=== PATIENT | female | born 1980 | race Caucasian/White ===

== ENCOUNTER 2022-12-09 13:49 | Outpatient (RCR) | payer BC, SELFPAY | END 2022-12-10 13:30 | disposition home or self-care (01) | LOC: PT 13:49 | PROVIDERS: PCP Family Medicine; Visit Provider Family Medicine | DX: H81.313 Aural vertigo, bilateral (principal) | CPT/HCPCS: 97110; 97161 ==

== ENCOUNTER 2023-09-29 09:34 | Outpatient (OUT) | payer OTHER, SELFPAY ==
--- NOTE | 2023-09-29 | US_ITS ---
[address] [address] Patient Name: SHREYAS DU MRN: [id number] date: 1980 Sex: F Assigned Patient Location: [facility] Current Patient Location: [facility] Accession/Order Number: [id number] Exam Date: 09/29/2023 09:43 Report Date: 09/29/2023 17:11 At the request of: TORIE SELF Procedure: US pelvis transvaginal EXAMINATION: US pelvis transvaginal HISTORY: ADNEXAL FULLNESS COMPARISON: No relevant comparison available. TECHNIQUE: Transabdominal and/or transvaginal sonographic examination was performed as indicated by examination type. FINDINGS: UTERUS: Hysterectomy. RIGHT OVARY: Contains an irregular, heterogeneous, hypoechoic area, 1.6 x 0.8 x 1.4 cm. Duplex Doppler demonstrates normal waveform and flow; resistive index 0.5. Ovary size: 2.6 x 2.1 x 1.9 cm LEFT OVARY: Not seen. No suspicious adnexal findings. CUL-DE-SAC: Unremarkable. No significant free fluid. BLADDER: Unremarkable. OTHER: None. US/US pelvis transvaginal IMPRESSION: 1. Complex cyst/collapsing cyst suspected within right ovary. Consider follow-up ultrasound evaluation 6 weeks to document clearing. 2. No specific findings to account for patient's symptoms. Electronically authenticated by: SHARONDA TONEY Date: 09/29/2023 17:11
== END 2023-09-29 09:35 | disposition home or self-care (01) ==
LOC: NOMS 09:38
PROVIDERS: PCP Family Medicine; Visit Provider Obstetrics & Gynecology
DX: Z12.4 Encounter for screening for malignant neoplasm of cervix (principal); Z90.710 Acquired absence of both cervix and uterus
CPT/HCPCS: 76830; G0145

== ENCOUNTER 2023-09-29 19:40 | Outpatient (REF) | payer OTHER, SELFPAY | END 2023-09-29 19:41 | disposition home or self-care (01) | LOC: LAB 19:40 | PROVIDERS: PCP Family Medicine; Visit Provider Obstetrics & Gynecology | DX: Z12.4 Encounter for screening for malignant neoplasm of cervix (principal) | CPT/HCPCS: G0145 ==

== ENCOUNTER 2024-03-19 14:08 | Outpatient (OUT) | payer OTHER, SELFPAY ==
--- OUTSIDE RECORDS SUMMARY | 2024-03-19 14:27 | XMS_ITS | CCD ---
Author Organization [facility] Care Team Providers Care Triage Register Nurse Name Role Phone Tala Johnson Unavailable Unavaila Dalton Moses Unavailable UnavailMeka Healy Sangita Unavailable Unavailable Dalton Olvera Unavailable UnavailSilas Jack Primary Care Physician [phone] MD Silas Haider Primary Care Provider Torie Walker Attending Provider CLAIR ., DR VOGT Attending Unavailable CLAIR ., DR VOGT Consulting Unavailable CLAIR ., DR VOGT Admitting Unavailable Silas Haider Primary Care Physician MD Silas Haider Primary Care Provider Torie Walker Attending Provider [phone] TORIE WALKER Attending Unavailable TORIE WALKER Attending Unavailable MD Silas Haider Primary Care Provider DO Torie Walker Attending Provider MANDI Sánchez Attending Provider Silas Haider Primary Care Unavailable Torie Walker Admitting Unavailable Torie Walker Attending Unavailable Manisha Sánchez Admitting UnavailManisha Mcbride Attending UnavailSilas Jack Admitting Unavailable Silas Haider Attending Unavailable Silas Haider Attending Unavailable Silas Haider Attending Unavailable Silas Haider Referring Unavailable Silas Haider Admitting Unavailable Silas Haider Attending Unavailable Silas Haider Attending Unavailable Silas Haider Admitting Unavailable Silas Haider Attending Unavailable Silas Haider Attending Unavailable Silas Haider Attending Unavailable Silas Haider Attending Unavailable Silas Haider Attending Unavailable Silas Haider Admitting Unavailable Silas Haider Attending Unavailable Allergies Allergy Classification Reported Allergen(s) Allergy Type Date of Onset Reaction(s) Facility (12 sources) Morphine; Translations: [morphine] Drug Allergy 7 Itching (finding) [facility] (5 sources) aprepitant; Translations: [aprepitant] Drug Allergy 7 Unknown Reaction [facility] (1 source) Morphine Drug Allergy 4 [facility] Repository Medications Current Medications Medication Drug Class(es) Dates Sig (Normalized) Sig (Original) 0.5 ML semaglutide 2 MG/ML Auto-Injector (1 source) Start: 09-09-2021 End: 11-04-2021 Wegovy (1 mg dose) subcutaneous solution 1 mg, SubCutaneous, qWeek, INJECT 1 PEN UNDER THE SKIN EVERY WEEK, X 4 week(s), # 4 EA, Refills(s) 1, Pharmacy: [facility] #[id number], 171, cm, 09/09/21 13:28:00 EDT, Height/Length Dosing, 75.9, kg, 09/09/21 13:28:00 EDT, Weight Dosing Start Date: 09/09/21 Stop Date: 11/04/21 Status: Ordered 0.75 ML semaglutide 3.2 MG/ML Auto-Injector [Wegovy] (2 sources) Start: 03-31-2022 inject 2.4 mg by subcutaneous injection every week Wegovy (2.4 mg dose) subcutaneous solution 2.4 mg, SubCutaneous, qWeek, # 12 EA, Refills(s) 1, Pharmacy: [facility] #[id number], 171, cm, 03/31/22 16:52:00 EST, Height/Length Dosing, 75.7, kg, 03/31/22 16:52:00 EST, Weight Dosing Start Date: 03/31/22 Status: Ordered Start: 12-31-2021 inject 2.4 mg by sub cutaneous injection every week Wegovy (2.4 mg dose) subcutaneous solution 2.4 mg, SubCutaneous, qWeek, # 12 EA, Refills(s) 1, Pharmacy: [facility] #[id number], 171, cm, 12/31/21 16:30:00 EDT, Height/Length Dosing, 76.7, kg, 12/31/21 16:30:00 EDT, Weight Dosing Start Date: 12/31/21 Status: Ordered 12 hr buPROPion hydrochloride 100 mg extended release oral tablet (5 sources) Aminoketone Start: 09-09-2021 take 1 tablet by mouth once daily buPROPion 100 mg ER Tab 100 mg = 1 tab(s), Oral, Daily, Refills(s) 0 Start Date: 09/09/21 Status: Ordered Start: 01-18-2017 End: 12-02-2023 take 1 tablet by mouth once daily Bupropion Hcl (Wellbutrin Sr) 200 mg Tablet Extended Release 12 Hr Discontinued 200 MG PO daily January 18, 2017 12:00am December 02, 2023 2:37pm calcium carbonate 1500 mg / cholecalciferol 800 unt chewable tablet (4 sources) Vitamin D Start: 01-18-2017 Calcium Carbonate-Vitamin D3 (Caltrate 600 + D) 600 mg (1,500 mg)-800 unit Tablet,Chewable Active 1 TAB PO Twice daily January 18, 2017 12:00am clindamycin 300 mg oral capsule (2 sources) Lincosamide Antibacterial Start: 11-15-2023 take 1 capsule by mouth twice daily clindamycin 300 mg oral cap 300 mg = 1 cap(s), Oral, BID, # 20 cap(s), Refills(s) 0, Pharmacy: [facility]/pharmacy #[id number], 171, cm, 11/15/23 11:43:00 EDT, Height/Length Dosing, 77.3, kg, 11/15/23 11:43:00 EDT, Weight Dosing Start Date: 11/15/23 Status: Ordered clonazePAM 0.5 mg oral tablet (14 sources) Benzodiazepine Start: 09-09-2021 take 1 tablet by mouth in the morning, then take 2 tablets by mouth at bedtime ClonazePAM 0.5 mg Tab See Instructions, Take one orally in the am and 2 at bedtime, Refills(s) 0 Start Date: 09/09/21 Status: Ordered Start: 09-09-2021 take 0.05 mg by mout h once daily at bedtime ClonazePAM 0.5 mg Tab 0.05 mg/kg, Oral, Once a day (at bedtime), Refills(s) 0 Start Date: 09/09/21 Status: Ordered Start: 03-28-2018 take 0.5 mg by mouth twice daily Clonazepam (Klonopin) 1 mg Tablet Active 0.5 MG PO Twice daily March 28, 2018 1:00am Start: 01-18-2017 End: 11-08-2018 take 1 tablet by mouth three times daily Clonazepam Discontinued 0.5 - 1 TAB PO Three times daily January 18, 2017 12:00am November 08, 2018 8:08am fluconazole 150 mg oral tablet (1 source) Azole Antifungal Start: 12-02-2023 Fluconazole A ctive 150 MG PO Q3D 2 December 02, 2023 12:00am Take 1, repeat after 72 hours if symptoms continue lamoTRIgine (11 sources) Mood Stabilizer, Anti-epileptic Agent Start: 12-02-2023 Lamotrigine Active MG PO December 02, 2023 12:00am Start: 12-31-2021 take 1 tablet by fran th once daily LaMICtal XR 250 mg oral tablet, extended release 250 mg = 1 tab(s), Oral, Daily, Refills(s) 0 Start Date: 12/31/21 Status: Ordered Start: 06-13-2019 End: 12-02-2023 take 100 mg by mouth once daily Lamotrigine Discontinu ed 100 MG PO Daily June 13, 2019 1:00am December 02, 2023 2:37pm lurasidone hydrochloride 60 mg oral tablet (11 sources) Atypical Antipsychotic Start: 09-09-2021 take 1 tablet by mouth once daily Latuda 60 mg oral tablet 60 mg = 1 tab(s), Oral, Daily, Refills(s) 0 Start Date: 09/09/21 Status: Ordered Start: 01-27-2017 End: 12-02-2023 take 1 tablet by mouth once daily Lurasidone (Latuda) 40 mg Tablet Discontinued 40 MG PO Daily March 28, 2018 1:00am October 03, 2018 8:29am omeprazole 40 mg delayed release oral capsule (2 sources) Proton Pump Inhibitor Start: 03-31-2022 take 1 capsule by mouth once daily omeprazole 40 mg Cap-DR 40 mg = 1 cap(s), Oral, Daily, # 90 cap(s), Refills(s) 1, [id number], cm, 03/31/22 16:52:00 EST, Height/Length Dosing, 75.7, kg, 03/31/22 16:52:00 EST, Weight Dosing Start Date: 03/31/22 Status: Ordered Start: 12-31-2021 [facility] omeprazole 40 mg Cap-DR 40 mg = 1 cap(s), Oral, Daily, # 90 cap(s), Refills(s) 1, Pharmacy: [facility]/pharmacy #[id number], 171, alex, 12/31/21 16:30:00 EDT, Height/Length Dosing, 76.7, kg, 12/31/21 16:30:00 EDT, Weight Dosing Start Date: 12/31/21 Status: Ordered omeprazole 40 mg Cap-DR (1 source) Start: 09-09-2021 End: 12-08-2021 take 1 capsule by mouth once daily omeprazole 40 mg Cap-DR 40 mg = 1 cap(s), Oral, Daily, X 90 day(s), # 90 cap(s), Refills(s) 0, Pharmacy: [facility]/pharmacy #[id number], 171, , 09/09/21 13:28:00 EDT, Height/Length Dosing, 75.9, kg, 09/09/21 13:28:00 EDT, Weight Dosing Start Date: 09/09/21 Stop Date: 12/08/21 Status: Ordered terconazole 4 mg/ml vaginal cream (1 source) Azole Antifungal Start: 12-02-2023 Terconazole A ctive VAGINAL December 02, 2023 12:00am Completed/Discontinued Medications Medication Drug Class(es) Dates Sig (Normalized) Sig (Original) acetaminophen 325 mg / HYDROcodone bitartrate 5 mg oral tablet (8 sources) Opioid Agonist Start: 10-03-2018 End: 11-08-2018 take 1 tablet by mouth every four to six hours Hydrocodone-Acetami nophen ([place]) 5-325 mg tablet Discontinued 1 TAB PO EVERY 4-6 HOURS 40 7 October 03, 2018 November 08, 2018 8:07am Start: 01-18-2017 End: 01-27-2017 take 2 tablets by mouth every four to six hours Hydrocodone-Acetaminophen ([place]) 5-325 mg Tablet Discontinued 2 TAB PO EVERY 4-6 HOURS January 18, 2017 12:00am January 27, 2017 8:37am amLODIPine 10 mg oral tablet (20 sources) Dihydropyridine Calcium Channel Ted Start: 01-18-2017 End: 12-08-2021 take 10 mg by mouth once daily Amlodipine Discontinued 10 MG PO Daily 90 November 08, 2018 11:40am January 03, 2020 3:26pm anastrozole 1 mg oral tablet (16 sources) Aromatase Inhibitor Start: 01-18-2017 End: 12-02-2023 take 1 tablet by mouth once daily Anastrozole (Arimidex) 1 mg Tablet Discontinued 1 MG PO daily June 11, 2019 9:50am December 02, 2023 2:37pm Black Cohosh (4 sources) Start: 01-18-2017 End: 01-27-2017 take 1 tablet by mouth once daily Black Cohosh Discontinued 1 TAB PO Daily January 18, 2017 12:00am January 27, 2017 8:21am busPIRone hydrochloride 30 mg oral tablet (8 sources) Start: 03-28-2018 End: 10-03-2018 take 30 mg by mouth twice daily Buspirone Discontinued 30 MG PO Twice daily March 28, 2018 1:00am October 03, 2018 8:27am Start: 01-18-2017 End: 07-20-2017 take 15 mg by mouth twice daily Buspirone Discontinued 15 MG PO Twice daily January 18, 2017 12:00am July 20, 2017 9:16am cholecalciferol 0.025 mg oral tablet (4 sources) Vitamin D Start: 01-18-2017 End: 07-20-2017 take 2 tablets by mouth once daily Cholecalciferol (Vitamin D3) Discontinued 2 TAB PO Daily January 18, 2017 12:00am July 20, 2017 9:17am cyclobenzaprine hydrochloride 10 mg oral tablet (4 sources) Muscle Relaxant Start: 03-08-2017 End: 03-28-2018 take 10 mg by mouth every eight hours Cyclobenzaprine Discontinued 10 MG PO Q8H March 08, 2017 11:29am March 28, 2018 9:17am docusate sodium 100 mg oral capsule (4 sources) Start: 01-18-2017 End: 03-28-2018 Docusate Sodium (Colace) 100 mg Capsule Discontinued 50 MG PO daily January 18, 2017 12:00am March 28, 2018 9:17am estradiol 0.1 mg/ml vaginal cream (8 sources) Estrogen Start: 01-18-2017 End: 10-03-2018 Estradiol (Estrace) 0.01 % (0.1 mg/gram) Cream Discontinued 1 GM VAGINAL As Directed January 18, 2017 12:00am October 03, 2018 8:28am Start: 01-18-2017 End: 07-20-2017 Estradiol (Vagifem) 10 mcg T ablet Discontinued 10 MCG VAGINAL Twice a Week January 18, 2017 12:00am July 20, 2017 9:18am FLUoxetine 40 mg oral capsule (8 sources) Serotonin Reuptake Inhibitor Start: 03-28-2018 End: 12-02-2023 take 1 capsule by mouth once daily Fluoxetine (Prozac) 40 mg Capsule Discontinued 40 MG PO Daily March 28, 2018 1:00am December 02, 2023 2:37pm Start: 01-18-2017 End: 03-28-2018 take 80 mg by mouth once daily Fluoxetine Discontinued 80 MG PO daily January 18, 2017 12:00am March 28, 2018 9:19am ibuprofen 800 mg oral tablet (4 sources) Nonsteroidal Anti-inflammatory Drug Start: 03-08-2017 End: 12-02-2023 take 800 mg by mouth three times daily Ibuprofen Discontinued 800 MG PO Three times daily March 08, 2017 11:26am December 02, 2023 2:37pm 1.5 ml leuprolide acetate 15 mg/ml prefilled syringe (4 sources) Gonadotropin Releasing Hormone Receptor Agonist Start: 01-18-2017 End: 06-13-2019 Leuprolide (3 Month) (Lupron Depot (3 Month)) 22.5 mg Syringe Kit Discontinued 22.5 MG IM Q6M January 18, 2017 12:00am June 13, 2019 9:19am lisinopril 5 mg oral tablet (8 sources) Angiotensin Converting Enzyme Inhibitor Start: 10-03-2018 End: 11-08-2018 take 5 mg by mouth once daily Lisinopril Discontinued 5 MG PO Daily October 03, 2018 12:00am November 08, 2018 8:08am Start: 01-18-2017 End: 01-27-2017 take 5 mg by mouth once daily Lisinopril Discontinued 5 MG PO daily January 18, 2017 12:00am January 27, 2017 8:20am phentermine hydrochloride 37.5 mg oral capsule (4 sources) Sympathomimetic Amine Anorectic Start: 11-08-2018 End: 06-13-2019 take 37.5 mg by mouth once daily 30 minutes after breakfast Phentermine Discontinued 37.5 MG PO Daily 90 90 November 08, 2018 12:00am June 13, 2019 9:11am must administer 30 minutes before or 1-2 hours after breakfast traZODone hydrochloride 50 mg oral tablet (4 sources) Serotonin Reuptake Inhibitor Start: 01-18-2017 End: 01-27-2017 take 50 mg by mouth at bedtime Trazodone Discontinued 50 MG PO Bedtime January 18, 2017 12:00am January 27, 2017 8:19am Problems Problem Classification Problem Date Documented Date Episodic/Chronic Anxiety disorders (7 sources) Anxiety disorder; Translations: [Anxiety disorder, unspecified] Onset: 09-09-2021 Chronic Cancer of breast (8 sources) Malignant tumor of breast ; Translations: [Malignant neoplasm of unspecified site of right female breast] 03-28-2018 Chronic Conditions associated with dizziness or vertigo (3 sources) Benign paroxysmal positional vertigo 12-08-2022 Episodic Esophageal disorders (7 sources) Gastroesophageal reflux disease without esophagitis; Translations: [Gastro-esophageal reflux disease without esophagitis] Onset: 09-09-2021 Chronic Essential hypertension (11 sources) Essential hypertension; Translations: [Essential (primary) hypertension] Onset: 09-09-2021 Chronic Immunizations and screening for infectious disease (1 source) Encounter for screening for human papillomavirus (HPV); Translations: [ENC SCREENING HUMAN PAPILLOMAVIRUS] Onset: 09-30-2022 Episodic Inflammatory diseases of female pelvic organs (1 source) Acute vaginitis; Translations: [Vaginitis and vulvovaginitis, unspecified] 12-02-2023 Episodic Lymphadenitis (3 sources) Cervical lymphadenopathy 09-20-2023 Episodic Mood disorders (5 sources) Depressive disorder; Translations: [Depression, unspecified] Onset: 09-09-2021 Chronic Neoplasms of unspecified nature or uncertain behavior (4 sources) Neoplasm of uncertain behavior of skin of cheek; Translations: [Neoplasm of uncertain behavior of skin] 03-28-2018 Episodic Other aftercare (3 sources) Drug therapy finding; Translations: [Encounter for therapeutic drug level monitoring] 06-13-2019 Episodic Other aftercare (1 source) Long-term current use of drug therapy; Translations: [Encounter for therapeutic drug level monitoring] 06-13-2019 Episodic Other female genital disorders (1 source) Other specified noninflammatory disorders of vagina; Translations: [Other specified noninflammatory disorders of vagina] Onset: 12-02-2023 Episodic Other liver diseases (4 sources) Lesion of liver; Translations: [Liver disease, unspecified] 06-13-2019 Chronic Other nutritional; endocrine; and metabolic disorders (6 sources) Calorie overload 09-09-2021 Chronic Other nutritional; endocrine; and metabolic disorders (1 source) Excessive eating - polyphagia; Translations: [Polyphagia] Onset: 09-09-2021 Episodic Other nutritional; endocrine; and metabolic disorders (1 source) Overweight in adulthood with body mass index of 25 or more but less than 30; Translations: [Body mass index (BMI) 26.0-26.9, adult] Onset: 12-31-2021 Episodic Other screening for suspected conditions (not mental disorders or infectious disease) (13 sources) Patient encounter status; Translations: [Encounter for screening for osteoporosis] Onset: 09-27-2022 01-05-2020 Episodic Otitis media and related conditions (3 sources) Serous otitis media 09-20-2023 Episodic Residual codes; unclassified (4 sources) History of hysterectomy for benign disease; Translations: [Acquired absence of both cervix and uterus] 01-27-2017 Episodic Screening and history of mental health and substance abuse codes (1 source) H/O: Disorder; Translations: [Personal history of nicotine dependence] Onset: 12-31-2021 Episodic Sprains and strains (4 sources) Strain of neck muscle; Translations: [Strain of muscle, fascia and tendon at neck level, initial encounter] 06-13-2019 Episodic Unclassified (3 sources) Patient encounter status 09-22-2022 Results Test Name Value Interpretation Reference Range Facility Ambulatory Visit Summaryon 1 Ambulatory Visit Summary Ambulatory Visit Summary CELESET DU :1980 Visit Date:03/05/2024 Ambulatory Visit Instructions Your Diagnosis Excessive dietary caloric intake Anxiety and depression Insomnia Osteoarthritis BMI 27.0-27.9,adult Over weight Former smoker Depression, unspecified Your Care Team Attending Physician - Silas Haider MD Primary Care Physician - Silas Haider MD This Is Your Medications List amlodipine (amLODIPine 10 mg Tab) clonazepam (ClonazePAM 0.5 mg Tab) lamotrigine (LaMICtal XR 250 mg oral tablet, extended release) phentermine (Adipex-P 37.5 mg oral capsule) Procedures Performed Hysterectomy (2013), Tubal ligation (2011), Delivery (11/23/2007), Delivery (07/21/1999), Mastectomy of right breast. Discharge Vitals Temperature (Temporal Artery) 36.8 ?C Heart Rate (Peripheral) 104 Respiratory Rate 16 Blood Pressure 122/78 Height 171 cm Height 67 in Weight 79.6 kg Weight 175.12 lb BMI 27.22 What to do next Scheduled Follow-Up Appointments Tuesday 7:00 AM EST With: Silas Haider MD Where: [facility] [place] [id number]- Medications What How Much When Instructions Unchanged amlodipine (amLODIPine 10 mg Tab) See instructions TAKE 1 TABLET BY MOUTH EVERY DAY Unchanged clonazepam (ClonazePAM 0.5 mg Tab) See instructions Take one orally in the am and 2 at bedtime Unchanged lamotrigine (LaMICtal XR 250 mg oral tablet, extended release) See instructions 50mg orally in the am and 250mg at night Unchanged phentermine (Adipex-P 37.5 mg oral capsule) 1 Capsules By Mouth Every day Allergies morphine (Itching) Problems Ongoing - Any problem that you are currently receiving treatment for. Annual physical exam Anxiety and depression BPPV (benign paroxysmal positional vertigo) Excessive dietary caloric intake GERD without esophagitis LAD (lymphadenopathy), cervical Primary hypertension Serous otitis media Sore throat Patient Survey You may receive a survey via text or e-mail asking about your office visit. Please share your experience with us by completing your survey. We appreciate your feedback and thank you for choosing us for your care. Normal [facility] Family Medicine Office/Clini c Noteon 03-05-2024 Family Medicine Office/Clinic Note Family Medicine Office/Clinic Note Chief Complaint The patient reports difficulty with arthritis pain and inadequately managed anxiety and depression. HPI Staff Celeste is a 43 year old female presenting for follow up weight Weight management Sleeping well:Yes, 6-8 hours Chest pain:No Tremors:No Headaches:Yes caffeine related Heart fluttering:No Blurred Vision:No Starting Weight: unsure when started Weight last visit: 186.78 Weight this visit: 175. SAW: 6 questions/concerns: wants to talk about sleep because you mentioned melatonin can cause depression so what can she take Would like to talk about her arthritis that she's never talked to you before and would like pain management needs a referral History of Present Illness The patient is a 43-year-old female presenting with ongoing issues of anxiety, depression, and osteoarthritis pain. The anxiety and depression have been long-standing and are currently managed with two clonazepam at night, which has been helpful but the patient expresses concern about the level of efficacy. The introduction of trazodone as a potential therapy for insomnia was discussed, though the efficacy remains untested as of yet. The patient inquired about the potential interactions of trazodone and clonazepam. The osteoarthritis symptoms appear to have originated from an improperly healed collarbone fracture sustained during adolescence. The patient reports increasing pain in the clavicle area, particularly exacerbating with movement. Pain is severe enough that the patient has resorted to frequent use of ibuprofen without satisfactory relief, thereby raising concerns about current analgesic strategies. An exploratory discussion around pain management, including potential referrals for specialized care and suggestions for glucosamine supplements and omega-3 fatty acids to manage inflammation, was conducted. Review of Systems PHQ Score Initial Depression Screen Score: 0 SCORE - Musculoskeletal: Reports collarbone pain and discomfort with movement. - Neurological: Reports issues with initiating and maintaining sleep. - Psychiatric: Reports symptoms consistent with anxiety and depression. Physical Exam Vitals & Measurements T: 36.8 ?C(Temporal Artery) HR: 104(Peripheral) RR: 16 BP: 122/78 SpO2: 99% HT: 67 in HT: 171 cm WT: 79.6 kg WT: 175.12 lb BMI: 27.22 General: alert, no acute distress ENMT: oral mucosa moist Cardiovascular: Regular rate and rhythm, normal peripheral perfusion Respiratory: Lungs clear to auscultation, respirations non labored Extremities: no deformity, no trauma Neurological: oriented x 4, level of consciousness appropriate for age, CN II-XII intact, motor strength equal & normal bilaterally, speech normal Abdomen: Soft, Non-tender, Non-distended, + Bowel sounds Assessment/Plan 1. Excessive dietary caloric intake (R63.2: Polyphagia) Continue on adipex as before. Tachycardia is felt to be work related rather than meds. Ordered: trazodone, 25 mg = 0.5 tab(s), Oral, Once a day (at bedtime), # 15 tab(s), Refills(s) 0, Pharmacy: [facility], 171, cm, 03/05/24 15:51:00 EDT, Height/Length Dosing, 79.6, kg, 03/05/24 15:51:00 EDT, Weight Dosing [facility] External Ambulatory Referral 2. Anxiety and depression (F41.9: Anxiety disorder, unspecified) The patient's anxiety and depression are currently managed with clonazepam, which she has found beneficial for several years. To address the insomnia associated with this condition, we discussed initiating trazodone, given its dual use as an antidepressant with sedative properties. Trazodone will be started at a low dose for better sleep management, with attention to any interactions with current medications and potential for adverse effects on depressive symptoms. Ordered: trazodone, 25 mg = 0.5 tab(s), Oral, Once a day (at bedtime), # 15 tab(s), Refills(s) 0, Pharmacy: [facility], 171, cm, 03/05/24 15:51:00 EDT, Height/Length Dosing, 79.6, kg, 03/05/24 15:51:00 EDT, Weight Dosing [facility] External Ambulatory Referral 3. Insomnia (G47.00: Insomnia, unspecified) Insomnia has been persistent, with clonazepam partially addressing the symptoms. Trazodone was suggested as an adjunct therapy to improve sleep continuity. The prescribed approach involves monitoring response to trazodone, particularly its efficacy in improving sleep patterns without adversely affecting daytime functionality. Ordered: trazodone, 25 mg = 0.5 tab(s), Oral, Once a day (at bedtime), # 15 tab(s), Refills(s) 0, Pharmacy: [facility], 171, cm, 03/05/24 15:51:00 EDT, Height/Length Dosing, 79.6, kg, 03/05/24 15:51:00 EDT, Weight Dosing [facility] External Ambulatory Referral 4. Osteoarthritis (M19.90: Unspecified osteoarthritis, unspecified site) The patient reports exacerbated osteoarthritis symptoms focused around the clavicle. Present management strategies, including the use of [id number] analgesics, have not (more content not included)... Normal [facility] Comment on above: Result Comment: Elec tronically Signed By: Vitaly SERRANO, Silas Vinson.br\Date and Time Signed: 03/05/24 16:14 EDT Family Medicine Office/Clini c Noteon 02-06-2024 Family Medicine Office/Clinic Note Family Medicine Office/Clinic Note HPI Staff Celeste is a 43 year old female presenting for sick visit Acute: sore throat scratchy and feels swollen when she swallows patient present for sore throat, onest: not sure had been on vacation so maybe last tue or sinus congestion- no swollen nodes- one on right side not huge but when swallows food it scratches red/ white spots- no fever/chills- none body aches- none nausea/ vomiting-none cough- no ear pain no allergies- sneezing only no more than normal medication taken- tried arminda while on vacation History of Present Illness See staff HPI. Review of Systems PHQ Score Initial Depression Screen Score: 0 SCORE Physical Exam Vitals & Measurements T: 36.8 ?C(Oral) HR: 92(Peripheral) RR: 16 BP: 126/80 SpO2: 99% HT: 67 in HT: 171 cm WT: 84.9 kg WT: 186.78 lb BMI: 29.03 General: alert, no acute distress ENMT: oral mucosa moist, very small lymph node on the right cervical chain, slight erythema to the soft palate. Cardiovascular: regular rate and rhythm, normal peripheral perfusion Respiratory: Lungs CTA, respirations non labored Extremities: no deformity, no trauma Neurological: oriented x 4, LOC appropriate for age, CN II-XII intact, motor strength equal & normal bilaterally, speech normal Abdomen: Soft, Nontender, Non-distended, + BS Assessment/Plan 1. Sore throat (J02.9: Acute pharyngitis, unspecified) Most likely postnasal drip. Advised Benadryl at night. If no improvement we will call in antibiotics. 2. Anxiety and depression (F41.9: Anxiety disorder, unspecified) Well-controlled. Will monitor on Adipex. 3. BMI 29.0-29.9,adult (Z68.29: Body mass index [BMI] 29.0-29.9, adult) BMI education added 4. Overweight (E66.3: Overweight) Diet and exercise advised 5. Former smoker (Z87.891: Personal history of nicotine dependence) Please continue not to smoke Ordered: clindamycin, 300 mg = 1 cap(s), Oral, BID, # 20 cap(s), Refills(s) 0, Pharmacy: [id number], 171, cm, 11/15/23 11:43:00 EDT, Height/Length Dosing, 77.3, kg, 11/15/23 11:43:00 EDT, Weight Dosing 6. Excessive dietary caloric intake (R63.2: Polyphagia) Will do Adipex at this time. Will do it at a lower BMI as her anxiety and depression have some concerns and her weight. Orders: phentermine, 37.5 mg = 1 cap(s), Oral, Daily, # 30 cap(s), Refills(s) 0, Pharmacy: [id number], 171, cm, 02/06/24 16:09:00 EDT, Height/Length Dosing, 84.9, kg, 02/06/24 16:09:00 EDT, Weight Dosing Follow-up No qualifying data available Patient Education BMI for Adults Problem List/Past Medical History Ongoing Annual physical exam Anxiety and depression BPPV (benign paroxysmal positional vertigo) Excessive dietary caloric intake GERD without esophagitis LAD (lymphadenopathy), cervical Primary hypertension Serous otitis media Sore throat Historical No qualifying data Procedure/Surgical History Hysterectomy (2013), Tubal ligation (2011), Delivery (11/23/2007), Delivery (07/21/1999), Mastectomy of right breast. Medications Adipex-P 37.5 mg oral capsule, 37.5 mg= 1 cap(s), Oral, Daily amLODIPine 10 mg Tab, See Instructions, 1 refills ClonazePAM 0.5 mg Tab, See Instructions LaMICtal XR 250 mg oral tablet, extended release, 250 mg= 1 tab(s), Oral, Daily Allergies morphine (Itching) Social History Alcohol Current, 1-2 times per month, 12/31/2021 Previous treatment: None., 09/09/2021 Substance Abuse Past, Marijuana, Stopped age 40 Years., 09/09/2021 Tobacco Former smoker, quit more than 30 days ago Tobacco Use:. Never Smokeless Tobacco Use:. Cigarettes, Started age 14.0 Years. Stopped age 30 Years. Household tobacco concerns: Yes., 02/06/2024 Household tobacco concerns: No., 03/31/2022 Family History Acute myocardial infarction: Father. Diabetes mellitus type 2: Father. Hypertension: Mother and Father. Malignant lymphoma: Father. Immunizations Vaccine Date Status Comments influenza virus vaccine, inactivated - Not Given Postpone due to refusal influenza virus vaccine, inactivated 02/2022 Recorded SARS-CoV-2 (COVID-19) mRNA BNT-162b2 vax 09/02/2020 Recorded SARS-CoV-2 (COVID-19) mRNA BNT-162b2 vax 08/12/2020 Recorded influenza virus vaccine, inactivated 04/04/2020 Recorded influenza virus vaccine, inactivated 03/14/2018 Recorded influenza virus vaccine, inactivated 03/13/2017 Recorded influenza virus vaccine, inactivated 03/11/2015 Recorded Normal [facility] Comment on above: Result Comment: Elec tronically Signed By: Vitaly SERRANO, Silas Vinson.br\Date and Time Signed: 02/06/24 18:09 EDT Urine Cultureon 12-02-2023 Bacteria identified Cx Nom (U) <9,000 colonies/ml mixed bacterial skin contaminants 2 Days PERFORMED BY: [place] [address] PATHOLOGIST COATER SLATE YENI BAH M.D. Normal [facility] Comment on above: Performed By: #### C UU #### [place] [address] [place] #### VAGINITIS+ #### [facility] , Vaginitis Plus (VG+)on 12-01 Atopobium Vaginae Moderate - 1 Normal . The [facility] Comment on above: Result Comment: This test was developed and its performance characteristics determined by [facility]. It has not been cleared or approved by the Food and Drug Administration. Performed By: #### C UU #### [place] [address] [place] #### VAGINITIS+ #### [facility] , BVAB2 Low - 0 Normal . [facility] Comment on above: Result Comment: This test was developed and its performance characteristics determined by [facility]. It has not been cleared or approved by the Food and Drug Administration. Performed By: #### C UU #### [place] [address] [place] #### VAGINITIS+ #### [facility] , Dolores Albicans, FAISAL Negative Normal Negative [facility] Comment on above: Result Comment: This test was developed and its performance characteristics determined by [facility]. It has not been cleared or approved by the Food and Drug Administration. Performed By: #### C UU #### [place] [address] [place] #### VAGINITIS+ #### [facility] , Dolores Glabrata, FAISAL Negative Normal Negative [facility] Comment on above: Result Comment: This test was developed and its performance characteristics determined by [facility]. It has not been cleared or approved by the Food and Drug Administration. PERFORMED BY: [place] [address] PATHOLOGIST COATER SLATE YENI BAH M.D. Performed By: #### C UU #### [place] [address] [place] #### VAGINITIS+ #### [facility] , Chlamydia Trachomotis, FAISAL Negative Normal Negative [facility] Comment on above: Performed By: #### C UU #### [place] [address] [place] #### VAGINITIS+ #### [facility] , Megasphaera Low - 0 Normal . [facility] Comment on above: Result Comment: This test was developed and its performance characteristics determined by [facility]. It has not been cleared or approved by the Food and Drug Administration. Calculate total score by adding the 3 individual bacterial vaginosis (BV) marker scores together. Total score is interpreted as follows: Total score 0-1: Indicates the absence of BV. Total score 2: Indeterminate for BV. Additional clinical data should be evaluated to establish a diagnosis. Total score 3-6: Indicates the presence of BV. Performed By: #### C UU #### [address] #### VAGINITIS+ #### [facility] , Neisseria Gonorrhoeae, FAISAL Negative Normal Negative [facility] Comment on above: Result Comment: Perf ormed at: =G - [facility] [address] [id number] [address] Magistrate: Dee Mendez MD, Phone: [phone] Performed By: #### C UU #### [address] #### VAGINITIS+ #### [facility] , Tric Vag FAISAL Negative Normal Negative [facility] Comment on above: Performed By: #### C UU #### [address] #### VAGINITIS+ #### [facility] , US Head/Neck Soft Tissueon 0 11-19-2023 US Head/Neck Soft Tissue Exam Date/Time: 11/18/2023 15:28 EDT Reason for Exam: R59.1;Mass Report IMPRESSION: BILATERAL NORMAL-SIZED LYMPH NODES. CLINICAL HISTORY: Mass, R59.1 bilateral lumps in neck and under jaw. Intermittently palpable since August,. Again antibiotics 4 days ago. History carcinoma the breast. COMPARISON: NONE. FINDINGS: Sonographic interrogation was performed over the region of clinical concern. In the right submandibular area normal-sized lymph nodes are identified measuring up to 2.2 x 0.6 cm. In the left submandibular area normal-sized lymph nodes are visualized measuring up to 1.9 x 0.6 cm. Bilateral color-flow without anomaly. No cystic and no solid masses visualized. Ordering Provider: Silas Haider FINAL REPORT Dictated: 11/19/2023 10:03 am Nikolay Mann MD Signed (Electronic Signature): 11/19/2023 10:03 am Signed by: Nikolay Mann MD Transcribed by: DIANNA Technologist: ISAI Normal [facility] CBC w/ Auto Diffon Basophils (Bld) [#/Vol] 0.0 E9/L Normal 0.0-0.2 [facility] Comment on above: Performed By: #### 2 [id number] #### [facility] [address] [place] [address] Eosinophils (Bld) [#/Vol] 0.5 E9/L Normal 0.0-0.5 [facility] Comment on above: Performed By: #### 2 [id number] #### [facility] [address] [place] [address] Eosinophils/100 WBC (Bld) 5.0 % Normal 0.0-8.0 [facility] Comment on above: Performed By: #### 2 [id number] #### [facility] [address] [place] [address] Erythrocyte distribution width (RBC) [Ratio] 12.6 % Normal 10.9-14.2 [facility] Comment on above: Performed By: #### 2 [id number] #### [facility] [address] [place] [address] Hematocrit (Bld) [Volume fraction] 42.8 % Normal 34.0-46.0 [facility] Comment on above: Performed By: #### 2 [id number] #### [facility] [address] [place] [address] Hemoglobin (Bld) [Mass/Vol] 15.0 g/dL Normal 12.0-16.0 [facility] Comment on above: Performed By: #### 2 [id number] #### [facility] [address] [place] [address] Lymphocytes (Bld) [#/Vol] 2.6 E9/L Normal 1.0-4.0 [facility] Comment on above: Performed By: #### 2 [id number] #### [facility] [address] [place] [address] Lymphocytes/100 WBC (Bld) 27.0 % Normal 14.0-50.0 [facility] Comment on above: Performed By: #### 2 [id number] #### [facility] [address] [place] [address] MCH (RBC) [Entitic mass] 33.5 pg Normal 27.0-34.0 [facility] Comment on above: Performed By: #### 2 [id number] #### [facility] [address] [place] [address] MCHC (RBC) [Mass/Vol] 35.1 g/dL Normal 31.4-36.0 [facility] Comment on above: Performed By: #### 2 [id number] #### [facility] [address] [place] [address] MCV (RBC) [Entitic vol] 95.4 fL Normal 80.0-100.0 [facility] Comment on above: Performed By: #### 2 [id number] #### [facility] [address] [place] [address] Metamyelocytes/Leukocy kandace Manual cnt (Bld) [Pure # fraction] 1 % High 0-0 [facility] Comment on above: Performed By: #### 2 [id number] #### [facility] [address] [place] [address] Monocytes (Bld) [#/Vol] 0.6 E9/L Normal 0.2-1.0 [facility] Comment on above: Performed By: #### 2 [id number] #### [facility] [address] [place] [address] Neutrophils (Bld) [#/Vol] 5.8 E9/L Invalid Interpretation Code [facility] Comment on above: Performed By: #### 2 [id number] #### [facility] [address] [place] [address] Platelet 333.0 E9/L Normal 150.0-500.0 [facility] Comment on above: Performed By: #### 2 [id number] #### [facility] [address] [place] [address] Platelet mean volume (Bld) [Entitic vol] 8.0 fL Normal 6.4-10.8 [facility] Comment on above: Performed By: #### 2 [id number] #### [facility] [address] [place] [address] RBC (Bld) [#/Vol] 4.5 E12/L Normal 4.3-5.9 [facility] Comment on above: Performed By: #### 2 [id number] #### [facility] [address] [place] [address] RBC size Nom (Bld) NORMAL Invalid Interpretation Code [facility] Comment on above: Performed By: #### 2 [id number] #### [facility] [address] [place] [address] Segmented neutrophils/100 WBC (Bld) 61.0 % Normal 36.0-75.0 [facility] Comment on above: Performed By: #### 2 [id number] #### [facility] [address] [place] [address] WBC corrected for nucl RBC Auto (Bld) [#/Vol] 9.6 E9/L Normal 4.0-11.0 [facility] Comment on above: Performed By: #### 2 [id number] #### [facility] [address] [place] [address] Family Medicine Office/Clini c Noteon 11-15-2023 Family Medicine Office/Clinic Note HPI Staff Celeste is a 43 year old female presenting for acute visit Acute swollen lymph nodes Intermittent left and right side. Today the right side is swelled and would like to discuss having and ultra sound History of Present Illness - Please see staff HPI. Review of Systems PHQ Score Initial Depression Screen Score: 0 SCORE Physical Exam Vitals & Measurements HR: 88(Peripheral) RR: 18 BP: 134/88 HT: 67 in HT: 171.0 cm WT: 77.3 kg WT: 170.06 lb BMI: 26.44 Large mobile lymph node noted under the Jaw on the R Assessment/Plan 1. Lymphadenopathy (R59.1: Generalized enlarged lymph nodes) - Will do Clinda again - With this constant reoccurrence, Dental work up, and family hx of lymphoma, U/S has been ordered - Asking to do both side - Follow up when studies are done Ordered: clindamycin, 300 mg = 1 cap(s), Oral, BID, # 20 cap(s), Refills(s) 0, Pharmacy: [id number], 171, cm, 11/15/23 11:43:00 EDT, Height/Length Dosing, 77.3, kg, 11/15/23 11:43:00 EDT, Weight Dosing CBC w/ Auto Diff Lab Specimen Collect 20046 US Extremity Non-Vascular Limited Right 2. BMI 26.0-26.9,adult (Z68.26: Body mass index [BMI] 26.0-26.9, adult) - BMI education added Ordered: clindamycin, 300 mg = 1 cap(s), Oral, BID, # 20 cap(s), Refills(s) 0, Pharmacy: [id number], 171, cm, 11/15/23 11:43:00 EDT, Height/Length Dosing, 77.3, kg, 11/15/23 11:43:00 EDT, Weight Dosing CBC w/ Auto Diff Lab Specimen Collect 23811 US Extremity Non-Vascular Limited Right 3. Former smoker (Z87.891: Personal history of nicotine dependence) - Please continue to not smoke Ordered: clindamycin, 300 mg = 1 cap(s), Oral, BID, # 20 cap(s), Refills(s) 0, Pharmacy: [id number], 171, cm, 11/15/23 11:43:00 EDT, Height/Length Dosing, 77.3, kg, 11/15/23 11:43:00 EDT, Weight Dosing CBC w/ Auto Diff Lab Specimen Collect 39373 US Extremity Non-Vascular Limited Right Total time spent preparing for the encounter, evaluating and assessing the patient, documenting the visit, and ordering appropriate follow-up work was 30 minutes. Follow-up No qualifying data available Problem List/Past Medical History Ongoing Annual physical exam Anxiety and depression BPPV (benign paroxysmal positional vertigo) Excessive dietary caloric intake GERD without esophagitis LAD (lymphadenopathy), cervical Primary hypertension Serous otitis media Historical No qualifying data Procedure/Surgical History Hysterectomy (2013), Tubal ligation (2011), Delivery (11/23/2007), Delivery (07/21/1999), Mastectomy of right breast. Medications amLODIPine 10 mg Tab, See Instructions, 1 refills clindamycin 300 mg oral cap, 300 mg= 1 cap(s), Oral, BID ClonazePAM 0.5 mg Tab, See Instructions LaMICtal XR 250 mg oral tablet, extended release, 250 mg= 1 tab(s), Oral, Daily Allergies morphine (Itching) Social History Alcohol Current, 1-2 times per month, 12/31/2021 Previous treatment: None., 09/09/2021 Substance Abuse Past, Marijuana, Stopped age 40 Years., 09/09/2021 Tobacco Former smoker, quit more than 30 days ago Tobacco Use:. Never Smokeless Tobacco Use:. Cigarettes, Started age 12.0 Years. Stopped age 30 Years. Household tobacco concerns: Yes., 11/15/2023 Household tobacco concerns: No., 03/31/2022 Family History Acute myocardial infarction: Father. Diabetes mellitus type 2: Father. Hypertension: Mother and Father. Malignant lymphoma: Father. Immunizations Vaccine Date Status Comments influenza virus vaccine, inactivated - Not Given Postpone due to refusal influenza virus vaccine, inactivated 02/2022 Recorded SARS-CoV-2 (COVID-19) mRNA BNT-162b2 vax 09/02/2020 Recorded SARS-CoV-2 (COVID-19) mRNA BNT-162b2 vax 08/12/2020 Recorded influenza virus vaccine, inactivated 04/04/2020 Recorded influenza virus vaccine, inactivated 03/14/2018 Recorded influenza virus vaccine, inactivated 03/13/2017 Recorded influenza virus vaccine, inactivated 03/11/2015 Recorded Normal [facility] Comment on above: Result Comment: Elec tronically Signed By: Vitaly SERRANO, Silas Vinson.br\Date and Time Signed: 11/15/23 12:16 EDT HEMATOLOGYOrdered By: SYSTEM SYSTEM on 11-15-2023 Basophils (Bld) [#/Vol] 0.0 E9/L Normal 0.0 - 0.2 E9/L [facility] Basophils/100 WBC (Bld) 0.0 % Normal 0.0 - 2.0 % [facility] Eosinophils (Bld) [#/Vol] 0.5 E9/L Normal 0.0 - 0.5 E9/L [facility] Eosinophils/100 WBC (Bld) 5.0 % Normal 0.0 - 8.0 [facility] Erythrocyte distribution width (RBC) [Ratio] 12.6 % Normal 10.9 - 14.2 % [facility] Hematocrit (Bld) [Volume fraction] 42.8 % Normal 34.0 - 46.0 % [facility] Hemoglobin (Bld) [Mass/Vol] 15.0 g/dL Normal 12.0 - 16.0 gm/dL [facility] Lymphocytes (Bld) [#/Vol] 2.6 E9/L Normal 1.0 - 4.0 E9/L [facility] Lymphocytes/100 WBC (Bld) 27.0 % Normal 14.0 - 50.0 % [facility] MCH (RBC) [Entitic mass] 33.5 pg Normal 27.0 - 34.0 pg [facility] MCHC (RBC) [Mass/Vol] 35.1 g/dL Normal 31.4 - 36.0 gm/dL [facility] MCV (RBC) [Entitic vol] 95.4 fL Normal 80.0 - 100.0 fL [facility] Metamyelocytes/Leukocy kandace Manual cnt (Bld) [Pure # fraction] 1 % High 0 - 0 % [facility] Monocytes (Bld) [#/Vol] 0.6 E9/L Normal 0.2 - 1.0 E9/L [facility] Monocytes/100 WBC (Bld) 6.0 % Normal 4.0 - 14.0 % [facility] Neutrophils (Bld) [#/Vol] 5.8 E9/L Invalid Interpretation Code [facility] Platelet 333.0 E9/L Normal 150.0 - 500.0 E9/L [facility] Platelet mean volume (Bld) [Entitic vol] 8.0 fL Normal 6.4 - 10.8 fL [facility] RBC (Bld) [#/Vol] 4.5 E12/L Normal 4.3 - 5.9 E12/L [facility] RBC size Nom (Bld) NORMAL *NA* (11/15/23 12:14 PM) Invalid Interpretation Code [facility] Segmented neutrophils/100 WBC (Bld) 61.0 % Normal 36.0 - 75.0 % [facility] WBC corrected for nucl RBC Auto (Bld) [#/Vol] 9.6 E9/L Normal 4.0 - 11.0 E9/L [facility] RAD - Ultrasound Reporton RAD - Ultrasound Report [id number] Normal [facility] C Urineon 09-28-2023 Bacteria identified Cx Nom (U) Microbiology PROCEDURE: Urine Culture [R1] SOURCE: U CleanCatch BODY SITE: COLLECTED DATE/TIME: 09/20/2023 13:11 EDT RECEIVED DATE/TIME: 09/20/2023 18:31 EDT START DATE/TIME: 09/20/2023 18:31 EDT FREE TEXT SOURCE: Vitaly SERRANO, Silas Haider MD, Silas Lockwood AMENDED REPORTS Amended Report [] Verified Date/Time: 09/28/2023 12:52 EDT Wrong patient per [facility] 09/28/2023 12:51 CSS Patient credited. CSS Performing Locations R1: This test was performed at: [facility], [address] [place] [address], [id number]- , , Normal [facility] Comment on above: Performed By: #### 2 [id number] #### [facility] [address] [place] [address] Provider Letteron 09-26-2023 Provider Letter September 26, 2023 [place] [address] : 1980 Dear Celeste, We have been trying to reach you with no success. It is important that you return our call regarding your medication upon receiving this letter. Also, at the time of your call, please provide us with your current information. Thank you for your prompt attention to this matter. Sincerely, Family Medicine [place] [id number] [facility] MM screening mammo LT w/CADo n 09-22-2023 MM screening mammo LT w/CAD [facility] [place] [address] [place], [place] [id number] Mammography Report Signed with Addenda Patient: Celeste Du MR#: [id number] 17 : 1980 Acct:[id number] Age/Sex: 42 / F ADM Date: 09/22/23 Loc: [facility] Room: Type: [facility] Attending Dr: Torie Walker Copies to: Torie Haider MD Ordering Provider: Torie Walker Date of Service: 09/22/23 MM/MM screening mammo LT w/CAD: Z12.31 ADDENDUM 1 Addendum for billing purposes: Tomosynthesis craniocaudal and mediolateral oblique views of the left breast were obtained using low-dose digital technique. This examination was reviewed with the aid of CAD. Impression dictated by: Ant Rousseau Jr., D.O.09/22/2023 9:15 AM Dictation Location: [facility] Addendum Dictated By: Ant Rousseau Jr DO Addendum Signed By: 09/22/23914 Addendum Cosigned By: DD/ /16/913 TD/TT: 09/22/2307/16/914 CLINICAL DATA: Screening for malignancy. History of right-sided breast cancer status post mastectomy in 2015. SCREENING MAMMOGRAM - FULL FIELD DIGITAL WITH TOMOSYNTHESIS AND CAD COMPARISON:Mammogra ms dating back to 2020 Tomosynthesis craniocaudal and mediolateral oblique views of both breasts were obtained using low- dose digital technique. This examination was reviewed with the aid of CAD. FINDINGS: The breast tissue is composed of scattered fibroglandular densities. There are no dominant masses, typically malignant calcifications or architectural distortion. There has been no significant interval change. MM/MM screening mammo LT w/CAD IMPRESSION: NO MAMMOGRAPHIC EVIDENCE OF MALIGNANCY. ROUTINE FOLLOW-UP IS RECOMMENDED IN ONE YEAR. RESULT CODE: 1 Negative DENSITY CODE: 2 (approximately 25-50% glandular) FOLLOW UP: 1YR The false-negative rate of mammography is approximately 10-percent. Management of a palpable abnormality must be based on clinical grounds. Patient was entered into a reminder system with a target due date for the next mammogram. Impression dictated by: Ant Rousseau Jr., D.O.09/22/2023 9:09 AM Dictation Location: [facility] Transcribed By: LAKSHMI 09/22/23908 Dictated By: nAt Rousseau Jr, DO 09/22/23907 Signed By: 09/22/23908 Normal [facility] Ambulatory Visit Summaryon 0 09-20-2023 Ambulatory Visit Summary CELESTE DU :1980 Visit Date:09/20/2023 Ambulatory Visit Instructions Your Diagnosis BMI 25.0-25.9,adult Over weight Former smoker Your Care Team Attending Physician - Silas Haider MD Primary Care Physician - Silas Haider MD This Is Your Medications List amlodipine (amLODIPine 10 mg Tab) clonazepam (ClonazePAM 0.5 mg Tab) lamotrigine (LaMICtal XR 250 mg oral tablet, extended release) omeprazole (omeprazole 40 mg Cap-DR) semaglutide (Wegovy (2.4 mg dose) subcutaneous solution) Procedures Performed Hysterectomy (2013), Tubal ligation (2011), Delivery (11/23/2007), Delivery (07/21/1999), Mastectomy of right breast. Discharge Vitals Temperature (Oral) 36.8 ?C Heart Rate (Peripheral) 84 Respiratory Rate 16 Blood Pressure 122/80 Height 171 cm Height 67 in Weight 74.4 kg Weight 163.68 lb BMI 25.44 What to do next Scheduled Follow-Up Appointments Tuesday 7:15 AM EDT With: Silas Haider MD Where: [facility] [place] Normal [facility] Family Medicine Office/Clini c Noteon 09-20-2023 Family Medicine Office/Clinic Note HPI Staff Celeste is a 42 year old female presenting for follow up mood and htn Acute: tiny lump in jaw, left side, has a little bit of pain up in her ear and eye, she ? ear infection. Found the lump tuesday Patient is here for follow up on hypertension. How often are you checking your blood pressure? Doesnt check BP at home What are your average readings? N/A, Not checking at home Yearly BMP: 10/13/23 Follow up for Mental Status: Medication adherence- Yes, takes medication as prescribed Medication refill needed: _ Suicidal thoughts-Not at this time Most recent SAW: 10 Most recent PHQ9: 3 History of Present Illness - Please see staff HPI Physical Exam Vitals & Measurements T: 36.8 ?C(Oral) HR: 84(Peripheral) RR: 16 BP: 122/80 SpO2: 99% HT: 67 in HT: 171 cm WT: 74.4 kg WT: 163.68 lb BMI: 25.44 General: alert, no acute distress ENMT: oral mucosa moist, Very small LAD noted on the L cervical chain area. TTP Cardiovascular: regular rate and rhythm, normal peripheral perfusion Respiratory: Lungs CTA, respirations non labored Extremities: no deformity, no trauma Neurological: oriented x 4, LOC appropriate for age, CN II-XII intact, motor strength equal & normal bilaterally, speech normal Abdomen: Soft, Nontender, Non-distended, + BS Assessment/Plan 1. LAD (lymphadenopathy), cervical (R59.0: Localized enlarged lymph nodes) - Most likely 2/2 URI - Will monitor off ABX for two weeks - If still present, we will add ABX - If no improvement, U/S then surgery consult 2. Serous otitis media (H65.90: Unspecified nonsuppurative otitis media, unspecified ear) - Nasal saline, Flonase - Most likely Viral 3. Anxiety and depression (F41.9: Anxiety disorder, unspecified) - Stable and doing well. - NO issues with meds - Seeing Psych 4. Excessive dietary caloric intake (R63.2: Polyphagia) - Doing well off meds. - Continues to work on diet and exercise 5. GERD without esophagitis (K21.9: Gastro-esophageal reflux disease without esophagitis) - PPI stopped as GERD has resolved 6. BMI 25.0-25.9,adult (Z68.25: Body mass index [BMI] 25.0-25.9, adult) - BMI education uploaded Ordered: Urine Culture 7. Over weight (E66.3: Overweight) - Diet and exercise advised Ordered: Urine Culture 8. Former smoker (Z87.891: Personal history of nicotine dependence) - Please continue to not smoke Ordered: Urine Culture Depression, unspecified (F32.A: Depression, unspecified) Orders: amlodipine, See Instructions, TAKE 1 TABLET BY MOUTH EVERY DAY, # 90 tab(s), Refills(s) 1, Pharmacy: [facility], 171, cm, 09/20/23 10:53:00 EDT, Height/Length Dosing, 74.4, kg, 09/20/23 10:53:00 EDT, Weight Dosing Follow-up No qualifying data available Patient Education BMI for Adults Problem List/Past Medical History Ongoing Annual physical exam Anxiety and depression BPPV (benign paroxysmal positional vertigo) Excessive dietary caloric intake GERD without esophagitis LAD (lymphadenopathy), cervical Primary hypertension Serous otitis media Historical No qualifying data Procedure/Surgical History Hysterectomy (2013), Tubal ligation (2011), Delivery (11/23/2007), Delivery (07/21/1999), Mastectomy of right breast. Medications amLODIPine 10 mg Tab, See Instructions, 1 refills ClonazePAM 0.5 mg Tab, See Instructions LaMICtal XR 250 mg oral tablet, extended release, 250 mg= 1 tab(s), Oral, Daily Allergies morphine (Itching) Social History Alcohol Current, 1-2 times per month, 12/31/2021 Previous treatment: None., 09/09/2021 Substance Abuse Past, Marijuana, Stopped age 40 Years., 09/09/2021 Tobacco Former smoker, quit more than 30 days ago Tobacco Use:. Never Smokeless Tobacco Use:. Cigarettes, Started age 14.0 Years. Stopped age 30 Years. Household tobacco concerns: Yes., 09/20/2023 Household tobacco concerns: No., 03/31/2022 Family History Acute myocardial infarction: Father. Diabetes mellitus type 2: Father. Hypertension: Mother and Father. Malignant lymphoma: Father. Immunizations Vaccine Date Status Comments influenza virus vaccine, inactivated - Not Given Postpone due to refusal influenza virus vaccine, inactivated 02/2022 Recorded SARS-CoV-2 (COVID-19) mRNA BNT-162b2 vax 09/02/2020 Recorded SARS-CoV-2 (COVID-19) mRNA BNT-162b2 vax 08/12/2020 Recorded influenza virus vaccine, inactivated 04/04/2020 Recorded influenza virus vaccine, inactivated 03/14/2018 Recorded influenza virus vaccine, inactivated 03/13/2017 Recorded influenza virus vaccine, inactivated 03/11/2015 Recorded Normal [facility] Comment on above: Result Comment: Elec tronically Signed By: Vitaly SERRANO, Silas Vinson.br\Date and Time Signed: 09/20/23 14:05 EDT Patient Educationon 09-20-19 24 Patient Education Nutrition BMI for Adults What is BMI? Body mass index (BMI) is a number that is calculated from a person's weight and height. BMI can help estimate how much of a person's weight is composed of fat. BMI does not measure body fat directly. Rather, it is an alternative to procedures that directly measure body fat, which can be difficult and expensive. BMI can help identify people who may be at higher risk for certain medical problems. What are BMI measurements used for? BMI is used as a screening tool to identify possible weight problems. It helps determine whether a person is obese, overweight, a healthy weight, or underweight. BMI is useful for: ? Identifying a weight problem that may be related to a medical condition or may increase the risk for medical problems. ? Promoting changes, such as changes in diet and exercise, to help reach a healthy weight. BMI screening can be repeated to see if these changes are working. How is BMI calculated? BMI involves measuring your weight in relation to your height. Both height and weight are measured, and the BMI is calculated from those numbers. This can be done either in [place] ([place] or metric measurements. Note that charts and online BMI calculators are available to help you find your BMI quickly and easily without having to do these calculations yourself. To calculate your BMI in [place] measurements: 1. Measure your weight in pounds (lb). 2. Multiply the number of pounds by 703. ? For example, for a person who weighs 180 lb, multiply that number by 703, which equals 126,540. 3. Measure your height in inches. Then multiply that number by itself to get a measurement called inches squared. ? For example, for a person who is 70 inches tall, the inches squared measurement is 70 inches x 70 inches, which equals 4,900 inches squared. 4. Divide the total from step 2 (number of lb x 703) by the total from step 3 (inches squared): 126,540 ? 4,900 = 25.8. This is your BMI. To calculate your BMI in metric measurements: 1. Measure your weight in kilograms (kg). 2. Measure your height in meters (m). Then multiply that number by itself to get a measurement called meters squared. ? For example, for a person who is 1.75 m tall, the meters squared measurement is 1.75 m x 1.75 m, which is equal to 3.1 meters squared. 3. Divide the number of kilograms (your weight) by the meters squared number. In this example: 70 ? 3.1 = 22.6. This is your BMI. What do the results mean? BMI charts are used to identify whether you are underweight, normal weight, overweight, or obese. The following guidelines will be used: ? Underweight: BMI less than 18.5. ? Normal weight: BMI between 18.5 and 24.9. ? Overweight: BMI between 25 and 29.9. ? Obese: BMI of 30 or above. Keep these notes in mind: ? Weight includes both fat and muscle, so someone with a muscular build, such as an athlete, may have a BMI that is higher than 24.9. In cases like these, BMI is not an accurate measure of body fat. ? To determine if excess body fat is the cause of a BMI of 25 or higher, further assessments may need to be done by a health care provider. ? BMI is usually interpreted in the same way for men and women. Where to find more information For more information about BMI, including tools to quickly calculate your BMI, go to these websites: ? Centers for Disease Control and Prevention: www.cdc.gov ? [place] Heart Association: www.heart.org ? National Heart, Lung, and Blood [place]: www.nhlbi.nih.gov Summary ? Body mass index (BMI) is a number that is calculated from a person's weight and height. ? BMI may help estimate how much of a person's weight is composed of fat. BMI can help identify those who may be at higher risk for certain medical problems. ? BMI can be measured using [place] measurements or metric measurements. ? BMI charts are used to identify whether you are underweight, normal weight, overweight, or obese. This information is not intended to replace advice given to you by your health care provider. Make sure you discuss any questions you have with your health care provider. Document Revised: 01/30/2020 Document Reviewed: 12/07/2019 Elsevier Patient Education ? 2022 [employer]. [facility] Retail - Clinical Noteon Retail - Clinical Note [id number] [facility] Ambulatory Visit Summaryon 1 05-24-2022 Ambulatory Visit Summary CELESTE DU :1980 Visit Date:03/24/2023 Ambulatory Visit Instructions Your Diagnosis Anxiety and depression Primary hypertension BMI 25.0-25.9,adult Overweight child Excessive dietary caloric intake Depression, unspecified Your Care Team Attending Physician - Silas Haider MD Primary Care Physician - Silas Haider MD. This Is Your Medications List amlodipine (amLODIPine 10 mg Tab) clonazepam (ClonazePAM 0.5 mg Tab) lamotrigine (LaMICtal XR 250 mg oral tablet, extended release) omeprazole (omeprazole 40 mg Cap-DR) semaglutide (Wegovy (2.4 mg dose) subcutaneous solution) Procedures Performed Hysterectomy (2013), Tubal ligation (2011), Delivery (11/23/2007), Delivery (07/21/1999), Mastectomy of right breast. Discharge Vitals Temperature (Oral) 36.7 ?C Heart Rate (Peripheral) 80 Respiratory Rate 14 Blood Pressure 120/78 Height 171 cm Height 67 in Weight 73.2 kg Weight 161.04 lb BMI 25.03 Medications What How Much When Instructions Unchanged amlodipine (amLODIPine 10 mg Tab) See instructions TAKE 1 TABLET BY MOUTH EVERY DAY Unchanged clonazepam (ClonazePAM 0.5 mg Tab) 0.05 Milligram/Kilogram By Mouth Once a day (at bedtime) Unchanged lamotrigine (LaMICtal XR 250 mg oral tablet, extended release) 1 Tablets By Mouth Every day Unchanged omeprazole (omeprazole 40 mg Cap-DR) See instructions TAKE 1 CAPSULE BY MOUTH EVERY DAY Unchanged semaglutide (Wegovy (2.4 mg dose) subcutaneous solution) 2.4 Milligram Subcutaneous Every week Medications and Immunizations Administered Not Given influenza virus vaccine, inactivated, Postpone due to refusal Allergies morphine (Itching) Problems Ongoing - Any problem that you are currently receiving treatment for. Annual physical exam Anxiety and depression BPPV (benign paroxysmal positional vertigo) Excessive dietary caloric intake GERD without esophagitis Primary hypertension Patient Survey You may receive a survey via text or e-mail asking about your office visit. Please share your experience with us by completing your survey. We appreciate your feedback and thank you for choosing us for your care. Normal Vasquez [facility] Family Medicine Office/Clini c Noteon 03-24-2023 Family Medicine Office/Clinic Note HPI Staff Celeste is a 42 year old female presenting for 6 month follow up HTN and mood Patient is here for follow up on hypertension. How often are you checking your blood pressure? Doesnt check BP at home What are your average readings? N/A, Not checking at home Yearly BMP: 10/12/22 Follow up for Mental Status: Medication adherence- Yes, takes medication as prescribed Medication refill needed: no Suicidal thoughts-Not at this time Most recent SAW: 6 Most recent PHQ: 2 flu: will get at work History of Present Illness The patient presents for evaluation of multiple medical concerns. She denies any dizziness. Her anxiety is okay right now, but it depends on when he finds a job. She is on medication for her anxiety. She is on Prilosec. She is on blood pressure medication. Review of Systems PHQ Score Initial Depression Screen Score: 2 Physical Exam Vitals & Measurements T: 36.7 ?C(Oral) HR: 80(Peripheral) RR: 14 BP: 120/78 SpO2: 98% HT: 67 in HT: 171 cm WT: 73.2 kg WT: 161.04 lb BMI: 25.03 General: alert, no acute distress ENMT: oral mucosa moist, Cardiovascular: normal peripheral perfusion Respiratory: respirations non labored Extremities: no deformity, no trauma Neurological: oriented x 4, LOC appropriate for age, CN II-XII intact, motor strength equal & normal bilaterally, speech normal Abdomen: Soft, Nontender, Non-distended, + BS Assessment/Plan 1. Anxiety and depression (F41.9: Anxiety disorder, unspecified) - Well controlled. - Sees Psych - Concerned about when her will get insurance 2. Primary hypertension (I10: Essential (primary) hypertension) - Controlled. - Will refill meds. 3. BMI 25.0-25.9,adult (Z68.25: Body mass index [BMI] 25.0-25.9, adult) - BMI education given Ordered: meclizine, 25 mg = 1 tab(s), Oral, TID, PRN for dizziness, # 30 tab(s), Refills(s) 0, Pharmacy: [facility]/pharmacy #[id number], 171, cm, 12/08/22 13:48:00 EDT, Height/Length Dosing, 75.7, kg, 12/08/22 13:48:00 EDT, Weight Dosing 4. Overweight child (E66.3: Overweight) - Diet and exercise advised Ordered: meclizine, 25 mg = 1 tab(s), Oral, TID, PRN for dizziness, # 30 tab(s), Refills(s) 0, Pharmacy: [facility]/pharmacy #[id number], 171, cm, 12/08/22 13:48:00 EDT, Height/Length Dosing, 75.7, kg, 12/08/22 13:48:00 EDT, Weight Dosing 5. Excessive dietary caloric intake (R63.2: Polyphagia) - Continue using wegovy to help control cravings. - Diet and exercise advised. 6. GERD without esophagitis (K21.9: Gastro-esophageal reflux disease without esophagitis) - Well controlled with PPI. Orders: amlodipine, See Instructions, TAKE 1 TABLET BY MOUTH EVERY DAY, # 90 tab(s), Refills(s) 1, Pharmacy: [facility], 171, cm, 03/24/23 8:31:00 EDT, Height/Length Dosing, 73.2, kg, 03/24/23 8:31:00 EDT, Weight Dosing omeprazole, See Instructions, TAKE 1 CAPSULE BY MOUTH EVERY DAY, # 90 cap(s), Refills(s) 1, Pharmacy: [facility], 171, cm, 03/24/23 8:31:00 EDT, Height/Length Dosing, 73.2, kg, 03/24/23 8:31:00 EDT, Weight Dosing semaglutide, 2.4 mg, SubCutaneous, qWeek, # 12 EA, Refills(s) 1, Pharmacy: [facility], 171, cm, 03/24/23 8:31:00 EDT, Height/Length Dosing, 73.2, kg, 03/24/23 8:31:00 EDT, Weight Dosing Follow-up No qualifying data available Problem List/Past Medical History Ongoing Annual physical exam Anxiety and depression BPPV (benign paroxysmal positional vertigo) Excessive dietary caloric intake GERD without esophagitis Primary hypertension Historical No qualifying data Procedure/Surgical History Hysterectomy (2013), Tubal ligation (2011), Delivery (11/23/2007), Delivery (07/21/1999), Mastectomy of right breast. Medications amLODIPine 10 mg Tab, See Instructions, 1 refills ClonazePAM 0.5 mg Tab, 0.05 mg/kg, Oral, Once a day (at bedtime) LaMICtal XR 250 mg oral tablet, extended release, 250 mg= 1 tab(s), Oral, Daily omeprazole 40 mg Cap-DR, See Instructions, 1 refills Wegovy (2.4 mg dose) subcutaneous solution, 2.4 mg, SubCutaneous, qWeek, 1 refills Allergies morphine (Itching) Social History Alcohol Current, 1-2 times per month, 12/31/2021 Previous treatment: None., 09/09/2021 Substance Abuse Past, Marijuana, Stopped age 40 Years., 09/09/2021 Tobacco Former smoker, quit more than 30 days ago Tobacco Use:. Never Smokeless Tobacco Use:. Cigarettes, Started age 14.0 Years. Stopped age 30 Years. Household tobacco concerns: Yes., 03/24/2023 Household tobacco concerns: No., 03/31/2022 Family History Acute myocardial infarction: Father. Diabetes mellitus type 2: Father. Hypertension: Mother and Father. Malignant lymphoma: Father. Immunizations Vaccine Date Status Comments influenza virus vaccine, inactivated - Not Given Postpone due to refusal influenza virus vaccine, inactivated 02/2022 Recorded SARS-CoV-2 (COVID-19) mRNA BNT-162b2 vax 09/02/2020 Recorded SARS-CoV-2 (COVID-19) mRNA BNT-162b2 vax 08/12/2020 R (more content not included)... Normal [facility] Comment on above: Result Comment: Elec tronically Signed By: Vitaly SERRANO, Silas Lockwood\.br\Date and Time Signed: 03/24/23 08:54 EDT Provider Letteron 03-24-2023 Provider Letter March 24, 2023 [place] [address] : 1980 To Whom It May Concern, Please excuse above patient from work. Date of Illness: From: 03.24.2023 To: 03.24.2023 May Return to Work On: 03.24.2023 Sincerely, Silas Haider MD Family Medicine [address] [address] Normal [facility] PAP ACOG PANEL 2: 30 to 65on 10-05-2022 Age Gdln ACOG Testing 30-65 Normal [facility] Comment on above: Performed By: #### [id number] #### [facility] [id number] Vicky Cordoba Vital Signs Date Time Vital Sign Value Performing Clinician Faci lity 12-02-2023 14:37-0400 Body height 165.1 cm MD Silas Haider Work Phone: [facility] 12-02-2023 14:37-0400 Body mass index (BMI) [Ratio] 28.3 kg/m2 MD Silas Haider Work Phone: [facility] 12-02-2023 14:37-0400 Body temperature 98.4 [degF] MD Silas Haider Work Phone: [facility] 12-02-2023 14:37-0400 Body weight 77.11 kg MD Silas Haider Work Phone: [facility] 12-02-2023 14:37-0400 Diastolic blood pressure 88 mm[Hg] MD Silas Haider Work Phone: [facility] 12-02-2023 14:37-0400 Heart rate 96 /min MD Silas Haider Work Phone: [facility] 12-02-2023 14:37-0400 SaO2% (BldA) [Mass fraction] 96 % MD Silas Haider Work Phone: [facility] 12-02-2023 14:37-0400 Systolic blood pressure 130 mm[Hg] MD Silas Haider Work Phone: [facility] 03-31-2022 16:50-0500 Blood Pressure Location Silas Haider [facility] 03-31-2022 16:50-0500 Diastolic blood pressure 74 mm[Hg] Silas Haider [facility] 03-31-2022 16:50-0500 Heart rate 99 /min Silas Haider [facility] 03-31-2022 16:50-0500 SaO2% (BldA) [Mass fraction] 97 % Silas Haider [facility] 03-31-2022 16:50-0500 Systolic blood pressure 122 mm[Hg] Silas Haider [facility] 12-31-2021 16:27-0400 Blood Pressure Location Silas Haider [facility] 12-31-2021 16:27-0400 Diastolic blood pressure 82 mm[Hg] Silas Haider [facility] 12-31-2021 16:27-0400 Heart rate 87 /min Silas Haider [facility] 12-31-2021 16:27-0400 SaO2% (BldA) [Mass fraction] 98 % Silas Haider [facility] 12-31-2021 16:27-0400 Systolic blood pressure 120 mm[Hg] Silas Haider [facility] 09-09-2021 14:09-0400 Diastolic blood pressure 104 mm[Hg] Silas Haider [facility] 09-09-2021 14:09-0400 Mean blood pressure 113 mm[Hg] Silas Haider [facility] 09-09-2021 14:09-0400 Systolic blood pressure 132 mm[Hg] Silas Haider [facility] 09-09-2021 13:20-0400 Blood Pressure Location Silas Haider [facility] 09-09-2021 13:20-0400 Diastolic blood pressure 104 mm[Hg] Silas Haider [facility] 09-09-2021 13:20-0400 Heart rate 89 /min Silas Haider [facility] 09-09-2021 13:20-0400 SaO2% (BldA) [Mass fraction] 97 % Silas Haider [facility] 09-09-2021 13:20-0400 Systolic blood pressure 138 mm[Hg] Silas Haider [facility] Encounters Encounter Date Encounter Type Care Provider Facility Start: 05-07-2024 ambulatory Silas Haider Facility :[facility] Start: 03-05-2024 End: 03-05-2024 ambulatory Silas Haider Facility:[facility] Start: 02-06-2024 End: 02-06-2024 ambulatory Silas Haider Facility:[facility] Start: 12-02-2023 End: 12-02-2023 ambulatory MD Silas Haider Work Phone: [facility] Work Phone: Start: 12-02-2023 End: 12-02-2023 Departed Referred MD Silas Haider Work Phone: [facility] Start: 12-02-2023 End: 12-02-2023 Patient encounter procedure MD Silas Haider Work Phone: [facility] [place] Work Phone: Start: 11-18-2023 End: 11-18-2023 ambulatory Silas Haider Facility:[facility] Start: 11-18-2023 End: 11-18-2023 Patient encounter procedure Silas Haider [facility] Start: 11-15-2023 End: 11-15-2023 Lab Drop off Silas Haider [facility] Start: 11-15-2023 End: 11-15-2023 ambulatory Silas Haider Facility:[facility] Start: 09-29-2023 End: 09-29-2023 ambulatory TORIE WALKER Not Available Start: 09-22-2023 End: 09-22-2023 Patient encounter procedure MD Silas Haider Work Phone: [facility] Work Phone: Start: 09-22-2023 End: 09-22-2023 ambulatory MD Silas Haider Work Phone: [facility] Work Phone: Start: 09-20-2023 End: 09-20-2023 ambulatory Silas Haider Facility:[facility] Start: 09-20-2023 End: 09-20-2023 Lab Drop off Silas Haider [facility] Start: 09-20-2023 End: 09-20-2023 ambulatory Silas Haider Facility:[facility] Start: 08-03-2023 End: 08-03-2023 ambulatory Silas Haider Facility: [facility] Start: 06-14-2023 End: 06-14-2023 ambulatory TORIE WALKER Not Available Start: 03-24-2023 End: 03-24-2023 ambulatory Silas Haider Facility: [facility] Start: 09-27-2022 End: 09-27-[address] TORIE WALKER . Facility: Start: 08-31-2022 End: 08-31-2022 ambulatory MD Silas Haider Work Phone: [facility] Work Phone: Start: 08-31-2022 End: 08-31-2022 Patient encounter procedure MD Silas Haider Work Phone: [facility] Work Phone: Start: 03-31-2022 End: 03-31-2022 Patient encounter procedure Silas Haider [facility] Start: 12-31-2021 End: 12-31-2021 Patient encounter procedure Silas Haider [facility] Start: 09-09-2021 End: 09-09-2021 Patient encounter procedure Silas Haider [facility] Start: 03-06-2018 Patient encounter procedure Meka Crystal Facility:[id number] Start: 11-03-2017 Patient encounter procedure Tala Johnson Facility:[id number] Procedures Date Procedure Procedure Detail Performing Clinician Start: 09-22-2023 Screening mammograph y of left breast MD Silas Haider Work Phone: Start: 08-31-2022 Screening mammograph y of left breast MD Silas Haider Work Phone: Start: 05-23-2013 Hysterectomy Silas maldonado Start: 05-23-2011 Ligation of fallopian tube Silas Haider Start: 11-23-2007 Human , function (observable entity) Silas Haider Comment on above: Vaginal Start: 07-21-1999 Human , function (observable entity) Silas Haider Comment on above: Vaginal Mastectomy of right breast Ashley Haider Comment on above: with Rt node dissect ion and 3-4 cosmetic surgeries after Plan of Treatment Date Care Activity Detail Author Start: 12-02-2023 [facility] Start: 12-02-2023 Bacteria identified in Urine by Culture [facility] Atopobium vaginae DN A [Presence] in Vaginal fluid by FAISAL with probe detection [facility] Bacterial vaginosis associated bacterium 2 DNA [Presence] in Vaginal fluid by FAISAL with probe detection [facility] Megasphaera sp type 1 DNA [Presence] in Vaginal fluid by FAISAL with probe detection [facility] Immunizations Immunization Date Immunization Notes Care Provider Fa cility 02-20-2022 influenza virus vaccine, unspecified formulation Silas Haider [facility] 09-02-2020 SARS-CoV-2 (COVID-19 ) mRNA BNT-162b2 vax Silas Haider [facility] 08-12-2020 SARS-CoV-2 (COVID-19 ) mRNA BNT-162b2 vax Silas Haider [facility] 04-04-2020 influenza virus vaccine, unspecified formulation Silas Haider [facility] 03-14-2018 influenza virus vaccine, unspecified formulation Silas Haider [facility] 03-13-2017 influenza virus vaccine, unspecified formulation Silas Haider [facility] 03-11-2015 influenza virus vaccine, unspecified formulation Silas Haider [facility] NEGATED: Highlighted row has not occurred!03-24-2023 influenza virus vaccine, unspecified formulation Silas Haider [facility] Payers Date Payer Category Payer Self-pay [id number] 2023 Unknown [id number] 2022 Unknown [id number] 1980 Unknown [id number] 2.16. [id number] 1980 Unknown [id number] 2.. [id number] 1980 Unknown [id number] 2.16.84 0.1.465612.3.579.2.593 1980 Unknown [id number] 2.16.84 0.1.722936.3.579.2.1259 1980 Unknown [id number] 2.16.84 0.1.517609.3.579.2.1259 1980 Unknown [id number] 2.16.8 40.1.534334.3.579.2.727 1980 Unknown [id number] 2.16.8 40.1.787480.3.579.2.727 1980 Unknown [id number] 2.16.8 40.1.781619.3.579.2.7 1980 Unknown [id number] 2.16.8 40.1.129879.3.579.2.727 1980 Unknown [id number] 2.16.8 40.1.696590.3.579.2.7 1980 Unknown [id number] 2.16.8 40.1.495168.3.579.2.727 1980 Unknown [id number] 2.16.8 40.1.085829.3.579.2.7 1980 Unknown [id number] 2.16.8 40.1.979561.3.579.2.727 1980 Unknown [id number] 2.16.8 40.1.979445.3.579.2.7 1980 Unknown [id number] 2.16.8 40.1.747597.3.579.2.727 1959 Unknown [id number] Unknown [id number] Unknown [id number] 2.16.8 40.1.172766.3.579.2.531 Unknown [id number] 2.16.8 [id number] Social History Date Type Detail Facility Start: 01-03-2020 End: 09-09-2021 Tobacco smoking status Ex-smoker (finding) [facility] Comment on above: smokes outsi de Tobacco smoking status Never Juan [facility] Comment on above: smokes outsi de Start: 01-28-1992 End: 08-21-2013 Sex Assigned At Female [facility] Tobacco Household tobacc o concerns: No. [facility] Tobacco smoking status No Smokin g Status Entered [facility] Start: 1980 Sex Assigned At Female F [facility] Functional Status Date Assessment Result Facility 03-31-2022 Functional Status N/A [facility] 12-31-2021 Functional Status N/A [facility] Clinical Notes 09-09-2021 to 03-05-2024 Radiology Note Date & Type Note Facility 03-05-2024 Note Patient Education Nutrition BMI for Adults Body mass index (BMI) is a number found using a person's weight and height. BMI can help tell how much of a person's weight is made up of fat. BMI does not measure body fat directly. It is used instead of tests that directly measure body fat, which can be difficult and expensive. What are BMI measurements used for? BMI is useful to: ? Find out if your weight puts you at higher risk for medical problems. ? Help recommend changes, such as in diet and exercise. This can help you reach a healthy weight. BMI screening can be done again to see if these changes are working. How is BMI calculated? Your height and weight are measured. The BMI is found from those numbers. This can be done with [place] or metric measurements. Note that charts and online BMI calculators are available to help you find your BMI quickly and easily without doing these calculations. To calculate your BMI in [place] measurements: 1. Measure your weight in pounds (lb). 2. Multiply the number of pounds by 703. ? So, for an adult who weighs 150 lb, multiply that number by 703: 150 x 703, which equals 105,450. 3. Measure your height in inches. Then multiply that number by itself to get a measurement called inches squared. ? So, for an adult who is 70 inches tall, the inches squared measurement is 70 inches x 70 inches, which equals 4,900 inches squared. 4. Divide the total from step 2 (number of lb x 703) by the total from step 3 (inches squared): 105,450 ? 4,900 = 21.5. This is your BMI. To calculate your BMI in metric measurements: 1. Measure your weight in kilograms (kg). ? For this example, the weight is 70 kg. 2. Measure your height in meters (m). Then multiply that number by itself to get a measurement called meters squared. ? So, for an adult who is 1.75 m tall, the meters squared measurement is 1.75 m x 1.75 m, which equals 3.1 meters squared. 3. Divide the number of kilograms (your weight) by the meters squared number. In this example: 70 ? 3.1 = 22.6. This is your BMI. What do the results mean? BMI charts are used to see if you are underweight, normal weight, overweight, or obese. The following guidelines will be used: ? Underweight: BMI less than 18.5. ? Normal weight: BMI between 18.5 and 24.9. ? Overweight: BMI between 25 and 29.9. ? Obese: BMI of 30 or above. BMI is a tool and cannot diagnose a condition. Talk with your health care provider about what your BMI means for you. Keep these notes in mind: ? Weight includes fat and muscle. Someone with a muscular build, such as an athlete, may have a BMI that is higher than 24.9. In cases like these, BMI is not a correct measure of body fat. ? If you have a BMI of 25 or higher, your provider may need to do more testing to find out if excess body fat is the cause. ? BMI is measured the same way for males and females. Females usually have more body fat than males of the same height and weight. Where to find more information For more information about BMI, including tools to quickly find your BMI, go to: ? Centers for Disease Control and Prevention: cdc.gov ? [place] [employer]: heart.org ? National Heart, Lung, and Blood [place]: nhlbi.nih.gov This information is not intended to replace advice given to you by your health care provider. Make sure you discuss any questions you have with your health care provider. Document Revised: 01/27/2023 Document Reviewed: 01/20/2023 [employer] Patient Education ? 2023 [employer] [facility] 02-06-2024 Note Patient Education Nutrition BMI for Adults Body mass index (BMI) is a number found using a person's weight and height. BMI can help tell how much of a person's weight is made up of fat. BMI does not measure body fat directly. It is used instead of tests that directly measure body fat, which can be difficult and expensive. What are BMI measurements used for? BMI is useful to: ? Find out if your weight puts you at higher risk for medical problems. ? Help recommend changes, such as in diet and exercise. This can help you reach a healthy weight. BMI screening can be done again to see if these changes are working. How is BMI calculated? Your height and weight are measured. The BMI is found from those numbers. This can be done with U.S. or metric measurements. Note that charts and online BMI calculators are available to help you find your BMI quickly and easily without doing these calculations. To calculate your BMI in U.[place]. measurements: 1. Measure your weight in pounds (lb). 2. Multiply the number of pounds by 703. ? So, for an adult who weighs 150 lb, multiply that number by 703: 150 x 703, which equals 105,450. 3. Measure your height in inches. Then multiply that number by itself to get a measurement called inches squared. ? So, for an adult who is 70 inches tall, the inches squared measurement is 70 inches x 70 inches, which equals 4,900 inches squared. 4. Divide the total from step 2 (number of lb x 703) by the total from step 3 (inches squared): 105,450 ? 4,900 = 21.5. This is your BMI. To calculate your BMI in metric measurements: 1. Measure your weight in kilograms (kg). ? For this example, the weight is 70 kg. 2. Measure your height in meters (m). Then multiply that number by itself to get a measurement called meters squared. ? So, for an adult who is 1.75 m tall, the meters squared measurement is 1.75 m x 1.75 m, which equals 3.1 meters squared. 3. Divide the number of kilograms (your weight) by the meters squared number. In this example: 70 ? 3.1 = 22.6. This is your BMI. What do the results mean? BMI charts are used to see if you are underweight, normal weight, overweight, or obese. The following guidelines will be used: ? Underweight: BMI less than 18.5. ? Normal weight: BMI between 18.5 and 24.9. ? Overweight: BMI between 25 and 29.9. ? Obese: BMI of 30 or above. BMI is a tool and cannot diagnose a condition. Talk with your health care provider about what your BMI means for you. Keep these notes in mind: ? Weight includes fat and muscle. Someone with a muscular build, such as an athlete, may have a BMI that is higher than 24.9. In cases like these, BMI is not a correct measure of body fat. ? If you have a BMI of 25 or higher, your provider may need to do more testing to find out if excess body fat is the cause. ? BMI is measured the same way for males and females. Females usually have more body fat than males of the same height and weight. Where to find more information For more information about BMI, including tools to quickly find your BMI, go to: ? Centers for Disease Control and Prevention: cdc.gov ? [place] [employer]: heart.org ? National Heart, Lung, and Blood [place]: nhlbi.nih.gov This information is not intended to replace advice given to you by your health care provider. Make sure you discuss any questions you have with your health care provider. Document Revised: 01/27/2023 Document Reviewed: 01/20/2023 [employer] Patient Education ? 2023 [employer] [facility] 03-31-2022 Hospital Discharg e instructions Patient Education 03/31/2022 17:16:43 Hypertension, Adult Hypertension, Adult High blood pressure (hypertension) is when the force of blood pumping through the arteries is too strong. The arteries are the blood vessels that carry blood from the heart throughout the body. Hypertension forces the heart to work harder to pump blood and may cause arteries to become narrow or stiff. Untreated or uncontrolled hypertension can cause a heart attack, heart failure, a stroke, kidney disease, and other problems. A blood pressure reading consists of a higher number over a lower number. Ideally, your blood pressure should be below 120/80. The first ( top ) number is called the systolic pressure. It is a measure of the pressure in your arteries as your heart beats. The second ( bottom ) number is called the diastolic pressure. It is a measure of the pressure in your arteries as the heart relaxes. What are the causes? The exact cause of this condition is not known. There are some conditions that result in or are related to high blood pressure. What increases the risk? Some risk factors for high blood pressure are under your control. The following factors may make you more likely to develop this condition: Smoking. Having type 2 diabetes mellitus, high cholesterol, or both. Not getting enough exercise or physical activity. Being overweight. Having too much fat, sugar, calories, or salt (sodium) in your diet. Drinking too much alcohol. Some risk factors for high blood pressure may be difficult or impossible to change. Some of these factors include: Having chronic kidney disease. Having a family history of high blood pressure. Age. Risk increases with age. Race. You may be at higher risk if you are . Gender. Men are at higher risk than women before age 45. After age 65, women are at higher risk than men. Having obstructive sleep apnea. Stress. What are the signs or symptoms? High blood pressure may not cause symptoms. Very high blood pressure (hypertensive crisis) may cause: Headache. Anxiety. Shortness of breath. Nosebleed. Nausea and vomiting. Vision changes. Severe chest pain. Seizures. How is this diagnosed? This condition is diagnosed by measuring your blood pressure while you are seated, with your arm resting on a flat surface, your legs uncrossed, and your feet flat on the floor. The cuff of the blood pressure monitor will be placed directly against the skin of your upper arm at the level of your heart. It should be measured at least twice using the same arm. Certain conditions can cause a difference in blood pressure between your right and left arms. Certain factors can cause blood pressure readings to be lower or higher than normal for a short period of time: When your blood pressure is higher when you are in a health care provider's office than when you are at home, this is called white coat hypertension. Most people with this condition do not need medicines. When your blood pressure is higher at home than when you are in a health care provider's office, this is called masked hypertension. Most people with this condition may need medicines to control blood pressure. If you have a high blood pressure reading during one visit or you have normal blood pressure with other risk factors, you may be asked to: Return on a different day to have your blood pressure checked again. Monitor your blood pressure at home for 1 week or longer. If you are diagnosed with hypertension, you may have other blood or imaging tests to help your health care provider understand your overall risk for other conditions. How is this treated? This condition is treated by making healthy lifestyle changes, such as eating healthy foods, exercising more, and reducing your alcohol intake. Your health care provider may prescribe medicine if lifestyle changes are not enough to get your blood pressure under control, and if: Your systolic blood pressure is above 130. Your diastolic blood pressure is above 80. Your personal target blood pressure may vary depending on your medical conditions, your age, and other factors. Follow these instructions at home: Eating and drinking Eat a diet that is high in fiber and potassium, and low in sodium, added sugar, and fat. An example eating plan is called the DASH (Dietary Approaches to Stop Hypertension) diet. To eat this way: ?Eat plenty of fresh fruits and vegetables. Try to fill one half of your plate at each meal with fruits and vegetables. ?Eat whole grains, such as whole-wheat pasta, brown rice, or whole-grain bread. Fill about one fourth of your plate with whole grains. ?Eat or drink low-fat dairy products, such as skim milk or low-fat yogurt. ?Avoid fatty cuts of meat, processed or cured meats, and poultry with skin. Fill about one fourth of your plate with lean proteins, such as fish, chicken without skin, beans, eggs, or tofu. ?Avoid pre-made and processed foods. These tend to be higher in sodium, added sugar, and fat. Reduce your daily sodium intake. Most people with hypertension should eat less than 1,500 mg of sodium a day. Do not drink alcohol if: ?Your health care provider tells you not to drink. ?You are , may be , or are planning to become . If you drink alcohol: ?Limit how much you use to: ?0 1 drink a day for women. ?0 2 drinks a day for men. ?Be aware of how much alcohol is in your drink. In the [place] one drink equals one 12 oz bottle of beer (355 mL), one 5 oz glass of wine (148 mL), or one 1 oz glass of hard liquor (44 mL). Lifestyle Work with your health care provider to maintain a healthy body weight or to lose weight. Ask what an ideal weight is for you. Get at least 30 minutes of exercise most days of the week. Activities may include walking, swimming, or biking. Include exercise to strengthen your muscles (resistance exercise), such as Pilates or lifting weights, as part of your weekly exercise routine. Try to do these types of exercises for 30 minutes at least 3 days a week. Do not use any products that contain nicotine or tobacco, such as cigarettes, e-cigarettes, and chewing tobacco. If you need help quitting, ask your health care provider. Monitor your blood pressure at home as told by your health care provider. Keep all follow-up visits as told by your health care provider. This is important. Medicines Take oszd-qwn-[id number] and prescription medicines only as told by your health care provider. Follow directions carefully. Blood pressure medicines must be taken as prescribed. Do not skip doses of blood pressure medicine. Doing this puts you at risk for problems and can make the medicine less effective. Ask your health care provider about side effects or reactions to medicines that you should watch for. Contact a health care provider if you: Think you are having a reaction to a medicine you are taking. Have headaches that keep coming back (recurring). Feel dizzy. Have swelling in your ankles. Have trouble with your vision. Get help right away if you: Develop a severe headache or confusion. Have unusual weakness or numbness. Feel faint. Have severe pain in your chest or abdomen. Vomit repeatedly. Have trouble breathing. Summary Hypertension is when the force of blood pumping through your arteries is too strong. If this condition is not controlled, it may put you at risk for serious complications. Your personal target blood pressure may vary depending on your medical conditions, your age, and other factors. For most people, a normal blood pressure is less than 120/80. Hypertension is treated with lifestyle changes, medicines, or a combination of both. Lifestyle changes include losing weight, eating a healthy, low-sodium diet, exercising more, and limiting alcohol. This information is not intended to replace advice given to you by your health care provider. Make sure you discuss any questions you have with your health care provider. Document Released: 05/09/2006 Document Revised: 01/17/2019 Document Reviewed: 01/17/2019 [employer] Patient Education 2019 [employer] [facility] 12-31-2021 Hospital Discharg e instructions Patient Education 12/31/2021 16:54:05 Eating Disorders Eating Disorders Eating disorders are medical and psychological problems. They often have biological, psychological, and social causes. Depression, obsession with food, and a distorted body image are common in people who have eating disorders. Over time, eating disorders will damage the body and are likely to have a major impact on mood and mental health. The most common eating disorders are: Bulimia nervosa. This is when you eat large amounts of food in a short period of time. This is often followed by getting rid of the calories that were eaten (purging) by vomiting, exercising excessively, or taking laxatives. Bulimia may start as a way to control weight. Later, it may be triggered by stress or an emotional crisis. Anorexia nervosa. This is when you have an extremely low body weight from severe dieting or compulsive exercising or both. Losing weight or preventing weight gain becomes an obsession. Anorexia is often used as a way to cope with emotional problems. Binge eating disorder (BED). This is when you eat an excessive amount of food in a short period of time of two hours or less, and you feel that you have lost control over your eating. This kind of experience is called a binge. People who have BED eat too quickly, feel uncomfortably full, eat when they are not hungry, and usually eat alone. Typically, a binge happens three or more times a week. Other specified feeding or eating disorder. You may be diagnosed with this if you have some symptoms of BED, bulimia nervosa, or anorexia nervosa, but not enough symptoms to diagnose a specific disorder. Eating disorders can lead to serious medical problems. These may include: Extreme malnutrition. Hormone imbalance. Vitamin and mineral deficiencies. Organ damage. Obesity and related medical conditions. Damage to the teeth, jaw, and esophagus. What are the causes? Eating disorders are often associated with emotional or psychological issues, including: Depression. Anxiety. Low self-esteem. Loneliness. Shame. Extreme self-judgment. What increases the risk? Eating disorders are more likely to develop in: Women. People under the age of 30. People who have been teased about their weight. In addition, people who participate in endurance sports or sports where physical appearance is emphasized may be at greater risk of developing an eating disorder. What are the signs or symptoms? Symptoms of an eating disorder include: An obsession with food and eating. An obsession with body weight and appearance. Not eating or barely eating. This can lead to vitamin and mineral deficiencies. Binge eating. Vomiting after eating. Taking laxatives after eating. Exercising too often. Distorted body image. Absence or loss of menstrual flow (amenorrhea), if this applies. Self-esteem that is dependent on body image or weight. How is this diagnosed? This condition is diagnosed with a physical exam and a psychological evaluation. You may have blood tests, urine tests, or eating questionnaires. How is this treated? Treatment for an eating disorder may include: Psychotherapy. This may also be called talk therapy or counseling. Seeing a interactive media specialist (dietitian). Getting appropriate exercise. Medicines to help relieve anxiety or depression. Hospitalization or referral to an eating disorders program. Follow these instructions at home: Lifestyle Educate yourself and others about your eating disorder. Identify situations that trigger your symptoms. Develop a plan to help you cope with these situations. Resist weighing yourself or checking yourself in the mirror often. Seek out programs or resources that address eating disorders. Talk with an heating fixture tender, therapist, or counselor about your eating behavior. Activity Follow instructions from your health care provider about eating and exercising. Return to your normal activities as told by your health care provider. Ask your health care provider what activities are safe for you. General instructions Get regular dental care every six months. Keep all follow-up visits as told by your health care provider. This is important. Take xdas-qlj-dwjgifd and prescription medicines only as told by your health care provider. Contact a health care provider if: You have sudden weight loss or gain related to your eating. Your symptoms return. You abuse stimulants or diet aids. You have an irregular heartbeat. You have a constant fear of gaining weight. You take laxatives after you eat. You have eating, dieting, or exercising habits that you cannot control. You have irregular menstrual periods or you stop having menstrual periods, if this applies. Get help right away if: You have blood or brown flecks (like coffee grounds) in your vomit. You have bright red or black stools. You have chest pain or pressure. You have difficulty breathing. You do not urinate every eight hours. You have serious thoughts about hurting yourself or have plans to do that. This information is not intended to replace advice given to you by your health care provider. Make sure you discuss any questions you have with your health care provider. Document Released: 05/09/2006 Document Revised: 09/17/2016 Document Reviewed: 03/12/2016 [employer] Patient Education 2020 [employer]. 12/31/2021 16:54:02 Hypertension, Adult Hypertension, Adult High blood pressure (hypertension) is when the force of blood pumping through the arteries is too strong. The arteries are the blood vessels that carry blood from the heart throughout the body. Hypertension forces the heart to work harder to pump blood and may cause arteries to become narrow or stiff. Untreated or uncontrolled hypertension can cause a heart attack, heart failure, a stroke, kidney disease, and other problems. A blood pressure reading consists of a higher number over a lower number. Ideally, your blood pressure should be below 120/80. The first ( top ) number is called the systolic pressure. It is a measure of the pressure in your arteries as your heart beats. The second ( bottom ) number is called the diastolic pressure. It is a measure of the pressure in your arteries as the heart relaxes. What are the causes? The exact cause of this condition is not known. There are some conditions that result in or are related to high blood pressure. What increases the risk? Some risk factors for high blood pressure are under your control. The following factors may make you more likely to develop this condition: Smoking. Having type 2 diabetes mellitus, high cholesterol, or both. Not getting enough exercise or physical activity. Being overweight. Having too much fat, sugar, calories, or salt (sodium) in your diet. Drinking too much alcohol. Some risk factors for high blood pressure may be difficult or impossible to change. Some of these factors include: Having chronic kidney disease. Having a family history of high blood pressure. Age. Risk increases with age. Race. You may be at higher risk if you are . Gender. Men are at higher risk than women before age 45. After age 65, women are at higher risk than men. Having obstructive sleep apnea. Stress. What are the signs or symptoms? High blood pressure may not cause symptoms. Very high blood pressure (hypertensive crisis) may cause: Headache. Anxiety. Shortness of breath. Nosebleed. Nausea and vomiting. Vision changes. Severe chest pain. Seizures. How is this diagnosed? This condition is diagnosed by measuring your blood pressure while you are seated, with your arm resting on a flat surface, your legs uncrossed, and your feet flat on the floor. The cuff of the blood pressure monitor will be placed directly against the skin of your upper arm at the level of your heart. It should be measured at least twice using the same arm. Certain conditions can cause a difference in blood pressure between your right and left arms. Certain factors can cause blood pressure readings to be lower or higher than normal for a short period of time: When your blood pressure is higher when you are in a health care provider's office than when you are at home, this is called white coat hypertension. Most people with this condition do not need medicines. When your blood pressure is higher at home than when you are in a health care provider's office, this is called masked hypertension. Most people with this condition may need medicines to control blood pressure. If you have a high blood pressure reading during one visit or you have normal blood pressure with other risk factors, you may be asked to: Return on a different day to have your blood pressure checked again. Monitor your blood pressure at home for 1 week or longer. If you are diagnosed with hypertension, you may have other blood or imaging tests to help your health care provider understand your overall risk for other conditions. How is this treated? This condition is treated by making healthy lifestyle changes, such as eating healthy foods, exercising more, and reducing your alcohol intake. Your health care provider may prescribe medicine if lifestyle changes are not enough to get your blood pressure under control, and if: Your systolic blood pressure is above 130. Your diastolic blood pressure is above 80. Your personal target blood pressure may vary depending on your medical conditions, your age, and other factors. Follow these instructions at home: Eating and drinking Eat a diet that is high in fiber and potassium, and low in sodium, added sugar, and fat. An example eating plan is called the DASH (Dietary Approaches to Stop Hypertension) diet. To eat this way: ?Eat plenty of fresh fruits and vegetables. Try to fill one half of your plate at each meal with fruits and vegetables. ?Eat whole grains, such as whole-wheat pasta, brown rice, or whole-grain bread. Fill about one fourth of your plate with whole grains. ?Eat or drink low-fat dairy products, such as skim milk or low-fat yogurt. ?Avoid fatty cuts of meat, processed or cured meats, and poultry with skin. Fill about one fourth of your plate with lean proteins, such as fish, chicken without skin, beans, eggs, or tofu. ?Avoid pre-made and processed foods. These tend to be higher in sodium, added sugar, and fat. Reduce your daily sodium intake. Most people with hypertension should eat less than 1,500 mg of sodium a day. Do not drink alcohol if: ?Your health care provider tells you not to drink. ?You are , may be , or are planning to become . If you drink alcohol: ?Limit how much you use to: ?0 1 drink a day for women. ?0 2 drinks a day for men. ?Be aware of how much alcohol is in your drink. In the [place] one drink equals one 12 oz bottle of beer (355 mL), one 5 oz glass of wine (148 mL), or one 1 oz glass of hard liquor (44 mL). Lifestyle Work with your health care provider to maintain a healthy body weight or to lose weight. Ask what an ideal weight is for you. Get at least 30 minutes of exercise most days of the week. Activities may include walking, swimming, or biking. Include exercise to strengthen your muscles (resistance exercise), such as Pilates or lifting weights, as part of your weekly exercise routine. Try to do these types of exercises for 30 minutes at least 3 days a week. Do not use any products that contain nicotine or tobacco, such as cigarettes, e-cigarettes, and chewing tobacco. If you need help quitting, ask your health care provider. Monitor your blood pressure at home as told by your health care provider. Keep all follow-up visits as told by your health care provider. This is important. Medicines Take lcqk-lqe-qdtrrkp and prescription medicines only as told by your health care provider. Follow directions carefully. Blood pressure medicines must be taken as prescribed. Do not skip doses of blood pressure medicine. Doing this puts you at risk for problems and can make the medicine less effective. Ask your health care provider about side effects or reactions to medicines that you should watch for. Contact a health care provider if you: Think you are having a reaction to a medicine you are taking. Have headaches that keep coming back (recurring). Feel dizzy. Have swelling in your ankles. Have trouble with your vision. Get help right away if you: Develop a severe headache or confusion. Have unusual weakness or numbness. Feel faint. Have severe pain in your chest or abdomen. Vomit repeatedly. Have trouble breathing. Summary Hypertension is when the force of blood pumping through your arteries is too strong. If this condition is not controlled, it may put you at risk for serious complications. Your personal target blood pressure may vary depending on your medical conditions, your age, and other factors. For most people, a normal blood pressure is less than 120/80. Hypertension is treated with lifestyle changes, medicines, or a combination of both. Lifestyle changes include losing weight, eating a healthy, low-sodium diet, exercising more, and limiting alcohol. This information is not intended to replace advice given to you by your health care provider. Make sure you discuss any questions you have with your health care provider. Document Released: 05/09/2006 Document Revised: 01/17/2019 Document Reviewed: 01/17/2019 [employer] Patient Education 2019 [employer]. [facility] [place] 09-09-2021 Hospital Discharg e instructions Patient Education 09/09/2021 15:07:04 Managing Anxiety, Adult Managing Anxiety, Adult After being diagnosed with an anxiety disorder, you may be relieved to know why you have felt or behaved a certain way. You may also feel overwhelmed about the treatment ahead and what it will mean for your life. With care and support, you can manage this condition and recover from it. How to manage lifestyle changes Managing stress and anxiety Stress is your body's reaction to life changes and events, both good and bad. Most stress will last just a few hours, but stress can be ongoing and can lead to more than just stress. Although stress can play a major role in anxiety, it is not the same as anxiety. Stress is usually caused by something external, such as a deadline, test, or competition. Stress normally passes after the triggering event has ended. Anxiety is caused by something internal, such as imagining a terrible outcome or worrying that something will go wrong that will devastate you. Anxiety often does not go away even after the triggering event is over, and it can become long-term (chronic) worry. It is important to understand the differences between stress and anxiety and to manage your stress effectively so that it does not lead to an anxious response. Talk with your health care provider or a counselor to learn more about reducing anxiety and stress. He or she may suggest tension reduction techniques, such as: Music therapy. This can include creating or listening to music that you enjoy and that inspires you. Mindfulness-based meditation. This involves being aware of your normal breaths while not trying to control your breathing. It can be done while sitting or walking. Centering prayer. This involves focusing on a word, phrase, or sacred image that means something to you and brings you peace. Deep breathing. To do this, expand your stomach and inhale slowly through your nose. Hold your breath for 3 5 seconds. Then exhale slowly, letting your stomach muscles relax. Self-talk. This involves identifying thought patterns that lead to anxiety reactions and changing those patterns. Muscle relaxation. This involves tensing muscles and then relaxing them. Choose a tension reduction technique that suits your lifestyle and personality. These techniques take time and practice. Set aside 5 15 minutes a day to do them. Therapists can offer counseling and training in these techniques. The training to help with anxiety may be covered by some insurance plans. Other things you can do to manage stress and anxiety include: Keeping a stress/anxiety diary. This can help you learn what triggers your reaction and then learn ways to manage your response. Thinking about how you react to certain situations. You may not be able to control everything, but you can control your response. Making time for activities that help you relax and not feeling guilty about spending your time in this way. Visual imagery and yoga can help you stay calm and relax. Medicines Medicines can help ease symptoms. Medicines for anxiety include: Anti-anxiety drugs. Antidepressants. Medicines are often used as a primary treatment for anxiety disorder. Medicines will be prescribed by a health care provider. When used together, medicines, psychotherapy, and tension reduction techniques may be the most effective treatment. Relationships Relationships can play a big part in helping you recover. Try to spend more time connecting with trusted friends and family members. Consider going to couples counseling, taking family education classes, or going to family therapy. Therapy can help you and others better understand your condition. How to recognize changes in your anxiety Everyone responds differently to treatment for anxiety. Recovery from anxiety happens when symptoms decrease and stop interfering with your daily activities at home or work. This may mean that you will start to: Have better concentration and focus. Worry will interfere less in your daily thinking. Sleep better. Be less irritable. Have more energy. Have improved memory. It is important to recognize when your condition is getting worse. Contact your health care provider if your symptoms interfere with home or work and you feel like your condition is not improving. Follow these instructions at home: Activity Exercise. Most adults should do the following: ?Exercise for at least 150 minutes each week. The exercise should increase your heart rate and make you sweat (moderate-intensity exercise). ?Strengthening exercises at least twice a week. Get the right amount and quality of sleep. Most adults need 7 9 hours of sleep each night. Lifestyle Eat a healthy diet that includes plenty of vegetables, fruits, whole grains, low-fat dairy products, and lean protein. Do not eat a lot of foods that are high in solid fats, added sugars, or salt. Make choices that simplify your life. Do not use any products that contain nicotine or tobacco, such as cigarettes, e-cigarettes, and chewing tobacco. If you need help quitting, ask your health care provider. Avoid caffeine, alcohol, and certain fhhf-jha-tzwstbf cold medicines. These may make you feel worse. Ask your pharmacist which medicines to avoid. General instructions Take rzcl-vkf-zvusvue and prescription medicines only as told by your health care provider. Keep all follow-up visits as told by your health care provider. This is important. Where to find support You can get help and support from these sources: Self-help groups. Online and community organizations. A trusted spiritual leader. Couples counseling. Family education classes. Family therapy. Where to find more information You may find that joining a support group helps you deal with your anxiety. The following sources can help you locate counselors or support groups near you: Mental Health [place]: www.mentalhealth[place].net Anxiety and Depression Association of [place] (ADAA): www.adaa.org [employer] [place] on Mental Illness (BRENDA): www.brenda.org Contact a health care provider if you: Have a hard time staying focused or finishing daily tasks. Spend many hours a day feeling worried about everyday life. Become exhausted by worry. Start to have headaches, feel tense, or have nausea. Urinate more than normal. Have diarrhea. Get help right away if you have: A racing heart and shortness of breath. Thoughts of hurting yourself or others. If you ever feel like you may hurt yourself or others, or have thoughts about taking your own life, get help right away. You can go to your nearest emergency department or call: Your local emergency services (911 in the [place] A suicide crisis helpline, such as the National Suicide Prevention Lifeline at . This is open 24 hours a day. Summary Taking steps to learn and use tension reduction techniques can help calm you and help prevent triggering an anxiety reaction. When used together, medicines, psychotherapy, and tension reduction techniques may be the most effective treatment. Family, friends, and partners can play a big part in helping you recover from an anxiety disorder. This information is not intended to replace advice given to you by your health care provider. Make sure you discuss any questions you have with your health care provider. Document Released: 05/03/2017 Document Revised: 10/09/2019 Document Reviewed: 10/09/2019 [employer] Patient Education 2020 [employer]. [facility] Evaluation + Plan note Future Appointments Appointment Date:12/09/2021 07:40:00 AM Scheduled Provider:Silas Haider MD Location:[facility] Appointment Type:[facility] Evaluation + Plan note Future Appointments Appointment Date:03/31/2022 04:40:00 PM Scheduled Provider:Silas Haider MD Location:[facility] Appointment Type:[facility] Evaluation + Plan note Future Appointments Appointment Date:09/22/2022 04:40:00 PM Scheduled Provider:Silas Haider MD Location:[facility] Appointment Type:[facility] Evaluation + Plan note Future Appointments Appointment Date:03/20/2024 07:15:00 AM Scheduled Provider:Silas Haider MD Location:[facility] Appointment Type: Open Diagnostic Tests PendingUrine Culture 09/20/23 [facility] Evaluation + Plan note Future Appointments Appointment Date:03/20/2024 07:15:00 AM Scheduled Provider:Silas Haider MD Location:[facility] Appointment Type: Open Future Scheduled TestsUS Extremity Non-Vascular Limited Right 11/15/23 [facility] Evaluation + Plan note Future Appointments Appointment Date:03/20/2024 07:15:00 AM Scheduled Provider:Silas Haider MD Location:[facility] Appointment Type: Open [facility] Evaluation note No assessment inform ation available [facility] Work Phone: Evaluation note Diagnosis Onset Date Vaginitis noneactive [facility] Work Phone: Hospital course Narrative No data available for this section [facility] [place] [facility] Discharge instructions No data available for this section [facility] No data available for this section [facility] Summary Purpose Family History No Family History Records Found Relationship Condition Age at Onset Recorded Date/T benita father Diabetes mellitus Unknown Advance Directives No Advanced Directives Records Found Advance Directive Response Recorded Date/ Time Advance Directives No January 15, 2017 11:31am Chief Complaint and Reason for Visit Chief Complaint Screening Chief Complaint z12.31 Chief Complaint z12.31 possible yeast infection Vaginal irritation Reason for Visit Vaginitis Additional Source Comments INFORMATION SOURCE (unrecogn ized section and content) DATE CREATED AUTHOR 04/30/2018 [facility] DATE CREATED AUTHOR AUTHOR'S ORGANIZ ATION 10/06/2022 [facility] DATE CREATED AUTHOR AUTHOR'S ORGANIZ ATION 10/01/2023 [facility] EPIC DATE CREATED AUTHOR AUTHOR'S ORGANIZ ATION 11/17/2023 [facility] DATE CREATED AUTHOR AUTHOR'S ORGANIZ ATION 12/08/[address] [facility] DATE CREATED AUTHOR AUTHOR'S ORGANIZ ATION 03/07/2024 Pedro Bullock [facility] Care Team (unrecognized sect ion and content) Team Status: Active Member Role Status Virginia Haider MD Primary Care Provider Active Team Status: Inactive Member Role Status Virginia Haider MD Primary Care Provider Active Torie Walker Attending Provider Active Team Status: Inactive Member Role Status Virginia Haider MD Primary Care Provider Active Start: September 22, 2023 End: September 22, 2023 Torie Walker Attending Provider Active Start: Rigo leung 2023 End: September 22, 2023 Team Status: Inactive Member Role Status Virginia Haider MD Primary Care Provider Active Start: September 22, 2023 End: September 22, 2023 Torie Walkre DO Attending Provider Active Start : September 22, 2023 End: September 22, 2023 Team Status: Inactive Member Role Status Virginia Haider MD Primary Care Provider Active Start: December 02, 2023 End: December 02, 2023 Manisha Sánchez APRN Attending Provider Active Start: December 02, 2023 End: December 02, 2023 Team Status: Inactive Member Role Status Virginia Sánchez APRN Attending Provider Active Start: December 02, 2023 End: December 02, 2023 Goals (unrecognized section and content) Goals may be documented in a n alternate section FOR RECORDS PERTAINING TO PATIENTS WHO ARE OR HAVE BEEN ENROLLED IN A CHEMICAL DEPENDENCY/SUBSTANCEABUSE PROGRAM, SOME INFORMATION MAY BE OMITTED. This clinical summary was aggregated from multiple sources. Caution should be exercised in using it in the provision of clinical care. This summary normalizes information from multiple sources, and as a consequence, information in this document may materially change the coding, format and clinical context of patient data. In addition, data may be omitted in some cases. CLINICAL DECISIONS SHOULD BE BASED ON THE PRIMARY CLINICAL RECORDS. [employer] provides no warranty or guarantee of the accuracy or completeness of information in this document.
--- NOTE | 2024-03-19 15:52 | P.CN_ITS ---
Consult Note: HPI Data of Consult Patient: new to practice Consult date: 03/19/24 Requesting Physician: Carlin Collier MD Primary Care Provider: GARRISON ARZATE Consult Narrative Reason for consult: right neck, arm pain Narrative: 43yof who presents for evaluation. longstanding neck, right shoulder, right arm pain. had mastectomy in 2015, pain began around a similar time. previous cervical mri from 2015 showed multilevel degenerative changes. has continued in a series of provider directed home exercises >6 weeks, without lasting benefit. uses otc meds and topicals, as needed. denies adverse med side effects. cc:: CC: Carlin Collier MD Review of Systems ROS Status of ROS 10 or more systems reviewed and unremark able except as noted in history and below Meds Home Medications and Allergies Allergies Allergy/AdvReac Type Severity Reaction Status Date / Time morphine Allergy Intermediate Hives Verified 03/19/24 15:52 Exam Narrative Exam Narrative: Psych-alert and oriented x 3.? Attentive and appropriate, constitutionally normal, displays normal mood and affect per situation.? There are no obvious deficits in memory, reasoning, or intellect.? Skin-no obvious rashes, bruising, or erythema noted to the patient's area of pain.? Extremities-upper extremities are warm with minimal edema and palpable pulses. Cervical- tenderness to palpation noted in the cervical spine and paraspinal musculature.? Pain is elicited with flexion, extension, and lateral rotation of the cervical spine.? Range of motion is diminished due to pain. Facet loading maneuvers are positive. Strength-unremarkable and within normal limits with the exception to the right biceps. Sensory-no notable sensory deficits in the bilateral upper extremities to touch or pinprick with the exception to decreased sensation to the right C4, 5, 6 dermatomal distribution.? Coordination remains intact.? Gait remains non-antalgic. Assessment and Plan Assessment and Plan (1) Cervical stenosis of spinal canal: (2) Cervical radiculopathy: Plan 43yof who presents for evaluation. failed conservative measures, as needed. imaging reviewed, as needed. given symptoms and imaging, would like to update with cervical mri without contrast. she is in agreement. meds reviewed, no changes. follow up after mri.
== END 2024-03-19 14:09 | disposition home or self-care (01) ==
LOC: PM 14:09
PROVIDERS: PCP Family Medicine; Visit Provider Anesthesiology
DX: M48.02 Spinal stenosis, cervical region (principal); M54.12 Radiculopathy, cervical region
CPT/HCPCS: G0463

== ENCOUNTER 2024-04-02 15:35 | Outpatient (OUT) | payer OTHER, SELFPAY ==
--- NOTE | 2024-04-02 15:38 | MR_ITS ---
The [address] [address] Patient Name: SHREYAS DU MRN: [facility]:[id number] date: 1980 Sex: F Assigned Patient Location: MRI Current Patient Location: MRI Accession/Order Number: [id number] Exam Date: 04/02/2024 15:45 Report Date: 04/03/2024 15:40 At the request of: ROSARIO GALICIA Procedure: MR cervical spine wo con EXAM: MR cervical spine wo con HISTORY: Cervical Stenosis, Cervical Radiculopathy. Cervical spine pain radiating into the right shoulder and right arm. Symptoms worsening over the last 2 years. COMPARISON: None. TECHNIQUE: Multiplanar and multisequence imaging of the cervical spine was performed without contrast. FINDINGS: There is straightening of the cervical lordosis. No acute fracture or spondylolisthesis is evident. The cervical vertebral body heights are maintained. There is disc desiccation throughout the cervical spine with mild to moderate disc height loss in the mid to lower cervical spine. No acute abnormality is identified in the posterior fossa or at the craniocervical junction. No convincing cord signal abnormality is evident in the cervical cord. Motion artifact mildly degrades evaluation. There is no focal abnormality involving the thyroid gland. C2-C3: There is no focal disc herniation. The thecal sac measures 10 mm in AP dimension. There is no foraminal stenosis. C3-C4: There is a diffuse disc bulge with bilateral uncovertebral/foraminal disc-osteophyte complexes measuring 3 mm in AP dimension. There is mild central narrowing with the thecal sac measuring 9 mm in AP dimension. There is moderate to severe right and mild to moderate left foraminal narrowing. C4-C5: A broad-based disc-osteophyte complex extends to the foraminal region bilaterally. There is effacement of the thecal sac and mild to moderate central narrowing with the thecal sac measuring 8 mm in AP dimension. There is severe right and moderate to severe left foraminal narrowing. C5-C6: A broad-based disc-osteophyte complex results in mild to moderate central narrowing with the thecal sac measuring 8 mm in AP dimension. There is moderate to severe bilateral foraminal narrowing. C6-C7: A broad-based disc-osteophyte complex effaces the thecal sac and results in mild to moderate central narrowing with the thecal sac measuring 8 mm in AP dimension. There is moderate to severe left and mild right foraminal narrowing. MR/MR cervical spine wo con IMPRESSION: 1. Broad-based disc-osteophyte complexes at C4-C5, C5-C6 and C6-C7 result in mild to moderate central narrowing at these levels. There is also mild central narrowing at C3-C4. 2. Extensive moderate to severe multilevel foraminal narrowing in the cervical spine as described above by level. 3. No acute fracture. Please see above for a detailed description. Electronically authenticated by: ED LEWIS Date: 04/03/2024 15:40
--- OUTSIDE RECORDS SUMMARY | 2024-04-02 15:54 | XMS_ITS | CCD ---
Author Organization [facility] Care Team Providers [facility] Psychiatrist Name Role Phone Tala Johnson Unavailable Unavaila Dalton Moses Unavailable UnavailMeka Healy Sangita Unavailable Unavailable Dalton Olvera Unavailable UnavailSilas Jack Primary Care Physician MD Silas Haider Primary Care Provider Torie Walker Attending Provider CLAIR ., DR VOGT Attending Unavailable CLAIR ., DR VOGT Consulting Unavailable CLAIR ., DR VOGT Admitting Unavailable Silas Haider Primary Care Physician MD Silas Haider Primary Care Provider Torie Walker Attending Provider TORIE WALKER Attending Unavailable TORIE WALKER Attending Unavailable MD Silas Haider Primary Care Provider DO Torie Walker Attending Provider [phone] MANDI Sánchez Attending Provider Silas Haider Primary [...] Haider Admitting Unavailable Silas Haider Attending Unavailable Nando SERRANO, Carlin Rodrigues Attending Unavailable Allergies Allergy Classification Reported Allergen(s) Allergy Type Date of Onset Reaction(s) Facility (12 sources) Morphine; Translations: [morphine] Drug Allergy 7 Itching (finding) [facility] [place] (5 sources) aprepitant; Translations: [aprepitant] Drug Allergy 7 Unknown Reaction [facility] (1 source) Morphine Drug Allergy 4 [facility] Repository Medications Current Medications Medication Drug Class(es) Dates Sig (Normalized) Sig (Original) 0.5 ML semaglutide 2 MG/ML Auto-Injector (1 source) Start: 09-09-2021 End: 11-04-2021 Wegovy (1 mg dose) subcutaneous solution 1 mg, SubCutaneous, qWeek, INJECT 1 PEN UNDER THE SKIN EVERY WEEK, X 4 week(s), # 4 EA, Refills(s) 1, Pharmacy: [facility] #[id number], 171, cm, 09/09/21 13:28:00 EDT, Height/Length Dosing, 75.9, kg, 09/09/21 13:28:00 EDT, Weight Dosing Start Date: 09/09/21 Stop Date: 11/04/21 Status: Ordered 0.75 ML semaglutide 3.2 MG/ML Auto-Injector [Wegovy] (2 sources) Start: 03-31-2022 inject 2.4 mg by subcutaneous injection every week Wegovy (2.4 mg dose) subcutaneous solution 2.4 mg, SubCutaneous, qWeek, # 12 EA, Refills(s) 1, Pharmacy: [facility] #[id number], 171, cm, 03/31/22 16:52:00 EST, Height/Length Dosing, 75.7, kg, 03/31/22 16:52:00 EST, Weight Dosing Start Date: 03/31/22 Status: Ordered Start: 12-31-2021 inject 2.4 mg by sub cutaneous injection every week Wegovy (2.4 mg dose) subcutaneous solution 2.4 mg, SubCutaneous, qWeek, # 12 EA, Refills(s) 1, Pharmacy: [facility] #[id number], 171, cm, 12/31/21 16:30:00 EDT, Height/Length Dosing, [...] BID, # 20 cap(s), Refills(s) 0, Pharmacy: [facility] #[id number], 171, cm, 11/15/23 11:43:00 EDT, Height/Length [...] Daily, # 90 cap(s), Refills(s) 1, Pharmacy: [facility]/pharmacy #[id number], 171, cm, 03/31/22 16:52:00 EST, Height/Length Dosing, 75.7, kg, 03/31/22 16:52:00 EST, Weight Dosing Start Date: 03/31/22 Status: Ordered Start: 12-31-2021 take 1 capsule by [facility] once daily omeprazole 40 mg Cap-DR 40 mg = 1 cap(s), Oral, Daily, # 90 cap(s), Refills(s) 1, Pharmacy: [facility]/pharmacy #[id number], 171, cm, 12/31/21 16:30:00 EDT, Height/Length Dosing, 76.7, kg, 12/31/21 16:30:00 EDT, Weight Dosing Start Date: 12/31/21 Status: Ordered omeprazole 40 mg Cap-DR (1 source) Start: 09-09-2021 End: 12-08-2021 take 1 capsule by mouth once daily omeprazole 40 mg Cap-DR 40 mg = 1 cap(s), Oral, Daily, X 90 day(s), # 90 cap(s), Refills(s) 0, Pharmacy: [facility]/pharm[facility] #[id number], 171, cm, 09/09/21 13:28:00 EDT, Height/Length [...] every four to six hours Hydrocodone-Acetami nophen ([place]) 5-325 mg tablet Discontinued 1 TAB PO EVERY 4-6 HOURS 40 7 October 03, 2018 November 08, 2018 8:07am Start: 01-18-2017 End: 01-27-2017 take 2 tablets by mouth every four to six hours Hydrocodone-Acetaminophen ([place]) 5-325 mg Tablet Discontinued 2 TAB PO [...] 1 Ambulatory Visit Summary Ambulatory Visit Summary CELESTE DU :1980 Visit Date:03/05/2024 Ambulatory Visit Instructions [...] AM EST With: Silas Haider MD Where: [address] Medications What How Much When Instructions Unchanged [...] choosing us for your care. Normal Vasquez [facility] Family Medicine Office/Clini c Noteon 03-05-2024 Family [...] bedtime), # 15 tab(s), Refills(s) 0, Pharmacy: [facility], 171, cm, 03/05/24 15:51:00 EDT, Height/Length Dosing, 79.6, kg, 03/05/24 15:51:00 EDT, Weight Dosing [facility] External Ambulatory Referral 2. Anxiety and depression [...] bedtime), # 15 tab(s), Refills(s) 0, Pharmacy: [facility], 171, cm, 03/05/24 15:51:00 EDT, Height/Length Dosing, 79.6, kg, 03/05/24 15:51:00 EDT, Weight Dosing [facility] External Ambulatory Referral 3. Insomnia (G47.00: Insomnia, [...] bedtime), # 15 tab(s), Refills(s) 0, Pharmacy: [facility], 171, cm, 03/05/24 15:51:00 EDT, Height/Length Dosing, 79.6, kg, 03/05/24 15:51:00 EDT, Weight Dosing [facility] External Ambulatory Referral 4. Osteoarthritis (M19.90: Unspecified osteoarthritis, unspecified site) The patient reports exacerbated osteoarthritis symptoms focused around the clavicle. Present management strategies, including the use of fjfs-bre-ghhprqg analgesics, have not (more content not included)... Normal [facility] Comment on above: Result Comment: Elec [...] BID, # 20 cap(s), Refills(s) 0, Pharmacy: [facility] #[id number], 171, cm, 11/15/23 11:43:00 EDT, Height/Length Dosing, 77.3, kg, 11/15/23 11:43:00 EDT, Weight Dosing 6. Excessive dietary caloric intake (R63.2: Polyphagia) Will do Adipex at this time. Will do it at a lower BMI as her anxiety and depression have some concerns and her weight. Orders: phentermine, 37.5 mg = 1 cap(s), Oral, Daily, # 30 cap(s), Refills(s) 0, Pharmacy: [facility] #[id number], 171, cm, 02/06/24 16:09:00 EDT, Height/Length [...] influenza virus vaccine, inactivated 03/11/2015 Recorded Normal [facility] Comment on above: Result Comment: Elec tronically Signed By: Vitaly SERRANO, Silas Vinson.br\Date and Time Signed: 02/06/24 18:09 EDT Urine Cultureon 12-02-2023 Bacteria identified Cx Nom (U) <9,000 colonies/ml mixed bacterial skin contaminants 2 Days PERFORMED BY: [place] [address] PATHOLOGIST QLIKVIEW DEVELOPER YENI BAH M.D. Normal [facility] Comment on above: Performed By: #### C UU #### [place] [address] [place] #### VAGINITIS+ #### [facility] , Vaginitis Plus (VG+)on 12-01 Atopobium Vaginae Moderate - 1 Normal . [facility] Comment on above: Result Comment: This test was developed and its performance characteristics determined by [facility]. It has not been cleared or approved by the Food and Drug Administration. Performed By: #### C UU #### [address] #### VAGINITIS+ #### [facility] , BVAB2 Low - 0 Normal . [facility] Comment on above: Result Comment: This test was developed and its performance characteristics determined by [facility]. It has not been cleared or approved by the Food and Drug Administration. Performed By: #### C UU #### [address] #### VAGINITIS+ #### [facility] , Dolores Albicans, FAISAL Negative Normal Negative [facility] Comment on above: Result Comment: This test was developed and its performance characteristics determined by [facility]. It has not been cleared or approved by the Food and Drug Administration. Performed By: #### C UU #### [address] #### VAGINITIS+ #### [facility] , Dolores Glabrata, FAISAL Negative Normal Negative [facility] Comment on above: Result Comment: This test was developed and its performance characteristics determined by [facility]. It has not been cleared or approved by the Food and Drug Administration. PERFORMED BY: [place] [address] PATHOLOGIST [employer]LIKVIEW DEVELOPER YENI BAH M.D. Performed By: #### C UU #### [place] [address] [place] #### VAGINITIS+ #### [facility] , Chlamydia Trachomotis, FAISAL Negative Normal Negative [facility] Comment on above: Performed By: #### C UU #### [place] [address] [place] #### VAGINITIS+ #### [facility] , Megasphaera Low - 0 Normal . [facility] Comment on above: Result Comment: [...] BV. Performed By: #### C UU #### [address] #### VAGINITIS+ #### [facility] , Neisseria Gonorrhoeae, FAISAL Negative Normal Negative [facility] Comment on above: Result Comment: Perf ormed at: =G - [facility] [address] [id number] Tire Fixer: Dee Mendez MD, Phone: [phone] Performed By: #### C UU #### [place] [id number] [facility] #### VAGINITIS+ #### [facility] , Tric Vag FAISAL Negative Normal Negative [facility] Comment on above: Performed By: #### C UU #### [address] #### VAGINITIS+ #### [facility] , [place] [...] no solid masses visualized. Ordering Provider: Silas aHider FINAL REPORT Dictated: 11/19/2023 10:03 am Nikolay Mann MD Signed (Electronic Signature): 11/19/2023 10:03 am Signed by: Nikolay Mann MD Transcribed by: DIANNA Technologist: ISAI Normal [facility] CBC w/ Auto Diffon 4 Basophils (Bld) [#/Vol] 0.0 E9/L Normal 0.0-0.2 [facility] Comment on above: Performed By: #### 2 [id number] #### [facility] [address] [place] [address] Eosinophils (Bld) [#/Vol] 0.5 E9/L Normal 0.0-0.5 [facility] Comment on above: Performed By: #### 2 [id number] #### [facility] [address] [place] [address] Eosinophils/100 WBC (Bld) 5.0 % Normal 0.0-8.0 [facility] Comment on above: Performed By: #### 2 [id number] #### [facility] [address] [place] [address] Erythrocyte distribution width (RBC) [Ratio] 12.6 % Normal 10.9-14.2 [facility] Comment on above: Performed By: #### 2 [id number] #### [facility] [address] [place] [address] Hematocrit (Bld) [Volume fraction] 42.8 % Normal 34.0-46.0 [facility] Comment on above: Performed By: #### 2 [id number] #### [facility] [address] [place] [address] Hemoglobin (Bld) [Mass/Vol] 15.0 g/dL Normal 12.0-16.0 [facility] Comment on above: Performed By: #### 2 879476 #### [facility] [address] [place] [address] Lymphocytes (Bld) [#/Vol] 2.6 E9/L Normal 1.0-4.0 [facility] Comment on above: Performed By: #### 2 [id number] #### [facility] [address] [place] [address] Lymphocytes/100 WBC (Bld) 27.0 % Normal 14.0-50.0 [facility] Comment on above: Performed By: #### 2 694605 #### [facility] [address] [place] [address] MCH (RBC) [Entitic mass] 33.5 pg Normal 27.0-34.0 [facility] Comment on above: Performed By: #### 2 633551 #### [facility] [address] [place] [address] MCHC (RBC) [Mass/Vol] 35.1 g/dL Normal 31.4-36.0 [facility] Comment on above: Performed By: #### 2 441639 #### [facility] [address] [place] [address] MCV (RBC) [Entitic vol] 95.4 fL Normal 80.0-100.0 [facility] Comment on above: Performed By: #### 2 546602 #### [facility] [address] [place] [address] Metamyelocytes/Leukocy kandace Manual cnt (Bld) [Pure # fraction] 1 % High 0-0 [facility] Comment on above: Performed By: #### 2 [id number] #### [facility] [address] [place] [address] Monocytes (Bld) [#/Vol] 0.6 E9/L Normal 0.2-1.0 [facility] Comment on above: Performed By: #### 2 [id number] #### [facility] [address] [place] [address] Neutrophils (Bld) [#/Vol] 5.8 E9/L Invalid Interpretation Code [facility] Comment on above: Performed By: #### 2 [id number] #### [facility] [address] [place] [address] Platelet 333.0 E9/L Normal 150.0-500.0 [facility] Comment on above: Performed By: #### 2 [id number] #### [facility] [address] [place] [address] Platelet mean volume (Bld) [Entitic vol] 8.0 fL Normal 6.4-10.8 [facility] Comment on above: Performed By: #### 2 738247 #### [facility] [address] [place] [address] RBC (Bld) [#/Vol] 4.5 E12/L Normal 4.3-5.9 [facility] Comment on above: Performed By: #### 2 [id number] #### [facility] [address] [place] [address] RBC size Nom (Bld) NORMAL Invalid Interpretation Code [facility] Comment on above: Performed By: #### 2 [id number] #### [facility] [address] [place] [address] Segmented neutrophils/100 WBC (Bld) 61.0 % Normal 36.0-75.0 [facility] Comment on above: Performed By: #### 2 [id number] #### [facility] [address] [place] [address] WBC corrected for nucl RBC Auto (Bld) [#/Vol] 9.6 E9/L Normal 4.0-11.0 [facility] Comment on above: Performed By: #### 2 823304 #### [facility] [address] [place] [address] Family Medicine Office/Clini c Noteon 11-15-2023 Family [...] BID, # 20 cap(s), Refills(s) 0, Pharmacy: [facility] #[id number], 171, cm, 11/15/23 11:43:00 EDT, Height/Length Dosing, 77.3, kg, 11/15/23 11:43:00 EDT, Weight Dosing CBC w/ Auto Diff Lab Specimen Collect 14907 US Extremity Non-Vascular Limited Right 2. BMI 26.0-26.9,adult (Z68.26: Body mass index [BMI] 26.0-26.9, adult) - BMI education added Ordered: clindamycin, 300 mg = 1 cap(s), Oral, BID, # 20 cap(s), Refills(s) 0, Pharmacy: [facility] #[id number], 171, cm, 11/15/23 11:43:00 EDT, Height/Length Dosing, 77.3, kg, 11/15/23 11:43:00 EDT, Weight Dosing CBC w/ Auto Diff Lab Specimen Collect 13327 US Extremity Non-Vascular Limited Right 3. Former smoker (Z87.891: Personal history of nicotine dependence) - Please continue to not smoke Ordered: clindamycin, 300 mg = 1 cap(s), Oral, BID, # 20 cap(s), Refills(s) 0, Pharmacy: [facility] #[id number], 171, cm, 11/15/23 11:43:00 EDT, Height/Length Dosing, 77.3, kg, 11/15/23 11:43:00 EDT, Weight Dosing CBC w/ Auto Diff Lab Specimen Collect 73968 US Extremity Non-Vascular Limited Right Total time [...] virus vaccine, inactivated 03/11/2015 Recorded Normal [facility] Comment on above: Result Comment: [...] Ultrasound Reporton RAD - Ultrasound Report [id number] Normal [facility] C Urineon 09-28-2023 Bacteria identified Cx Nom (U) Microbiology PROCEDURE: Urine Culture [R1] SOURCE: U CleanCatch BODY SITE: COLLECTED DATE/TIME: 09/20/2023 13:11 EDT RECEIVED DATE/TIME: 09/20/2023 18:31 EDT START DATE/TIME: 09/20/2023 18:31 EDT FREE TEXT SOURCE: Vitaly SERRANO, Silas Haider MD, Silas Lockwood AMENDED REPORTS Amended Report [] Verified Date/Time: 09/28/2023 12:52 EDT Wrong patient per [facility] 09/28/2023 12:51 CSS Patient credited. CSS Performing Locations R1: This test was performed at: [facility], [address] [place] [address], [address] , , Normal [facility] Comment on above: Performed By: #### 2 [id number] #### [facility] [address] [place] [address] Provider Letteron 09-26-2023 Provider Letter September 26, 2023 [place] [address] : 1980 Dear Celeste, We have been trying to reach you with no success. It is important that you return our call regarding your medication upon receiving this letter. Also, at the time of your call, please provide us with your current information. Thank you for your prompt attention to this matter. Sincerely, [facility] [place] [address] [place] [address] [facility] MM screening mammo LT w/CADo n 09-22-2023 MM screening mammo LT w/CAD [facility] [place] [address] [place] [address] Mammography Report Signed with Addenda Patient: Celeste Du MR#: [id number] 17 : 1980 Acct:[id number] Age/Sex: 42 / F ADM Date: 09/22/23 Loc: [place] Room: Type: [facility] Attending Dr: Torie Walker Copies to: Torie [...] Rousseau Jr., D.O.09/22/2023 9:15 AM Dictation Location: [facility] Addendum Dictated By: Ant Rousseau Jr DO Addendum Signed By: 09/22/23914 Addendum Cosigned By: DD/ /16/913 TD/TT: 09/22/2307/16/914 CLINICAL DATA: Screening for malignancy. History of right-sided breast cancer status post mastectomy in 2014. SCREENING MAMMOGRAM - FULL FIELD DIGITAL WITH [...] mammogram. Impression dictated by: Ant Rousseau Jr., Taylor09/22/2023 9:09 AM Dictation Location: [facility] Transcribed By: PWS 09/22/23908 Dictated By: Ant Rousseau Jr, DO 09/22/23907 Signed By: 09/22/23908 Normal [facility] Ambulatory Visit Summaryon 0 09-20-2023 [...] AM EDT With: Silas Haider MD Where: [facility] [place] Normal [facility] Family Medicine Office/Clini c Noteon 09-20-2023 [...] DAY, # 90 tab(s), Refills(s) 1, Pharmacy: [facility], 171, cm, 09/20/23 10:53:00 EDT, [...] virus vaccine, inactivated 03/11/2015 Recorded Normal [facility] Comment on above: Result Comment: [...] numbers. This can be done either in [place] or metric measurements. Note that charts and online BMI calculators are available to help you find your BMI quickly and easily without having to do these calculations yourself. To calculate your BMI in [place] measurements: 1. Measure your weight in [...] for Disease Control and Prevention: www.cdc.gov ? [place] Heart Association: www.heart.org ? National Heart, Lung, and Blood [place]: www.nhlbi.nih.gov Summary ? Body mass index (BMI) is a number that is calculated from a person's weight and height. ? BMI may help estimate how much of a person's weight is composed of fat. BMI can help identify those who may be at higher risk for certain medical problems. ? BMI can be measured using Welsh measurements or metric measurements. ? BMI charts are used to identify whether you are underweight, normal weight, overweight, or obese. This information is not intended to replace advice given to you by your health care provider. Make sure you discuss any questions you have with your health care provider. Document Revised: 01/30/2020 Document Reviewed: 12/07/2019 [employer] Patient Education ? 2022 [employer]. [facility] Retail - Clinical Noteon Retail - Clinical Note [id number] [facility] Ambulatory Visit Summaryon 1 05-24-2022 Ambulatory Visit [...] choosing us for your care. Normal [facility] Family Medicine Office/Clini c Noteon [...] dizziness, # 30 tab(s), Refills(s) 0, Pharmacy: [facility] #[id number], 171, cm, 12/08/22 13:48:00 EDT, Height/Length Dosing, 75.7, kg, 12/08/22 13:48:00 EDT, Weight Dosing 4. Overweight child (E66.3: Overweight) - Diet and exercise advised Ordered: meclizine, 25 mg = 1 tab(s), Oral, TID, PRN for dizziness, # 30 tab(s), Refills(s) 0, Pharmacy: [facility] #[id number], 171, cm, 12/08/22 13:48:00 EDT, Height/Length [...] DAY, # 90 tab(s), Refills(s) 1, Pharmacy: [facility], 171, cm, 03/24/23 8:31:00 EDT, Height/Length Dosing, 73.2, kg, 03/24/23 8:31:00 EDT, Weight Dosing omeprazole, See Instructions, TAKE 1 CAPSULE BY MOUTH EVERY DAY, # 90 cap(s), Refills(s) 1, Pharmacy: [facility], 171, cm, 03/24/23 8:31:00 EDT, [...] vax 08/12/2020 R (more content not included)... [facility] Comment on above: Result Comment: Elec tronically Signed By: Vitaly SERRANO, Silas Lockwood\.br\Date and Time Signed: 03/24/23 08:54 EDT Provider Letteron 03-24-2023 Provider Letter March 24, 2023 [place] [address] : 1980 To Whom It May Concern, Please excuse above patient from work. Date of Illness: From: 03.24.2023 To: 03.24.2023 May Return to Work On: 03.24.2023 Sincerely, Silas Haider MD [address] [address] Normal [facility] PAP ACOG PANEL 2: 30 to 65on 10-05-2022 Age Gdln ACOG Testing 30-65 Normal [facility] Comment on above: Performed By: #### 4 [id number] #### [facility] [address] [address] [address] Vicky Cordoba Vital Signs Date Time Vital Sign Value Performing Clinician Faci lity 12-02-2023 14:37-0400 Body height 165.1 cm MD Silas Haider Work Phone: [facility] 12-02-2023 14:37-0400 Body mass index (BMI) [Ratio] 28.3 kg/m2 MD Silas Haider Work Phone: [facility] 12-02-2023 14:37-0400 Body temperature 98.4 [degF] MD Silas Haider Work Phone: [facility] 12-02-2023 14:37-0400 Body weight 77.11 kg MD Silas Haider Work Phone: [facility] 12-02-2023 14:37-0400 Diastolic blood pressure 88 mm[Hg] MD Silas Haider Work Phone: [facility] 12-02-2023 14:37-0400 Heart rate 96 /min MD Silas Haider Work Phone: [facility] 12-02-2023 14:37-0400 SaO2% (BldA) [Mass fraction] 96 % MD Silas Haider Work Phone: [facility] 12-02-2023 14:37-0400 Systolic blood pressure 130 mm[Hg] MD Silas Haider Work Phone: [facility] 03-31-2022 16:50-0500 Blood Pressure Location Silas Haider [facility] 03-31-2022 16:50-0500 Diastolic blood pressure 74 mm[Hg] Silas Haider [facility] 03-31-2022 16:50-0500 Heart rate 99 /min Silas Haider [facility] 03-31-2022 16:50-0500 SaO2% (BldA) [Mass fraction] 97 % Silas Haider [facility] 03-31-2022 16:50-0500 Systolic blood pressure 122 mm[Hg] Silas Haider [facility] 12-31-2021 16:27-0400 Blood Pressure Location Silas Haider [facility] 12-31-2021 16:27-0400 Diastolic blood pressure 82 mm[Hg] Silas Haider [facility] 12-31-2021 16:27-0400 Heart rate 87 /min Silas Haider [facility] 12-31-2021 16:27-0400 SaO2% (BldA) [Mass fraction] 98 % Silas Haider [facility] 12-31-2021 16:27-0400 Systolic blood pressure 120 mm[Hg] Silas Haider [facility] 09-09-2021 14:09-0400 Diastolic blood pressure 104 mm[Hg] Silas Haider [facility] 09-09-2021 14:09-0400 Mean blood pressure 113 mm[Hg] Silas Haider [facility] 09-09-2021 14:09-0400 Systolic blood pressure 132 mm[Hg] Silas Haider [facility] 09-09-2021 13:20-0400 Blood Pressure Location Silas Haider [facility] 09-09-2021 13:20-0400 Diastolic blood pressure 104 mm[Hg] Silas Haider [facility] 09-09-2021 13:20-0400 Heart rate 89 /min Silas Haider [facility] 09-09-2021 13:20-0400 SaO2% (BldA) [Mass fraction] 97 % Silas Haider [facility] 09-09-2021 13:20-0400 Systolic blood pressure 138 mm[Hg] Silas Haider [facility] Encounters Encounter Date Encounter Type Care Provider Facility Start: 05-07-2024 ambulatory Silas Haider Facility :[facility] Start: 03-19-2024 End: 03-19-2024 ambulatory Carlin Collier MD Facility:[facility] Start: 03-05-2024 End: 03-05-2024 ambulatory Silas [facility] Start: 02-06-2024 End: 02-06-2024 ambulatory Silas Haider Facility:[facility] Start: 12-02-2023 End: 12-02-2023 ambulatory MD Silas Haider Work Phone: [facility] Work Phone: Start: 12-02-2023 End: 12-02-2023 Departed Referred MD Silas Haider Work Phone: [facility] Start: 12-02-2023 End: 12-02-2023 Patient encounter procedure MD Silas Haider Work Phone: [facility] [place] Work Phone: Start: 11-18-2023 End: 11-18-2023 ambulatory Silas Haider Facility:[facility] Start: 11-18-2023 End: 11-18-2023 Patient encounter procedure Silas Haider [facility] Start: 11-15-2023 End: 11-15-2023 Lab Drop off Silas Haider [facility] Start: 11-15-2023 End: 11-15-2023 ambulatory Silas Haider Facility:[facility] Start: 09-29-2023 End: 09-29-2023 ambulatory TORIE WALKER Not Available Start: 09-22-2023 End: 09-22-2023 Patient encounter procedure MD Silas Haider Work Phone: [facility] Work Phone: Start: 09-22-2023 End: 09-22-2023 ambulatory MD Silas Haider Work Phone: [facility] Work Phone: Start: 09-20-2023 End: 09-20-2023 ambulatory Silas Haider Facility:[facility] Start: 09-20-2023 End: 09-20-2023 Lab Drop off Silas Haider [facility] Start: 09-20-2023 End: 09-20-2023 ambulatory Silas Haider Facility:[facility] Start: 08-03-2023 End: 08-03-2023 ambulatory Silas Haider Facility: [facility] Start: 06-14-2023 End: 06-14-2023 ambulatory TORIE WALKER Not Available Start: 03-24-2023 End: 03-24-2023 ambulatory Silas Haider Facility:[facility] Start: 09-27-2022 End: 09-27-[address] TORIE WALKER . Facility: Start: 08-31-2022 End: 08-31-2022 ambulatory MD Silas Haider Work Phone: [facility] Work Phone: Start: 08-31-2022 End: 08-31-2022 Patient encounter procedure MD Silas Haider Work Phone: [facility] Work Phone: Start: 03-31-2022 End: 03-31-2022 Patient encounter procedure Silas Haider [facility] Start: 12-31-2021 End: 12-31-2021 Patient encounter procedure Silas Haider [facility] Start: 09-09-2021 End: 09-09-2021 Patient encounter procedure Silas Haider [facility] Start: 03-06-2018 Patient encounter procedure Meka [...] on above: Vaginal Mastectomy of right breast S ana Haider Comment on above: with Rt node dissect ion and 3-4 cosmetic surgeries after Plan of Treatment Date Care Activity Detail Author Start: 12-02-2023 [facility] Start: 12-02-2023 Bacteria identified in Urine by Culture [facility] Atopobium vaginae DN A [Presence] in Vaginal fluid by FAISAL with probe detection [facility] Bacterial vaginosis associated bacterium 2 DNA [Presence] in Vaginal fluid by FAISAL with probe detection [facility] Megasphaera sp type 1 DNA [Presence] in Vaginal fluid by FAISAL with probe detection [facility] Immunizations Immunization Date Immunization Notes Care Provider Fa rigo 02-20-2022 influenza virus vaccine, unspecified formulation Silas Haider [facility] 09-02-2020 SARS-CoV-2 (COVID-19 ) mRNA BNT-162b2 vax Silas Haider [facility] 08-12-2020 SARS-CoV-2 (COVID-19 ) mRNA BNT-162b2 vax Silas Haider [facility] 04-04-2020 influenza virus vaccine, unspecified formulation Silas Haider [facility] 03-14-2018 influenza virus vaccine, unspecified formulation Silas Haider [facility] 03-13-2017 influenza virus vaccine, unspecified formulation Silas Haider [facility] 03-11-2015 influenza virus vaccine, unspecified formulation Silas Haider [facility] NEGATED: Highlighted row has not occurred!03-24-2023 influenza virus vaccine, unspecified formulation Silas Haider [facility] Payers Date Payer Category Payer Self-pay [id number] 2023 Unknown [id number] 2023 Unknown 2022 Unknown [id number] 1978 Unknown [id number] 2.16. [id number] 1978 Unknown [id number] 2.16. 840.1.885687.3.579.2.356 1978 Unknown [id number] 2.16.84 0.1.752425.3.579.2.593 1978 Unknown [id number] 2.16.84 0.1.284136.3.579.2.1259 1978 Unknown [id number] 2.16.84 0.1.440595.3.579.2.1259 1978 Unknown [id number] 2.16.8 40.1.722858.3.579.2.727 1978 Unknown [id number] 2.16.8 40.1.202260.3.579.2.727 1978 Unknown [id number] 2.16.8 40.1.078491.3.579.2.727 1978 Unknown [id number] 2.16.8 40.1.506574.3.579.2.727 1978 Unknown [id number] 2.16.8 40.1.971250.3.579.2.7 1978 Unknown [id number] 2.16.8 40.1.823584.3.579.2.727 1978 Unknown [id number] 2.16.8 40.1.878478.3.579.2.727 1978 Unknown [id number] 2.16.8 40.1.284914.3.579.2.727 1978 Unknown [id number] 2.16.8 40.1.576430.3.579.2.727 1978 Unknown [id number] 2.16.8 40.1.989463.3.579.2.727 1978 Unknown [id number] 2.16. 840.1.269072.3.579.2.196 1959 Unknown [id number] Unknown [id number] Unknown [id number] 2.16.8 40.1.967799.3.579.2.531 Unknown [id number] 2.16.8 40.1.254843.3.579.2.531 Social History Date Type Detail Facility Start: 01-03-2020 End: 09-09-2021 Tobacco smoking status Ex-smoker (finding) [facility] Comment on above: smokes outsi de Tobacco smoking status Never Juan [facility] [place][note 2] Comment on above: smokes outsi de Start: 01-28-1992 End: 08-21-2013 Sex Assigned At Female [facility] Tobacco Household tobacc o concerns: No. [facility] Tobacco smoking status No Smokin g Status Entered [facility] Start: 1980 Sex Assigned At Female [facility] Functional Status Date Assessment Result Facility 03-31-2022 Functional Status N/A [facility] 12-31-2021 Functional Status N/A [facility] Clinical Notes 09-09-2021 to 03-05-2024 Radiology Note [...] for Disease Control and Prevention: cdc.gov ? [place] Heart Association: heart.org ? National Heart, Lung, and Blood [place]: nhlbi.nih.gov This information is not intended to replace advice given to you by your health care provider. Make sure you discuss any questions you have with your health care provider. Document Revised: 01/27/2023 Document Reviewed: 01/20/2023 [employer] Patient Education ? 2023 [employer]. [facility] 02-06-2024 Note Patient Education Nutrition BMI [...] for Disease Control and Prevention: cdc.gov ? [place] Heart Association: heart.org ? National Heart, Lung, and Blood [place]: nhlbi.nih.gov This information is not intended to replace advice given to you by your health care provider. Make sure you discuss any questions you have with your health care provider. Document Revised: 01/27/2023 Document Reviewed: 01/20/2023 Elsevier Patient Education ? 2023 [employer]. [facility] 03-31-2022 Hospital Discharg e instructions Patient [...] care provider. This is important. Medicines Take pfcf-uji-esywdcu and prescription medicines only as told by [...] 05/09/2006 Document Revised: 01/17/2019 Document Reviewed: 01/17/2019 [employer] Patient Education 2019 [employer]. [facility] 12-31-2021 Hospital Discharg e instructions Patient Education [...] called talk therapy or counseling. Seeing a nutrition worker (dietitian). Getting appropriate exercise. Medicines to help [...] that address eating disorders. Talk with an computer training specialist, therapist, or counselor about your eating behavior. [...] health care provider. This is important. Take kqbm-ahw-wvvrfpp and prescription medicines only as told by [...] 05/09/2006 Document Revised: 09/17/2016 Document Reviewed: 03/12/2016 [employer] Patient Education 2020 [employer]. 12/31/2021 16:54:02 Hypertension, Adult Hypertension, Adult High [...] care provider. This is important. Medicines Take wzeh-znn-inzesqo and prescription medicines only as told by [...] 05/09/2006 Document Revised: 01/17/2019 Document Reviewed: 01/17/2019 [employer] Patient Education 2019 [employer]. [facility] [place] 09-09-2021 Hospital Discharg e instructions Patient Education [...] care provider. Avoid caffeine, alcohol, and certain xblx-sbq-jfglocl cold medicines. These may make you feel worse. Ask your pharmacist which medicines to avoid. General instructions Take eckc-yze-gbsogus and prescription medicines only as told by [...] Depression Association of [place] (ADAA): www.adaa.org National [place] on Mental Illness (BRENDA): www.brenda.org Contact a [...] 05/03/2017 Document Revised: 10/09/2019 Document Reviewed: 10/09/2019 [employer] Patient Education 2020 [employer]. [facility] Evaluation + Plan note Future Appointments Appointment Date:12/09/2021 07:40:00 AM Scheduled Provider:Silas Haider MD Location:[facility] Appointment Type:[facility] Evaluation + Plan note Future Appointments Appointment Date:03/31/2022 04:40:00 PM Scheduled Provider:Silas Haider MD Location:[facility] Appointment Type:[facility] Evaluation + Plan note Future Appointments Appointment Date:09/22/2022 04:40:00 PM Scheduled Provider:Silas Haider MD Location:[facility] Appointment Type: Open [facility] Evaluation + Plan note Future Appointments Appointment Date:03/20/2024 07:15:00 AM Scheduled Provider:Silas Haider MD Location:[facility] Appointment Type: Open Diagnostic Tests PendingUrine Culture 09/20/23 [facility] Evaluation + Plan note Future Appointments Appointment Date:03/20/2024 07:15:00 AM Scheduled Provider:Silas Haider MD Location:[facility]3] Appointment Type: Open Future Scheduled TestsUS Extremity Non-Vascular Limited Right 11/15/23 [facility] Evaluation + Plan note Future Appointments Appointment Date:03/20/2024 07:15:00 AM Scheduled Provider:Silas Haider MD Location:[facility]3] Appointment Type:[facility] Evaluation note No assessment inform ation available [facility] Work Phone: Evaluation note Diagnosis Onset Date Vaginitis noneactive [facility] Work Phone: Hospital course Narrative No data available for this section [facility] Hospital Discharge instructions No data available for this section [facility] No data available for this section [facility] Summary Purpose Family History No Family [...] section and content) DATE CREATED AUTHOR 04/30/2018 [facility] DATE CREATED AUTHOR AUTHOR'S ORGANIZ ATION 10/06/2022 [facility] DATE CREATED AUTHOR AUTHOR'S ORGANIZ ATION 10/01/2023 [facility] EPIC DATE CREATED AUTHOR AUTHOR'S ORGANIZ ATION 11/17/2023 [facility] DATE CREATED AUTHOR AUTHOR'S ORGANIZ ATION 12/08/2023 [facility] DATE CREATED AUTHOR AUTHOR'S ORGANIZ ATION 03/07/2024 [facility] DATE CREATED AUTHOR AUTHOR'S ORGANIZ ATION 03/24/2024 [facility] Care Team (unrecognized sect ion and content) Team Status: Active Member Role Status Dates Silas Haider MD Primary Care Provider Active Team Status: Inactive Member Role Status Dates Silas Haider MD Primary Care Provider Active Torie Walker Attending Provider Active Team Status: Inactive Member Role Status Dates Silas Haider MD Primary Care Provider Active Start: September 22, 2023 End: September 22, 2023 Torie Walker Attending Provider Active Start: Rigo leung 2023 End: September 22, 2023 Team Status: Inactive Member Role Status Dates Silas Haider MD Primary Care Provider Active Start: September 22, 2023 End: September 22, 2023 Torie Walker DO Attending Provider Active Start : September 22, 2023 End: September 22, 2023 Team Status: Inactive Member Role Status Dates Silas Haider MD Primary Care Provider Active Start: December 02, 2023 End: December 02, 2023 Manisha Sánchez APRN Attending Provider Active Start: December 02, 2023 End: December 02, 2023 Team Status: Inactive Member Role Status Dates Manisha Sánchez APRN Attending Provider Active Start: [...] BE BASED ON THE PRIMARY CLINICAL RECORDS. [facility]. provides no warranty or guarantee of the accuracy or completeness of information in this document.
== END 2024-04-02 15:36 | disposition home or self-care (01) ==
LOC: MRI 15:35
PROVIDERS: PCP Family Medicine; Visit Provider Anesthesiology
DX: M48.02 Spinal stenosis, cervical region (principal); M54.12 Radiculopathy, cervical region; M25.78 Osteophyte, vertebrae
CPT/HCPCS: 72141

== ENCOUNTER 2024-04-04 14:53 | Outpatient (OUT) | payer OTHER, SELFPAY ==
--- NOTE | 2024-04-04 15:30 | P.CN_ITS ---
Consult Note: HPI Data of Consult Patient: new to practice Consult date: 03/19/24 Requesting Physician: Anabel Allen NP Primary Care Provider: GARRISON ARZATE Consult Narrative Reason for consult: right neck, arm pain Narrative: 43yof who presents for evaluation. longstanding neck, right shoulder, right arm pain. had mastectomy in 2015, pain began around a similar time. previous cervical mri from 2015 showed multilevel degenerative changes. has continued in a series of provider directed home exercises >6 weeks, without lasting benefit. uses otc meds and topicals, as needed. denies adverse med side effects. recently completed a cervical MRI with results below. Pain today 3/10 in neck radiating into collar bone and RUE with numbness and tingling. Pain increased with twisting, standing, walking, looking up and down. Pain improved with sleep, stretching, heat, lying flat. cc:: CC: Anabel Allen NP Review of Systems ROS Status of ROS 10 or more systems reviewed and unremark able except as noted in history and below Musculoskeletal Reports: neck pain and extremity pain Meds Home Medications and Allergies Home Medications ?Medication ?Instructions ?Recorded ?Confirmed ?Type amlodipine 10 mg tablet (Norvasc) 10 mg PO DAILY 03/19/24 03/19/24 History clonazepam 0.5 mg tablet 0.5 mg PO Q8H 03/19/24 03/19/24 History lamotrigine 200 mg tablet 200 mg PO DAILY 03/19/24 03/19/24 History lamotrigine 25 mg tablet 50 mg PO QAM 03/19/24 03/19/24 History phentermine 37.5 mg tablet 37.5 mg PO DAILY 03/19/24 03/19/24 History (Adipex-P) Allergies Allergy/AdvReac Type Severity Reaction Status Date / Time morphine Allergy Intermediate Hives Verified 03/19/24 15:52 Exam Narrative Exam Narrative: Psych-alert and oriented x 3.? Attentive and appropriate, constitutionally normal, displays normal mood and affect per situation.? There are no obvious deficits in memory, reasoning, or intellect.? Skin-no obvious rashes, bruising, or erythema noted to the patient's area of pain.? Extremities-upper extremities are warm with minimal edema and palpable pulses. Cervical- tenderness to palpation noted in the cervical spine and paraspinal musculature.? Pain is elicited with flexion, extension, and lateral rotation of the cervical spine.? Range of motion is diminished due to pain. Facet loading maneuvers are positive. Strength-unremarkable and within normal limits with the exception to the right biceps. Sensory-no notable sensory deficits in the bilateral upper extremities to touch or pinprick with the exception to decreased sensation to the right C4, 5, 6 dermatomal distribution.? Coordination remains intact.? Gait remains non-antalgic. Results Imaging Cervical MRI: Attestation: I have reviewed the pertinent imaging results. Radiologist's impression: There is straightening of the cervical lordosis. No acute fracture or spondylolisthesis is evident. The cervical vertebral body heights are maintained. There is disc desiccation throughout the cervical spine with mild to moderate disc height loss in the mid to lower cervical spine. No acute abnormality is identified in the posterior fossa or at the craniocervical junction. No convincing cord signal abnormality is evident in the cervical cord. Motion artifact mildly degrades evaluation. There is no focal abnormality involving the thyroid gland. C2-C3: There is no focal disc herniation. The thecal sac measures 10 mm in AP dimension. There is no foraminal stenosis. C3-C4: There is a diffuse disc bulge with bilateral uncovertebral/foraminal disc-osteophyte complexes measuring 3 mm in AP dimension. There is mild central narrowing with the thecal sac measuring 9 mm in AP dimension. There is moderate to severe right and mild to moderate left foraminal narrowing. C4-C5: A broad-based disc-osteophyte complex extends to the foraminal region bilaterally. There is effacement of the thecal sac and mild to moderate central narrowing with the thecal sac measuring 8 mm in AP dimension. There is severe right and moderate to severe left foraminal narrowing. C5-C6: A broad-based disc-osteophyte complex results in mild to moderate central narrowing with the thecal sac measuring 8 mm in AP dimension. There is moderate to severe bilateral foraminal narrowing. C6-C7: A broad-based disc-osteophyte complex effaces the thecal sac and results in mild to moderate central narrowing with the thecal sac measuring 8 mm in AP dimension. There is moderate to severe left and mild right foraminal narrowing. Assessment and Plan Assessment and Plan (1) Cervical stenosis of spinal canal: (2) Cervical radiculopathy: (3) Cervical spondylosis: (4) Myalgia: Plan MRI reviewed with pt proceed with right C4-5 C5-6 TFESI under fluoroscopy start tizanidine 2-8mg TID PRN Pain/spasms, risks vs benefits reviewed f/u 2 weeks after MAKENNA
== END 2024-04-04 14:54 | disposition home or self-care (01) ==
PROVIDERS: PCP Family Medicine; Visit Provider Nurse Practitioner
DX: M48.02 Spinal stenosis, cervical region (principal); M54.12 Radiculopathy, cervical region; M47.812 Spondylosis without myelopathy or radiculopathy, cervical region; M79.18 Myalgia, other site
CPT/HCPCS: G0463

== ENCOUNTER 2024-04-16 06:45 | Day surgery (SDC) | payer OTHER, SELFPAY ==
--- OUTSIDE RECORDS SUMMARY | 2024-04-16 06:48 | XMS_ITS | CCD ---
Author Organization [facility] Care Team Providers Care Film Editor Name Role Phone Tala Johnson Unavailable Unavaila Dalton Moses Unavailable UnavailMeka Healy Sangita Unavailable Unavailable Dalton Olvera Unavailable UnavailSilas Jack Primary Care Physician MD Silas Haider Primary Care Provider Torie Walker Attending Provider CLAIR ., DR VOGT Attending Unavailable CLAIR ., DR VOGT Consulting Unavailable CLAIR ., DR VOGT Admitting Unavailable Silas Haider Primary Care Physician [phone] MD Silas Haider Primary Care Provider [phone] Torie Walker Attending Provider TORIE WALKER Attending Unavailable TORIE WALKER Attending Unavailable MD Silas Haider Primary Care Provider DO Torie Walker Attending Provider [phone] MANDI Sánchez Attending Provider Silas Haider [...] Translations: [morphine] Drug Allergy 7 Itching (finding) [facility] [place] (5 sources) aprepitant; Translations: [aprepitant] Drug Allergy 7 Unknown Reaction [facility] (1 source) Morphine Drug Allergy 4 [facility] Repository Medications Current Medications Medication Drug Class(es) Dates Sig (Normalized) Sig (Original) 0.5 ML semaglutide 2 MG/ML Auto-Injector (1 source) Start: 09-09-2021 End: 11-04-2021 Wegovy (1 mg dose) subcutaneous solution 1 mg, SubCutaneous, qWeek, INJECT 1 PEN UNDER THE SKIN EVERY WEEK, X 4 week(s), # 4 EA, Refills(s) 1, Pharmacy: [facility] #[id number], 171, cm, 09/09/21 13:28:00 EDT, Height/Length Dosing, 75.9, kg, 09/09/21 13:28:00 EDT, Weight Dosing Start Date: 09/09/21 Stop Date: 11/04/21 Status: Ordered 0.75 ML semaglutide 3.2 MG/ML Auto-Injector [Wegovy] (2 sources) Start: 03-31-2022 inject 2.4 mg by subcutaneous injection every week Wegovy (2.4 mg dose) subcutaneous solution 2.4 mg, SubCutaneous, qWeek, # 12 EA, Refills(s) 1, Pharmacy: [facility] #[id number], 171, cm, 03/31/22 16:52:00 EST, Height/Length Dosing, 75.7, kg, 03/31/22 16:52:00 EST, Weight Dosing Start Date: 03/31/22 Status: Ordered Start: 12-31-2021 inject 2.4 mg by sub cutaneous injection every week Wegovy (2.4 mg dose) subcutaneous solution 2.4 mg, SubCutaneous, qWeek, # 12 EA, Refills(s) 1, Pharmacy: [facility] #[id number], 171, cm, 12/31/21 16:30:00 EDT, Height/Length Dosing, [...] BID, # 20 cap(s), Refills(s) 0, Pharmacy: [facility]/pharmacy #[id number], 171, cm, 11/15/23 11:43:00 EDT, Height/Length [...] Daily, # 90 cap(s), Refills(s) 1, Pharmacy: [facility]/pharmacy #[id number], 171, cm, 03/31/22 16:52:00 EST, Height/Length Dosing, 75.7, kg, 03/31/22 16:52:00 EST, Weight Dosing Start Date: 03/31/22 Status: Ordered Start: 12-31-2021 [facility] omeprazole 40 mg Cap-DR 40 mg = 1 cap(s), Oral, Daily, # 90 cap(s), Refills(s) 1, Pharmacy: [facility]/pharmacy #[id number], 171, cm, 12/31/21 16:30:00 EDT, Height/Length Dosing, 76.7, kg, 12/31/21 16:30:00 EDT, Weight Dosing Start Date: 12/31/21 Status: Ordered omeprazole 40 mg Cap-DR (1 source) Start: 09-09-2021 End: 12-08-2021 take 1 capsule by mouth once daily omeprazole 40 mg Cap-DR 40 mg = 1 cap(s), Oral, Daily, X 90 day(s), # 90 cap(s), Refills(s) 0, Pharmacy: [facility]/pharmacy #[id number], 171, cm, 09/09/21 13:28:00 EDT, Height/Length [...] every four to six hours Hydrocodone-Acetami nophen ([place]) 5-325 mg tablet Discontinued 1 TAB PO EVERY 4-6 HOURS 40 7 October 03, 2018 November 08, 2018 8:07am Start: 01-18-2017 End: 01-27-2017 take 2 tablets by mouth every four to six hours Hydrocodone-Acetaminophen ([place]) 5-325 mg Tablet Discontinued 2 TAB PO [...] AM EST With: Silas Haider MD Where: [address] Medications What How Much When Instructions [...] choosing us for your care. Normal Vasquez [facility] Family Medicine Office/Clini c Noteon 03-05-2024 [...] bedtime), # 15 tab(s), Refills(s) 0, Pharmacy: [facility], 171, cm, 03/05/24 15:51:00 EDT, Height/Length Dosing, 79.6, kg, 03/05/24 15:51:00 EDT, Weight Dosing [facility] [place] 2. Anxiety and depression [...] bedtime), # 15 tab(s), Refills(s) 0, Pharmacy: [facility], 171, cm, 03/05/24 15:51:00 EDT, Height/Length Dosing, 79.6, kg, 03/05/24 15:51:00 EDT, Weight Dosing [facility] [place] 3. Insomnia (G47.00: Insomnia, [...] 79.6, kg, 03/05/24 15:51:00 EDT, Weight Dosing [facility] [place] 4. Osteoarthritis (M19.90: Unspecified osteoarthritis, unspecified site) The patient reports exacerbated osteoarthritis symptoms focused around the clavicle. Present management strategies, including the use of dowe-xfr-demwywr analgesics, have not (more content not included)... Normal [facility] Comment on above: Result Comment: Elec tronically Signed By: Vitaly SERRANO, Silas Vinson.br\Date and Time Signed: 03/05/24 16:14 EDT Family Medicine Office/Clini c Noteon 02-06-2024 Family Medicine Office/Clinic Note Family Medicine Office/Clinic Note HPI Staff Celeset is a 43 year old female presenting [...] BID, # 20 cap(s), Refills(s) 0, Pharmacy: [facility]/pharmacy #[id number], 171, cm, 11/15/23 11:43:00 EDT, Height/Length Dosing, 77.3, kg, 11/15/23 11:43:00 EDT, Weight Dosing 6. Excessive dietary caloric intake (R63.2: Polyphagia) Will do Adipex at this time. Will do it at a lower BMI as her anxiety and depression have some concerns and her weight. Orders: phentermine, 37.5 mg = 1 cap(s), Oral, Daily, # 30 cap(s), Refills(s) 0, Pharmacy: [facility]/pharmacy #[id number], 171, cm, 02/06/24 16:09:00 EDT, Height/Length [...] influenza virus vaccine, inactivated 03/11/2015 Recorded Normal [facility] Comment on above: Result Comment: Elec tronically Signed By: Vitaly SERRANO, Silas Vinson.br\Date and Time Signed: 02/06/24 18:09 EDT Urine Cultureon 12-02-2023 Bacteria identified Cx Nom (U) <9,000 colonies/ml mixed bacterial skin contaminants 2 Days PERFORMED BY: [place] [address] PATHOLOGIST DEBURRING AND TOOLING MACHINE OPERATOR YENI BAH M.D. Normal [facility] Comment on above: Performed By: #### C UU #### [place] [address] [place] #### VAGINITIS+ #### [facility] , Vaginitis Plus (VG+)on 12-01 Atopobium Vaginae Moderate - 1 Normal . [facility] Comment on above: Result Comment: This test was developed and its performance characteristics determined by [facility]. It has not been cleared or approved by the Food and Drug Administration. Performed By: #### C UU #### [address] #### VAGINITIS+ #### [facility] , BVAB2 Low - 0 Normal . [facility] Comment on above: Result Comment: This test was developed and its performance characteristics determined by [facility]. It has not been cleared or approved by the Food and Drug Administration. Performed By: #### C UU #### [address] #### VAGINITIS+ #### [facility] , Dolores Albicans, FAISAL Negative Normal Negative [facility] Comment on above: Result Comment: This test was developed and its performance characteristics determined by [facility]. It has not been cleared or approved by the Food and Drug Administration. Performed By: #### C UU #### [address] #### VAGINITIS+ #### [facility] , Dolores Glabrata, FAISAL Negative Normal Negative [facility] Comment on above: Result Comment: This test was developed and its performance characteristics determined by [facility]. It has not been cleared or approved by the Food and Drug Administration. PERFORMED BY: [place] [address] PATHOLOGIST DEBURRING AND TOOLING MACHINE OPERATOR YENI BAH M.D. Performed By: #### C UU #### [place] [address] [place] #### VAGINITIS+ #### [facility] , Chlamydia Trachomotis, FAISAL Negative Normal Negative [facility] Comment on above: Performed By: #### C UU #### [place] [address] [place] #### VAGINITIS+ #### [facility] , Megasphaera Low - 0 Normal . [facility] Comment on above: Result Comment: [...] BV. Performed By: #### C UU #### [address] #### VAGINITIS+ #### [facility] , Neisseria Gonorrhoeae, FAIASL Negative Normal Negative [facility] Comment on above: Result Comment: Perf ormed at: =G - [facility] [address] [id number] Customer Service Manager: Dee Mendez MD, Phone: [phone] Performed By: #### C UU #### [place] [id number] [facility] #### VAGINITIS+ #### [facility] , Tric Vag FAISAL Negative Normal Negative [facility] Comment on above: Performed By: #### C UU #### [address] #### VAGINITIS+ #### [facility] , [place] [...] MD Transcribed by: DIANNA Technologist: ISAI Normal [facility] CBC w/ Auto Diffon 4 Basophils (Bld) [#/Vol] 0.0 E9/L Normal 0.0-0.2 [facility] Comment on above: Performed By: #### 2 [id number] #### [facility] [address] [place] [address] Eosinophils (Bld) [#/Vol] 0.5 E9/L Normal 0.0-0.5 [facility] Comment on above: Performed By: #### 2 [id number] #### [facility] [address] [place] [address] Eosinophils/100 WBC (Bld) 5.0 % Normal 0.0-8.0 [facility] Comment on above: Performed By: #### 2 [id number] #### [facility] [address] [place] [address] Erythrocyte distribution width (RBC) [Ratio] 12.6 % Normal 10.9-14.2 [facility] Comment on above: Performed By: #### 2 [id number] #### [facility] [address] [place] [address] Hematocrit (Bld) [Volume fraction] 42.8 % Normal 34.0-46.0 [facility] Comment on above: Performed By: #### 2 [id number] #### [facility] [address] [place] [address] Hemoglobin (Bld) [Mass/Vol] 15.0 g/dL Normal 12.0-16.0 [facility] Comment on above: Performed By: #### 2 [id number] #### [facility] [address] [place] [address] Lymphocytes (Bld) [#/Vol] 2.6 E9/L Normal 1.0-4.0 [facility] Comment on above: Performed By: #### 2 [id number] #### [facility] [address] [place] [address] Lymphocytes/100 WBC (Bld) 27.0 % Normal 14.0-50.0 [facility] Comment on above: Performed By: #### 2 [id number] #### [facility] [address] [place] [address] MCH (RBC) [Entitic mass] 33.5 pg Normal 27.0-34.0 [facility] Comment on above: Performed By: #### 2 [id number] #### [facility] [address] [place] [address] MCHC (RBC) [Mass/Vol] 35.1 g/dL Normal 31.4-36.0 [facility] Comment on above: Performed By: #### 2 707231 #### [facility] [address] [place] [address] MCV (RBC) [Entitic vol] 95.4 fL Normal 80.0-100.0 [facility] Comment on above: Performed By: #### 2 332255 #### [facility] [address] [place] [address] Metamyelocytes/Leukocy kandace Manual cnt (Bld) [Pure # fraction] 1 % High 0-0 [facility] Comment on above: Performed By: #### 2 [id number] #### [facility] [address] [place] [address] Monocytes (Bld) [#/Vol] 0.6 E9/L Normal 0.2-1.0 [facility] Comment on above: Performed By: #### 2 [id number] #### [facility] [address] [place] [address] Neutrophils (Bld) [#/Vol] 5.8 E9/L Invalid Interpretation Code [facility] Comment on above: Performed By: #### 2 [id number] #### [facility] [address] [place] [address] Platelet 333.0 E9/L Normal 150.0-500.0 [facility] Comment on above: Performed By: #### 2 [id number] #### [facility] [address] [place] [address] Platelet mean volume (Bld) [Entitic vol] 8.0 fL Normal 6.4-10.8 [facility] Comment on above: Performed By: #### 2 476253 #### [facility] [address] [place] [address] RBC (Bld) [#/Vol] 4.5 E12/L Normal 4.3-5.9 [facility] Comment on above: Performed By: #### 2 608298 #### [facility] [address] [place] [address] RBC size Nom (Bld) NORMAL Invalid Interpretation Code [facility] Comment on above: Performed By: #### 2 [id number] #### [facility] [address] [place] [address] Segmented neutrophils/100 WBC (Bld) 61.0 % Normal 36.0-75.0 [facility] Comment on above: Performed By: #### 2 [id number] #### [facility] [address] [place] [address] WBC corrected for nucl RBC Auto (Bld) [#/Vol] 9.6 E9/L Normal 4.0-11.0 [facility] Comment on above: Performed By: #### 2 099591 #### [facility] [address] [place] [address] Family Medicine Office/Clini c Noteon 11-15-2023 Family [...] BID, # 20 cap(s), Refills(s) 0, Pharmacy: [facility]/pharmacy #[id number], 171, cm, 11/15/23 11:43:00 EDT, Height/Length Dosing, 77.3, kg, 11/15/23 11:43:00 EDT, Weight Dosing CBC w/ Auto Diff Lab Specimen Collect 73451 US Extremity Non-Vascular Limited Right 2. BMI 26.0-26.9,adult (Z68.26: Body mass index [BMI] 26.0-26.9, adult) - BMI education added Ordered: clindamycin, 300 mg = 1 cap(s), Oral, BID, # 20 cap(s), Refills(s) 0, Pharmacy: [facility]/pharmacy #[id number], 171, cm, 11/15/23 11:43:00 EDT, Height/Length Dosing, 77.3, kg, 11/15/23 11:43:00 EDT, Weight Dosing CBC w/ Auto Diff Lab Specimen Collect 92882 US Extremity Non-Vascular Limited Right 3. Former smoker (Z87.891: Personal history of nicotine dependence) - Please continue to not smoke Ordered: clindamycin, 300 mg = 1 cap(s), Oral, BID, # 20 cap(s), Refills(s) 0, Pharmacy: [facility]/pharmacy #[id number], 171, cm, 11/15/23 11:43:00 EDT, Height/Length Dosing, 77.3, kg, 11/15/23 11:43:00 EDT, Weight Dosing CBC w/ Auto Diff Lab Specimen Collect 30882 US Extremity Non-Vascular Limited Right Total time [...] virus vaccine, inactivated 03/11/2015 Recorded Normal Vasquez [facility] Comment on above: Result Comment: Elec [...] Ultrasound Reporton RAD - Ultrasound Report [id number] Normal [facility] C Urineon 09-28-2023 Bacteria identified Cx Nom (U) Microbiology PROCEDURE: Urine Culture [R1] SOURCE: U CleanCatch BODY SITE: COLLECTED DATE/TIME: 09/20/2023 13:11 EDT RECEIVED DATE/TIME: 09/20/2023 18:31 EDT START DATE/TIME: 09/20/2023 18:31 EDT FREE TEXT SOURCE: Vitaly SERRANO, Silas Haider MD, Silas Lockwood AMENDED REPORTS Amended Report [] Verified Date/Time: 09/28/2023 12:52 EDT Wrong patient per [facility] 09/28/2023 12:51 CSS Patient credited. CSS Performing Locations R1: This test was performed at: [facility], [address] [place] [address], [address]- , , Normal [facility] Comment on above: Performed By: #### 2 [id number] #### [facility] [address] [place] [address] Provider Letteron 09-26-2023 Provider Letter September 26, 2023 [place] [address] : 1980 Dear Celeste, We have been trying to reach you with no success. It is important that you return our call regarding your medication upon receiving this letter. Also, at the time of your call, please provide us with your current information. Thank you for your prompt attention to this matter. Sincerely, [facility] [id number] [place] [address] [facility] MM screening mammo LT w/CADo n 09-22-2023 MM screening mammo LT w/CAD [facility] Main [place] [address] [place] [address] Mammography Report Signed with Addenda Patient: Celeste Du MR#: [id number] 17 : 1980 Acct:[id number] Age/Sex: 42 / F ADM Date: 09/22/23 Loc: [place] Room: Type: [facility] Attending Dr: Torie Walker Copies to: Torie [...] Rousseau Jr., D.O.09/22/2023 9:15 AM Dictation Location: [facility] Addendum Dictated By: Ant Rousseau Jr DO [...] Rousseau Jr., Taylor09/22/2023 9:09 AM Dictation Location: [facility] Transcribed By: PWS 09/22/23908 Dictated By: Ant Rousseau Jr, DO 09/22/23907 Signed By: 09/22/23908 Normal [facility] Ambulatory Visit Summaryon 0 09-20-2023 [...] MD Where: [facility] [place] Normal [facility] Family Medicine Office/Clini c Noteon 09-20-2023 [...] DAY, # 90 tab(s), Refills(s) 1, Pharmacy: [facility], 171, cm, 09/20/23 10:53:00 EDT, [...] virus vaccine, inactivated 03/11/2015 Recorded Normal Vasquez [facility] Comment on above: Result Comment: Elec [...] numbers. This can be done either in [place] or metric measurements. Note that charts and online BMI calculators are available to help you find your BMI quickly and easily without having to do these calculations yourself. To calculate your BMI in [place] ([place] measurements: 1. Measure your weight in [...] for Disease Control and Prevention: www.cdc.gov ? Canadian Heart Association: www.heart.org ? National Heart, Lung, and Blood [place]: www.nhlbi.nih.gov Summary ? Body mass index (BMI) is a number that is calculated from a person's weight and height. ? BMI may help estimate how much of a person's weight is composed of fat. BMI can help identify those who may be at higher risk for certain medical problems. ? BMI can be measured using [place]z measurements or metric measurements. ? BMI charts are used to identify whether you are underweight, normal weight, overweight, or obese. This information is not intended to replace advice given to you by your health care provider. Make sure you discuss any questions you have with your health care provider. Document Revised: 01/30/2020 Document Reviewed: 12/07/2019 [employer] Patient Education ? 2022 [employer] [facility] Retail - Clinical Noteon Retail - Clinical Note [id number] [facility] Ambulatory Visit Summaryon 1 05-24-2022 Ambulatory [...] choosing us for your care. Normal Vasquez [facility] Family Medicine Office/Clini c Noteon 03-24-2023 Family [...] dizziness, # 30 tab(s), Refills(s) 0, Pharmacy: [facility]/pharmacy #[id number], 171, cm, 12/08/22 13:48:00 EDT, Height/Length Dosing, 75.7, kg, 12/08/22 13:48:00 EDT, Weight Dosing 4. Overweight child (E66.3: Overweight) - Diet and exercise advised Ordered: meclizine, 25 mg = 1 tab(s), Oral, TID, PRN for dizziness, # 30 tab(s), Refills(s) 0, Pharmacy: [facility]/pharmacy #[id number], 171, cm, 12/08/22 13:48:00 EDT, Height/Length [...] DAY, # 90 tab(s), Refills(s) 1, Pharmacy: [facility], 171, cm, 03/24/23 8:31:00 EDT, Height/Length Dosing, 73.2, kg, 03/24/23 8:31:00 EDT, Weight Dosing omeprazole, See Instructions, TAKE 1 CAPSULE BY MOUTH EVERY DAY, # 90 cap(s), Refills(s) 1, Pharmacy: [facility], 171, cm, 03/24/23 8:31:00 EDT, [...] vax 08/12/2020 R (more content not included)... [facility] Comment on above: Result Comment: Elec tronically Signed By: Vitaly SERRANO, Silas Lockwood\.br\Date and Time Signed: 03/24/23 08:54 EDT Provider Letteron 03-24-2023 Provider Letter March 24, 2023 [place] [address] : 1980 To Whom It May Concern, Please excuse above patient from work. Date of Illness: From: 03.24.2023 To: 03.24.2023 May Return to Work On: 03.24.2023 Sincerely, Silas Haider MD [address] [address] Normal [facility] PAP ACOG PANEL 2: 30 to 65on 10-05-2022 Age Gdln ACOG Testing 30-65 Normal [facility] Comment on above: Performed By: #### 4 [id number] #### [facility] [address] [address] [address] Vicky Cordoba Vital Signs Date Time Vital Sign Value Performing Clinician Faci lity 12-02-2023 14:37-0400 Body height 165.1 cm MD Silas Haider Work Phone: [facility] 12-02-2023 14:37-0400 Body mass index (BMI) [Ratio] 28.3 kg/m2 MD Silas Haider Work Phone: [facility] 12-02-2023 14:37-0400 Body temperature 98.4 [degF] MD Silas Haider Work Phone: [facility] 12-02-2023 14:37-0400 Body weight 77.11 kg MD Silas Haider Work Phone: [facility] 12-02-2023 14:37-0400 Diastolic blood pressure 88 mm[Hg] MD Silas Haider Work Phone: [facility] 12-02-2023 14:37-0400 Heart rate 96 /min MD Silas Haider Work Phone: [facility] 12-02-2023 14:37-0400 SaO2% (BldA) [Mass fraction] 96 % MD Silas Haider Work Phone: [facility] 12-02-2023 14:37-0400 Systolic blood pressure 130 mm[Hg] MD Silas Haider Work Phone: [facility] 03-31-2022 16:50-0500 Blood Pressure Location Silas Haider [facility] 03-31-2022 16:50-0500 Diastolic blood pressure 74 mm[Hg] Silas Haider [facility] 03-31-2022 16:50-0500 Heart rate 99 /min Silas Haider [facility] 03-31-2022 16:50-0500 SaO2% (BldA) [Mass fraction] 97 % Silas Haider [facility] 03-31-2022 16:50-0500 Systolic blood pressure 122 mm[Hg] Silas Haider [facility] 12-31-2021 16:27-0400 Blood Pressure Location Silas Haider [facility] 12-31-2021 16:27-0400 Diastolic blood pressure 82 mm[Hg] Silas Haider [facility] 12-31-2021 16:27-0400 Heart rate 87 /min Silas Haider [facility] 12-31-2021 16:27-0400 SaO2% (BldA) [Mass fraction] 98 % Silas Haider [facility] 12-31-2021 16:27-0400 Systolic blood pressure 120 mm[Hg] Silas Haider [facility] 09-09-2021 14:09-0400 Diastolic blood pressure 104 mm[Hg] Silas Haider [facility] 09-09-2021 14:09-0400 Mean blood pressure 113 mm[Hg] Silas Haider [facility] 09-09-2021 14:09-0400 Systolic blood pressure 132 mm[Hg] Silas Haider [facility] 09-09-2021 13:20-0400 Blood Pressure Location Silas Haider [facility] 09-09-2021 13:20-0400 Diastolic blood pressure 104 mm[Hg] Silas Haider [facility] 09-09-2021 13:20-0400 Heart rate 89 /min Silas Haider [facility] 09-09-2021 13:20-0400 SaO2% (BldA) [Mass fraction] 97 % Silas Haider [facility] 09-09-2021 13:20-0400 Systolic blood pressure 138 mm[Hg] Silas Haider [facility] Encounters Encounter Date Encounter Type Care Provider Facility Start: 05-07-2024 ambulatory Silas Haider Facility :[facility] Start: 03-19-2024 End: 03-19-2024 ambulatory Carlin Collier MD Facility:[facility] Start: 03-05-2024 End: 03-05-2024 ambulatory Sil[facility] Haider [facility] Start: 02-06-2024 End: 02-06-2024 ambulatory Silas Haider Facility:[facility] Start: 12-02-2023 End: 12-02-2023 ambulatory MD Silas Haider Work Phone: [facility] Work Phone: Start: 12-02-2023 End: 12-02-2023 Departed Referred MD Silas Haider Work Phone: [facility] Start: 12-02-2023 End: 12-02-2023 Patient encounter procedure MD Silas Haider Work Phone: [facility] Work Phone: Start: 11-18-2023 End: 11-18-2023 ambulatory Silas Haider [place] [place]: 11-18-2023 End: 11-18-2023 Patient encounter procedure Silas Haider [facility] Start: 11-15-2023 End: 11-15-2023 Lab Drop off Silas Haider [facility] Start: 11-15-2023 End: 11-15-2023 ambulatory Silas Haider [place] [place]: 09-29-2023 End: 09-29-2023 ambulatory TORIE WALKER Not Available Start: 09-22-2023 End: 09-22-2023 Patient encounter procedure MD Silas Haider Work Phone: [facility] Work Phone: Start: 09-22-2023 End: 09-22-2023 ambulatory MD Silas Haider Work Phone: [facility] Work Phone: Start: 09-20-2023 End: 09-20-2023 ambulatory Silas Haider [place] [place]: 09-20-2023 End: 09-20-2023 Lab Drop off Silas Haider [facility] Start: 09-20-2023 End: 09-20-2023 ambulatory Silas Haider Facility:[facility] Start: 08-03-2023 End: 08-03-2023 ambulatory Silas Haider Facility: [facility] Start: 06-14-2023 End: 06-14-2023 ambulatory TORIE WALKER Not Available Start: 03-24-2023 End: 03-24-2023 ambulatory Silas Haider Facility:[facility] Start: 09-27-2022 End: 09-27-[address] TORIE WALKER . Facility: Start: 08-31-2022 End: 08-31-2022 ambulatory MD Silas Haider Work Phone: [facility] Work Phone: Start: 08-31-2022 End: 08-31-2022 Patient encounter procedure MD Silas Haider Work Phone: [facility] Work Phone: Start: 03-31-2022 End: 03-31-2022 Patient encounter procedure Silas Haider [facility] Start: 12-31-2021 End: 12-31-2021 Patient encounter procedure Silas Haider [facility] Start: 09-09-2021 End: 09-09-2021 Patient encounter procedure Silas Haider [facility] Start: 03-06-2018 Patient encounter procedure Meka Crystal [...] Date Care Activity Detail Author Start: 12-02-2023 [facility] Start: 12-02-2023 Bacteria identified in Urine by Culture [facility] Atopobium vaginae DN A [Presence] in Vaginal fluid by FAISAL with probe detection [facility] Bacterial vaginosis associated bacterium 2 DNA [Presence] in Vaginal fluid by FAISAL with probe detection [facility] Megasphaera sp type 1 DNA [Presence] in Vaginal fluid by FAISAL with probe detection [facility] Immunizations Immunization Date Immunization Notes Care Provider Fa riog 02-20-2022 influenza virus vaccine, unspecified formulation Silas Haider [facility] 09-02-2020 SARS-CoV-2 (COVID-19 ) mRNA BNT-162b2 vax Silas Haider [facility] 08-12-2020 SARS-CoV-2 (COVID-19 ) mRNA BNT-162b2 vax Silas Haider [facility] 04-04-2020 influenza virus vaccine, unspecified formulation Silas Haider [facility] 03-14-2018 influenza virus vaccine, unspecified formulation Silas Haider [facility] 03-13-2017 influenza virus vaccine, unspecified formulation Silas Haider [facility] 03-11-2015 influenza virus vaccine, unspecified formulation Silas Haider [facility] NEGATED: Highlighted row has not occurred!03-24-2023 influenza virus vaccine, unspecified formulation Silas Haider [facility] Payers Date Payer Category Payer Self-pay [id number] 2023 Unknown [id number] 2023 Unknown 2022 Unknown [id number] 1978 Unknown [id number] 2.16. [id number] 1978 Unknown [id number] 2.16. 840.1.288458.3.579.2.356 1978 Unknown [id number] 2.16.84 0.1.461734.3.579.2.593 1978 Unknown [id number] 2.16.84 0.1.925741.3.579.2.1259 1978 Unknown [id number] 2.16.84 0.1.628679.3.579.2.1259 1978 Unknown [id number] 2.16.8 40.1.769059.3.579.2.727 1978 Unknown [id number] 2.16.8 40.1.540029.3.579.2.727 1978 Unknown [id number] 2.16.8 40.1.706230.3.579.2.727 1978 Unknown [id number] 2.16.8 40.1.700767.3.579.2.727 1978 Unknown [id number] 2.16.8 40.1.336656.3.579.2.7 1978 Unknown [id number] 2.16.8 40.1.077698.3.579.2.727 1978 Unknown [id number] 2.16.8 40.1.469276.3.579.2.727 1978 Unknown [id number] 2.16.8 40.1.892797.3.579.2.727 1978 Unknown [id number] 2.16.8 40.1.782388.3.579.2.727 1978 Unknown [id number] 2.16.8 40.1.090733.3.579.2.727 1978 Unknown [id number] 2.16. 840.1.128674.3.579.2.196 1959 Unknown [id number] Unknown [id number] Unknown [id number] 2.16.8 40.1.708972.3.579.2.531 Unknown [id number] 2.16.8 40.1.990116.3.579.2.531 Social History Date Type Detail Facility Start: 01-03-2020 End: 09-09-2021 Tobacco smoking status Ex-smoker (finding) [facility] Comment on above: smokes outsi de Tobacco smoking status Never [facility] Comment on above: smokes outsi de Start: 01-28-1992 End: 08-21-2013 Sex Assigned At Female [facility] Tobacco Household tobacc o concerns: No. [facility] Tobacco smoking status No Smokin g Status Entered [facility] Start: 1980 Sex Assigned At Female F [facility] Functional Status Date Assessment Result Facility 03-31-2022 Functional Status N/A [facility] 12-31-2021 Functional Status N/A [facility] Clinical Notes 09-09-2021 to 03-05-2024 Radiology Note [...] for Disease Control and Prevention: cdc.gov ? Canadian Heart Association: heart.org ? National Heart, Lung, and Blood [place]: nhlbi.nih.gov This information is not intended to replace advice given to you by your health care provider. Make sure you discuss any questions you have with your health care provider. Document Revised: 01/27/2023 Document Reviewed: 01/20/2023 [employer] Patient Education ? 2023 [employer] [facility] 02-06-2024 Note Patient Education Nutrition BMI [...] for Disease Control and Prevention: cdc.gov ? Canadian Heart Association: heart.org ? National Heart, Lung, and Blood [place]: nhlbi.nih.gov This information is not intended to replace advice given to you by your health care provider. Make sure you discuss any questions you have with your health care provider. Document Revised: 01/27/2023 Document Reviewed: 01/20/2023 Elsevier Patient Education ? 2023 [employer] [facility] 03-31-2022 Hospital Discharg e instructions Patient [...] care provider. This is important. Medicines Take imyo-wcu-nmbssqo and prescription medicines only as told by [...] 05/09/2006 Document Revised: 01/17/2019 Document Reviewed: 01/17/2019 [employer] Patient Education 2019 [employer] [facility] 12-31-2021 Hospital Discharg e instructions Patient Education [...] called talk therapy or counseling. Seeing a energy management specialist (dietitian). Getting appropriate exercise. Medicines to [...] that address eating disorders. Talk with an inside sales specialist, therapist, or counselor about your eating [...] health care provider. This is important. Take bkfz-rmz-qyisfqj and prescription medicines only as told by [...] 05/09/2006 Document Revised: 09/17/2016 Document Reviewed: 03/12/2016 [employer] Patient Education 2020 [employer] 12/31/2021 16:54:02 Hypertension, Adult Hypertension, Adult High [...] care provider. This is important. Medicines Take llpa-lpb-sfgccdj and prescription medicines only as told by [...] 05/09/2006 Document Revised: 01/17/2019 Document Reviewed: 01/17/2019 [employer] Patient Education 2019 [employer] [facility] [place] 09-09-2021 Hospital Discharg e instructions Patient Education [...] care provider. Avoid caffeine, alcohol, and certain vqgq-mml-vkggptx cold medicines. These may make you feel worse. Ask your pharmacist which medicines to avoid. General instructions Take okur-qlx-umikgai and prescription medicines only as told by [...] Depression Association of [place] (ADAA): www.adaa.org National [place] on Mental Illness (BRENDA): www.brenda.org Contact a [...] 05/03/2017 Document Revised: 10/09/2019 Document Reviewed: 10/09/2019 [employer] Patient Education 2020 [employer] [facility] Evaluation + Plan note Future Appointments Appointment Date:12/09/2021 07:40:00 AM Scheduled Provider:Silas Haider MD Location:[facility] Appointment Type:[facility] Evaluation + Plan note Future Appointments Appointment Date:03/31/2022 04:40:00 PM Scheduled Provider:Silas Haider MD Location:[facility] Appointment Type:[facility] Evaluation + Plan note Future Appointments Appointment Date:09/22/2022 04:40:00 PM Scheduled Provider:Silas Haider MD Location:[facility] Appointment Type: Open [facility] Evaluation + Plan note Future Appointments Appointment Date:03/20/2024 07:15:00 AM Scheduled Provider:Silas Haider MD Location:[facility] Appointment Type: Open Diagnostic Tests PendingUrine Culture 09/20/23 [facility] Evaluation + Plan note Future Appointments Appointment Date:03/20/2024 07:15:00 AM Scheduled Provider:Silas Haider MD Location:[facility] Appointment Type: Open Future Scheduled TestsUS Extremity Non-Vascular Limited Right 11/15/23 [facility] Evaluation + Plan note Future Appointments Appointment Date:03/20/2024 07:15:00 AM Scheduled Provider:Silas Haider MD Location:[facility] Appointment Type[facility] Evaluation note No assessment inform ation available [facility] Work Phone: Evaluation note Diagnosis Onset Date Vaginitis noneactive [facility] Work Phone: Hospital course Narrative No data available for this section [facility] Hospital Discharge instructions No data available for this section [facility] data available for this section [facility] Summary Purpose Family History No Family History [...] section and content) DATE CREATED AUTHOR 04/30/2018 [facility] DATE CREATED AUTHOR AUTHOR'S ORGANIZ ATION 10/06/2022 [facility] DATE CREATED AUTHOR AUTHOR'S ORGANIZ ATION 10/01/2023 [facility] DATE CREATED AUTHOR AUTHOR'S ORGANIZ ATION 11/17/2023 [place] [facility] DATE CREATED AUTHOR AUTHOR'S ORGANIZ ATION 12/08/2023 [facility] DATE CREATED AUTHOR AUTHOR'S ORGANIZ ATION 03/07/[address] Vasquez K[address] [facility] DATE CREATED AUTHOR AUTHOR'S ORGANIZ ATION 03/24/2024 [facility] Care Team (unrecognized sect ion and content) [...] BE BASED ON THE PRIMARY CLINICAL RECORDS. [facility]. provides no warranty or guarantee of the accuracy or completeness of information in this document.
[2024-04-16 07:04] VITALS: BP 142/97; PULSE 112; TEMP 36.4; O2SAT 96
[2024-04-16 07:45] VITALS: BP 142/89; PULSE 104; O2SAT 98
[2024-04-16 07:46] VITALS: BP 135/88; PULSE 103; O2SAT 96
--- NOTE | 2024-04-16 07:48 | P.ON_ITS ---
Date of procedure: 04/16/24 Pre-op diagnosis: M54.12 Post-op diagnosis: same as pre-op Procedure: Procedure: Right C4-5, C5-6 transforaminal epidural steroid injection Medications: Bupivacaine 0.25% 1cc, lidocaine 2% 1cc, dexamethasone 10mg The patient was seen and examined in the preoperative holding area.? Informed consent was obtained and placed on the chart.? Patient was brought to the medical procedure unit and placed in the prone position where a timeout was completed verifying the correct patient, procedure site, position, and planned special equipment using sterile aseptic technique.? Under direct fluoroscopic visualization a 25-gauge Quincke tipped spinal needle was advanced to the designated neural foramen where contrast dye was injected to show adequate spread.? The needle was inserted at level right C4-5. There was no evidence of vascular or adverse uptake.? Epidural spread was appreciated.? The above- mentioned injectate was then placed in a 1.5 mL aliquot preceded by negative aspiration.? The needle was removed. The needle was inserted and the procedure repeated at level right C5-6.? The surgery site was covered.? Patient was taken to the postprocedural recovery area and monitored for an appropriate length of time before found suitable for discharge in the accompaniment of a responsible adult. Anesthesia: Local Surgeon: Carlin Collier Pathology: none sent Condition: stable Disposition: no change
[2024-04-16] MEDS: IOHEXOL 240 MG/ML - 10 ML VIAL 12 MG INJ (07:50)
[2024-04-16] MEDS: BUPIVACAINE HCL 0.25% PF 25 MG/10 ML VIAL INJ (07:50)
[2024-04-16] MEDS: DEXAMETHASONE SOD PHOS 10 MG/ML VIAL INJ (07:50)
[2024-04-16] MEDS: LIDOCAINE HCL 2% 400 MG/20 ML MDV 3 ML INJ (07:51)
== END 2024-04-16 07:55 | disposition home or self-care (01) ==
LOC: SURGOUT 06:45
PROVIDERS: PCP Family Medicine; Visit Provider Anesthesiology
DX: M54.12 Radiculopathy, cervical region (principal)
CPT/HCPCS: 64479; 64480; J0665; J1100; Q9966

== ENCOUNTER 2024-04-25 15:11 | Outpatient (OUT) | payer OTHER, SELFPAY ==
--- NOTE | 2024-04-25 15:50 | P.CN_ITS ---
Consult Note: HPI Data of Consult Patient: known to practice within the last 3 years Requesting Physician: Anabel Allen NP Primary Care Provider: GARRISON ARZATE Consult Narrative Reason for consult: right neck, arm pain Narrative: 43yof who presents for evaluation. longstanding neck, right shoulder, right arm pain. had mastectomy in 2015, pain began around a similar time. previous cervical mri from 2015 showed multilevel degenerative changes. has continued in a series of provider directed home exercises >6 weeks, without lasting benefit. uses otc meds and topicals, as needed. denies adverse med side effects. recently completed a cervical MRI with results below. Pain increased with twisting, standing, walking, looking up and down. Pain improved with sleep, stretching, heat, lying flat. Recent right C4/5 C5/6 TFESI providing moderate relief in radicular symptoms, continues to have moderate to severe axial neck pain. cc:: CC: Anabel Allen NP Review of Systems ROS Status of ROS 10 or more systems reviewed and unremark able except as noted in history and below Musculoskeletal Reports: neck pain PFSH PFS Medical History (Updated 04/12/24 @ 14:36 by Constanza Varela RN) Anxiety ?F41.9 - Anxiety disorder, unspecified (ICD-10) HTN (hypertension) ?I10 - Essential (primary) hypertension (ICD-10) Surgical History History of hysterectomy ?Z90.710 - Acquired absence of both cervix and uterus (ICD-10) History of mastectomy ?Z90.10 - Acquired absence of unspecified breast and nipple (ICD-10) Meds Home Medications and Allergies Home Medications ?Medication ?Instructions ?Recorded ?Confirmed ?Type amlodipine 10 mg tablet (Norvasc) 10 mg PO DAILY 03/19/24 04/16/24 History clonazepam 0.5 mg tablet 0.5 mg PO Q8H 03/19/24 04/16/24 History lamotrigine 200 mg tablet 200 mg PO DAILY 03/19/24 04/16/24 History lamotrigine 25 mg tablet 50 mg PO QAM 03/19/24 04/16/24 History phentermine 37.5 mg tablet 37.5 mg PO DAILY 03/19/24 04/16/24 History (Adipex-P) tizanidine 4 mg tablet See Rx Instructions .Route 04/04/24 04/16/24 Rx .COMPLEX PRN muscle spasticity #180 tabs Allergies Allergy/AdvReac Type Severity Reaction Status Date / Time morphine Allergy Intermediate Hives Verified 04/16/24 07:07 Exam Narrative Exam Narrative: Psych-alert and oriented x 3.? Attentive and appropriate, constitutionally normal, displays normal mood and affect per situation.? There are no obvious deficits in memory, reasoning, or intellect.? Skin-no obvious rashes, bruising, or erythema noted to the patient's area of pain.? Extremities-upper extremities are warm with minimal edema and palpable pulses. Cervical- tenderness to palpation noted in the cervical spine and paraspinal musculature.? Pain is elicited with flexion, extension, and lateral rotation of the cervical spine.? Range of motion is diminished due to pain. Facet loading maneuvers are positive. Strength-unremarkable and within normal limits with the exception to the right biceps. Sensory-no notable sensory deficits in the bilateral upper extremities to touch or pinprick Coordination remains intact.? Gait remains non-antalgic. Results Additional Findings Additional findings: If on a controlled substance or opioids, I have checked an [place]AR[place] report on this patient and there are no aberrancies noted in the prescribing history.??If on a controlled substance or opioid a drug screen was completed and reviewed within the last year, and if there has not been a drug screen completed we ordered one today to monitor higher risk, state monitored pain medication use. As part of providing excellent, safe, comprehensive care, the following was completed at our patient's visit: 1. A medication reconciliation and review to ensure accurate knowledge of current/active medications, including asking our patients to inform us about any gimi-vgm-eogpave medications or herbal remedies/nutritional supplements/alternative remedies. 2. A review to specifically ensure our patients have had annual screening for screening for depression, screening for tobacco use, and screening for unhealthy alcohol use. For concerning screenings had a discussion with the patient, provided patient education, and recommended follow-up with primary care provider when appropriate. If patient noted with a risk of falling, they received education on strength, gait, and balance training to prevent future risk of falling. Assessment and Plan Assessment and Plan (1) Cervical spondylosis: (2) Cervical radiculopathy: (3) Cervical stenosis of spinal canal: Plan bilateral C4-5 c5-6 facet medial branch block x2 working towards RFA continue current medications continue HEP as tolerated f/u after each injection
== END 2024-04-25 15:12 | disposition home or self-care (01) ==
LOC: PM 15:12
PROVIDERS: PCP Family Medicine; Visit Provider Nurse Practitioner
DX: M47.812 Spondylosis without myelopathy or radiculopathy, cervical region (principal); M54.12 Radiculopathy, cervical region; M48.062 Spinal stenosis, lumbar region with neurogenic claudication
CPT/HCPCS: G0463

== ENCOUNTER 2024-05-07 06:56 | Day surgery (SDC) | payer OTHER, SELFPAY ==
--- OUTSIDE RECORDS SUMMARY | 2024-05-07 07:03 | XMS_ITS | CCD ---
Author Organization [facility] Care Team Providers Care Tin Cutter Name Role Phone Tala Johnson Unavailable Unavaila [...] Primary Care Provider Torie Walker Attending Provider [phone] TORIE WALKER Attending Unavailable TORIE WALKER Attending Unavailable MD Silas Haider Primary Care Provider [phone] Torie Walker Attending Provider [phone] MANDI Sánchez Attending Provider Silas Haider Primary Care Unavailable Torie Walker Admitting Unavailable Torie Walker Attending Unavailable Manisha Sánchez Admitting UnavailManisha Mcbride Attending UnavailSilas Jack Admitting Unavailable Silas Haider Attending Unavailable Silas Haider Attending Unavailable Silas Haider Attending Unavailable Silas Haider Referring Unavailable Silas Haider Admitting Unavailable Silas Haider Attending Unavailable Nando SERRANO, Carlin Rodrigues Attending Unavailable Nando SERRANO, Carlin Rodrigues Attending Unavailable Silas Haider Attending Unavailable Silas Haider Attending Unavailable Silas Haider Admitting Unavailable Silas Haider Admitting Unavailable Silas Haider Attending Unavailable Silas Haider Attending Unavailable Silas Haider Attending Unavailable Silas Haider Attending Unavailable Allergies Allergy Classification Reported Allergen(s) Allergy Type Date of Onset Reaction(s) Facility (12 sources) Morphine; Translations: [morphine] Drug Allergy 7 Itching (finding) [facility] (5 sources) aprepitant; Translations: [aprepitant] Drug Allergy 7 Unknown Reaction [facility] (1 source) Morphine Drug Allergy 4 [facility] Repository Medications Current Medications Medication Drug Class(es) Dates Sig (Normalized) Sig (Original) 0.5 ML semaglutide 2 MG/ML Auto-Injector (1 source) Start: 09-09-2021 End: 11-04-2021 Wegovy (1 mg dose) subcutaneous solution 1 mg, SubCutaneous, qWeek, INJECT 1 PEN UNDER THE SKIN EVERY WEEK, X 4 week(s), # 4 EA, Refills(s) 1, Pharmacy: [facility] #[id number], 171, cm, 09/09/21 13:28:00 EDT, Height/Length Dosing, 75.9, kg, 09/09/21 13:28:00 EDT, Weight Dosing Start Date: 09/09/21 Stop Date: 11/04/21 Status: Ordered 0.75 ML semaglutide 3.2 MG/ML Auto-Injector [Wegovy] (2 sources) Start: 03-31-2022 inject 2.4 mg by subcutaneous injection every week Wegovy (2.4 mg dose) subcutaneous solution 2.4 mg, SubCutaneous, qWeek, # 12 EA, Refills(s) 1, Pharmacy: [facility] #[id number], 171, cm, 03/31/22 16:52:00 EST, Height/Length Dosing, 75.7, kg, 03/31/22 16:52:00 EST, Weight Dosing Start Date: 03/31/22 Status: Ordered Start: 12-31-2021 inject 2.4 mg by sub cutaneous injection every week Wegovy (2.4 mg dose) subcutaneous solution 2.4 mg, SubCutaneous, qWeek, # 12 EA, Refills(s) 1, [id number], 171, cm, 12/31/21 16:30:00 EDT, Height/Length Dosing, [...] BID, # 20 cap(s), Refills(s) 0, Pharmacy: [facility]/pharmacy #[id number], 171, cm, 11/15/23 11:43:00 EDT, [...] Daily, # 90 cap(s), Refills(s) 1, Pharmacy: [facility]/pharmacy #[id number], 171, cm, 03/31/22 16:52:00 EST, Height/Length Dosing, 75.7, kg, 03/31/22 16:52:00 EST, Weight Dosing Start Date: 03/31/22 Status: Ordered Start: 12-31-2021 take 1 capsule by [facility] once daily omeprazole 40 mg Cap-DR 40 mg = 1 cap(s), Oral, Daily, # 90 cap(s), Refills(s) 1, Pharmacy: [facility]/pharmacy #[id number], 171, cm, 12/31/21 16:30:00 EDT, Height/Length Dosing, 76.7, kg, 12/31/21 16:30:00 EDT, Weight Dosing Start Date: 12/31/21 Status: Ordered omeprazole 40 mg Cap-DR (1 source) Start: 09-09-2021 End: 12-08-2021 take 1 capsule by mouth once daily omeprazole 40 mg Cap-DR 40 mg = 1 cap(s), Oral, Daily, X 90 day(s), # 90 cap(s), Refills(s) 0, Pharmacy: [facility]/pharmacy #[id number], 171, cm, 09/09/21 13:28:00 EDT, [...] every four to six hours Hydrocodone-Acetami nophen ([place]) 5-325 mg tablet Discontinued 1 TAB PO EVERY 4-6 HOURS 40 7 October 03, 2018 November 08, 2018 8:07am Start: 01-18-2017 End: 01-27-2017 take 2 tablets by mouth every four to six hours Hydrocodone-Acetaminophen ([place]) 5-325 mg Tablet Discontinued 2 TAB PO EVERY 4-6 HOURS January 18, 2017 12:00am January 27, 2017 8:37am amLODIPine 10 mg oral tablet (20 sources) Dihydropyridine [employer] Ted Start: 01-18-2017 End: 12-08-2021 take 10 mg by mouth once daily Amlodipine Discontinued 10 MG PO Daily November 08, 2018 11:40am January 03, 2020 [...] AM EST With: Silas Haider MD Where: [place] [address]- Medications What How Much When Instructions Unchanged [...] you for choosing us for your care. Patric Vasquez [facility] Family Medicine Office/Clini c Noteon 03-05-2024 [...] bedtime), # 15 tab(s), Refills(s) 0, Pharmacy: [facility], 171, cm, 03/05/24 15:51:00 EDT, Height/Length Dosing, 79.6, kg, 03/05/24 15:51:00 EDT, Weight Dosing [facility] External Ambulatory Referral 2. Anxiety and depression [...] bedtime), # 15 tab(s), Refills(s) 0, Pharmacy: [facility], 171, cm, 03/05/24 15:51:00 EDT, Height/Length Dosing, 79.6, kg, 03/05/24 15:51:00 EDT, Weight Dosing [facility] External Ambulatory Referral 3. Insomnia (G47.00: Insomnia, [...] 79.6, kg, 03/05/24 15:51:00 EDT, Weight Dosing [facility] External Ambulatory Referral 4. Osteoarthritis (M19.90: Unspecified osteoarthritis, unspecified site) The patient reports exacerbated osteoarthritis symptoms focused around the clavicle. Present management strategies, including the use of mndn-uvb-veziorb analgesics, have not (more content not included)... Normal [facility] Comment on above: Result Comment: Elec tronically [...] BID, # 20 cap(s), Refills(s) 0, Pharmacy: [facility] #[id number], 171, cm, 11/15/23 11:43:00 EDT, Height/Length Dosing, 77.3, kg, 11/15/23 11:43:00 EDT, Weight Dosing 6. Excessive dietary caloric intake (R63.2: Polyphagia) Will do Adipex at this time. Will do it at a lower BMI as her anxiety and depression have some concerns and her weight. Orders: phentermine, 37.5 mg = 1 cap(s), Oral, Daily, # 30 cap(s), Refills(s) 0, Pharmacy: [facility]/pharmacy #[id number], 171, cm, 02/06/24 16:09:00 EDT, Height/Length [...] influenza virus vaccine, inactivated 03/11/2015 Recorded Normal [facility] Comment on above: Result Comment: Elec tronically Signed By: Vitaly SERRANO, Silas Vinson.br\Date and Time Signed: 02/06/24 18:09 EDT Urine Cultureon 12-02-2023 Bacteria identified Cx Nom (U) <9,000 colonies/ml mixed bacterial skin contaminants 2 Days PERFORMED BY: [place] [address] PATHOLOGIST HOEING ROW BOSS YENI BAH M.D. Normal [facility] Comment on above: Performed By: #### C UU #### [place] [address] [place] #### VAGINITIS+ #### [facility] , Vaginitis Plus (VG+)on 12-01 Atopobium Vaginae Moderate - 1 Normal . [facility] Comment on above: Result Comment: This test was developed and its performance characteristics determined by [facility]. It has not been cleared or approved by the Food and Drug Administration. Performed By: #### C UU #### [place] [address] [place] #### VAGINITIS+ #### [facility] , BVAB2 Low - 0 Normal . [facility] Comment on above: Result Comment: This test was developed and its performance characteristics determined by [facility]. It has not been cleared or approved by the Food and Drug Administration. Performed By: #### C UU #### [place] [address] [place] #### VAGINITIS+ #### [facility] , Dolores Albicans, FAISAL Negative Normal Negative [facility] Comment on above: Result Comment: This test was developed and its performance characteristics determined by [facility]. It has not been cleared or approved by the Food and Drug Administration. Performed By: #### C UU #### [place] [address] [place] #### VAGINITIS+ #### [facility] , Dolores Glabrata, FAISAL Negative Normal Negative [facility] Comment on above: Result Comment: This test was developed and its performance characteristics determined by [facility]. It has not been cleared or approved by the Food and Drug Administration. PERFORMED BY: [place] [address] PATHOLOGIST HOEING ROW BOSS YENI BAH M.D. Performed By: #### C UU #### [place] [address] [place] #### VAGINITIS+ #### [facility] , Chlamydia Trachomotis, FAISAL Negative Normal Negative [facility] Comment on above: Performed By: #### C UU #### [place] [address] [place] #### VAGINITIS+ #### [facility] , Megasphaera Low - 0 Normal . [facility] Comment on above: Result Comment: [...] BV. Performed By: #### C UU #### [address] #### VAGINITIS+ #### [facility] , Neisseria Gonorrhoeae, FAISAL Negative Normal Negative [facility] Comment on above: Result Comment: Perf ormed at: =G - [facility] [address] [id number] Commercial Fisher: Dee Mendez MD, Phone: [phone] Performed By: #### C UU #### [address] #### VAGINITIS+ #### [facility] , Tric Vag FAISAL Negative Normal Negative [facility] Comment on above: Performed By: #### C UU #### [address] #### VAGINITIS+ #### [facility] , [place] [...] Mann MD Transcribed by: DIANNA Technologist: ISAI Spivey [facility] CBC w/ Auto Diffon 4 Basophils (Bld) [#/Vol] 0.0 E9/L Normal 0.0-0.2 [facility] Comment on above: Performed By: #### 2 [id number] #### [facility] [address] [place] [address] Eosinophils (Bld) [#/Vol] 0.5 E9/L Normal 0.0-0.5 [facility] Comment on above: Performed By: #### 2 [id number] #### [facility] [address] [place] [address] Eosinophils/100 WBC (Bld) 5.0 % Normal 0.0-8.0 [facility] Comment on above: Performed By: #### 2 [id number] #### [facility] [address] [place] [address] Erythrocyte distribution width (RBC) [Ratio] 12.6 % Normal 10.9-14.2 [facility] Comment on above: Performed By: #### 2 [id number] #### [facility] [address] [place] [address] Hematocrit (Bld) [Volume fraction] 42.8 % Normal 34.0-46.0 [facility] Comment on above: Performed By: #### 2 226781 #### [facility] [address] [place] [address] Hemoglobin (Bld) [Mass/Vol] 15.0 g/dL Normal 12.0-16.0 [facility] Comment on above: Performed By: #### 2 [id number] #### [facility] [address] [place] [address] Lymphocytes (Bld) [#/Vol] 2.6 E9/L Normal 1.0-4.0 [facility] Comment on above: Performed By: #### 2 314155 #### [facility] [address] [place] [address] Lymphocytes/100 WBC (Bld) 27.0 % Normal 14.0-50.0 [facility] Comment on above: Performed By: #### 2 944145 #### [facility] [address] [place] [address] MCH (RBC) [Entitic mass] 33.5 pg Normal 27.0-34.0 [facility] Comment on above: Performed By: #### 2 327215 #### [facility] [address] [place] [address] MCHC (RBC) [Mass/Vol] 35.1 g/dL Normal 31.4-36.0 [facility] Comment on above: Performed By: #### 2 [id number] #### [facility] [address] [place] [address] MCV (RBC) [Entitic vol] 95.4 fL Normal 80.0-100.0 [facility] Comment on above: Performed By: #### 2 [id number] #### [facility] [address] [place] [address] Metamyelocytes/Leukocy kandace Manual cnt (Bld) [Pure # fraction] 1 % High 0-0 [facility] Comment on above: Performed By: #### 2 [id number] #### [facility] [address] [place] [address] Monocytes (Bld) [#/Vol] 0.6 E9/L Normal 0.2-1.0 [facility] Comment on above: Performed By: #### 2 685113 #### [facility] [address] [place] [address] Neutrophils (Bld) [#/Vol] 5.8 E9/L Invalid Interpretation Code [facility] Comment on above: Performed By: #### 2 [id number] #### [facility] [address] [place] [address] Platelet 333.0 E9/L Normal 150.0-500.0 [facility] Comment on above: Performed By: #### 2 197701 #### [facility] [address] [place] [address] Platelet mean volume (Bld) [Entitic vol] 8.0 fL Normal 6.4-10.8 [facility] Comment on above: Performed By: #### 2 933008 #### [facility] [address] [place] [address] RBC (Bld) [#/Vol] 4.5 E12/L Normal 4.3-5.9 [facility] Comment on above: Performed By: #### 2 287630 #### [facility] [address] [place] [address] RBC size Nom (Bld) NORMAL Invalid Interpretation Code [facility] Comment on above: Performed By: #### 2 [id number] #### [facility] [address] [place] [address] Segmented neutrophils/100 WBC (Bld) 61.0 % Normal 36.0-75.0 [facility] Comment on above: Performed By: #### 2 374271 #### [facility] [address] [place] [address] WBC corrected for nucl RBC Auto (Bld) [#/Vol] 9.6 E9/L Normal 4.0-11.0 [facility] Comment on above: Performed By: #### 2 780990 #### [facility] [address] [place] [address] Family Medicine Office/Clini c Noteon 11-15-2023 Family [...] BID, # 20 cap(s), Refills(s) 0, Pharmacy: [facility] #[id number], 171, cm, 11/15/23 11:43:00 EDT, Height/Length Dosing, 77.3, kg, 11/15/23 11:43:00 EDT, Weight Dosing CBC w/ Auto Diff Lab Specimen Collect 30[address] US Extremity Non-Vascular Limited Right 2. BMI 26.0-26.9,adult (Z68.26: Body mass index [BMI] 26.0-26.9, adult) - BMI education added Ordered: clindamycin, 300 mg = 1 cap(s), Oral, BID, # 20 cap(s), Refills(s) 0, Pharmacy: [facility] #[id number], 171, cm, 11/15/23 11:43:00 EDT, Height/Length Dosing, 77.3, kg, 11/15/23 11:43:00 EDT, Weight Dosing CBC w/ Auto Diff Lab Specimen Collect 11428 US Extremity Non-Vascular Limited Right 3. Former smoker (Z87.891: Personal history of nicotine dependence) - Please continue to not smoke Ordered: clindamycin, 300 mg = 1 cap(s), Oral, BID, # 20 cap(s), Refills(s) 0, Pharmacy: [facility]/pharm[facility] #[id number], 171, cm, 11/15/23 11:43:00 EDT, Height/Length Dosing, 77.3, kg, 11/15/23 11:43:00 EDT, Weight Dosing CBC w/ Auto Diff Lab Specimen Collect [address]14 US Extremity Non-Vascular Limited Right Total time [...] vaccine, inactivated 03/11/2015 Recorded Normal Vasquez [facility] Comment on above: Result Comment: Elec tronically Signed By: Vitaly SERRANO, Silas Rosabr\Date and Time Signed: 11/15/23 12:16 EDT HEMATOLOGYOrdered [...] Ultrasound Reporton RAD - Ultrasound Report [id number] Normal [facility] C Urineon 09-28-2023 Bacteria identified Cx Nom (U) Microbiology PROCEDURE: Urine Culture [R1] SOURCE: U CleanCatch BODY SITE: COLLECTED DATE/TIME: 09/20/2023 13:11 EDT RECEIVED DATE/TIME: 09/20/2023 18:31 EDT START DATE/TIME: 09/20/2023 18:31 EDT FREE TEXT SOURCE: Vitaly SERRANO, Silas Haider MD, Silas Lockwood AMENDED REPORTS Amended Report [] Verified Date/Time: 09/28/2023 12:52 EDT Wrong patient per [facility] 09/28/2023 12:51 CSS Patient credited. CSS Performing Locations R1: This test was performed at: [facility], [address] [place] [address], [address] , , Normal [facility] Comment on above: Performed By: #### 2 [id number] #### [facility] [address] [place] [address] Provider Letteron 09-26-2023 Provider Letter September 26, 2023 [place] [address] : 1980 Dear Celeste, We have been trying to reach you with no success. It is important that you return our call regarding your medication upon receiving this letter. Also, at the time of your call, please provide us with your current information. Thank you for your prompt attention to this matter. Sincerely, Family Medicine [address] [address] [facility] MM screening mammo LT w/CADo n 09-22-2023 MM screening mammo LT w/CAD [facility] Main [place] [address] [place] [address] Mammography Report Signed with Addenda Patient: Celeste Du MR#: [id number] 17 : 1980 Acct:[id number] Age/Sex: 42 / F ADM Date: 09/22/23 Loc: [place] Room: Type: [facility] Attending Dr: Torie Walker Copies to: Torie Haider MD Ordering Provider: Torie Walker Date of Service: 09/22/23 MM/MM screening mammo LT w/CAD: Z12.31 ADDENDUM 1 Addendum for billing purposes: Tomosynthesis craniocaudal and mediolateral oblique views of the left breast were obtained using low-dose digital technique. This examination was reviewed with the aid of CAD. Impression dictated by: Ant Rousseau Jr., Brett.OKyle09/22/2023 9:15 AM Dictation Location: [facility] Addendum Dictated By: Ant Rousseau [...] Rousseau Jr., D.O.09/22/2023 9:09 AM Dictation Location: [facility] Transcribed By: LAKSHMI 09/22/23908 Dictated By: Ant Rousseau Jr, DO 09/22/23907 Signed By: 09/22/23908 Normal [facility] Ambulatory Visit Summaryon 0 09-20-2023 [...] AM EDT With: Silas Haider MD Where: [facility] [place] Normal [facility] Family Medicine Office/Clini c Noteon 09-20-2023 Family [...] DAY, # 90 tab(s), Refills(s) 1, Pharmacy: [facility], 171, cm, 09/20/23 10:53:00 EDT, [...] vaccine, inactivated 03/11/2015 Recorded Normal Vasquez [facility] Comment on above: Result Comment: Elec [...] numbers. This can be done either in [place] ([place] or metric measurements. Note that charts and online BMI calculators are available to help you find your BMI quickly and easily without having to do these calculations yourself. To calculate your BMI in [place] ([place] measurements: 1. Measure your weight in [...] for Disease Control and Prevention: www.cdc.gov ? [place] [employer]: www.heart.org ? National Heart, Lung, and Blood [place]: www.nhlbi.nih.gov Summary ? Body mass index (BMI) is a number that is calculated from a person's weight and height. ? BMI may help estimate how much of a person's weight is composed of fat. BMI can help identify those who may be at higher risk for certain medical problems. ? BMI can be measured using [place] measurements or metric measurements. ? BMI charts are used to identify whether you are underweight, normal weight, overweight, or obese. This information is not intended to replace advice given to you by your health care provider. Make sure you discuss any questions you have with your health care provider. Document Revised: 01/30/2020 Document Reviewed: 12/07/2019 [employer] Patient Education ? 2022 [employer] Normal [facility] PAP ACOG PANEL 2: 30 to 65on 10-05-2022 Age Gdln ACOG Testing 30-65 Normal [facility] Comment on above: Performed By: #### 4 [id number] #### [facility] [address] [place] [address] Dr. Vicky Cordoba Vital Signs Date Time Vital Sign Value Performing Clinician Marta mark 12-02-2023 14:37-0400 Body height 165.1 cm MD Silas Haider Work Phone: [facility] 12-02-2023 14:37-0400 Body mass index (BMI) [Ratio] 28.3 kg/m2 MD Silas Haider Work Phone: [facility] 12-02-2023 14:37-0400 Body temperature 98.4 [degF] MD Silas Haider Work Phone: [facility] 12-02-2023 14:37-0400 Body weight 77.11 kg MD Silas Haider Work Phone: [facility] 12-02-2023 14:37-0400 Diastolic blood pressure 88 mm[Hg] MD Silas Haider Work Phone: [facility] 12-02-2023 14:37-0400 Heart rate 96 /min MD Silas Haider Work Phone: [facility] 12-02-2023 14:37-0400 SaO2% (BldA) [Mass fraction] 96 % MD Silas Haider Work Phone: [facility] 12-02-2023 14:37-0400 Systolic blood pressure 130 mm[Hg] MD Silas Haider Work Phone: [facility] 03-31-2022 16:50-0500 Blood Pressure Location Silasperi Haider [facility] 03-31-2022 16:50-0500 Diastolic blood pressure 74 mm[Hg] Silas Vitaly [facility] 03-31-2022 16:50-0500 Heart rate 99 /min Silas Haider [facility] 03-31-2022 16:50-0500 SaO2% (BldA) [Mass fraction] 97 % Silas Haider [facility] 03-31-2022 16:50-0500 Systolic blood pressure 122 mm[Hg] Silas Haider [facility] 12-31-2021 16:27-0400 Blood Pressure Location Silas Haider [facility] 12-31-2021 16:27-0400 Diastolic blood pressure 82 mm[Hg] Silas Vitaly [facility] 12-31-2021 16:27-0400 Heart rate 87 /min Silas Haider [facility] 12-31-2021 16:27-0400 SaO2% (BldA) [Mass fraction] 98 % Silas Haider [facility] 12-31-2021 16:27-0400 Systolic blood pressure 120 mm[Hg] Silas Haider [facility] 09-09-2021 14:09-0400 Diastolic blood pressure 104 mm[Hg] Silas Haider [facility] 09-09-2021 14:09-0400 Mean blood pressure 113 mm[Hg] Silas Haider [facility] 09-09-2021 14:09-0400 Systolic blood pressure 132 mm[Hg] Silas Haider [facility] 09-09-2021 13:20-0400 Blood Pressure Location Silas Haider [facility] 09-09-2021 13:20-0400 Diastolic blood pressure 104 mm[Hg] Silas Haider [facility] 09-09-2021 13:20-0400 Heart rate 89 /min Silas Haider [facility] 09-09-2021 13:20-0400 SaO2% (BldA) [Mass fraction] 97 % Silas Haider [facility] 09-09-2021 13:20-0400 Systolic blood pressure 138 mm[Hg] Silas Haider [facility] Encounters Encounter Date Encounter Type Care Provider Facility Start: 05-09-2024 ambulatory Silas Haider Facility :[facility] [place] Start: 04-16-2024 End: 04-16-2024 ambulatory Carlin Collier MD Facility:[facility] Start: 03-19-2024 End: 03-19-2024 ambulatory Carlin Collier MD Facility:[facility] Start: 03-05-2024 End: 03-05-2024 ambulatory Silas Haider Facility:[facility] Start: 02-06-2024 End: 02-06-2024 ambulatory Silas Haider Facility:[facility] Start: 12-02-2023 End: 12-02-2023 ambulatory MD Silas Haider Work Phone: [facility] Work Phone: Start: 12-02-2023 End: 12-02-2023 Departed Referred MD Silas Haider Work Phone: [facility] Start: 12-02-2023 End: 12-02-2023 Patient encounter procedure MD Silas Haider Work Phone: [facility] [place] Work Phone: Start: 11-18-2023 End: 11-18-2023 ambulatory Silas Haider Facility:[facility] Start: 11-18-2023 End: 11-18-2023 Patient encounter procedure Silas Haider [facility] Start: 11-15-2023 End: 11-15-2023 Lab Drop off Silas Haider [facility] Start: 11-15-2023 End: 11-15-2023 ambulatory Silas Haider Facility:[facility] Start: 09-29-2023 End: 09-29-2023 ambulatory TORIE MARTINEZZIO Not Available Start: 09-22-2023 End: 09-22-2023 Patient encounter procedure MD Silas Haider Work Phone: [facility] Work Phone: Start: 09-22-2023 End: 09-22-2023 ambulatory MD Silas Haider Work Phone: [facility] Work Phone: Start: 09-20-2023 End: 09-20-2023 ambulatory Silas Haider Facility:[facility] Start: 09-20-2023 End: 09-20-2023 Lab Drop off Silas Haider [facility] Start: 09-20-2023 End: 09-20-2023 ambulatory Silas Haider Facility:[facility] [place] Start: 08-03-2023 End: 08-03-2023 ambulatory Silas Haider Facility:[facility] [place] Start: 06-14-2023 End: 06-14-2023 ambulatory TORIE WALKER Not Available Start: 09-27-2022 End: 09-27-[address] TORIE WALKER . Facility: Start: 08-31-2022 End: 08-31-2022 ambulatory MD Silas Haider Work Phone: [facility] Work Phone: Start: 08-31-2022 End: 08-31-2022 Patient encounter procedure MD Silas Haider Work Phone: [facility] Work Phone: Start: 03-31-2022 End: 03-31-2022 Patient encounter procedure Silas Haider [facility] Start: 12-31-2021 End: 12-31-2021 Patient encounter procedure Silas Haider [facility] Start: 09-09-2021 End: 09-09-2021 Patient encounter procedure Silas Haider [facility] Start: 03-06-2018 Patient encounter procedure Meka Sangita Bonilla Facility:[id number] Start: 11-03-2017 Patient encounter procedure Tala [...] Date Care Activity Detail Author Start: 12-02-2023 [facility] Start: 12-02-2023 Bacteria identified in Urine by Culture [facility] Atopobium vaginae DN A [Presence] in Vaginal fluid by FAISAL with probe detection [facility] Bacterial vaginosis associated bacterium 2 DNA [Presence] in Vaginal fluid by FAISAL with probe detection [facility] Megasphaera sp type 1 DNA [Presence] in Vaginal fluid by FAISAL with probe detection [facility] Immunizations Immunization Date Immunization Notes Care Provider Fa cili 02-20-2022 influenza virus vaccine, unspecified formulation Silas Haider [facility] 09-02-2020 SARS-CoV-2 (COVID-19 ) mRNA BNT-162b2 wes Haider [facility] 08-12-2020 SARS-CoV-2 (COVID-19 ) mRNA BNT-162b2 vax Silas Haider [facility] 04-04-2020 influenza virus vaccine, unspecified formulation Silas Haider [facility] 03-14-2018 influenza virus vaccine, unspecified formulation Silas Haider [facility] 03-13-2017 influenza virus vaccine, unspecified formulation Silas Haider [facility] 03-11-2015 influenza virus vaccine, unspecified formulation Silas Haider [facility] NEGATED: Highlighted row has not occurred!03-24-2023 influenza virus vaccine, unspecified formulation Silas Haider [facility] Payers Date Payer Category Payer Self-pay [id number] 2023 Unknown [id number] 2023 Unknown 2022 Unknown [id number] 1978 Unknown [id number] .. [id number] 1978 Unknown [id number] .. [id number] 1978 Unknown [id number] 2.16.84 0.1.479645.3.579.2.593 1978 Unknown [id number] 2.16.84 0.1.855975.3.579.2.1259 1978 Unknown [id number] 2.16.84 0.1.504743.3.579.2.1259 1978 Unknown [id number] 2.16.8 40.1.823932.3.579.2.727 1978 Unknown [id number] 2.16.8 40.1.675347.3.579.2.727 1978 Unknown [id number] 2.16.8 40.1.117533.3.579.2.727 1978 Unknown [id number] 2.16. 840.1.673270.3.579.2.196 1978 Unknown [id number] 2.16. 840.1.359445.3.579.2.196 1978 Unknown [id number] 2.16.8 40.1.094230.3.579.2.7 1978 Unknown [id number] 2.16.8 40.1.389308.3.579.2.7 1978 Unknown [id number] 2.16.8 40.1.698556.3.579.2.7 1978 Unknown [id number] 2.16.8 40.1.684203.3.579.2.727 1978 Unknown [id number] 2.16.8 40.1.788125.3.579.2.7 1978 Unknown [id number] 2.16.8 40.1.636518.3.579.2.727 1959 Unknown [id number] Unknown [id number] Unknown [id number] 2.16.8 40.1.616972.3.579.2.531 Unknown [id number] 2.16.8 40.1.755394.3.579.2.531 Social History Date Type Detail Facility Start: 01-03-2020 End: 09-09-2021 Tobacco smoking status Ex-smoker (finding) [facility] Comment on above: smokes outsi de Tobacco [facility] Start: 01-28-1992 End: 08-21-2013 Sex Assigned At Female [facility] Tobacco Household tobacc o concerns: No. [facility] Tobacco smoking status No Smokin g Status Entered [facility] Start: 1980 Sex Assigned At Female F [facility] Functional Status Date Assessment Result Facility 03-31-2022 Functional Status N/A [facility] 12-31-2021 Functional Status N/A [facility] Clinical Notes 09-09-2021 to 03-05-2024 Radiology [...] for Disease Control and Prevention: cdc.gov ? [place] [employer]: heart.org ? National Heart, Lung, and Blood [place]: nhlbi.nih.gov This information is not intended to replace advice given to you by your health care provider. Make sure you discuss any questions you have with your health care provider. Document Revised: 01/27/2023 Document Reviewed: 01/20/2023 Elsevier Patient Education ? 2023 [facility] 02-06-2024 Note Patient Education Nutrition BMI for [...] for Disease Control and Prevention: cdc.gov ? [place] [employer]: heart.org ? National Heart, Lung, and Blood [place]: nhlbi.nih.gov This information is not intended to replace advice given to you by your health care provider. Make sure you discuss any questions you have with your health care provider. Document Revised: 01/27/2023 Document Reviewed: 01/20/2023 [employer] Patient Education ? 2023 [employer]. [facility] 03-31-2022 Hospital Discharg e instructions Patient Education [...] care provider. This is important. Medicines Take ltbn-ywx-tbosbel and prescription medicines only as told by [...] 05/09/2006 Document Revised: 01/17/2019 Document Reviewed: 01/17/2019 Elsevier Patient Education 2019 [employer]. [facility] [place] 12-31-2021 Hospital Discharg e instructions Patient Education [...] called talk therapy or counseling. Seeing a dairy nutrition consultant (dietitian). Getting appropriate exercise. Medicines to help [...] that address eating disorders. Talk with an court specialist, therapist, or counselor about your eating [...] health care provider. This is important. Take hctg-bky-yxvawwo and prescription medicines only as told by [...] 05/09/2006 Document Revised: 09/17/2016 Document Reviewed: 03/12/2016 [employer] Patient Education 2020 [employer] 12/31/2021 16:54:02 Hypertension, Adult Hypertension, Adult High [...] care provider. This is important. Medicines Take kroi-kfa-lnchwht and prescription medicines only as told by [...] 05/09/2006 Document Revised: 01/17/2019 Document Reviewed: 01/17/2019 [employer] Patient Education 2019 [employer]. [facility] [place] 09-09-2021 Hospital Discharg e instructions Patient Education [...] care provider. Avoid caffeine, alcohol, and certain qvvk-cad-tmmzjyj cold medicines. These may make you feel worse. Ask your pharmacist which medicines to avoid. General instructions Take faqn-dby-udiknen and prescription medicines only as told by [...] Depression Association of [place] (ADAA): www.adaa.org National [place] on Mental Illness (BRENDA): www.brenda.org Contact a [...] 05/03/2017 Document Revised: 10/09/2019 Document Reviewed: 10/09/2019 [employer] Patient Education [address] [facility] Evaluation + Plan note Future Appointments Appointment Date:12/09/2021 07:40:00 AM Scheduled Provider:Silas Haider MD Location:[facility] Appointment Type:[facility] Evaluation + Plan note Future Appointments Appointment Date:03/31/2022 04:40:00 PM Scheduled Provider:Silas Haider MD Location:[facility] Appointment Type:[facility] Evaluation + Plan note Future Appointments Appointment Date:09/22/2022 04:40:00 PM Scheduled Provider:Silas Haider MD Location:[facility] Appointment Type:[facility] Evaluation + Plan note Future Appointments Appointment Date:03/20/2024 07:15:00 AM Scheduled Provider:Silas Haider MD Location:[facility] Appointment Type: Open Diagnostic Tests PendingUrine Culture 09/20/23 [facility] Evaluation + Plan note Future Appointments Appointment Date:03/20/2024 07:15:00 AM Scheduled Provider:Silas Haider MD Location:[facility] Appointment Type: Open Future Scheduled TestsUS Extremity Non-Vascular Limited Right 11/15/23 [facility] Evaluation + Plan note Future Appointments Appointment Date:03/20/2024 07:15:00 AM Scheduled Provider:Silas Haider MD Location:[facility] Appointment Type: Open [facility] Evaluation note No assessment inform ation available [facility] Work Phone: Evaluation note Diagnosis Onset Date Vaginitis noneactive [facility] Work Phone: Hospital course Narrative No data available for this section [facility] [place] [facility] Discharge instructions No data available for this section [facility] data available for this section [facility] Summary Purpose Family History No Family [...] section and content) DATE CREATED AUTHOR 04/30/2018 [facility] DATE CREATED AUTHOR AUTHOR'S ORGANIZ ATION 10/06/2022 [facility] DATE CREATED AUTHOR AUTHOR'S ORGANIZ ATION 10/01/2023 [facility] EPIC DATE CREATED AUTHOR AUTHOR'S ORGANIZ ATION 11/17/2023 [facility] DATE CREATED AUTHOR AUTHOR'S ORGANIZ ATION 12/08/2023 [facility] DATE CREATED AUTHOR AUTHOR'S ORGANIZ ATION 03/07/2024 [facility] DATE CREATED AUTHOR AUTHOR'S ORGANIZ ATION 04/22/2024 [facility] DATE CREATED AUTHOR AUTHOR'S ORGANIZ ATION 05/04/2024 [facility] Care Team (unrecognized sect ion [...] BE BASED ON THE PRIMARY CLINICAL RECORDS. [facility] [employer] [facility]. provides no warranty or guarantee of the accuracy or completeness of information in this document.
[2024-05-07 07:04] VITALS: BP 137/102; PULSE 106; TEMP 36.9; O2SAT 9
[2024-05-07 07:47] VITALS: BP 152/96; PULSE 99; O2SAT 98
[2024-05-07 07:50] VITALS: BP 143/95; PULSE 98; O2SAT 98
[2024-05-07] MEDS: BUPIVACAINE HCL 0.25% PF 25 MG/10 ML VIAL 2 ML INJ (07:53)
[2024-05-07] MEDS: LIDOCAINE HCL 2% 400 MG/20 ML MDV 6 ML INJ (07:53)
--- NOTE | 2024-05-07 07:54 | W.PM.PROCNOT ---
Date of procedure: 05/07/24 Pre-op diagnosis: Pain due to cervical spondylosis without myelopathy Post-op diagnosis: same as pre-op Procedure: Procedure: Bilateral C4-5, 5-6 medial branch block Medications: Bupivacaine 0.25% 6cc The patient was seen and examined in the preoperative holding area.? The informed consent was obtained and placed on the chart.? The patient was brought to the medical procedure unit and placed in the prone position.? A timeout was completed verifying correct patient, procedure site, positioning, plan, and special equipment.? Using aseptic technique, the needle was placed at left C4.? Under direct fluoroscopic visualization, a Quincke tip needle was advanced to the midpoint of the waist of the articular pillar at the respective medial branch segment. The above-mentioned injectate was placed in a 1 mL aliquot proceeded by negative aspiration.? The needle was removed.? The procedure was completed at all left C5, 6. The same procedure, at the same levels, was then completed on the right side. Insertion site was covered.? Patient was taken to the postprocedural recovery area and monitored for an appropriate length of time before found suitable for discharge in the accompaniment of a responsible adult. Anesthesia: Local Surgeon: Carlin Collier Pathology: none sent Condition: stable Disposition: no change
== END 2024-05-07 07:59 | disposition home or self-care (01) ==
PROVIDERS: PCP Family Medicine; Visit Provider Anesthesiology
DX: M47.812 Spondylosis without myelopathy or radiculopathy, cervical region (principal)
CPT/HCPCS: 64490; 64491; J0665

== ENCOUNTER 2024-05-09 15:23 | Outpatient (OUT) | payer OTHER, SELFPAY ==
--- NOTE | 2024-05-09 15:20 | P.CN_ITS ---
Consult Note: HPI Data of Consult Patient: known to practice within the last 3 years Requesting Physician: Anabel Allen NP Primary Care Provider: GARRISON ARZATE Consult Narrative Reason for consult: right neck, arm pain Narrative: 43yof who presents for evaluation. longstanding neck, right shoulder, right arm pain. had mastectomy in 2015, pain began around a similar time. previous cervical mri from 2015 showed multilevel degenerative changes. has continued in a series of provider directed home exercises >6 weeks, without lasting benefit. uses otc meds and topicals, as needed. denies adverse med side effects. recently completed a cervical MRI with results below. Pain increased with twisting, standing, walking, looking up and down. Pain improved with sleep, stretching, heat, lying flat. Recent right C4/5 C5/6 TFESI providing moderate relief in radicular symptoms, continues to have moderate to severe axial neck pain. recently underwent bilateral C4-5 C5-6 MBB #1 with significant pain relief and functional ability immediately following and hours after, >80% combined pain relief. cc:: CC: Anabel Allen NP Review of Systems ROS Status of ROS 10 or more systems reviewed and unremark able except as noted in history and below Musculoskeletal Reports: neck pain PFSH PFSH Medical History (Updated 04/12/24 @ 14:36 by Constanza Varela RN) Anxiety ?F41.9 - Anxiety disorder, unspecified (ICD-10) HTN (hypertension) ?I10 - Essential (primary) hypertension (ICD-10) Surgical History History of hysterectomy ?Z90.710 - Acquired absence of both cervix and uterus (ICD-10) History of mastectomy ?Z90.10 - Acquired absence of unspecified breast and nipple (ICD-10) Meds Home Medications and Allergies Home Medications ?Medication ?Instructions ?Recorded ?Confirmed ?Type amlodipine 10 mg tablet (Norvasc) 10 mg PO DAILY 03/19/24 05/07/24 History clonazepam 0.5 mg tablet 0.5 mg PO Q8H 03/19/24 05/07/24 History lamotrigine 200 mg tablet 200 mg PO DAILY 03/19/24 05/07/24 History lamotrigine 25 mg tablet 50 mg PO QAM 03/19/24 05/07/24 History phentermine 37.5 mg tablet 37.5 mg PO DAILY 03/19/24 05/07/24 History (Adipex-P) tizanidine 4 mg tablet See Rx Instructions .Route 04/04/24 05/07/24 Rx .COMPLEX PRN muscle spasticity #180 tabs Allergies Allergy/AdvReac Type Severity Reaction Status Date / Time morphine Allergy Intermediate Hives Verified 05/07/24 07:11 Exam Narrative Exam Narrative: Psych-alert and oriented x 3.? Attentive and appropriate, constitutionally normal, displays normal mood and affect per situation.? There are no obvious deficits in memory, reasoning, or intellect.? Skin-no obvious rashes, bruising, or erythema noted to the patient's area of pain.? Extremities-upper extremities are warm with minimal edema and palpable pulses. Cervical- tenderness to palpation noted in the cervical spine and paraspinal musculature.? Pain is elicited with flexion, extension, and lateral rotation of the cervical spine.? Range of motion is diminished due to pain. Facet loading maneuvers are positive. Strength-unremarkable and within normal limits with the exception to the right biceps. Sensory-no notable sensory deficits in the bilateral upper extremities to touch or pinprick Coordination remains intact.? Gait remains non-antalgic. Results Additional Findings Additional findings: If on a controlled substance or opioids, I have checked an OARRS report on this patient and there are no aberrancies noted in the prescribing history.??If on a controlled substance or opioid a drug screen was completed and reviewed within the last year, and if there has not been a drug screen completed we ordered one today to monitor higher risk, state monitored pain medication use. As part of providing excellent, safe, comprehensive care, the following was completed at our patient's visit: 1. A medication reconciliation and review to ensure accurate knowledge of current/active medications, including asking our patients to inform us about any fzie-unl-moyfkfh medications or herbal remedies/nutritional supplements/alter reno-sparks remedies. 2. A review to specifically ensure our patients have had annual screening for screening for depression, screening for tobacco use, and screening for unhealthy alcohol use. For concerning screenings had a discussion with the patient, provided patient education, and recommended follow-up with primary care provider when appropriate. If patient noted with a risk of falling, they received education on strength, gait, and balance training to prevent future risk of falling. Assessment and Plan Assessment and Plan (1) Cervical spondylosis: (2) Cervical radiculopathy: (3) Cervical stenosis of spinal canal: Plan bilateral C4-5 c5-6 facet medial branch block x2 working towards RFA continue current medications continue HEP as tolerated f/u after each injection
== END 2024-05-09 15:24 | disposition home or self-care (01) ==
LOC: PM 15:24
PROVIDERS: PCP Family Medicine; Visit Provider Nurse Practitioner
DX: M47.812 Spondylosis without myelopathy or radiculopathy, cervical region (principal); M54.12 Radiculopathy, cervical region; M48.02 Spinal stenosis, cervical region
CPT/HCPCS: G0463

== ENCOUNTER 2024-05-28 06:52 | Day surgery (SDC) | payer OTHER, SELFPAY ==
[2024-05-28 07:01] VITALS: BP 143/97; PULSE 117; TEMP 36.8; O2SAT 98
[2024-05-28 08:31] VITALS: BP 130/71; PULSE 106; O2SAT 99
[2024-05-28 08:32] VITALS: BP 118/77; PULSE 106; O2SAT 99
[2024-05-28] MEDS: LIDOCAINE HCL 2% 400 MG/20 ML MDV INJ (08:35)
[2024-05-28] MEDS: BUPIVACAINE HCL 0.25% PF 25 MG/10 ML VIAL 8 ML INJ (08:35)
--- NOTE | 2024-05-28 08:35 | W.PM.PROCNOT ---
Date of procedure: 05/28/24 Pre-op diagnosis: Pain due to cervical spondylosis without myelopathy Post-op diagnosis: same as pre-op Procedure: Procedure: Bilateral C4-5, 5-6 medial branch block Medications: Bupivacaine 0.25% 6cc The patient was seen and examined in the preoperative holding area.? The informed consent was obtained and placed on the chart.? The patient was brought to the medical procedure unit and placed in the prone position.? A timeout was completed verifying correct patient, procedure site, positioning, plan, and special equipment.? Using aseptic technique, the needle was placed at left C4.? Under direct fluoroscopic visualization, a Quincke tip needle was advanced to the midpoint of the waist of the articular pillar at the respective medial branch segment. The above-mentioned injectate was placed in a 1 mL aliquot proceeded by negative aspiration.? The needle was removed.? The procedure was completed at all left C5, 6. The same procedure, at the same levels, was then completed on the right side. Insertion site was covered.? Patient was taken to the postprocedural recovery area and monitored for an appropriate length of time before found suitable for discharge in the accompaniment of a responsible adult. Anesthesia: Local Surgeon: Carlin Collier Pathology: none sent Condition: stable Disposition: no change
== END 2024-05-28 08:41 | disposition home or self-care (01) ==
LOC: SURGOUT 06:52
PROVIDERS: PCP Family Medicine; Visit Provider Anesthesiology
DX: M47.812 Spondylosis without myelopathy or radiculopathy, cervical region (principal)
CPT/HCPCS: 64490; 64491; J0665

== ENCOUNTER 2024-05-31 14:53 | Outpatient (OUT) | payer OTHER, SELFPAY ==
--- NOTE | 2024-05-31 15:19 | P.CN_ITS ---
Consult Note: HPI Data of Consult Patient: known to practice within the last 3 years Requesting Physician: Anabel Allen NP Primary Care Provider: GARRISON ARZATE Consult Narrative Reason for consult: neck pain Narrative: 43yof who presents for evaluation. longstanding neck, right shoulder, right arm pain. had mastectomy in 2014, pain began around a similar time. previous cervical mri from 2015 showed multilevel degenerative changes. has continued in a series of provider directed home exercises >6 weeks, without lasting benefit. uses otc meds and topicals, as needed. denies adverse med side effects. recently completed a cervical MRI with results below. Pain increased with twisting, standing, walking, looking up and down. Pain improved with sleep, stretching, heat, lying flat. Recent right C4/5 C5/6 TFESI providing moderate relief in radicular symptoms, continues to have moderate to severe axial neck pain. recently underwent bilateral C4-5 C5-6 MBB #1 and #2 with significant pain relief and functional ability immediately following and hours after, >80% combined pain relief. pain today 5-10/30 ioncreasing to 03/01. currently util izing tizanidine 8mg HS PRN, ibuprofen 800mg PRN, unfortunately cannot tolerate daytime tizanidine due to drowsiness. cc:: CC: Anabel Allen NP Review of Systems ROS Status of ROS 10 or more systems reviewed and unremark able except as noted in history and below Musculoskeletal Reports: [facility] Medical History (Updated 04/12/24 @ 14:36 by Constanza Varela RN) Anxiety ?F41.9 - Anxiety disorder, unspecified (ICD-10) HTN (hypertension) ?I10 - Essential (primary) hypertension (ICD-10) Surgical History History of hysterectomy ?Z90.710 - Acquired absence of both cervix and uterus (ICD-10) History of mastectomy ?Z90.10 - Acquired absence of unspecified breast and nipple (ICD-10) Meds Home Medications and Allergies Home Medications ?Medication ?Instructions ?Recorded ?Confirmed ?Type amlodipine 10 mg tablet (Norvasc) 10 mg PO DAILY 03/19/24 05/28/24 History clonazepam 0.5 mg tablet 0.5 mg PO Q8H 03/19/24 05/28/24 History lamotrigine 200 mg tablet 200 mg PO DAILY 03/19/24 05/28/24 History lamotrigine 25 mg tablet 50 mg PO QAM 03/19/24 05/28/24 History phentermine 37.5 mg tablet 37.5 mg PO DAILY 03/19/24 05/28/24 History (Adipex-P) tizanidine 4 mg tablet See Rx Instructions .Route 04/04/24 05/28/24 Rx .COMPLEX PRN muscle spasticity #180 tabs Allergies Allergy/AdvReac Type Severity Reaction Status Date / Time morphine Allergy Intermediate Hives Verified 05/07/24 07:11 Exam Narrative Exam Narrative: Psych-alert and oriented x 3.? Attentive and appropriate, constitutionally normal, displays normal mood and affect per situation.? There are no obvious deficits in memory, reasoning, or intellect.? Skin-no obvious rashes, bruising, or erythema noted to the patient's area of pain.? Extremities-upper extremities are warm with minimal edema and palpable pulses. Cervical- tenderness to palpation noted in the cervical spine and paraspinal musculature.? Pain is elicited with flexion, extension, and lateral rotation of the cervical spine.? Range of motion is diminished due to pain. Facet loading maneuvers are positive. Strength-unremarkable and within normal limits with the exception to the right biceps. Sensory-no notable sensory deficits in the bilateral upper extremities to touch or pinprick Coordination remains intact.? Gait remains non-antalgic. Results Additional Findings Additional findings: If on a controlled substance or opioids, I have checked an OARRS report on this patient and there are no aberrancies noted in the prescribing history.??If on a controlled substance or opioid a drug screen was completed and reviewed within the last year, and if there has not been a drug screen completed we ordered one today to monitor higher risk, state monitored pain medication use. As part of providing excellent, safe, comprehensive care, the following was completed at our patient's visit: 1. A medication reconciliation and review to ensure accurate knowledge of current/active medications, including asking our patients to inform us about any pmoy-oge-cfhxjlx medications or herbal remedies/nutritional supplements/alternative remedies. 2. A review to specifically ensure our patients have had annual screening for screening for depression, screening for tobacco use, and screening for unhealthy alcohol use. For concerning screenings had a discussion with the patient, provided patient education, and recommended follow-up with primary care provider when appropriate. If patient noted with a risk of falling, they received education on strength, gait, and balance training to prevent future risk of falling. Assessment and Plan Assessment and Plan (1) Cervical spondylosis: (2) Cervical radiculopathy: (3) Cervical stenosis of spinal canal: Plan right then left C4-5 C5-6 RFA under fluoroscopy, risks vs benefits reviewed start baclofen 5-10mg once daily as needed pain/spasms, not to be utilized with tizanidine as discussed continue tizanidine 8mg HS PRN pain/spasms continue HEP as tolerated f/u 1 month after RFA
== END 2024-05-31 14:54 | disposition home or self-care (01) ==
PROVIDERS: PCP Family Medicine; Visit Provider Nurse Practitioner
DX: M47.812 Spondylosis without myelopathy or radiculopathy, cervical region (principal); M54.12 Radiculopathy, cervical region; M48.02 Spinal stenosis, cervical region
CPT/HCPCS: G0463

== ENCOUNTER 2024-06-11 07:03 | Day surgery (SDC) | payer OTHER, SELFPAY ==
--- OUTSIDE RECORDS SUMMARY | 2024-06-11 07:05 | XMS_ITS | CCD ---
Author Organization [facility] Care Team Providers Care Field Assessor Name Role Phone Tala Johnson Unavailable Unavaila Dalton Moses Unavailable UnavailMeka Healy Unavailable Unavailable Dalton Olvera Unavailable UnavailSilas Jack Primary Care Physician MD Silas Haider Primary Care Provider Torie Walker Attending Provider [phone] CLAIR ., DR VOGT Attending Unavailable CLAIR ., DR VOGT Consulting Unavailable CLAIR ., DR VOGT Admitting Unavailable Silas Haider Primary Care Physician MD Silas Haider Primary Care Provider [phone] Torie Walker Attending Provider [phone] TORIE WALKER Attending Unavailable TORIE WALKER Attending Unavailable MD Silas Haider Primary Care Provider DO Torie Walker Attending Provider MANDI Sánchez Attending Provider [phone] Silas Haider Primary Care Unavailable Torie Walker Admitting Unavailable Torie Walker Attending Unavailable Manisha Sánchez Admitting UnavailManisha Mcbride Attending UnavailSilas Jack Attending Unavailable Silas Haider Attending Unavailable Silas Haider Admitting Unavailable Silas Haider Admitting Unavailable Silas Haider Attending Unavailable Silas Haider Attending Unavailable Silas Haider Attending Unavailable Silas Haider Attending Unavailable Silas Haider Admitting Unavailable Silas Haider Attending Unavailable Silas Haider Attending Unavailable Silas Haider Attending Unavailable Silas Haider Attending Unavailable Silas Haider Attending Unavailable Silas Haider Referring Unavailable Silas Haider Admitting Unavailable Nando SERRANO, Carlin Rodrigues Attending Unavailable Giwalter SERRANO, Carlin Rodrigues Attending Unavailable Gipardeepitis , Carlin Rodrigues Attending Unavailable Gieditis , Carlin Rodrigues Attending Unavailable Allergies Allergy Classification Reported Allergen(s) Allergy Type Date of Onset Reaction(s) Facility (12 sources) Morphine; Translations: [morphine] Drug Allergy 7 Itching (finding) [facility] [place] (5 sources) aprepitant; Translations: [aprepitant] Drug Allergy 7 Unknown Reaction [facility] (1 source) Morphine Drug Allergy 4 [facility] Repository Medications Current Medications Medication Drug Class(es) Dates Sig (Normalized) Sig (Original) 0.5 ML semaglutide 2 MG/ML Auto-Injector (1 source) Start: 09-09-2021 End: 11-04-2021 Wegovy (1 mg dose) subcutaneous solution 1 mg, SubCutaneous, qWeek, INJECT 1 PEN UNDER THE SKIN EVERY WEEK, X 4 week(s), # 4 EA, Refills(s) 1, Pharmacy: [facility] #[id number], 171, cm, 09/09/21 13:28:00 EDT, Height/Length Dosing, 75.9, kg, 09/09/21 13:28:00 EDT, Weight Dosing Start Date: 09/09/21 Stop Date: 11/04/21 Status: Ordered 0.75 ML semaglutide 3.2 MG/ML Auto-Injector [Wegovy] (2 sources) Start: 03-31-2022 inject 2.4 mg by subcutaneous injection every week Wegovy (2.4 mg dose) subcutaneous solution 2.4 mg, SubCutaneous, qWeek, # 12 EA, Refills(s) 1, Pharmacy: [facility] #[id number], 171, cm, 03/31/22 16:52:00 EST, Height/Length Dosing, 75.7, kg, 03/31/22 16:52:00 EST, Weight Dosing Start Date: 03/31/22 Status: Ordered Start: 12-31-2021 inject 2.4 mg by sub cutaneous injection every week Teegovy (2.4 mg dose) subcutaneous solution 2.4 mg, SubCutaneous, qWeek, # 12 EA, Refills(s) 1, Pharmacy: [facility] #[id number], 171, cm, 12/31/21 16:30:00 EDT, Height/Length Dosing, [...] BID, # 20 cap(s), Refills(s) 0, Pharmacy: [facility]/pharmacy #[id number], 171, cm, 11/15/23 11:43:00 EDT, [...] Daily, # 90 cap(s), Refills(s) 1, Pharmacy: [facility]/pharmacy #[id number], 171, cm, 03/31/22 16:52:00 EST, Height/Length Dosing, 75.7, kg, 03/31/22 16:52:00 EST, Weight Dosing Start Date: 03/31/22 Status: Ordered Start: 12-31-2021 take 1 capsule by [facility] once daily omeprazole 40 mg Cap-DR 40 mg = 1 cap(s), Oral, Daily, # 90 cap(s), Refills(s) 1, Pharmacy: [facility]/pharmacy #[id number], 171, cm, 12/31/21 16:30:00 EDT, Height/Length Dosing, 76.7, kg, 12/31/21 16:30:00 EDT, Weight Dosing Start Date: 12/31/21 Status: Ordered omeprazole 40 mg Cap-DR (1 source) Start: 09-09-2021 End: 12-08-2021 take 1 capsule by mouth once daily omeprazole 40 mg Cap-DR 40 mg = 1 cap(s), Oral, Daily, X 90 day(s), # 90 cap(s), Refills(s) 0, Pharmacy: [facility]/pharmacy #[id number], 171, cm, 09/09/21 13:28:00 EDT, [...] every four to six hours Hydrocodone-Acetami nophen ([facility]) 5-325 mg tablet Discontinued 1 TAB PO EVERY 4-6 HOURS 40 7 October 03, 2018 November 08, 2018 8:07am Start: 01-18-2017 End: 01-27-2017 take 2 tablets by mouth every four to six hours Hydrocodone-Acetaminophen ([facility]) 5-325 mg Tablet Discontinued 2 TAB PO [...] Reference Range Facility Ambulatory Visit Summaryon 1 07-10-2023 Ambulatory Visit Summary Ambulatory Visit Summary CELESTE DU :1980 Visit Date:05/09/2024 Ambulatory Visit Instructions Your Diagnosis Anxiety and depression Excessive dietary caloric intake Primary hypertension GERD without esophagitis BMI 26.0-26.9,adult Over weight Former smoker Your Care Team Attending Physician - Silas Haider MD Primary Care Physician - Silas Haider MD This Is Your Medications List amlodipine (amLODIPine 10 mg Tab) clonazepam (ClonazePAM 0.5 mg Tab) lamotrigine (LaMICtal XR 250 mg oral tablet, extended release) phentermine (Adipex-P 37.5 mg oral capsule) trazodone (traZODONE 50 mg Tab) Procedures Performed Hysterectomy (2013), Tubal ligation (2011), Delivery (11/23/2007), Delivery (07/21/1999), Mastectomy of right breast. Discharge Vitals Temperature (Temporal Artery) 37.2 ???C Heart Rate (Peripheral) 68 Respiratory Rate 16 Blood Pressure 128/80 Height 171 cm Height 67 in Weight 76.3 kg Weight 168.213 lb BMI 26.09 What to do next Scheduled Follow-Up Appointments Tuesday 7:00 AM EDT With: Silas Haider MD Where: [address] Medications What How Much When Instructions Unchanged amlodipine (amLODIPine 10 mg Tab) See instructions TAKE 1 TABLET BY MOUTH EVERY DAY Unchanged clonazepam (ClonazePAM 0.5 mg Tab) See instructions Take one orally in the am and 2 at bedtime Unchanged lamotrigine (LaMICtal XR 250 mg oral tablet, extended release) See instructions 50mg orally in the am and 200mg at night Unchanged phentermine (Adipex-P 37.5 mg oral capsule) 1 Capsules By Mouth Every day Unchanged trazodone (traZODONE 50 mg Tab) See instructions TAKE ONE-HALF (1/ 2) TABLET DAILY AT BEDTIME Allergies morphine (Itching) Problems Ongoing - Any [...] you for choosing us for your care. Education Materials Hypertension, Adult High blood pressure (hypertension) is when the force of blood pumping through the arteries is too strong. The arteries are the blood vessels that carry blood from the heart throughout the body. Hypertension forces the heart to work harder to pump blood and may cause arteries to become narrow or stiff. Untreated or uncontrolled hypertension can lead to a heart attack, heart failure, a stroke, [...] There are some conditions that result in high blood pressure. What increases the risk? Certain factors may make you more likely to develop high blood pressure. Some of these risk factors are under your control, including: ??? Smoking. ??? Not getting enough exercise or physical activity. ??? Being overweight. ??? Having too much fat, sugar, calories, or salt (sodium) in your diet. ??? Drinking too much alcohol. Other risk factors include: ??? Having a personal history of heart disease, diabetes, high cholesterol, or kidney disease. ??? Stress. ??? Having a family history of high blood pressure and high cholesterol. ??? Having obstructive sleep apnea. ??? Age. The risk increases with age. What are the signs or symptoms? High blood pressure may not cause symptoms. Very high blood pressure (hypertensive crisis) may cause: ??? Headache. ??? Fast or irregular heartbeats (palpitations). ??? Shortness of breath. ??? Nosebleed. ??? Nausea and vomiting. ??? Vision changes. ??? Severe chest pain, dizziness, and seizures. How is this diagnosed? This condition is diagnosed by measuring your blood pressure while you are seated, with your arm resting on a flat surface, your legs uncrossed, and your feet flat on the floor. The cuff of the blood pressure monitor will be placed directly against the skin of your upper arm at the level of your heart. Blood pressure should be measured at least twice using the same arm. Certain conditions can cause a difference in blood pressure between your right and (more content not included)... Normal [facility] Family Medicine Office/Clini c Noteon 05-09-2024 Family Medicine Office/Clinic Note Family Medicine Office/Clinic Note HPI Staff Celeste is a 43 year old female presenting for 6 month follow up mood and weight Follow up for Mental Status: Medication adherence- Yes, takes medication as prescribed Medication refill needed: no Suicidal thoughts-Not at this time Most recent SAW: 4 Most recent PHQ: 0 Last weight: 175 Todays weight: 168 questions/concerns: needs [facility] and will discuss adipex History of Present Illness Patient presents for follow-up. No concerns today. Patient wants me to check her lymphadenopathy. Patient is doing well with weight loss. Review of Systems PHQ Score Initial Depression Screen Score: 0 SCORE Physical Exam Vitals & Measurements T: 37.2 ???C(Temporal Artery) HR: 68(Peripheral) RR: 16 BP: 128/80 SpO2: 97% HT: 67 in HT: 171 cm WT: 76.3 kg WT: 168.213 lb BMI: 26.09 General: alert, no acute distress ENMT: oral mucosa moist, Cardiovascular: regular rate and rhythm, normal peripheral perfusion Respiratory: Lungs CTA, respirations non labored Extremities: no deformity, no trauma Neurological: oriented x 4, LOC appropriate for age, CN II-XII intact, motor strength equal & normal bilaterally, speech normal Abdomen: Soft, Nontender, Non-distended, + BS Assessment/Plan 1. Anxiety and depression (F41.9: Anxiety disorder, unspecified) Well-controlled at this time. Patient does see psychiatry. No concerns. 2. Excessive dietary caloric intake (R63.2: Polyphagia) Adipex is really doing well for the patient. At this time we will do 1 more month to carry through [place] and then we will do every other day to titrate the patient off. 3. Primary hypertension (I10: Essential (primary) hypertension) At goal today 4. GERD without esophagitis (K21.9: Gastro-esophageal reflux disease without esophagitis) Well-controlled with PPI 5. BMI 26.0-26.9,adult (Z68.26: Body mass index [BMI] 26.0-26.9, adult) BMI education added 6. Over weight (E66.3: Overweight) Diet and exercise advised 7. Former smoker (Z87.891: Personal history of nicotine dependence) Please continue not to smoke Orders: amlodipine, See Instructions, TAKE 1 TABLET BY MOUTH EVERY DAY, # 90 tab(s), Refills(s) 1, Pharmacy: [facility], 171, cm, 05/09/24 8:25:00 EST, Height/Length Dosing, 76.3, kg, 05/09/24 8:25:00 EST, Weight Dosing phentermine, 37.5 mg = 1 cap(s), Oral, Daily, # 30 cap(s), Refills(s) 1, Pharmacy: [facility]/pharmacy #[id number], 171, cm, 05/09/24 8:25:00 EST, Height/Length Dosing, 76.3, kg, 05/09/24 8:25:00 EST, Weight Dosing Follow-up No qualifying data available Patient Education BMI for Adults Hypertension, Adult Problem List/Past Medical History Ongoing Annual physical exam Anxiety and depression BPPV (benign paroxysmal positional vertigo) Excessive dietary caloric intake GERD without esophagitis LAD (lymphadenopathy), cervical Primary hypertension Serous otitis media Sore throat Historical No qualifying data Procedure/Surgical History Hysterectomy (2013), Tubal ligation (2011), Delivery (11/23/2007), Delivery (07/21/1999), Mastectomy of right breast. Medications Adipex-P 37.5 mg oral capsule, 37.5 mg= 1 cap(s), Oral, Daily, 1 refills amLODIPine 10 mg Tab, See Instructions, 1 refills ClonazePAM 0.5 mg Tab, See Instructions LaMICtal XR 250 mg oral tablet, extended release, See Instructions traZODONE 50 mg Tab, See Instructions Allergies morphine (Itching) Social History Alcohol Current. Wine. 1-2 times per month., 05/06/2024 Previous treatment: None., 09/09/2021 Substance Abuse Past. Marijuana. 1-2 times per month. Previous treatment: None., 05/06/2024 Tobacco Former smoker, quit more than 30 days ago Tobacco Use:., 05/09/2024 Household tobacco concerns: No., 03/31/2022 Family History [...] influenza virus vaccine, inactivated 03/11/2015 Recorded Normal [facility] Comment on above: Result Comment: Elec tronically Signed By: Silas Haider MD\.br\Date and Time Signed: 05/09/24 08:59 EST Ambulatory Visit Summaryon 1 Ambulatory Visit Summary [...] Follow-Up Appointments Tuesday 7:00 AM EST With: Vitaly SERRANO, Silas Lockwood Where: [facility] [address] [address]- Medications What How Much When Instructions Unchanged [...] for choosing us for your care. Normal [facility] Family Medicine Office/Clini c Noteon 03-05-2024 Family [...] 79.6, kg, 03/05/24 15:51:00 EDT, Weight Dosing [facility] [place] [place] External Ambulatory Referral 2. Anxiety and depression [...] # 15 tab(s), Refills(s) 0, [facility], 171, cm, 03/05/24 15:51:00 EDT, Height/Length Dosing, 79.6, kg, 03/05/24 15:51:00 EDT, Weight Dosing [facility] [place] [place] External Ambulatory Referral 3. Insomnia (G47.00: Insomnia, [...] # 15 tab(s), Refills(s) 0, [facility], 171, cm, 03/05/24 15:51:00 EDT, Height/Length Dosing, 79.6, kg, 03/05/24 15:51:00 EDT, Weight Dosing [facility] [place] [place] External Ambulatory Referral 4. Osteoarthritis (M19.90: Unspecified osteoarthritis, unspecified site) The patient reports exacerbated osteoarthritis symptoms focused around the clavicle. Present management strategies, including the use of [id number]-[id number] analgesics, have not (more content not included)... Normal [facility] Comment on above: Result Comment: Elec tronically Signed By: Vitaly SERRANO, Silas Lockwood\.br\Date and Time Signed: 03/05/24 16:14 EDT Family [...] BID, # 20 cap(s), Refills(s) 0, Pharmacy: [facility]/pharmacy #[id number], 171, cm, 11/15/23 11:43:00 EDT, Height/Length Dosing, 77.3, kg, 11/15/23 11:43:00 EDT, Weight Dosing 6. Excessive dietary caloric intake (R63.2: Polyphagia) Will do Adipex at this time. Will do it at a lower BMI as her anxiety and depression have some concerns and her weight. Orders: phentermine, 37.5 mg = 1 cap(s), Oral, Daily, # 30 cap(s), Refills(s) 0, Pharmacy: [facility]/pharmacy #[id number], 171, cm, 02/06/24 16:09:00 EDT, Height/Length [...] virus vaccine, inactivated 03/11/2015 Recorded Normal [facility] Comment on above: Result Comment: Elec tronically Signed By: Vitaly SERRANO, Silas Rosabr\Date and Time Signed: 02/06/24 18:09 EDT Urine Cultureon 12-02-2023 Bacteria identified Cx Nom (U) <9,000 colonies/ml mixed bacterial skin contaminants 2 Days PERFORMED BY: [place] [address] PATHOLOGIST HAIR BLENDER YENI BAH M.D. Normal [facility] Comment on above: Performed By: #### C UU #### [address] #### VAGINITIS+ #### [facility] , Vaginitis Plus (VG+)on 12-01 Atopobium Vaginae Moderate - 1 Normal . [facility] Comment on above: Result Comment: This test was developed and its performance characteristics determined by [facility]. It has not been cleared or approved by the Food and Drug Administration. Performed By: #### C UU #### [place] [address] [place] #### VAGINITIS+ #### [facility] , BVAB2 Low - 0 Normal . [facility] Comment on above: Result Comment: This test was developed and its performance characteristics determined by [facility]. It has not been cleared or approved by the Food and Drug Administration. Performed By: #### C UU #### [place] [address] [place] #### VAGINITIS+ #### [facility] , Dolores Albicans, FAISAL Negative Normal Negative [facility] Comment on above: Result Comment: This test was developed and its performance characteristics determined by [facility]. It has not been cleared or approved by the Food and Drug Administration. Performed By: #### C UU #### [place] [address] [place] #### VAGINITIS+ #### [facility] , Dolores Glabrata, FAISAL Negative Normal Negative [facility] Comment on above: Result Comment: This test was developed and its performance characteristics determined by [facility]. It has not been cleared or approved by the Food and Drug Administration. PERFORMED BY: [place] [address] PATHOLOGIST HAIR BLENDER YENI BAH M.D. Performed By: #### C UU #### [address] #### VAGINITIS+ #### [facility] , Chlamydia Trachomotis, FAISAL Negative Normal Negative [facility] Comment on above: Performed By: #### C UU #### [address] #### VAGINITIS+ #### [facility] , Megasphaera Low - 0 Normal . [facility] Comment on above: Result [...] BV. Performed By: #### C UU #### [place] [address] [place] #### VAGINITIS+ #### [facility] , Neisseria Gonorrhoeae, FAISAL Negative Normal Negative [facility] Comment on above: Result Comment: Perf ormed at: =G - [facility] [address], [place] [id number] [employer] Sheriff[employer] Office: Dee Mendez MD, Phone: [phone] Performed By: #### C UU #### [facility] [address] [id number] [place] #### VAGINITIS+ #### [facility] , Tric Vag FAISAL Negative Normal Negative [facility] Comment on above: Performed By: #### C UU #### [facility] [address] [id number] [place] #### VAGINITIS+ #### [facility] , US Head/Neck [...] Signed by: Nikolay Mann MD Transcribed by: DP Technologist: ISAI Normal [facility] CBC w/ Auto Diffon 4 Basophils (Bld) [#/Vol] 0.0 E9/L Normal 0.0-0.2 [facility] Comment on above: Performed By: #### 2 [id number] #### [facility] [address] [place] [address] Eosinophils (Bld) [#/Vol] 0.5 E9/L Normal 0.0-0.5 [facility] Comment on above: Performed By: #### 2 [id number] #### [facility] [address] [place] [address] Eosinophils/100 WBC (Bld) 5.0 % Normal 0.0-8.0 [facility] Comment on above: Performed By: #### 2 [id number] #### [facility] [address] [place] [address] Erythrocyte distribution width (RBC) [Ratio] 12.6 % Normal 10.9-14.2 [facility] Comment on above: Performed By: #### 2 [id number] #### [facility] [address] [place] [address] Hematocrit (Bld) [Volume fraction] 42.8 % Normal 34.0-46.0 [facility] Comment on above: Performed By: #### 2 [id number] #### [facility] [address] [place] [address] Hemoglobin (Bld) [Mass/Vol] 15.0 g/dL Normal 12.0-16.0 [facility] Comment on above: Performed By: #### 2 [id number] #### [facility] [address] [place] [address] Lymphocytes (Bld) [#/Vol] 2.6 E9/L Normal 1.0-4.0 [facility] Comment on above: Performed By: #### 2 [id number] #### [facility] [address] [place] [address] Lymphocytes/100 WBC (Bld) 27.0 % Normal 14.0-50.0 [facility] Comment on above: Performed By: #### 2 [id number] #### [facility] [address] [place] [address] MCH (RBC) [Entitic mass] 33.5 pg Normal 27.0-34.0 [facility] Comment on above: Performed By: #### 2 [id number] #### [facility] [address] [place] [address] MCHC (RBC) [Mass/Vol] 35.1 g/dL Normal 31.4-36.0 [facility] Comment on above: Performed By: #### 2 [id number] #### [facility] [address] [place] [address] MCV (RBC) [Entitic vol] 95.4 fL Normal 80.0-100.0 [facility] Comment on above: Performed By: #### 2 [id number] #### [facility] [address] [place] [address] Metamyelocytes/Leukocy kandace Manual cnt (Bld) [Pure # fraction] 1 % High 0-0 [facility] Comment on above: Performed By: #### 2 [id number] #### [facility] [address] [place] [address] Monocytes (Bld) [#/Vol] 0.6 E9/L Normal 0.2-1.0 [facility] Comment on above: Performed By: #### 2 [id number] #### [facility] [address] [place] [address] Neutrophils (Bld) [#/Vol] 5.8 E9/L Invalid Interpretation Code [facility] Comment on above: Performed By: #### 2 [id number] #### [facility] [address] [place] [address] Platelet 333.0 E9/L Normal 150.0-500.0 [facility] Comment on above: Performed By: #### 2 [id number] #### [facility] [address] [place] [address] Platelet mean volume (Bld) [Entitic vol] 8.0 fL Normal 6.4-10.8 [facility] Comment on above: Performed By: #### 2 [id number] #### [facility] [address] [place] [address] RBC (Bld) [#/Vol] 4.5 E12/L Normal 4.3-5.9 [facility] Comment on above: Performed By: #### 2 [id number] #### [facility] [address] [place] [address] RBC size Nom (Bld) NORMAL Invalid Interpretation Code [facility] Comment on above: Performed By: #### 2 [id number] #### [facility] [address] [place] [address] Segmented neutrophils/100 WBC (Bld) 61.0 % Normal 36.0-75.0 [facility] Comment on above: Performed By: #### 2 [id number] #### [facility] [address] [place] [address] WBC corrected for nucl RBC Auto (Bld) [#/Vol] 9.6 E9/L Normal 4.0-11.0 [facility] Comment on above: Performed By: #### 2 [id number] #### [facility] [address] [place] [address] Family Medicine Office/Clini c Noteon 11-15-2023 Family [...] BID, # 20 cap(s), Refills(s) 0, Pharmacy: [id number], 171, cm, 11/15/23 11:43:00 EDT, Height/Length Dosing, 77.3, kg, 11/15/23 11:43:00 EDT, Weight Dosing CBC w/ Auto Diff Lab Specimen Collect [id number] US Extremity Non-Vascular Limited Right 2. BMI 26.0-26.9,adult (Z68.26: Body mass index [BMI] 26.0-26.9, adult) - BMI education added Ordered: clindamycin, 300 mg = 1 cap(s), Oral, BID, # 20 cap(s), Refills(s) 0, Pharmacy: [facility]/pharmacy #[id number], 171, cm, 11/15/23 11:43:00 EDT, Height/Length Dosing, 77.3, kg, 11/15/23 11:43:00 EDT, Weight Dosing CBC w/ Auto Diff Lab Specimen Collect [id number] US Extremity Non-Vascular Limited Right 3. Former smoker (Z87.891: Personal history of nicotine dependence) - Please continue to not smoke Ordered: clindamycin, 300 mg = 1 cap(s), Oral, BID, # 20 cap(s), Refills(s) 0, Pharmacy: [facility]/pharmacy #[id number], 171, cm, 11/15/23 11:43:00 EDT, Height/Length Dosing, 77.3, kg, 11/15/23 11:43:00 EDT, Weight Dosing CBC w/ Auto Diff Lab Specimen Collect [id number] US Extremity Non-Vascular Limited Right Total time [...] influenza virus vaccine, inactivated 03/11/2015 Recorded Normal [facility] Comment on above: Result Comment: Elec tronically [...] Ultrasound Reporton RAD - Ultrasound Report [id number] Normal [facility] C Urineon 09-28-2023 Bacteria identified Cx Nom (U) Microbiology PROCEDURE: Urine Culture [R1] SOURCE: U CleanCatch BODY SITE: COLLECTED DATE/TIME: 09/20/2023 13:11 EDT RECEIVED DATE/TIME: 09/20/2023 18:31 EDT START DATE/TIME: 09/20/2023 18:31 EDT FREE TEXT SOURCE: Vitaly SERRNAO, Silas Haider MD, Silas Lockwood AMENDED REPORTS Amended Report [] Verified Date/Time: 09/28/2023 12:52 EDT Wrong patient per [facility] 09/28/2023 12:51 CSS Patient credited. CSS Performing Locations R1: This test was performed at: [facility], [address] [place] [address], [id number] , [place], [facility] Comment on above: Performed By: #### [id number] #### [facility] [address] [place] [id number] Provider Letteron 09-26-2023 Provider Letter September 26, 2023 [place] [address] : 1980 Dear Celeste, We have been trying to reach you with no success. It is important that you return our call regarding your medication upon receiving this letter. Also, at the time of your call, please provide us with your current information. Thank you for your prompt attention to this matter. Sincerely, [address] [address] [facility] MM screening mammo LT w/CADo n 09-22-2023 MM screening mammo LT w/CAD [facility] [address] [place] [address] Mammography Report Signed with Addenda Patient: Celeste Du MR#: [id number] 17 : 1980 Acct:[id number] Age/Sex: 42 / F ADM Date: 09/22/23 Loc: [place] Room: Type: [facility] Attending Dr: Torie Walker Copies to: Torie Haider MD Ordering Provider: Torie Walker Date of Service: 09/22/23 MM/MM screening mammo LT w/CAD: Z12.31 ADDENDUM 1 Addendum for billing purposes: Tomosynthesis craniocaudal and mediolateral oblique views of the left breast were obtained using low-dose digital technique. This examination was reviewed with the aid of CAD. Impression dictated by: Chica Valero Jr..OKyle09/22/2023 9:15 AM Dictation Location: S01 Addendum Dictated By: Ant Rousseau Jr DO [...] for the next mammogram. Impression dictated by: Eliezer Valero Jr.OKyle09/22/2023 9:09 AM Dictation Location: [facility] Transcribed By: LAKSHMI 09/22/23908 Dictated By: Ant Rousseau Jr, DO 09/22/23907 Signed By: 09/22/23908 Normal [facility] Ambulatory Visit Summaryon 0 [...] Appointments Tuesday 7:15 AM EDT With: Silas Haiedr MD Where: [facility] [place] Normal [facility] Office/Clini c Noteon 09-20-2023 Family [...] DAY, # 90 tab(s), Refills(s) 1, Pharmacy: [facility], 171, cm, 09/20/23 10:53:00 EDT, [...] virus vaccine, inactivated 03/11/2015 Recorded Normal [facility] Comment on above: Result Comment: Elec tronically Signed By: Vitaly SERRANO, Silas Vinson.br\Date and Time Signed: 09/20/23 14:05 EDT Patient Educationon 09-20-19 Patient Education Nutrition BMI for Adults What [...] numbers. This can be done either in [place] ([place] or metric measurements. Note that charts and online BMI calculators are available to help you find your BMI quickly and easily without having to do these calculations yourself. To calculate your BMI in Korean (U.S.) measurements: 1. Measure your weight in [...] for Disease Control and Prevention: www.cdc.gov ? [place] Heart Association: www.heart.org ? National Heart, Lung, and Blood Gower: www.nhlbi.nih.gov Summary ? Body mass index (BMI) is a number that is calculated from a person's weight and height. ? BMI may help estimate how much of a person's weight is composed of fat. BMI can help identify those who may be at higher risk for certain medical problems. ? BMI can be measured using Korean measurements or metric measurements. ? BMI charts are used to identify whether you are underweight, normal weight, overweight, or obese. This information is not intended to replace advice given to you by your health care provider. Make sure you discuss any questions you have with your health care provider. Document Revised: 01/30/2020 Document Reviewed: 12/07/2019 [employer] Patient Education ? 2022 [employer]. Normal [facility] PAP ACOG PANEL 2: 30 to 65on 10-05-2022 Age Gdln ACOG Testing 30-65 Normal [facility] Comment on above: Performed By: #### [id number] #### [facility] [address] [place] [address] Dr. Vicky Cordoba Vital Signs Date Time Vital Sign Value Performing Clinician Marta mark 12-02-2023 14:37-0400 Body height 165.1 cm MD Silas Haider Work Phone: [facility] 12-02-2023 14:37-0400 Body mass index (BMI) [Ratio] 28.3 kg/m2 MD Silas Haider Work Phone: [facility] 12-02-2023 14:37-0400 Body temperature 98.4 [degF] MD Silas Haider Work Phone: [facility] 12-02-2023 14:37-0400 Body weight 77.11 kg MD Silas Haider Work Phone: [facility] 12-02-2023 14:37-0400 Diastolic blood pressure 88 mm[Hg] MD Silas Haider Work Phone: [facility] 12-02-2023 14:37-0400 Heart rate 96 /min MD Silas Haider Work Phone: [facility] 12-02-2023 14:37-0400 SaO2% (BldA) [Mass fraction] 96 % MD Silas Haider Work Phone: [facility] 12-02-2023 14:37-0400 Systolic blood pressure 130 mm[Hg] MD Silas Haider Work Phone: [facility] 03-31-2022 16:50-0500 Blood Pressure Location Silas Haidre [facility] 03-31-2022 16:50-0500 Diastolic blood pressure 74 mm[Hg] Silas Haider [facility] 03-31-2022 16:50-0500 Heart rate 99 /min Silas Haider [facility] 03-31-2022 16:50-0500 SaO2% (BldA) [Mass fraction] 97 % Silas Haider [facility] 03-31-2022 16:50-0500 Systolic blood pressure 122 mm[Hg] Silas Haider [facility] 12-31-2021 16:27-0400 Blood Pressure Location Silas Haider [facility] 12-31-2021 16:27-0400 Diastolic blood pressure 82 mm[Hg] Silas Haider [facility] 12-31-2021 16:27-0400 Heart rate 87 /min Silas Haider [facility] 12-31-2021 16:27-0400 SaO2% (BldA) [Mass fraction] 98 % Silas Haider [facility] 12-31-2021 16:27-0400 Systolic blood pressure 120 mm[Hg] Silas Haider [facility] 09-09-2021 14:09-0400 Diastolic blood pressure 104 mm[Hg] Silas Haider [facility] 09-09-2021 14:09-0400 Mean blood pressure 113 mm[Hg] Silas Haider [facility] 09-09-2021 14:09-0400 Systolic blood pressure 132 mm[Hg] Silas Haider [facility] 09-09-2021 13:20-0400 Blood Pressure Location Silas Haider [facility] 09-09-2021 13:20-0400 Diastolic blood pressure 104 mm[Hg] Silas Vitaly [facility] 09-09-2021 13:20-0400 Heart rate 89 /min Silas Haider [facility] 09-09-2021 13:20-0400 SaO2% (BldA) [Mass fraction] 97 % Silas Haider [facility] 09-09-2021 13:20-0400 Systolic blood pressure 138 mm[Hg] Silas Vitaly [facility] Encounters Encounter Date Encounter Type Care Provider Facility Start: 08-07-2024 ambulatory Silas Haider Facility :[facility] [place] Start: 05-28-2024 End: 05-28-2024 ambulatory Carlin Collier MD Facility: [place] Start: 05-09-2024 End: 05-09-2024 ambulatory Silas Haider Facility:[facility] [place] Start: 05-07-2024 End: 05-07-2024 ambulatory Carlin Collier MD Facility: [place] Start: 04-16-2024 End: 04-16-2024 ambulatory Carlin Collier MD Facility: [place] Start: 03-19-2024 End: 03-19-2024 ambulatory Carlin Collier MD Facility: [place] Start: 03-05-2024 End: 03-05-2024 ambulatory Silas Haider Facility:[facility] [place] Start: 02-06-2024 End: 02-06-2024 ambulatory Silas Haider Facility:[facility] [place] Start: 12-02-2023 End: 12-02-2023 ambulatory MD Silas Haider Work Phone: [facility] Work Phone: Start: 12-02-2023 End: 12-02-2023 Departed Referred MD Silas Haider Work Phone: [facility] Start: 12-02-2023 End: 12-02-2023 Patient encounter procedure MD Silas Haider Work Phone: [facility] [place] Work Phone: Start: 11-18-2023 End: 11-18-2023 ambulatory Silas Haider Facility:[facility] [place] [place] Start: 11-18-2023 End: 11-18-2023 Patient encounter procedure Silas Haider [facility] Start: 11-15-2023 End: 11-15-2023 Lab Drop off Silas Haider [facility] Start: 11-15-2023 End: 11-15-2023 ambulatory Silas Haider Facility:[facility] [place] Start: 09-29-2023 End: 09-29-2023 ambulatory TORIE WALKER Not Available Start: 09-22-2023 End: 09-22-2023 Patient encounter procedure MD Silas Haider Work Phone: [facility] Work Phone: Start: 09-22-2023 End: 09-22-2023 ambulatory MD Silas Haider Work Phone: [facility] Work Phone: Start: 09-20-2023 End: 09-20-2023 ambulatory Silas Haider Facility:[facility] [place] [place] Start: 09-20-2023 End: 09-20-2023 Lab Drop off Silas Haider [facility] Start: 09-20-2023 End: 09-20-2023 ambulatory Silas Haider Facility:[facility] [place] Start: 08-03-2023 End: 08-03-2023 ambulatory Silas Haider Facility:[facility] [place] Start: 06-14-2023 End: 06-14-2023 ambulatory TORIE WALKER Not Available Start: 09-27-2022 End: 09-27-[address] TORIE WALKER . Facility: Start: 08-31-2022 End: 08-31-2022 ambulatory MD Silas Haider Work Phone: [facility] Work Phone: Start: 08-31-2022 End: 08-31-2022 Patient encounter procedure MD Silas Haider Work Phone: [facility] Work Phone: Start: 03-31-2022 End: 03-31-2022 Patient encounter procedure Silas Haider [facility] Start: 12-31-2021 End: 12-31-2021 Patient encounter procedure Silas Haider [facility] Start: 09-09-2021 End: 09-09-2021 Patient encounter procedure Silas Haider [facility] Start: 03-06-2018 Patient encounter procedure Meka Crystal Facility:[id number] Start: 11-03-2017 Patient encounter procedure Bernardonewtonchica Johnson Facility:[id number] Procedures Date Procedure Procedure Detail [...] Date Care Activity Detail Author Start: 12-02-2023 [facility] Start: 12-02-2023 Bacteria identified in Urine by Culture [facility] Atopobium vaginae DN A [Presence] in Vaginal fluid by FAISAL with probe detection [facility] Bacterial vaginosis associated bacterium 2 DNA [Presence] in Vaginal fluid by FAISAL with probe detection [facility] Megasphaera sp type 1 DNA [Presence] in Vaginal fluid by FAISAL with probe detection [facility] Immunizations Immunization Date Immunization Notes Care Provider Fa cili 02-20-2022 influenza virus vaccine, unspecified formulation Silas Haider [facility] 09-02-2020 SARS-CoV-2 (COVID-19 ) mRNA BNT-162b2 vax Silas Haider [facility] 08-12-2020 SARS-CoV-2 (COVID-19 ) mRNA BNT-162b2 vax Silas Haider [facility] 04-04-2020 influenza virus vaccine, unspecified formulation Silas Haider [facility] 03-14-2018 influenza virus vaccine, unspecified formulation Silas Haider [facility] 03-13-2017 influenza virus vaccine, unspecified formulation Silas Haider [facility] 03-11-2015 influenza virus vaccine, unspecified formulation Silas Haider [facility] NEGATED: Highlighted row has not occurred!03-24-2023 influenza virus vaccine, unspecified formulation Silas Haider [facility] Payers Date Payer Category Payer Self-pay [id number] 2023 Unknown [id number] 2023 Unknown 2022 Unknown [id number] 1980 Unknown [id number] 2.16. 840.1.363458.3.579.2.356 1980 Unknown [id number] 2.16. 840.1.678421.3.579.2.356 1980 Unknown [id number] 2.16.84 0.1.734727.3.579.2.593 1980 Unknown [id number] 2.16.84 0.1.835378.3.579.2.1259 1980 Unknown [id number] 2.16.84 0.1.443897.3.579.2.1259 1980 Unknown [id number] 2.16.8 40.1.834252.3.579.2.727 1980 Unknown [id number] 2.16.8 40.1.574358.3.579.2.727 1978 Unknown [id number] 2.16.8 40.1.422467.3.579.2.727 1978 Unknown [id number] 2.16.8 40.1.572919.3.579.2.727 1978 Unknown [id number] 2.16.8 40.1.015926.3.579.2.727 1978 Unknown [id number] 2.16.8 40.1.980944.3.579.2.727 1978 Unknown [id number] 2.16.8 40.1.308996.3.579.2.727 1978 Unknown [id number] 2.16.8 40.1.363098.3.579.2.727 1978 Unknown [id number] 2.16.8 40.1.838680.3.579.2.727 1978 Unknown [id number] 2.16.8 40.1.492254.3.579.2.727 1978 Unknown [id number] 2.16. 840.1.712919.3.579.2.196 1980 Unknown [id number] 2.16. 840.1.485573.3.579.2.196 1980 Unknown [id number] 2.16. 840.1.519772.3.579.2.196 1980 Unknown [id number] 2.16. 840.1.099613.3.579.2.196 1959 Unknown [id number] Unknown [id number] Unknown [id number] 2.16.8 40.1.902752.3.579.2.531 Unknown [id number] 2.16.8 40.1.604278.3.579.2.531 Social History Date Type Detail Facility Start: 01-03-2020 End: 09-09-2021 Tobacco smoking status Ex-smoker (finding) [facility] Comment on above: smokes outsi de Tobacco smoking status Never [facility] Comment on above: smokes outsi de Start: 01-28-1992 End: 08-21-2013 Sex Assigned At Female [facility] Tobacco Household tobacc o concerns: No. [facility] Tobacco smoking status No Smokin g Status Entered [facility] Start: 1980 Sex Assigned At Female F [facility] Functional Status Date Assessment Result Facility 03-31-2022 Functional Status N/A [facility] 12-31-2021 Functional Status N/A [facility] Clinical Notes 09-09-2021 to 05-09-2024 Radiology Note Date & Type Note Facility 05-09-2024 Note Patient Education Cardiovascular Hypertension, Adult High blood pressure (hypertension) is when the force of blood pumping through the arteries is too strong. The arteries are the blood vessels that carry blood from the heart throughout the body. Hypertension forces the heart to work harder to pump blood and may cause arteries to become narrow or stiff. Untreated or uncontrolled hypertension can lead to a heart attack, heart failure, a stroke, [...] There are some conditions that result in high blood pressure. What increases the risk? Certain factors may make you more likely to develop high blood pressure. Some of these risk factors are under your control, including: ??? Smoking. ??? Not getting enough exercise or physical activity. ??? Being overweight. ??? Having too much fat, sugar, calories, or salt (sodium) in your diet. ??? Drinking too much alcohol. Other risk factors include: ??? Having a personal history of heart disease, diabetes, high cholesterol, or kidney disease. ??? Stress. ??? Having a family history of high blood pressure and high cholesterol. ??? Having obstructive sleep apnea. ??? Age. The risk increases with age. What are the signs or symptoms? High blood pressure may not cause symptoms. Very high blood pressure (hypertensive crisis) may cause: ??? Headache. ??? Fast or irregular heartbeats (palpitations). ??? Shortness of breath. ??? Nosebleed. ??? Nausea and vomiting. ??? Vision changes. ??? Severe chest pain, dizziness, and seizures. How is this diagnosed? This condition is diagnosed by measuring your blood pressure while you are seated, with your arm resting on a flat surface, your legs uncrossed, and your feet flat on the floor. The cuff of the blood pressure monitor will be placed directly against the skin of your upper arm at the level of your heart. Blood pressure should be measured at least twice using the same arm. Certain conditions can cause a difference in blood pressure between your right and left arms. If you have a high blood pressure reading during one visit or you have normal blood pressure with other risk factors, you may be asked to: ??? Return on a different day to have your blood pressure checked again. ??? Monitor your blood pressure at home for 1 week or longer. If you are diagnosed with hypertension, you may have other blood or imaging tests to help your health care provider understand your overall risk for other conditions. How is this treated? This condition is treated by making healthy lifestyle changes, such as eating healthy foods, exercising more, and reducing your alcohol intake. You may be referred for counseling on a healthy diet and physical activity. Your health care provider may prescribe medicine if lifestyle changes are not enough to get your blood pressure under control and if: ??? Your systolic blood pressure is above 130. ??? Your diastolic blood pressure is above 80. Your personal target blood pressure may vary depending on your medical conditions, your age, and other factors. Follow these instructions at home: Eating and drinking ??? Eat a diet that is high in fiber and potassium, and low in sodium, added sugar, and fat. An example of this eating plan is called the DASH diet. DASH stands for Dietary Approaches to Stop Hypertension. To eat this way: ? Eat plenty of fresh fruits and vegetables. Try to fill one half of your plate at each meal with fruits and vegetables. ? Eat whole grains, such as whole-wheat pasta, brown rice, or whole-grain bread. Fill about one fourth of your plate with whole grains. ? Eat or drink low-fat dairy products, such as skim milk or low-fat yogurt. ? Avoid fatty cuts of meat, processed or cured meats, and poultry with skin. Fill about one fourth of your plate with lean proteins, such as fish, chicken without skin, beans, eggs, or tofu. ? Avoid pre-made and processed foods. These tend to be higher in sodium, added sugar, and fat. ??? Reduce your daily sodium intake. Many people with hypertension should eat less than 1,500 mg of sodium a day. ??? Do not drink alcohol if: ? Your health care provider tells you not to drink. ? You are , may be , or are planning to become . ??? If you drink alcohol: ? Limit how much you have to: ? 0?1 drink a day for women. ? 0?2 drinks a day for men. ? Know how much alcohol is in your drink. In the [place] one drink equals one 12 oz bottle (more content not included)... [facility] 03-05-2024 Note Patient Education Nutrition BMI for [...] for Disease Control and Prevention: cdc.gov ? [place] Heart Association: heart.org ? National Heart, Lung, and Blood Gower: nhlbi.nih.gov This information is not intended to replace advice given to you by your health care provider. Make sure you discuss any questions you have with your health care provider. Document Revised: 01/27/2023 Document Reviewed: 01/20/2023 Elsevier Patient Education ? 2023 [employer]. [facility] 02-06-2024 Note Patient Education Nutrition BMI for [...] for Disease Control and Prevention: cdc.gov ? [place] Heart Association: heart.org ? National Heart, Lung, and Blood Gower: nhlbi.nih.gov This information is not intended to replace advice given to you by your health care provider. Make sure you discuss any questions you have with your health care provider. Document Revised: 01/27/2023 Document Reviewed: 01/20/2023 Elsevier Patient Education ? 2023 [employer]. [facility] 03-31-2022 Hospital Discharg e instructions Patient Education [...] care provider. This is important. Medicines Take vnzp-zno-lhbaubn and prescription medicines only as told by [...] 05/09/2006 Document Revised: 01/17/2019 Document Reviewed: 01/17/2019 [employer] Patient Education 2019 [employer]. [facility] 12-31-2021 Hospital Discharg e instructions Patient Education [...] called talk therapy or counseling. Seeing a qi specialist (dietitian). Getting appropriate exercise. Medicines to [...] address eating disorders. Talk with an heating and ventilating drafter, therapist, or counselor about your eating behavior. [...] health care provider. This is important. Take ktvm-nxj-fepjxsm and prescription medicines only as told by [...] 05/09/2006 Document Revised: 09/17/2016 Document Reviewed: 03/12/2016 [employer] Patient Education 2020 [employer]. 12/31/2021 16:54:02 Hypertension, Adult Hypertension, Adult High [...] care provider. This is important. Medicines Take jrle-qeo-fajzzjp and prescription medicines only as told by [...] Document Reviewed: 01/17/2019 Elsevier Patient Education 2019 [employer]. [facility] [place] 09-09-2021 Hospital Discharg e instructions Patient Education [...] care provider. Avoid caffeine, alcohol, and certain oylx-ckn-aqpxauf cold medicines. These may make you feel worse. Ask your pharmacist which medicines to avoid. General instructions Take pwfq-kbs-wlsqlfg and prescription medicines only as told by [...] Depression Association of [place] (ADAA): www.adaa.org National [place] on Mental Illness (BRENDA): www.brenda.org Contact a [...] 05/03/2017 Document Revised: 10/09/2019 Document Reviewed: 10/09/2019 [employer] Patient Education 2020 [employer]. [facility] Evaluation + Plan note Future Appointments Appointment Date:12/09/2021 07:40:00 AM Scheduled Provider:Silas Haider MD Location:[facility] Appointment Type:[facility] Evaluation + Plan note Future Appointments Appointment Date:03/31/2022 04:40:00 PM Scheduled Provider:Silas Haider MD Location:[facility] Appointment Type:[facility] Evaluation + Plan note Future Appointments Appointment Date:09/22/2022 04:40:00 PM Scheduled Provider:Silas Haider MD Location:[facility] Appointment Type: Open [facility] [place] Evaluation + Plan note Future Appointments Appointment Date:03/20/2024 07:15:00 AM Scheduled Provider:Silas Haider MD Location:[facility] Appointment Type: Open Diagnostic Tests PendingUrine Culture 09/20/23 [facility] Evaluation + Plan note Future Appointments Appointment Date:03/20/2024 07:15:00 AM Scheduled Provider:Silas Haider MD Location:[facility] Appointment Type: Open Future Scheduled TestsUS Extremity Non-Vascular Limited Right 11/15/23 [facility] Evaluation + Plan note Future Appointments Appointment Date:03/20/2024 07:15:00 AM Scheduled Provider:Silas Haider MD Location:[facility] Appointment Type:[facility] Evaluation note No assessment inform ation available [facility] Work Phone: Evaluation note Diagnosis Onset Date Vaginitis noneactive [facility] Work Phone: Hospital course Narrative No data available for this section [facility] Hospital Discharge instructions No data available for this section [facility] No data available for this section [facility] Summary Purpose Family History No Family History [...] section and content) DATE CREATED AUTHOR 04/30/2018 [facility] DATE CREATED AUTHOR AUTHOR'S ORGANIZ ATION 10/06/2022 [facility] DATE CREATED AUTHOR AUTHOR'S ORGANIZ ATION 10/01/2023 [facility] DATE CREATED AUTHOR AUTHOR'S ORGANIZ ATION 11/17/2023 Vasquez Kobe [facility] DATE CREATED AUTHOR AUTHOR'S ORGANIZ ATION 12/08/2023 [facility] DATE CREATED AUTHOR AUTHOR'S ORGANIZ ATION 05/11/2024 [facility] DATE CREATED AUTHOR AUTHOR'S ORGANIZ ATION 05/12/2024 [facility] DATE CREATED AUTHOR AUTHOR'S ORGANIZ ATION 06/09/2024 [facility] Care Team (unrecognized sect ion and [...] 2023 Torie Walker Attending Provider Active Start: Ny madhu 2023 End: September 22, 2023 Team Status: [...] BE BASED ON THE PRIMARY CLINICAL RECORDS. [facility] [employer] [facility]. provides no warranty or guarantee of the accuracy or completeness of information in this document.
[2024-06-11 07:11] VITALS: BP 139/95; PULSE 97; TEMP 36.7; O2SAT 97
[2024-06-11 08:12] VITALS: BP 143/91; PULSE 105; O2SAT 95
[2024-06-11 08:19] VITALS: PULSE 106; O2SAT 96
[2024-06-11 08:20] VITALS: BP 139/91
[2024-06-11] MEDS: BUPIVACAINE HCL 0.25% PF 25 MG/10 ML VIAL 2 ML INJ (08:23)
[2024-06-11] MEDS: LIDOCAINE HCL 2% 400 MG/20 ML MDV 8 ML INJ (08:24)
[2024-06-11] MEDS: DEXAMETHASONE SOD PHOS 10 MG/ML VIAL INJ (08:24)
--- NOTE | 2024-06-11 08:24 | P.ON_ITS ---
Date of procedure: 06/11/24 Pre-op diagnosis: Pain due to cervical spondylosis without myelopathy Post-op diagnosis: same as pre-op Procedure: Procedure: Right C4-5, 5-6 radiofrequency ablation Medications: Bupivacaine 0.25% 2cc, lidocaine 2% 3cc, dexamethasone 10mg The patient was seen and examined in the preoperative holding area.? The site was marked.? Written informed consent was obtained and placed on the chart.? The patient was brought to the medical procedure unit and placed in the prone position.? A timeout was completed verifying correct patient, procedure, positioning, and special requirements.? The skin overlying the target points, the designated medial branch, were prepped and draped in the usual sterile fashion.? The target point was achieved with a 20-gauge 15 cm with a 10 mm curved active tip radiofrequency cannula under direct fluoroscopic visualizatio n.? The needle was inserted at level C4 on the right side. Needle tip position was confirmed with lateral fluoroscopic position.? Motor stimulation was carried out at 2 Hz up to 5 volts with the absence of extremity activity.? This was repeated at level C5, 6 on right side.?? Sensory stimulation was carried out.? Concordant pain was realized at the above- mentioned sites.? Then radiofrequency lesioning was carried out times 90 seconds at 80 degrees times 2 lesions at each level.? The radiofrequency probe was removed prior to cannula removal.? The above-mentioned injectate was placed in 1 mL increments.? The needle was removed.? Insertion sites were covered.? The patient was taken to the postoperative recovery area and monitored for an appropriate length of time before being found suitable for discharge in the company of a responsible adult. Anesthesia: Local Surgeon: Carlin Collier Pathology: none sent Condition: stable Disposition: no change
== END 2024-06-11 08:31 | disposition home or self-care (01) ==
LOC: SURGOUT 07:03
PROVIDERS: PCP Family Medicine; Visit Provider Anesthesiology
DX: M47.812 Spondylosis without myelopathy or radiculopathy, cervical region (principal)
CPT/HCPCS: 64633; 64634; J0665; J1100

== ENCOUNTER 2024-06-25 07:23 | Day surgery (SDC) | payer OTHER, SELFPAY ==
--- OUTSIDE RECORDS SUMMARY | 2024-06-25 07:27 | XMS_ITS | CCD ---
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 Name Role Phone Tala Johnson Unavailable Unavaila Dalton Moses Unavailable UnavailMeka Healy Unavailable Unavailable Dalton Olvera Unavailable UnavailSilas Jack Primary Care Physician [phone] MD Silas Haider Primary Care Provider Torie Walker Attending Provider [phone] AARON ., DR VOGT Attending Unavailable AARON ., DR VOGT Consulting Unavailable AARON ., DR VOGT Admitting Unavailable Silas Haider Primary Care Physician MD Silas Haider Primary Care Provider Torie Walker Attending Provider TORIE WALKER Attending Unavailable TORIE WALKER Attending Unavailable MD Silas Haider Primary Care Provider DO Torie Walker Attending Provider [phone] MANDI Sánchez Attending Provider Silas Haider [...] Haider Referring Unavailable Silas Haider Admitting Unavailable Giwalter SERRANO, Carlin Rodrigues Attending Unavailable Giedraitis , Carlin Rodrigues Attending Unavailable Giedraitis , Andjody Rodrigues Attending Unavailable Giedraitis , Andrius Rodrigues Attending Unavailable Giedraitis , Carlin Rodrigues Attending Unavailable Allergies Allergy Classification Reported Allergen(s) Allergy Type Date of Onset Reaction(s) Facility (12 sources) Morphine; Translations: [morphine] Drug Allergy 7 Itching (finding) [facility] (5 sources) aprepitant; Translations: [aprepitant] Drug Allergy 7 Unknown Reaction [facility] (1 source) Morphine Drug Allergy 4 [facility] Repository Medications Current Medications Medication Drug Class(es) Dates Sig (Normalized) Sig (Original) 0.5 ML semaglutide 2 MG/ML Auto-Injector (1 source) Start: 09-09-2021 End: 11-04-2021 Wegovy (1 mg dose) subcutaneous solution 1 mg, SubCutaneous, qWeek, INJECT 1 PEN UNDER THE SKIN EVERY WEEK, X 4 week(s), # 4 EA, Refills(s) 1, Pharmacy: [facility]/pharmacy #[id number], 171, cm, 09/09/21 13:28:00 EDT, Height/Length Dosing, 75.9, kg, 09/09/21 13:28:00 EDT, Weight Dosing Start Date: 09/09/21 Stop Date: 11/04/21 Status: Ordered 0.75 ML semaglutide 3.2 MG/ML Auto-Injector [Wegovy] (2 sources) Start: 03-31-2022 inject 2.4 mg by subcutaneous injection every week Wegovy (2.4 mg dose) subcutaneous solution 2.4 mg, SubCutaneous, qWeek, # 12 EA, Refills(s) 1, Pharmacy: [facility] #[id number], 171, cm, 03/31/22 16:52:00 EST, Height/Length Dosing, 75.7, kg, 03/31/22 16:52:00 EST, Weight Dosing Start Date: 03/31/22 Status: Ordered Start: 12-31-2021 inject 2.4 mg by sub cutaneous injection every week Wegovy (2.4 mg dose) subcutaneous solution 2.4 mg, SubCutaneous, qWeek, # 12 EA, Refills(s) 1, Pharmacy: [facility] #[id number], 171, cm, 12/31/21 16:30:00 EDT, Height/Length Dosing, [...] BID, # 20 cap(s), Refills(s) 0, Pharmacy: [facility]/pharmacy #[id number], 171, cm, 11/15/23 11:43:00 EDT, Height/Length [...] Daily, # 90 cap(s), Refills(s) 1, Pharmacy: [facility]/pharmacy #[id number], 171, cm, 03/31/22 16:52:00 EST, Height/Length Dosing, 75.7, kg, 03/31/22 16:52:00 EST, Weight Dosing Start Date: 03/31/22 Status: Ordered Start: 12-31-2021 take 1 capsule by [facility] once daily omeprazole 40 mg Cap-DR 40 mg = 1 cap(s), Oral, Daily, # 90 cap(s), Refills(s) 1, Pharmacy: [facility]/pharmacy #[id number], 171, cm, 12/31/21 16:30:00 EDT, Height/Length Dosing, 76.7, kg, 12/31/21 16:30:00 EDT, Weight Dosing Start Date: 12/31/21 Status: Ordered omeprazole 40 mg Cap-DR (1 source) Start: 09-09-2021 End: 12-08-2021 take 1 capsule by mouth once daily omeprazole 40 mg Cap-DR 40 mg = 1 cap(s), Oral, Daily, X 90 day(s), # 90 cap(s), Refills(s) 0, Pharmacy: [facility]/pharmacy #[id number], 171, cm, 09/09/21 13:28:00 EDT, Height/Length [...] every four to six hours Hydrocodone-Acetami nophen (Joice) 5-325 mg tablet Discontinued 1 TAB PO EVERY 4-6 HOURS 40 7 October 03, 2018 November 08, 2018 8:07am Start: 01-18-2017 End: 01-27-2017 take 2 tablets by mouth every four to six hours Hydrocodone-Acetaminophen (Joice) 5-325 mg Tablet Discontinued 2 TAB PO EVERY 4-6 HOURS January 18, 2017 12:00am January 27, 2017 8:37am amLODIPine 10 mg oral tablet (20 sources) Dihydropyridine Calcium Channel Ted Start: 01-18-2017 End: 12-08-2021 take 10 mg by mouth once daily Amlodipine Discontinued 10 MG PO Daily 90 90 November 08, 2018 11:40am January 03, [...] AM EDT With: Silas Haider MD Where: [facility] [place] [id number]- Medications What How Much When Instructions Unchanged [...] right and (more content not included)... Normal Vasquez [facility] Family Medicine Office/Clini c Noteon 05-09-2024 Family [...] do 1 more month to carry through [place] and then we will do every other [...] DAY, # 90 tab(s), Refills(s) 1, Pharmacy: [facility], 171, cm, 05/09/24 8:25:00 EST, Height/Length Dosing, 76.3, kg, 05/09/24 8:25:00 EST, Weight Dosing phentermine, 37.5 mg = 1 cap(s), Oral, Daily, # 30 cap(s), Refills(s) 1, Pharmacy: [facility]/pharmacy #[id number], 171, cm, 05/09/24 8:25:00 EST, Height/Length [...] virus vaccine, inactivated 03/11/2015 Recorded Normal Vasquez [facility] Comment on above: Result Comment: [...] EST With: Vitaly SERRANO, Silas Lockwood Where: [facility] [address] [address]- Medications What How Much When Instructions Unchanged [...] for choosing us for your care. Normal [facility] Family Medicine Office/Clini c Noteon 03-05-2024 [...] 79.6, kg, 03/05/24 15:51:00 EDT, Weight Dosing [facility] External Ambulatory Referral 2. Anxiety and depression [...] # 15 tab(s), Refills(s) 0, Pharmacy: [facility], 171, cm, 03/05/24 15:51:00 EDT, Height/Length Dosing, 79.6, kg, 03/05/24 15:51:00 EDT, Weight Dosing [facility] External Ambulatory Referral 3. Insomnia (G47.00: Insomnia, [...] bedtime), # 15 tab(s), Refills(s) 0, Pharmacy: [facility], 171, cm, 03/05/24 15:51:00 EDT, Height/Length Dosing, 79.6, kg, 03/05/24 15:51:00 EDT, Weight Dosing [facility] External Ambulatory Referral 4. Osteoarthritis (M19.90: Unspecified osteoarthritis, unspecified site) The patient reports exacerbated osteoarthritis symptoms focused around the clavicle. Present management strategies, including the use of hcas-uwj-imspevd analgesics, have not (more content not included)... Normal [facility] Comment on above: Result Comment: Elec [...] BID, # 20 cap(s), Refills(s) 0, Pharmacy: [facility]/pharmacy #[id number], 171, cm, 11/15/23 11:43:00 EDT, Height/Length Dosing, 77.3, kg, 11/15/23 11:43:00 EDT, Weight Dosing 6. Excessive dietary caloric intake (R63.2: Polyphagia) Will do Adipex at this time. Will do it at a lower BMI as her anxiety and depression have some concerns and her weight. Orders: phentermine, 37.5 mg = 1 cap(s), Oral, Daily, # 30 cap(s), Refills(s) 0, Pharmacy: [facility]/pharmacy #[id number], 171, cm, 02/06/24 16:09:00 EDT, Height/Length [...] influenza virus vaccine, inactivated 03/11/2015 Recorded Normal [facility] Comment on above: Result Comment: Elec tronically Signed By: Vitaly SERRANO, Silas Rosabr\Date and Time Signed: 02/06/24 18:09 EDT Urine Cultureon 12-02-2023 Bacteria identified Cx Nom (U) <9,000 colonies/ml mixed bacterial skin contaminants 2 Days PERFORMED BY: [place] [address] PATHOLOGIST LAWN MAINTENANCE WORKER YENI BAH M.D. Normal [facility] Comment on above: Performed By: #### C UU #### [address] #### VAGINITIS+ #### [facility] , Vaginitis Plus (VG+)on 12-01 Atopobium Vaginae Moderate - 1 Normal . [facility] Comment on above: Result Comment: This test was developed and its performance characteristics determined by [facility]. It has not been cleared or approved by the Food and Drug Administration. Performed By: #### C UU #### [address] #### VAGINITIS+ #### [facility] , BVAB2 Low - 0 Normal . [facility] Comment on above: Result Comment: This test was developed and its performance characteristics determined by [facility]. It has not been cleared or approved by the Food and Drug Administration. Performed By: #### C UU #### [place] [address] [place] #### VAGINITIS+ #### [facility] , Dolores Albicans, FAISAL Negative Normal Negative [facility] Comment on above: Result Comment: This test was developed and its performance characteristics determined by [facility]. It has not been cleared or approved by the Food and Drug Administration. Performed By: #### C UU #### [address] #### VAGINITIS+ #### [facility] , Dolores Glabrata, FAISAL Negative Normal Negative [facility] Comment on above: Result Comment: This test was developed and its performance characteristics determined by [facility]. It has not been cleared or approved by the Food and Drug Administration. PERFORMED BY: [place] [address] PATHOLOGIST LAWN MAINTENANCE WORKER YENI BAH M.D. Performed By: #### C UU #### [address] #### VAGINITIS+ #### [facility] , Chlamydia Trachomotis, FAISAL Negative Normal Negative [facility] Comment on above: Performed By: #### C UU #### [address] #### VAGINITIS+ #### [facility] , Megasphaera Low - 0 Normal . [facility] Comment on above: Result Comment: [...] BV. Performed By: #### C UU #### [place] [address] [place] #### VAGINITIS+ #### [facility] , Neisseria Gonorrhoeae, FAISAL Negative Normal Negative [facility] Comment on above: Result Comment: Perf ormed at: =G - [facility] [address] [place] [id number] Engineer Remote Control Diesel: Dee Mendez MD, Phone: [phone] Performed By: #### C UU #### [facility] [address] [place] [id number] [place] #### VAGINITIS+ #### [facility] , Tric Vag FAISAL Negative Normal Negative [facility] Comment on above: Performed By: #### C UU #### [facility] [address] [place] [id number] [place] #### VAGINITIS+ #### [facility] , [place] [...] Nikolay Mann MD Transcribed by: DIANNA Technologist: KR Normal [facility] CBC w/ Auto Diffon 4 Basophils (Bld) [#/Vol] 0.0 E9/L Normal 0.0-0.2 [facility] Comment on above: Performed By: #### 2 [id number] #### [facility] [address] [place] [address] Eosinophils (Bld) [#/Vol] 0.5 E9/L Normal 0.0-0.5 [facility] Comment on above: Performed By: #### 2 [id number] #### [facility] [address] [place] [address] Eosinophils/100 WBC (Bld) 5.0 % Normal 0.0-8.0 [facility] Comment on above: Performed By: #### 2 [id number] #### [facility] [address] [place] [address] Erythrocyte distribution width (RBC) [Ratio] 12.6 % Normal 10.9-14.2 [facility] Comment on above: Performed By: #### 2 [id number] #### [facility] [address] [place] [address] Hematocrit (Bld) [Volume fraction] 42.8 % Normal 34.0-46.0 [facility] Comment on above: Performed By: #### 2 [id number] #### [facility] [address] [place] [address] Hemoglobin (Bld) [Mass/Vol] 15.0 g/dL Normal 12.0-16.0 [facility] Comment on above: Performed By: #### 2 [id number] #### [facility] [address] [place] [address] Lymphocytes (Bld) [#/Vol] 2.6 E9/L Normal 1.0-4.0 [facility] Comment on above: Performed By: #### 2 [id number] #### [facility] [address] [place] [address] Lymphocytes/100 WBC (Bld) 27.0 % Normal 14.0-50.0 [facility] Comment on above: Performed By: #### 2 [id number] #### [facility] [address] [place] [address] MCH (RBC) [Entitic mass] 33.5 pg Normal 27.0-34.0 [facility] Comment on above: Performed By: #### 2 [id number] #### [facility] [address] [place] [address] MCHC (RBC) [Mass/Vol] 35.1 g/dL Normal 31.4-36.0 [facility] Comment on above: Performed By: #### 2 [id number] #### [facility] [address] [place] [address] MCV (RBC) [Entitic vol] 95.4 fL Normal 80.0-100.0 [facility] Comment on above: Performed By: #### 2 [id number] #### [facility] [address] [place] [address] Metamyelocytes/Leukocy kandace Manual cnt (Bld) [Pure # fraction] 1 % High 0-0 [facility] Comment on above: Performed By: #### 2 [id number] #### [facility] [address] [place] [address] Monocytes (Bld) [#/Vol] 0.6 E9/L Normal 0.2-1.0 [facility] Comment on above: Performed By: #### 2 [id number] #### [facility] [address] [place] [address] Neutrophils (Bld) [#/Vol] 5.8 E9/L Invalid Interpretation Code [facility] Comment on above: Performed By: #### 2 [id number] #### [facility] [address] [place] [address] Platelet 333.0 E9/L Normal 150.0-500.0 [facility] Comment on above: Performed By: #### 2 [id number] #### [facility] [address] [place] [address] Platelet mean volume (Bld) [Entitic vol] 8.0 fL Normal 6.4-10.8 [facility] Comment on above: Performed By: #### 2 [id number] #### [facility] [address] [place] [address] RBC (Bld) [#/Vol] 4.5 E12/L Normal 4.3-5.9 [facility] Comment on above: Performed By: #### 2 [id number] #### [facility] [address] [place] [address] RBC size Nom (Bld) NORMAL Invalid Interpretation Code [facility] Comment on above: Performed By: #### 2 [id number] #### [facility] [address] [place] [address] Segmented neutrophils/100 WBC (Bld) 61.0 % Normal 36.0-75.0 [facility] Comment on above: Performed By: #### 2 [id number] #### [facility] [address] [place] [address] WBC corrected for nucl RBC Auto (Bld) [#/Vol] 9.6 E9/L Normal 4.0-11.0 [facility] Comment on above: Performed By: #### 2 [id number] #### [facility] [address] [place] [address] Family Medicine Office/Clini c Noteon 11-15-2023 Family [...] BID, # 20 cap(s), Refills(s) 0, Pharmacy: [facility]/pharmacy #[id number], 171, cm, 11/15/23 11:43:00 EDT, Height/Length Dosing, 77.3, kg, 11/15/23 11:43:00 EDT, Weight Dosing CBC w/ Auto Diff Lab Specimen Collect 37982 US Extremity Non-Vascular Limited Right 2. BMI 26.0-26.9,adult (Z68.26: Body mass index [BMI] 26.0-26.9, adult) - BMI education added Ordered: clindamycin, 300 mg = 1 cap(s), Oral, BID, # 20 cap(s), Refills(s) 0, Pharmacy: [facility]/pharmacy #[id number], 171, cm, 11/15/23 11:43:00 EDT, Height/Length Dosing, 77.3, kg, 11/15/23 11:43:00 EDT, Weight Dosing CBC w/ Auto Diff Lab Specimen Collect 93420 US Extremity Non-Vascular Limited Right 3. Former smoker (Z87.891: Personal history of nicotine dependence) - Please continue to not smoke Ordered: clindamycin, 300 mg = 1 cap(s), Oral, BID, # 20 cap(s), Refills(s) 0, Pharmacy: [facility]/pharmacy #[id number], 171, cm, 11/15/23 11:43:00 EDT, Height/Length Dosing, 77.3, kg, 11/15/23 11:43:00 EDT, Weight Dosing CBC w/ Auto Diff Lab Specimen Collect 76831 US Extremity Non-Vascular Limited Right Total time [...] virus vaccine, inactivated 03/11/2015 Recorded Normal [facility] Comment on above: Result Comment: Elec tronically Signed By: Vitaly SERRANO, Silas Lockwood\.br\Date and Time Signed: 11/15/23 12:16 EDT HEMATOLOGYOrdered [...] - Ultrasound Reporton RAD - Ultrasound Report [id number] Normal [facility] C Urineon 09-28-2023 Bacteria identified Cx Nom (U) Microbiology PROCEDURE: Urine Culture [R1] SOURCE: U ChidiCatch BODY SITE: COLLECTED DATE/TIME: 09/20/2023 13:11 EDT RECEIVED DATE/TIME: 09/20/2023 18:31 EDT START DATE/TIME: 09/20/2023 18:31 EDT FREE TEXT SOURCE: Vitaly SERRANO, Silas Haider MD, Silas Lockwood AMENDED REPORTS Amended Report [] Verified Date/Time: 09/28/2023 12:52 EDT Wrong patient per [facility] 09/28/2023 12:51 CSS Patient credited. CSS Performing Locations R1: This test was performed at: [facility], [address] [place] [address], [id number] , , [facility] Comment on above: Performed By: #### 2 [id number] #### [facility] [address] [place] [address] Provider Letteron 09-26-2023 Provider Letter September 26, 2023 [place] [address] : 1980 Dear Celeste, We have been trying to reach you with no success. It is important that you return our call regarding your medication upon receiving this letter. Also, at the time of your call, please provide us with your current information. Thank you for your prompt attention to this matter. Sincerely, [address] [address] [facility] MM screening mammo LT w/CADo n 09-22-2023 MM screening mammo LT w/CAD [facility] [address] [place] [address] [place] [address] Mammography Report Signed with Leatha Patient: Celeste Du MR#: [id number] 17 : 1980 Acct:[id number] Age/Sex: 42 / F ADM Date: 09/22/23 Loc: [place] Room: Type: [facility] Attending Dr: Torie Walker Copies to: Torie Haider MD Ordering Provider: Torie Rgo Date of Service: 09/22/23 MM/MM screening mammo LT w/CAD: Z12.31 ADDENDUM 1 Addendum for billing purposes: Tomosynthesis craniocaudal and mediolateral oblique views of the left breast were obtained using low-dose digital technique. This examination was reviewed with the aid of CAD. Impression dictated by: Ant Rousseau Jr., D.O.09/22/2023 9:15 AM Dictation Location: S01 Addendum Dictated [...] Rousseau Jr., D.O.09/22/2023 9:09 AM Dictation Location: DWS01 Transcribed By: LAKSHMI 09/22/23908 Dictated By: Ant Rousseau Jr, DO 09/22/23907 Signed By: 09/22/23908 [facility] Ambulatory Visit Summaryon 0 09-20-2023 [...] AM EDT With: Silas Haider MD Where: [facility] [place] Normal [facility] Family Medicine Office/Clini c Noteon 09-20-2023 Family Medicine Office/Clinic Note HPI Staff Celsete is a 42 year old female presenting [...] virus vaccine, inactivated 03/11/2015 Recorded Normal [facility] Comment on above: Result Comment: [...] numbers. This can be done either in [place] or metric measurements. Note that charts and online BMI calculators are available to help you find your BMI quickly and easily without having to do these calculations yourself. To calculate your BMI in [place] measurements: 1. Measure your weight in [...] for Disease Control and Prevention: www.cdc.gov ? [place] [employer]: www.heart.org ? National Heart, Lung, and Blood [place]: www.nhlbi.nih.gov Summary ? Body mass index (BMI) is a number that is calculated from a person's weight and height. ? BMI may help estimate how much of a person's weight is composed of fat. BMI can help identify those who may be at higher risk for certain medical problems. ? BMI can be measured using [place] measurements or metric measurements. ? BMI charts are used to identify whether you are underweight, normal weight, overweight, or obese. This information is not intended to replace advice given to you by your health care provider. Make sure you discuss any questions you have with your health care provider. Document Revised: 01/30/2020 Document Reviewed: 12/07/2019 [employer] Patient Education ? 2022 [employer] Normal [facility] PAP ACOG PANEL 2: 30 to 65on 10-05-2022 Age Gdln ACOG Testing 30-65 Normal [facility] Comment on above: Performed By: #### 4 [id number] #### [facility] [address] [place] [address] [address] Vicky Cordoba Vital Signs Date Time Vital Sign Value Performing Clinician Faci [facility] 12-02-2023 14:37-0400 Body height 165.1 cm MD Silas Haider Work Phone: [facility] 12-02-2023 14:37-0400 Body mass index (BMI) [Ratio] 28.3 kg/m2 MD Silas Haider Work Phone: [facility] 12-02-2023 14:37-0400 Body temperature 98.4 [degF] MD Silas Haider Work Phone: [facility] 12-02-2023 14:37-0400 Body weight 77.11 kg MD Silas Haider Work Phone: [facility] 12-02-2023 14:37-0400 Diastolic blood pressure 88 mm[Hg] MD Silas Haider Work Phone: [facility] 12-02-2023 14:37-0400 Heart rate 96 /min MD Silas Haider Work Phone: [facility] 12-02-2023 14:37-0400 SaO2% (BldA) [Mass fraction] 96 % MD Silas Haider Work Phone: [facility] 12-02-2023 14:37-0400 Systolic blood pressure 130 mm[Hg] MD Silas Haider Work Phone: [facility] 03-31-2022 16:50-0500 Blood Pressure Location Silas Haider [facility] 03-31-2022 16:50-0500 Diastolic blood pressure 74 mm[Hg] Silas Haider [facility] 03-31-2022 16:50-0500 Heart rate 99 /min Silas Haider [facility] 03-31-2022 16:50-0500 SaO2% (BldA) [Mass fraction] 97 % Silas Haider [facility] 03-31-2022 16:50-0500 Systolic blood pressure 122 mm[Hg] Silas Haider [facility] 12-31-2021 16:27-0400 Blood Pressure Location Silas Haider [facility] 12-31-2021 16:27-0400 Diastolic blood pressure 82 mm[Hg] Silas Haider [facility] 12-31-2021 16:27-0400 Heart rate 87 /min Silas Haider [facility] 12-31-2021 16:27-0400 SaO2% (BldA) [Mass fraction] 98 % Silas Haider [facility] 12-31-2021 16:27-0400 Systolic blood pressure 120 mm[Hg] Silas Haider [facility] 09-09-2021 14:09-0400 Diastolic blood pressure 104 mm[Hg] Silas Haider [facility] 09-09-2021 14:09-0400 Mean blood pressure 113 mm[Hg] Silas Haider [facility] 09-09-2021 14:09-0400 Systolic blood pressure 132 mm[Hg] Silas Haider [facility] 09-09-2021 13:20-0400 Blood Pressure Location Silas Haider [facility] 09-09-2021 13:20-0400 Diastolic blood pressure 104 mm[Hg] Silas Haider [facility] 09-09-2021 13:20-0400 Heart rate 89 /min Silas Haider [facility] 09-09-2021 13:20-0400 SaO2% (BldA) [Mass fraction] 97 % Silas Haider [facility] 09-09-2021 13:20-0400 Systolic blood pressure 138 mm[Hg] Silas Haider [facility] Encounters Encounter Date Encounter Type Care Provider Facility Start: 08-07-2024 ambulatory Silas Haider Facility :[facility] [place] Start: 06-11-2024 End: 06-11-2024 ambulatory Carlin Collier MD Facility: [place] Start: 05-28-2024 End: 05-28-2024 ambulatory Carlin Collier MD Facility: [place] Start: 05-09-2024 End: 05-09-2024 ambulatory Silas Haider Facility:[facility] [place] Start: 05-07-2024 End: 05-07-2024 ambulatory Carlin Collier MD Facility:[facility] [place] Start: 04-16-2024 End: 04-16-2024 ambulatory Carlin Collier MD Facility:[facility] [place] Start: 03-19-2024 End: 03-19-2024 ambulatory Carlin Collier MD Facility:[facility] [place] Start: 03-05-2024 End: 03-05-2024 ambulatory Silas Haider Facility:[facility] [place] Start: 02-06-2024 End: 02-06-2024 ambulatory Silas Haider Facility:[facility] Start: 12-02-2023 End: 12-02-2023 ambulatory MD Silas Haider Work Phone: [facility] Work Phone: Start: 12-02-2023 End: 12-02-2023 Departed Referred MD Silas Haider Work Phone: [facility] Start: 12-02-2023 End: 12-02-2023 Patient encounter procedure MD Silas Haider Work Phone: [facility] [place] Work Phone: Start: 11-18-2023 End: 11-18-2023 ambulatory Silas Haider Facility:[facility] Start: 11-18-2023 End: 11-18-2023 Patient encounter procedure Silas Haider [facility] Start: 11-15-2023 End: 11-15-2023 Lab Drop off Silas Haider [facility] Start: 11-15-2023 End: 11-15-2023 ambulatory Silas Haider [facility] Start: 09-29-2023 End: 09-29-2023 ambulatory TORIE RGO Not Available Start: 09-22-2023 End: 09-22-2023 Patient encounter procedure MD Silas Haider Work Phone: [facility] Work Phone: Start: 09-22-2023 End: 09-22-2023 ambulatory MD Silas Haider Work Phone: [facility] Work Phone: Start: 09-20-2023 End: 09-20-2023 ambulatory Silas Haider Facility:[facility] Start: 09-20-2023 End: 09-20-2023 Lab Drop off Silas Haider [facility] Start: 09-20-2023 End: 09-20-2023 ambulatory Silas Haider Facility:[facility] [place] Start: 08-03-2023 End: 08-03-2023 ambulatory Silas Haider Facility:[facility] [place] Start: 06-14-2023 End: 06-14-2023 ambulatory TORIE WALKER Not Available Start: 09-27-2022 End: 09-27-[address] TORIE WALKER . Facility: Start: 08-31-2022 End: 08-31-2022 ambulatory MD Silas Haider Work Phone: [facility] Work Phone: Start: 08-31-2022 End: 08-31-2022 Patient encounter procedure MD Silas Haider Work Phone: [facility] Work Phone: Start: 03-31-2022 End: 03-31-2022 Patient encounter procedure Silas Haider [facility] Start: 12-31-2021 End: 12-31-2021 Patient encounter procedure Silas Haider [facility] Start: 09-09-2021 End: 09-09-2021 Patient encounter procedure Silas Haider [facility] Start: 03-06-2018 Patient encounter procedure [...] above: Vaginal Mastectomy of right breast S kanikaperi Haider Comment on above: with Rt node dissect ion and 3-4 cosmetic surgeries after Plan of Treatment Date Care Activity Detail Author Start: 12-02-2023 [facility] Start: 12-02-2023 Bacteria identified in Urine by Culture [facility] Atopobium vaginae DN A [Presence] in Vaginal fluid by FAISAL with probe detection [facility] Bacterial vaginosis associated bacterium 2 DNA [Presence] in Vaginal fluid by FAISAL with probe detection [facility] Megasphaera sp type 1 DNA [Presence] in Vaginal fluid by FAISAL with probe detection [facility] Immunizations Immunization Date Immunization Notes Care Provider Myriam sierra 02-20-2022 influenza virus vaccine, unspecified formulation Silas Haider [facility] 09-02-2020 SARS-CoV-2 (COVID-19 ) mRNA BNT-162b2 vax Silas Haider [facility] 08-12-2020 SARS-CoV-2 (COVID-19 ) mRNA BNT-162b2 vax Silas Haider [facility] 04-04-2020 influenza virus vaccine, unspecified formulation Silas Haider [facility] 03-14-2018 influenza virus vaccine, unspecified formulation Silas Haider [facility] 03-13-2017 influenza virus vaccine, unspecified formulation Silas Haider [facility] 03-11-2015 influenza virus vaccine, unspecified formulation Silas Haider [facility] NEGATED: Highlighted row has not occurred!03-24-2023 influenza virus vaccine, unspecified formulation Silas Haider [facility] Payers Date Payer Category Payer Self-pay [id number] 2023 Unknown [id number] 2023 Unknown 2022 Unknown [id number] 1978 Unknown [id number] 2.16. 840.1.075453.3.579.2.356 1978 Unknown [id number] 2.16. 840.1.193744.3.579.2.356 1978 Unknown [id number] 2.16.84 0.1.052668.3.579.2.593 1978 Unknown [id number] 2.16.84 0.1.340133.3.579.2.1259 1978 Unknown [id number] 2.16.84 0.1.937912.3.579.2.1259 1978 Unknown [id number] 2.16.8 40.1.385850.3.579.2.727 1978 Unknown [id number] 2.16.8 40.1.628968.3.579.2.727 1978 Unknown [id number] 2.16.8 40.1.221934.3.579.2.727 1978 Unknown [id number] 2.16.8 40.1.524166.3.579.2.7 1978 Unknown [id number] 2.16.8 40.1.826305.3.579.2.727 1978 Unknown [id number] 2.16.8 40.1.363497.3.579.2.7 1978 Unknown [id number] 2.16.8 40.1.794961.3.579.2.727 1978 Unknown [id number] 2.16.8 40.1.176739.3.579.2. 1978 Unknown [id number] 2.16.8 40.1.599715.3.579.2.7 1978 Unknown [id number] 2.16.8 40.1.123804.3.579.2. 1978 Unknown [id number] 2.16. 840.1.334705.3.579.2.196 1978 Unknown [id number] 2.16. 840.1.236647.3.579.2.196 1978 Unknown [id number] 2.16. 840.1.501778.3.579.2.196 1978 Unknown [id number] 2.16. 840.1.462650.3.579.2.196 1978 Unknown [id number] 2.16. 840.1.066258.3.579.2.196 1959 Unknown [id number] Unknown [id number] Unknown [id number] 2.16.8 40.1.765317.3.579.2.531 Unknown [id number] 2.16.8 40.1.970338.3.579.2.531 Social History Date Type Detail Facility Start: 01-03-2020 End: 09-09-2021 Tobacco smoking status [facility]: smokes [facility] de Tobacco smoking status Never [facility] Comment on above: smokes outsi de Start: 01-28-1992 End: 08-21-2013 Sex Assigned At Female [facility] Tobacco Household tobacc o concerns: No. [facility] Tobacco smoking status No Smokin g Status Entered [facility] Start: 1980 Sex Assigned At Female Sudarshan [facility] Functional Status Date Assessment Result Facility 03-31-2022 Functional Status N/A [facility] 12-31-2021 Functional Status N/A [facility] Clinical Notes 09-09-2021 to 05-09-2024 Radiology Note [...] 12 oz bottle (more content not included)... [facility] 03-05-2024 Note Patient Education Nutrition BMI for [...] for Disease Control and Prevention: cdc.gov ? [place] Heart Association: heart.org ? National Heart, Lung, and Blood [place]: nhlbi.nih.gov This information is not intended to replace advice given to you by your health care provider. Make sure you discuss any questions you have with your health care provider. Document Revised: 01/27/2023 Document Reviewed: 01/20/2023 [employer] Patient Education ? 2023 [facility] 02-06-2024 Note Patient Education Nutrition BMI [...] for Disease Control and Prevention: cdc.gov ? [place] Heart Association: heart.org ? National Heart, Lung, and Blood [place]: nhlbi.nih.gov This information is not intended to replace advice given to you by your health care provider. Make sure you discuss any questions you have with your health care provider. Document Revised: 01/27/2023 Document Reviewed: 01/20/2023 Elsevier Patient Education ? 2023 [facility] 03-31-2022 Hospital Discharg e instructions Patient [...] care provider. This is important. Medicines Take iocg-dzi-egxcipl and prescription medicines only as told by [...] 05/09/2006 Document Revised: 01/17/2019 Document Reviewed: 01/17/2019 [employer] Patient Education 2019 [facility] 12-31-2021 Hospital Discharg e instructions [...] called talk therapy or counseling. Seeing a principal bioinformatics specialist (dietitian). Getting appropriate exercise. Medicines to [...] that address eating disorders. Talk with an payroll tax specialist, therapist, or counselor about your eating [...] health care provider. This is important. Take qofs-duk-jpmbhtt and prescription medicines only as told by [...] 05/09/2006 Document Revised: 09/17/2016 Document Reviewed: 03/12/2016 [employer] Patient Education 2020 [facility].. 12/31/2021 16:54:02 Hypertension, Adult Hypertension, Adult High [...] care provider. This is important. Medicines Take xcgd-oyv-iihphcm and prescription medicines only as told by [...] Document Reviewed: 01/17/2019 Elsevier Patient Education 2019 [facility] 09-09-2021 Hospital Discharg e instructions Patient Education [...] care provider. Avoid caffeine, alcohol, and certain olfp-uvo-lwxfljo cold medicines. These may make you feel worse. Ask your pharmacist which medicines to avoid. General instructions Take ndyh-dkf-fgdnuar and prescription medicines only as told by [...] Depression Association of [place] (ADAA): www.adaa.org National [place] on Mental Illness (BRENDA): www.brenda.org Contact a [...] 05/03/2017 Document Revised: 10/09/2019 Document Reviewed: 10/09/2019 Elsevier Patient Education 2020 [facility] Evaluation + Plan note Future Appointments Appointment Date:12/09/2021 07:40:00 AM Scheduled Provider:Silas Haider MD Location:[facility] Appointment Type: Open [facility] Evaluation + Plan note Future Appointments Appointment Date:03/31/2022 04:40:00 PM Scheduled Provider:Silas Haider MD Location:[facility] Appointment Type: Open [facility] Evaluation + Plan note Future Appointments Appointment Date:09/22/2022 04:40:00 PM Scheduled Provider:Silas Haider MD Location:[facility] Appointment Type:[facility] Evaluation + Plan note Future Appointments Appointment Date:03/20/2024 07:15:00 AM Scheduled Provider:Silas Haider MD Location:[facility] Appointment Type: Open Diagnostic Tests PendingUrine Culture 09/20/23 [facility] Evaluation + Plan note Future Appointments Appointment Date:03/20/2024 07:15:00 AM Scheduled Provider:Silas Haider MD Location:[facility] Appointment Type: Open Future Scheduled TestsUS Extremity Non-Vascular Limited Right 11/15/23 [facility] Evaluation + Plan note Future Appointments Appointment Date:03/20/2024 07:15:00 AM Scheduled Provider:Silas Haider MD Location:[facility] Appointment Type:[facility] Evaluation note No assessment inform ation available [facility] Work Phone: Evaluation note Diagnosis Onset Date Vaginitis noneactive [facility] Work Phone: Hospital course Narrative No data available for this section [facility] Hospital Discharge instructions No data available for this section [facility] No data available for this section [facility] Summary Purpose Family History No [...] section and content) DATE CREATED AUTHOR 04/30/2018 [facility] DATE CREATED AUTHOR AUTHOR'S ORGANIZ ATION 10/06/2022 [facility] DATE CREATED AUTHOR AUTHOR'S ORGANIZ ATION 10/01/2023 [facility] EPIC DATE CREATED AUTHOR AUTHOR'S ORGANIZ ATION 11/17/2023 [place] Sydney Kobe [facility] DATE CREATED AUTHOR AUTHOR'S ORGANIZ ATION 12/08/2023 [facility] DATE CREATED AUTHOR AUTHOR'S ORGANIZ ATION 05/11/2024 [place] [facility] DATE CREATED AUTHOR AUTHOR'S ORGANIZ ATION 05/12/2024 [place] [facility] DATE CREATED AUTHOR AUTHOR'S ORGANIZ ATION 06/19/2024 [facility] Care Team (unrecognized sect ion and [...] BE BASED ON THE PRIMARY CLINICAL RECORDS. [facility] [employer] [facility]. provides no warranty or guarantee of the accuracy or completeness of information in this document.
[2024-06-25 07:36] VITALS: BP 132/87; PULSE 83; TEMP 36.3; O2SAT 98
[2024-06-25 08:28] VITALS: BP 125/74; BP 131/83; PULSE 79; PULSE 82; O2SAT 98
--- NOTE | 2024-06-25 08:38 | P.ON_ITS ---
Date of procedure: 06/25/24 Pre-op diagnosis: Pain due to cervical spondylosis without myelopathy Post-op diagnosis: same as pre-op Procedure: Procedure: Left C4-5, 5-6 radiofrequency ablation Medications: Bupivacaine 0.25% 3cc, lidocaine 2% 3cc, dexamethasone 10mg The patient was seen and examined in the preoperative holding area.? The site was marked.? Written informed consent was obtained and placed on the chart.? The patient was brought to the medical procedure unit and placed in the prone position.? A timeout was completed verifying correct patient, procedure, positioning, and special requirements.? The skin overlying the target points, the designated medial branch, were prepped and draped in the usual sterile fashion.? The target point was achieved with a 20-gauge 15 cm with a 10 mm curved active tip radiofrequency cannula under direct fluoroscopic visualization .? The needle was inserted at level C4 on the left side. Needle tip position was confirmed with lateral fluoroscopic position.? Motor stimulation was carried out at 2 Hz up to 5 volts with the absence of extremity activity.? This was repeated at level C5, 6 on left side.?? Sensory stimulation was carried out.? Concordant pain was realized at the above- mentioned sites.? Then radiofrequency lesioning was carried out times 90 seconds at 80 degrees times 2 lesions at each level.? The radiofrequency probe was removed prior to cannula removal.? The above-mentioned injectate was placed in 1 mL increments.? The needle was removed.? Insertion sites were covered.? The patient was taken to the postoperative recovery area and monitored for an appropriate length of time before being found suitable for discharge in the company of a responsible adult. Anesthesia: Local Surgeon: Carlin Collier Pathology: none sent Condition: stable Disposition: no change
[2024-06-25] MEDS: BUPIVACAINE HCL 0.25% PF 25 MG/10 ML VIAL 2 ML INJ (08:39)
[2024-06-25] MEDS: DEXAMETHASONE SOD PHOS 10 MG/ML VIAL INJ (08:39)
[2024-06-25] MEDS: LIDOCAINE HCL 2% 400 MG/20 ML MDV 8 ML INJ (08:39)
== END 2024-06-25 08:45 | disposition home or self-care (01) ==
LOC: SURGOUT 07:24
PROVIDERS: PCP Family Medicine; Visit Provider Anesthesiology
DX: M47.812 Spondylosis without myelopathy or radiculopathy, cervical region (principal)
CPT/HCPCS: 64633; 64634; J0665; J1100

== ENCOUNTER 2024-07-18 15:12 | Outpatient (OUT) | payer OTHER, SELFPAY ==
--- NOTE | 2024-07-18 15:22 | P.CN_ITS ---
Consult Note: HPI Data of Consult Patient: known to practice within the last 3 years Requesting Physician: Anabel Allen NP Primary Care Provider: GARRISON ARZATE Consult Narrative Reason for consult: neck pain Narrative: 43yof who presents for evaluation. longstanding neck, right shoulder, right arm pain. had mastectomy in 2014, pain began around a similar time. previous cervical mri from 2015 showed multilevel degenerative changes. has continued in a series of provider directed home exercises >6 weeks, without lasting benefit. uses otc meds and topicals, as needed. utilizing baclofen PRN during the day and tizanidine HS PRN, motrin.denies adverse med side effects. recently completed a cervical MRI with results below. Pain increased with twisting, standing, walking, looking up and down. Pain improved with sleep, stretching, heat, lying flat. recently underwent right and left C4/5 C5/6 facet RFA with mild relief in facet mediated pain at this time, however she has had increased myofascial pain and pain radiating into her upper thoracic spine. I had prescribed a medrol dose pack for acute pain post RFA which was helpful for 3-4 days but no ongoing relief. cc:: CC: Anabel Allen NP Review of Systems ROS Status of ROS 10 or more systems reviewed and unremark able except as noted in history and below Musculoskeletal Reports: neck pain PFSH PFSH Medical History (Updated 07/18/24 @ 15:51 by Anabel Allen NP) Anxiety ?F41.9 - Anxiety disorder, unspecified (ICD-10) HTN (hypertension) ?I10 - Essential (primary) hypertension (ICD-10) Surgical History History of hysterectomy ?Z90.710 - Acquired absence of both cervix and uterus (ICD-10) History of mastectomy ?Z90.10 - Acquired absence of unspecified breast and nipple (ICD-10) Meds Home Medications and Allergies Home Medications ?Medication ?Instructions ?Recorded ?Confirmed ?Type amlodipine 10 mg tablet (Norvasc) 10 mg PO DAILY 03/19/24 06/25/24 History clonazepam 0.5 mg tablet 0.5 mg PO Q8H 03/19/24 06/25/24 History lamotrigine 200 mg tablet 200 mg PO DAILY 03/19/24 06/25/24 History lamotrigine 25 mg tablet 50 mg PO QAM 03/19/24 06/25/24 History phentermine 37.5 mg tablet 37.5 mg PO DAILY 03/19/24 06/25/24 History (Adipex-P) tizanidine 4 mg tablet See Rx Instructions .Route 04/04/24 06/25/24 Rx .COMPLEX PRN muscle spasticity #180 tabs baclofen 5 mg tablet See Rx Instructions .Route 05/31/24 06/25/24 Rx .COMPLEX #60 tabs ibuprofen 200 mg tablet (Advil) 800 mg PO Q12H PRN pain 06/25/24 06/25/24 History Allergies Allergy/AdvReac Type Severity Reaction Status Date / Time morphine Allergy Intermediate Hives Verified 06/25/24 07:43 Exam Constitutional Documenting provider has reviewed patient's vital signs: yes Common normals: no apparent distress, oriented x3, healthy appearing, alert and well nourished General appearance: cooperative HENMT Common normals: normocephalic, hearing grossly normal bilaterally and moist oral mucous membranes Head and scalp: normocephalic Eye Common normals: PERRL Pupil: PERRL Neck & C-Spine Common normals: full ROM General: normal visual inspection Cervical spine: cervical ROM abnormal, pain with cervical ROM, cervical spine tenderness C2, C3, C4, C5 and diffuse (left greater than right ), paracervical muscle spasm and trapezius muscle tenderness Other: strength 5/5 in BUE significant pain over splenius capitus, trapezius, and sternocleidomastoid left greater than right significant pain over left greater occipital nerve Chest Common normals: inspection of chest normal Respiratory Common normals: normal respiratory effort, no retractions and no use of accessory muscles Neuro Common normals: oriented x3, CN's II-XII intact bilaterally, moves all extremities, no focal motor deficits, no sensory deficits noted and deep tendon reflexes 2+ bilaterally Sensorium/orientation: alert Motor exam: strength 5/5 throughout and no movement abnormalities noted Psych Common normals: mental status grossly normal, thought process normal, coop erative, affect normal, speech normal and activity/motor behavior normal Speech: normal speech Thought process: normal thought process Results Additional Findings Additional findings: If on a controlled substance or opioids, I have checked an [place]AR[place] report on this patient and there are no aberrancies noted in the prescribing history.??If on a controlled substance or opioid a drug screen was completed and reviewed within the last year, and if there has not been a drug screen completed we ordered one today to monitor higher risk, state monitored pain medication use. As part of providing excellent, safe, comprehensive care, the following was completed at our patient's visit: 1. A medication reconciliation and review to ensure accurate knowledge of current/active medications, including asking our patients to inform us about any jwic-qva-lxajvan medications or herbal remedies/nutritional supplements/alternative remedies. 2. A review to specifically ensure our patients have had annual screening for screening for depression, screening for tobacco use, and screening for unhealthy alcohol use. For concerning screenings had a discussion with the patient, provided patient education, and recommended follow-up with primary care provider when appropriate. If patient noted with a risk of falling, they received education on strength, gait, and balance training to prevent future risk of falling. Assessment and Plan Assessment and Plan (1) Cervical spondylosis: (2) Cervical radiculopathy: (3) Cervical stenosis of spinal canal: (4) Myalgia, unspecified site: Plan bilateral splenius capitus, sternocleidomastoid, trapezius trigger point injection with Dr Collier start gabapentin 300mg BID as tolerated, risks vs benefits reviewed continue other medications f/u with Dr Collier for futher evaluation
== END 2024-07-18 15:13 | disposition home or self-care (01) ==
LOC: PM 15:12
PROVIDERS: PCP Family Medicine; Visit Provider Nurse Practitioner
DX: M47.812 Spondylosis without myelopathy or radiculopathy, cervical region (principal); M54.12 Radiculopathy, cervical region; M48.062 Spinal stenosis, lumbar region with neurogenic claudication; M79.18 Myalgia, other site
CPT/HCPCS: G0463

== ENCOUNTER 2024-07-23 11:36 | Outpatient (OUT) | payer OTHER, SELFPAY ==
--- OUTSIDE RECORDS SUMMARY | 2024-07-23 11:56 | XMS_ITS | CCD ---
Author Organization [facility] Care Team Providers Care Senior Director Finance Name Role Phone Tala Johnson Unavailable Unavaila Dalton Moses Unavailable UnavailMeka Healy Unavailable Unavailable Dalton Olvera Unavailable UnavailSilas Jack Primary Care Physician MD Silas Haider Primary Care Provider [phone] Torie Walker Attending Provider [phone] CLAIR ., DR VOGT Attending Unavailable CLAIR ., DR VOGT Consulting Unavailable CLAIR ., DR VOGT Admitting Unavailable Silas Haider Primary Care Physician MD Silas Haider Primary Care Provider [phone] Torie Walker Attending Provider TORIE WALKER Attending Unavailable TORIE WALKER Attending Unavailable MD Silas Haider Primary Care Provider DO Torie Walker Attending Provider [phone] MANDI Sánchez Attending Provider [phone] Silas Haider Primary Care Unavailable Torie Walker Admitting Unavailable Torie Walker Attending Unavailable Mansiha Sánchez Admitting UnavailManisha Mcbride Attending UnavailSilas Jack [...] Unavailable Silas Haider Admitting Unavailable Giwalter SERRANO, Andjody Rodrigues Attending Unavailable Giedraitis , Andrius Rodrigues Attending Unavailable Giedraitis , Andrius Lilia Attending Unavailable Giedraitis , Andrius Lilia Attending Unavailable Giedraitis , Andrius Lilia Attending Unavailable Giedraitis , Andrius Lilia Attending Unavailable Allergies Allergy Classification Reported Allergen(s) Allergy Type Date of Onset Reaction(s) Facility (12 sources) Morphine; Translations: [morphine] Drug Allergy 7 Itching (finding) [facility] [place] (5 sources) aprepitant; Translations: [aprepitant] Drug Allergy 7 Unknown Reaction [facility] (1 source) Morphine Drug Allergy 4 [facility] Repository Medications Current Medications Medication Drug Class(es) Dates Sig (Normalized) Sig (Original) 0.5 ML semaglutide 2 MG/ML Auto-Injector (1 source) Start: 09-09-2021 End: 11-04-2021 Wegovy (1 mg dose) subcutaneous solution 1 mg, SubCutaneous, qWeek, INJECT 1 PEN UNDER THE SKIN EVERY WEEK, X 4 week(s), # 4 EA, Refills(s) 1, Pharmacy: [facility]/pharmacy #[id number], 171, cm, 09/09/21 13:28:00 EDT, Height/Length Dosing, 75.9, kg, 09/09/21 13:28:00 EDT, Weight Dosing Start Date: 09/09/21 Stop Date: 11/04/21 Status: Ordered 0.75 ML semaglutide 3.2 MG/ML Auto-Injector [Wegovy] (2 sources) Start: 03-31-2022 inject 2.4 mg by subcutaneous injection every week Wegovy (2.4 mg dose) subcutaneous solution 2.4 mg, SubCutaneous, qWeek, # 12 EA, Refills(s) 1, Pharmacy: [facility] #[id number], 171, cm, 03/31/22 16:52:00 EST, Height/Length Dosing, 75.7, kg, 03/31/22 16:52:00 EST, Weight Dosing Start Date: 03/31/22 Status: Ordered Start: 12-31-2021 inject 2.4 mg by sub cutaneous injection every week Wegovy (2.4 mg dose) subcutaneous solution 2.4 mg, SubCutaneous, qWeek, # 12 EA, Refills(s) 1, Pharmacy: [facility] #[id number], 171, cm, 12/31/21 16:30:00 EDT, Height/Length Dosing, [...] BID, # 20 cap(s), Refills(s) 0, Pharmacy: [facility]/pharmacy #[id number], 171, cm, 11/15/23 11:43:00 [...] Daily, # 90 cap(s), Refills(s) 1, Pharmacy: [facility]/pharmacy #[id number], 171, cm, 03/31/22 16:52:00 EST, Height/Length Dosing, 75.7, kg, 03/31/22 16:52:00 EST, Weight Dosing Start Date: 03/31/22 Status: Ordered Start: 12-31-2021 take 1 capsule by [facility] once daily omeprazole 40 mg Cap-DR 40 mg = 1 cap(s), Oral, Daily, # 90 cap(s), Refills(s) 1, Pharmacy: [facility]/pharmacy #[id number], 171, cm, 12/31/21 16:30:00 EDT, Height/Length Dosing, 76.7, kg, 12/31/21 16:30:00 EDT, Weight Dosing Start Date: 12/31/21 Status: Ordered omeprazole 40 mg Cap-DR (1 source) Start: 09-09-2021 End: 12-08-2021 take 1 capsule by mouth once daily omeprazole 40 mg Cap-DR 40 mg = 1 cap(s), Oral, Daily, X 90 day(s), # 90 cap(s), Refills(s) 0, Pharmacy: [facility]/pharmacy #[id number], 171, cm, 09/09/21 13:28:00 [...] every four to six hours Hydrocodone-Acetami nophen ([place]) 5-325 mg tablet Discontinued 1 TAB PO EVERY 4-6 HOURS 40 7 October 03, 2018 November 08, 2018 8:07am Start: 01-18-2017 End: 01-27-2017 take 2 tablets by mouth every four to six hours Hydrocodone-Acetaminophen ([place]) 5-325 mg Tablet Discontinued 2 TAB PO [...] Translations: [Personal history of nicotine dependence] Onset: 08-11-2022 Episodic Sprains and strains (4 sources) Strain [...] AM EDT With: Silas Haider MD Where: [facility] Medicine [address] [address]- Medications What How Much When Instructions Unchanged [...] and (more content not included)... Normal Vas[facility] Family Medicine Office/Clini c Noteon [...] do 1 more month to carry through [place] and then we will do every other [...] DAY, # 90 tab(s), Refills(s) 1, Pharmacy: [facility], 171, cm, 05/09/24 8:25:00 EST, Height/Length Dosing, 76.3, kg, 05/09/24 8:25:00 EST, Weight Dosing phentermine, 37.5 mg = 1 cap(s), Oral, Daily, # 30 cap(s), Refills(s) 1, Pharmacy: [facility]/pharmacy #[id number], 171, cm, 05/09/24 8:25:00 EST, [...] virus vaccine, inactivated 03/11/2015 Recorded Normal [facility] Comment on above: Result Comment: [...] Appointments Tuesday 7:00 AM EST With: Vitaly ESRRANO, Silas Lockwood Where: [place] [phone]- Medications What How Much When Instructions Unchanged [...] for choosing us for your care. Normal [facility] Family Medicine Office/Clini c Noteon [...] 79.6, kg, 03/05/24 15:51:00 EDT, Weight Dosing [facility] External Ambulatory Referral 2. Anxiety and depression [...] # 15 tab(s), Refills(s) 0, Pharmacy: [facility], 171, cm, 03/05/24 15:51:00 EDT, Height/Length Dosing, 79.6, kg, 03/05/24 15:51:00 EDT, Weight Dosing [facility] External Ambulatory Referral 3. Insomnia (G47.00: Insomnia, [...] bedtime), # 15 tab(s), Refills(s) 0, Pharmacy: [facility], 171, cm, 03/05/24 15:51:00 EDT, Height/Length Dosing, 79.6, kg, 03/05/24 15:51:00 EDT, Weight Dosing [facility] External Ambulatory Referral 4. Osteoarthritis (M19.90: Unspecified osteoarthritis, unspecified site) The patient reports exacerbated osteoarthritis symptoms focused around the clavicle. Present management strategies, including the use of gseg-lkg-kgruspy analgesics, have not (more content not included)... Normal [facility] Comment on above: Result Comment: [...] BID, # 20 cap(s), Refills(s) 0, Pharmacy: [facility]/pharmacy #[id number], 171, cm, 11/15/23 11:43:00 EDT, Height/Length Dosing, 77.3, kg, 11/15/23 11:43:00 EDT, Weight Dosing 6. Excessive dietary caloric intake (R63.2: Polyphagia) Will do Adipex at this time. Will do it at a lower BMI as her anxiety and depression have some concerns and her weight. Orders: phentermine, 37.5 mg = 1 cap(s), Oral, Daily, # 30 cap(s), Refills(s) 0, Pharmacy: [facility]/pharmacy #[id number], 171, cm, 02/06/24 16:09:00 EDT, [...] virus vaccine, inactivated 03/11/2015 Recorded Normal [facility] Comment on above: Result Comment: Elec tronically Signed By: Vitaly SERRANO, Silas Vinson.br\Date and Time Signed: 02/06/24 18:09 EDT Urine Cultureon 12-02-2023 Bacteria identified Cx Nom (U) <9,000 colonies/ml mixed bacterial skin contaminants 2 Days PERFORMED BY: [place] [address] PATHOLOGIST ELECTRICIAN SUPERVISOR SUBSTATION YENI BAH M.D. Normal [facility] Comment on above: Performed By: #### C UU #### [place] [address] [place] #### VAGINITIS+ #### [facility] , Vaginitis Plus (VG+)on 12-01 Atopobium Vaginae Moderate - 1 Normal . [facility] Comment on above: Result Comment: This test was developed and its performance characteristics determined by [facility]. It has not been cleared or approved by the Food and Drug Administration. Performed By: #### C UU #### [place] [address] [place] #### VAGINITIS+ #### [facility] , BVAB2 Low - 0 Normal . [facility] Comment on above: Result Comment: This test was developed and its performance characteristics determined by [facility]. It has not been cleared or approved by the Food and Drug Administration. Performed By: #### C UU #### [place] [address] [place] #### VAGINITIS+ #### [facility] , Dolores Albicans, FAISAL Negative Normal Negative [facility] Comment on above: Result Comment: This test was developed and its performance characteristics determined by [facility]. It has not been cleared or approved by the Food and Drug Administration. Performed By: #### C UU #### [place] [address] [place] #### VAGINITIS+ #### [facility] , Dolores Glabrata, FAISAL Negative Normal Negative [facility] Comment on above: Result Comment: This test was developed and its performance characteristics determined by [facility]. It has not been cleared or approved by the Food and Drug Administration. PERFORMED BY: [place] [address] PATHOLOGIST ELECTRICIAN SUPERVISOR SUBSTATION YENI BAH M.D. Performed By: #### C UU #### [address] #### VAGINITIS+ #### [facility] , Chlamydia Trachomotis, FAISAL Negative Normal Negative [facility] Comment on above: Performed By: #### C UU #### [address] #### VAGINITIS+ #### [facility] , Megasphaera Low - 0 Normal . [facility] Comment on above: [...] BV. Performed By: #### C UU #### [place] [address] [place] #### VAGINITIS+ #### [facility] , Neisseria Gonorrhoeae, FAISAL Negative Normal Negative [facility] Comment on above: Result Comment: Perf ormed at: =G - [facility] [address] [place] [id number] [place] Foreman: Dee Mendez MD, Phone: [phone] Performed By: #### C UU #### [facility] [address] [place] [address] [place] #### VAGINITIS+ #### [facility] , Tric Vag FAISAL Negative Normal Negative [facility] Comment on above: Performed By: #### C UU #### [facility] [address] [place] [address] [place] #### VAGINITIS+ #### [facility] , [place] [...] MD Transcribed by: DIANNA Technologist: KR Normal [facility] CBC w/ Auto Diffon 4 Basophils (Bld) [#/Vol] 0.0 E9/L Normal 0.0-0.2 [facility] Comment on above: Performed By: #### 2 [id number] #### [facility] [address] [place] [address] Eosinophils (Bld) [#/Vol] 0.5 E9/L Normal 0.0-0.5 [facility] Comment on above: Performed By: #### 2 [id number] #### [facility] [address] [place] [address] Eosinophils/100 WBC (Bld) 5.0 % Normal 0.0-8.0 [facility] Comment on above: Performed By: #### 2 [id number] #### [facility] [address] [place] [address] Erythrocyte distribution width (RBC) [Ratio] 12.6 % Normal 10.9-14.2 [facility] Comment on above: Performed By: #### 2 [id number] #### [facility] [address] [place] [address] Hematocrit (Bld) [Volume fraction] 42.8 % Normal 34.0-46.0 [facility] Comment on above: Performed By: #### 2 [id number] #### [facility] [address] [place] [address] Hemoglobin (Bld) [Mass/Vol] 15.0 g/dL Normal 12.0-16.0 [facility] Comment on above: Performed By: #### 2 [id number] #### [facility] [address] [place] [address] Lymphocytes (Bld) [#/Vol] 2.6 E9/L Normal 1.0-4.0 [facility] Comment on above: Performed By: #### 2 [id number] #### [facility] [address] [place] [address] Lymphocytes/100 WBC (Bld) 27.0 % Normal 14.0-50.0 [facility] Comment on above: Performed By: #### 2 [id number] #### [facility] [address] [place] [address] MCH (RBC) [Entitic mass] 33.5 pg Normal 27.0-34.0 [facility] Comment on above: Performed By: #### 2 [id number] #### [facility] [address] [place] [address] MCHC (RBC) [Mass/Vol] 35.1 g/dL Normal 31.4-36.0 [facility] Comment on above: Performed By: #### 2 [id number] #### [facility] [address] [place] [address] MCV (RBC) [Entitic vol] 95.4 fL Normal 80.0-100.0 [facility] Comment on above: Performed By: #### 2 [id number] #### [facility] [address] [place] [address] Metamyelocytes/Leukocy kandace Manual cnt (Bld) [Pure # fraction] 1 % High 0-0 [facility] Comment on above: Performed By: #### 2 [id number] #### [facility] [address] [place] [address] Monocytes (Bld) [#/Vol] 0.6 E9/L Normal 0.2-1.0 [facility] Comment on above: Performed By: #### 2 [id number] #### [facility] [address] [place] [address] Neutrophils (Bld) [#/Vol] 5.8 E9/L Invalid Interpretation Code [facility] Comment on above: Performed By: #### 2 [id number] #### [facility] [address] [place] [address] Platelet 333.0 E9/L Normal 150.0-500.0 [facility] Comment on above: Performed By: #### 2 [id number] #### [facility] [address] [place] [address] Platelet mean volume (Bld) [Entitic vol] 8.0 fL Normal 6.4-10.8 [facility] Comment on above: Performed By: #### 2 087742 #### [facility] [address] [place] [address] RBC (Bld) [#/Vol] 4.5 E12/L Normal 4.3-5.9 [facility] Comment on above: Performed By: #### 2 401063 #### [facility] [address] [place] [address] RBC size Nom (Bld) NORMAL Invalid Interpretation Code [facility] Comment on above: Performed By: #### 2 [id number] #### [facility] [address] [place] [address] Segmented neutrophils/100 WBC (Bld) 61.0 % Normal 36.0-75.0 [facility] Comment on above: Performed By: #### 2 [id number] #### [facility] [address] [place] [address] WBC corrected for nucl RBC Auto (Bld) [#/Vol] 9.6 E9/L Normal 4.0-11.0 [facility] Comment on above: Performed By: #### 2 [id number] #### [facility] [address] [place] [address] Family Medicine Office/Clini c Noteon 11-15-2023 Family [...] BID, # 20 cap(s), Refills(s) 0, Pharmacy: [facility]/pharmacy #[id number], 171, cm, 11/15/23 11:43:00 EDT, Height/Length Dosing, 77.3, kg, 11/15/23 11:43:00 EDT, Weight Dosing CBC w/ Auto Diff Lab Specimen Collect 35[address] US Extremity Non-Vascular Limited Right 2. BMI 26.0-26.9,adult (Z68.26: Body mass index [BMI] 26.0-26.9, adult) - BMI education added Ordered: clindamycin, 300 mg = 1 cap(s), Oral, BID, # 20 cap(s), Refills(s) 0, Pharmacy: [facility]/pharmacy #[id number], 171, cm, 11/15/23 11:43:00 EDT, Height/Length Dosing, 77.3, kg, 11/15/23 11:43:00 EDT, Weight Dosing CBC w/ Auto Diff Lab Specimen Collect 00803 US Extremity Non-Vascular Limited Right 3. Former smoker (Z87.891: Personal history of nicotine dependence) - Please continue to not smoke Ordered: clindamycin, 300 mg = 1 cap(s), Oral, BID, # 20 cap(s), Refills(s) 0, Pharmacy: [facility]/pharmacy #[id number], 171, cm, 11/15/23 11:43:00 EDT, Height/Length Dosing, 77.3, kg, 11/15/23 11:43:00 EDT, Weight Dosing CBC w/ Auto Diff Lab Specimen Collect 15993 US Extremity Non-Vascular Limited Right Total time [...] influenza virus vaccine, inactivated 03/11/2015 Recorded Normal [facility] Comment on above: Result Comment: [...] Ultrasound Reporton RAD - Ultrasound Report [id number] Normal [facility] C Urineon 09-28-2023 Bacteria identified Cx Nom (U) Microbiology PROCEDURE: Urine Culture [R1] SOURCE: U CleanCatch BODY SITE: COLLECTED DATE/TIME: 09/20/2023 13:11 EDT RECEIVED DATE/TIME: 09/20/2023 18:31 EDT START DATE/TIME: 09/20/2023 18:31 EDT FREE TEXT SOURCE: Vitaly SERRANO, Silas Haider MD, Silas Lockwood AMENDED REPORTS Amended Report [] Verified Date/Time: 09/28/2023 12:52 EDT Wrong patient per [facility] 09/28/2023 12:51 CSS Patient credited. CSS Performing Locations R1: This test was performed at: [facility], [address] [place] [address], [address] , , [facility] Comment on above: Performed By: #### 2 [id number] #### [facility] [address] [place] [address] Provider Letteron 09-26-2023 Provider Letter September 26, 2023 [place] [address] : 1980 Dear Celeste, We have been trying to reach you with no success. It is important that you return our call regarding your medication upon receiving this letter. Also, at the time of your call, please provide us with your current information. Thank you for your prompt attention to this matter. Sincerely, [address] [address] [facility] MM screening mammo LT w/CADo n 09-22-2023 MM screening mammo LT w/CAD [facility] [place] [address] [place] [address] Mammography Report Signed with Leatha Patient: Celeste Du MR#: [id number] 17 : 1980 Acct:[id number] Age/Sex: 42 / F ADM Date: 09/22/23 Loc: [place] Room: Type: [facility] CLI Attending Dr: Torie Walker Copies to: Torie [...] Rousseau Jr., D.O.09/22/2023 9:15 AM Dictation Location: DWS01 Addendum Dictated By: Ant Rousseau Jr DO [...] Rousseau Jr., D.O.09/22/2023 9:09 AM Dictation Location: DW01 Transcribed By: LAKSHMI 09/22/23908 Dictated By: Ant Rousseau Jr, DO 09/22/23907 Signed By: 09/22/23908 [facility] Ambulatory Visit Summaryon [...] AM EDT With: Silas Haider MD Where: [facility] [place] Normal [facility] Family Medicine Office/Clini c Noteon 09-20-2023 Family [...] virus vaccine, inactivated 03/11/2015 Recorded Normal Vasquez [facility] Comment on above: Result Comment: [...] numbers. This can be done either in [place] ([place] or metric measurements. Note that charts and online BMI calculators are available to help you find your BMI quickly and easily without having to do these calculations yourself. To calculate your BMI in [place] ([place] measurements: 1. Measure your weight in [...] for Disease Control and Prevention: www.cdc.gov ? [place] [employer]: www.heart.org ? National Heart, Lung, and Blood [place]: www.nhlbi.nih.gov Summary ? Body mass index (BMI) is a number that is calculated from a person's weight and height. ? BMI may help estimate how much of a person's weight is composed of fat. BMI can help identify those who may be at higher risk for certain medical problems. ? BMI can be measured using [place] measurements or metric measurements. ? BMI charts are used to identify whether you are underweight, normal weight, overweight, or obese. This information is not intended to replace advice given to you by your health care provider. Make sure you discuss any questions you have with your health care provider. Document Revised: 01/30/2020 Document Reviewed: 12/07/2019 [employer] Patient Education ? 2022 [employer] Normal [facility] PAP ACOG PANEL 2: 30 to 65on 10-05-2022 Age Gdln ACOG Testing 30-65 Normal [facility] Comment on above: Performed By: #### 4 [id number] #### [facility] [address] [place] [address] [address] Vicky Cordoba Vital Signs Date Time Vital Sign Value Performing Clinician Faci [facility] 12-02-2023 14:37-0400 Body height 165.1 cm MD Silas Haider Work Phone: [facility] 12-02-2023 14:37-0400 Body mass index (BMI) [Ratio] 28.3 kg/m2 MD Silas Haider Work Phone: [facility] 12-02-2023 14:37-0400 Body temperature 98.4 [degF] MD Silas Haider Work Phone: [facility] 12-02-2023 14:37-0400 Body weight 77.11 kg MD Silas Haider Work Phone: [facility] 12-02-2023 14:37-0400 Diastolic blood pressure 88 mm[Hg] MD Silas Haider Work Phone: [facility] 12-02-2023 14:37-0400 Heart rate 96 /min MD Silas Haider Work Phone: [facility] 12-02-2023 14:37-0400 SaO2% (BldA) [Mass fraction] 96 % MD Silas Haider Work Phone: [facility] 12-02-2023 14:37-0400 Systolic blood pressure 130 mm[Hg] MD Silas Haider Work Phone: [facility] 03-31-2022 16:50-0500 Blood Pressure Location Silas Haider [facility] 03-31-2022 16:50-0500 Diastolic blood pressure 74 mm[Hg] Silas Haider [facility] 03-31-2022 16:50-0500 Heart rate 99 /min Silas Haider [facility] 03-31-2022 16:50-0500 SaO2% (BldA) [Mass fraction] 97 % Silas Haider [facility] 03-31-2022 16:50-0500 Systolic blood pressure 122 mm[Hg] Silas Haider [facility] 12-31-2021 16:27-0400 Blood Pressure Location Silas Haider [facility] 12-31-2021 16:27-0400 Diastolic blood pressure 82 mm[Hg] Silas Haider [facility] 12-31-2021 16:27-0400 Heart rate 87 /min Silas Haider [facility] 12-31-2021 16:27-0400 SaO2% (BldA) [Mass fraction] 98 % Silas Haider [facility] 12-31-2021 16:27-0400 Systolic blood pressure 120 mm[Hg] Silas Haider [facility] 09-09-2021 14:09-0400 Diastolic blood pressure 104 mm[Hg] Silas Haider [facility] 09-09-2021 14:09-0400 Mean blood pressure 113 mm[Hg] Silas Haider [facility] 09-09-2021 14:09-0400 Systolic blood pressure 132 mm[Hg] Silas Haider [facility] 09-09-2021 13:20-0400 Blood Pressure Location Silas Haider [facility] 09-09-2021 13:20-0400 Diastolic blood pressure 104 mm[Hg] Silas Haider [facility] 09-09-2021 13:20-0400 Heart rate 89 /min Silas Haider [facility] 09-09-2021 13:20-0400 SaO2% (BldA) [Mass fraction] 97 % Silas Haider [facility] 09-09-2021 13:20-0400 Systolic blood pressure 138 mm[Hg] Silas Haider [facility] Encounters Encounter Date Encounter Type Care Provider Facility Start: 08-07-2024 ambulatory [facility] Start: 06-25-2024 End: 06-25-2024 ambulatory Carlin Collier MD Facility: [place] Start: 06-11-2024 End: 06-11-2024 ambulatory Carlin Collier MD Facility: [facility] Start: 05-28-2024 End: 05-28-2024 ambulatory Carlin Collier MD Facility: [facility] Start: 05-09-2024 End: 05-09-2024 ambulatory Silas Haider Facility:[facility] [place] Start: 05-07-2024 End: 05-07-2024 ambulatory Carlin Collier MD Facility: [facility] Start: 04-16-2024 End: 04-16-2024 ambulatory Carlin Collier MD Facility: [place] Start: 03-19-2024 End: 03-19-2024 ambulatory Andjody Collier MD Facility: [place] Start: 03-05-2024 End: 03-05-2024 ambulatory Silas Haider Facility:[facility] [place] Start: 02-06-2024 End: 02-06-2024 ambulatory Silas Haider Facility:[facility] [place] Start: 12-02-2023 End: 12-02-2023 ambulatory MD Silas Haider Work Phone: [facility] Work Phone: Start: 12-02-2023 End: 12-02-2023 Departed Referred MD Silas Haider Work Phone: [facility] Start: 12-02-2023 End: 12-02-2023 Patient encounter procedure MD Silas Haider Work Phone: [facility] Work Phone: Start: 11-18-2023 End: 11-18-2023 ambulatory Silas Haider Facility:[facility] Start: 11-18-2023 End: 11-18-2023 Patient encounter procedure Silas Haider [facility] Start: 11-15-2023 End: 11-15-2023 Lab Drop off Silas Haider [facility] Start: 11-15-2023 End: 11-15-2023 ambulatory Silas Haider Facility:[facility] [place] Start: 09-29-2023 End: 09-29-2023 ambulatory TORIE RGO Not Available Start: 09-22-2023 End: 09-22-2023 Patient encounter procedure MD Silas Haider Work Phone: [facility] Work Phone: Start: 09-22-2023 End: 09-22-2023 ambulatory MD Silas Haider Work Phone: [facility] Work Phone: Start: 09-20-2023 End: 09-20-2023 ambulatory Silas Haider Facility:[facility] Start: 09-20-2023 End: 09-20-2023 Lab Drop off Silas Haider [facility] Start: 09-20-2023 End: 09-20-2023 ambulatory Silas Haider Facility:[facility] [place] Start: 08-03-2023 End: 08-03-2023 ambulatory Silas Haider Facility: [facility] [place] Start: 06-14-2023 End: 06-14-2023 ambulatory TORIE WALKER Not Available Start: 09-27-2022 End: 09-27-[address] TORIE WALKER . Facility: Start: 08-31-2022 End: 08-31-2022 ambulatory MD Silas Haider Work Phone: [facility] Work Phone: Start: 08-31-2022 End: 08-31-2022 Patient encounter procedure MD Silas Haider Work Phone: [facility] Work Phone: Start: 03-31-2022 End: 03-31-2022 Patient encounter procedure Silas Haider [facility] Start: 12-31-2021 End: 12-31-2021 Patient encounter procedure Silas Haider [facility] Start: 09-09-2021 End: 09-09-2021 Patient encounter procedure Silas Haider [facility] Start: 03-06-2018 Patient encounter procedure Meka Crystal Facility:[id number] Start: 11-03-2017 Patient encounter procedure Tala Johnson Facility:[id number] Procedures Date Procedure Procedure Detail Performing Clinician Start: 09-22-2023 Screening mammograph y of left breast MD Silas Haider Work Phone: Start: 08-31-2022 Screening mammograph y of left breast MD Silas Haider Work Phone: Start: 05-23-2013 Hysterectomy Silasperi Murphy erica Start: 05-23-2011 Ligation of fallopian tube Silas [...] Date Care Activity Detail Author Start: 12-02-2023 [facility] Start: 12-02-2023 Bacteria identified in Urine by Culture [facility] Atopobium vaginae DN A [Presence] in Vaginal fluid by FAISAL with probe detection [facility] Bacterial vaginosis associated bacterium 2 DNA [Presence] in Vaginal fluid by FAISAL with probe detection [facility] Megasphaera sp type 1 DNA [Presence] in Vaginal fluid by FAISAL with probe detection [facility] Immunizations Immunization Date Immunization Notes Care Provider Fa rigo 02-20-2022 influenza virus vaccine, unspecified formulation Silas Haider [facility] 09-02-2020 SARS-CoV-2 (COVID-19 ) mRNA BNT-162b2 vax Silas Vitaly [facility] 08-12-2020 SARS-CoV-2 (COVID-19 ) mRNA BNT-162b2 vax Silas Haider [facility] 04-04-2020 influenza virus vaccine, unspecified formulation Silas Haider [facility] 03-14-2018 influenza virus vaccine, unspecified formulation Silas Haider [facility] 03-13-2017 influenza virus vaccine, unspecified formulation Silas Haider [facility] 03-11-2015 influenza virus vaccine, unspecified formulation Silas Haider [facility] NEGATED: Highlighted row has not occurred!03-24-2023 influenza virus vaccine, unspecified formulation Silas Haider [facility] Payers Date Payer Category Payer Self-pay [id number] 2023 Unknown [id number] 2023 Unknown 2022 Unknown [id number] 1978 Unknown [id number] 2.16. 840.1.271266.3.579.2.356 1978 Unknown [id number] 2.16. 840.1.138746.3.579.2.356 1978 Unknown [id number] 2.16.84 0.1.977495.3.579.2.593 1978 Unknown [id number] 2.16.84 0.1.900482.3.579.2.1259 1978 Unknown [id number] 2.16.84 0.1.084705.3.579.2.1259 1978 Unknown [id number] 2.16.8 40.1.232921.3.579.2. 1978 Unknown [id number] 2.16.8 40.1.573803.3.579.2. 1978 Unknown [id number] 2.16.8 40.1.942083.3.579.2. 1978 Unknown [id number] 2.16.8 40.1.544459.3.579.2. 1978 Unknown [id number] 2.16.8 40.1.098363.3.579.2. 1978 Unknown [id number] 2.16.8 40.1.625577.3.579.2. 1978 Unknown [id number] 2.16.8 40.1.086367.3.579.2 1978 Unknown [id number] 2.16.8 40.1.735760.3.579.2 1978 Unknown [id number] 2.16.8 40.1.933068.3.579.2 1978 Unknown [id number] 2.16.8 40.1.879512.3.579.2 1978 Unknown [id number] 2.16. 840.1.483022.3.579.2. 1978 Unknown [id number] 2.16 840.1.231034.3.579.2. 1978 Unknown [id number] 2.16 840.1.759497.3.579.2. 1978 Unknown [id number] 2.16. 840.1.275399.3.579.2. 1978 Unknown [id number] 2.16. 840.1.360632.3.579.2. 1978 Unknown [id number] 2.16. 840.1.785663.3.579.2. 1959 Unknown [id number] Unknown [id number] Unknown [id number] 2.16.8 40.1.965193.3.579.2.531 Unknown [id number] 2.16.8 40.1.758218.3.579.2.531 Social History Date Type Detail Facility Start: 01-03-2020 End: 09-09-2021 Tobacco smoking status Ex-smoker (finding) [facility] Comment on above: smokes outsi de Tobacco smoking status Never [facility] Comment on above: smokes outsi de Start: 01-28-1992 End: 08-21-2013 Sex Assigned At Female [facility] Tobacco Household tobacc o concerns: No. [facility] Tobacco smoking status No Smokin g Status Entered [facility] Start: 1980 Sex Assigned At Female F [facility] Functional Status Date Assessment Result Facility 03-31-2022 Functional Status N/A [facility] 12-31-2021 Functional Status N/A [facility] Clinical Notes 09-09-2021 to 05-09-2024 Radiology Note [...] 12 oz bottle (more content not included)... [facility] 03-05-2024 Note Patient Education Nutrition BMI for [...] for Disease Control and Prevention: cdc.gov ? [place] Heart Association: heart.org ? National Heart, Lung, and Blood [place]: nhlbi.nih.gov This information is not intended to replace advice given to you by your health care provider. Make sure you discuss any questions you have with your health care provider. Document Revised: 01/27/2023 Document Reviewed: 01/20/2023 [employer] Patient Education ? 2023 [employer]ik. [facility] 02-06-2024 Note Patient Education Nutrition BMI for [...] for Disease Control and Prevention: cdc.gov ? [place] Heart Association: heart.org ? National Heart, Lung, and Blood [place]: nhlbi.nih.gov This information is not intended to replace advice given to you by your health care provider. Make sure you discuss any questions you have with your health care provider. Document Revised: 01/27/2023 Document Reviewed: 01/20/2023 Elsevier Patient Education ? 2023 [employer]ik. [facility] 03-31-2022 Hospital Discharg e instructions Patient Education [...] care provider. This is important. Medicines Take zqan-ile-frqynqm and prescription medicines only as told by [...] 05/09/2006 Document Revised: 01/17/2019 Document Reviewed: 01/17/2019 [employer] Patient Education 2019 [employer]ik. [facility] [place] 12-31-2021 Hospital Discharg e instructions Patient Education [...] talk therapy or counseling. Seeing a nutrition services aide (dietitian). Getting appropriate exercise. Medicines to help [...] that address eating disorders. Talk with an heat treating furnace tender, therapist, or counselor about your eating [...] health care provider. This is important. Take jejp-mwk-eagfmjy and prescription medicines only as told by [...] 05/09/2006 Document Revised: 09/17/2016 Document Reviewed: 03/12/2016 [employer] Patient Education 2020 Qik. 12/31/2021 16:54:02 Hypertension, Adult Hypertension, Adult High [...] care provider. This is important. Medicines Take mnsa-owl-qdwyrvq and prescription medicines only as told by [...] 05/09/2006 Document Revised: 01/17/2019 Document Reviewed: 01/17/2019 [employer] Patient Education 2020 [employer] [facility] [place] 09-09-2021 Hospital Discharg e instructions Patient Education [...] care provider. Avoid caffeine, alcohol, and certain htju-uiq-jxyilsd cold medicines. These may make you feel worse. Ask your pharmacist which medicines to avoid. General instructions Take jcex-avs-ecboemc and prescription medicines only as told by [...] Depression Association of [place] (ADAA): www.adaa.org National [place] on [place] Illness (BRENDA): www.brenda.org Contact a [...] 05/03/2017 Document Revised: 10/09/2019 Document Reviewed: 10/09/2019 [employer] Patient Education 2019 [employer] [facility] [place] Evaluation + Plan note Future Appointments Appointment Date:12/09/2021 07:40:00 AM Scheduled Provider:Silas Haider MD Location:[facility] Appointment Type:[facility] Evaluation + Plan note Future Appointments Appointment Date:03/31/2022 04:40:00 PM Scheduled Provider:Silas Haider MD Location:[facility] Appointment Type: Open [facility] Evaluation + Plan note Future Appointments Appointment Date:09/22/2022 04:40:00 PM Scheduled Provider:Silas Haider MD Location:[facility] Appointment Type:[facility] Evaluation + Plan note Future Appointments Appointment Date:03/20/2024 07:15:00 AM Scheduled Provider:Silas Haider MD Location:[facility] Appointment Type: Open Diagnostic Tests PendingUrine Culture 09/20/23 [facility] Evaluation + Plan note Future Appointments Appointment Date:03/20/2024 07:15:00 AM Scheduled Provider:Silas Haider MD Location:[facility] Appointment Type: Open Future Scheduled TestsUS Extremity Non-Vascular Limited Right 11/15/23 [facility] Evaluation + Plan note Future Appointments Appointment Date:03/20/2024 07:15:00 AM Scheduled Provider:Silas Haider MD Location:[facility] Appointment Type:[facility] Evaluation note No assessment inform ation available [facility] Work Phone: Evaluation note Diagnosis Onset Date Vaginitis noneactive [facility] Work Phone: Hospital course Narrative No data available for this section [facility] Hospital Discharge instructions No data available for this section [facility] data available for this section [facility] Summary Purpose Family History No Family [...] section and content) DATE CREATED AUTHOR 04/30/2018 [facility] Center DATE CREATED AUTHOR AUTHOR'S ORGANIZ ATION 10/06/2022 [facility] DATE CREATED AUTHOR AUTHOR'S ORGANIZ ATION 10/01/2023 [facility] EPIC DATE CREATED AUTHOR AUTHOR'S ORGANIZ ATION 11/17/2023 [facility] DATE CREATED AUTHOR AUTHOR'S ORGANIZ ATION 12/08/2023 [facility] DATE CREATED AUTHOR AUTHOR'S ORGANIZ ATION 05/11/2024 [facility] DATE CREATED AUTHOR AUTHOR'S ORGANIZ ATION 05/12/2024 [facility] DATE CREATED AUTHOR AUTHOR'S ORGANIZ ATION 06/29/2024 [facility] Care Team (unrecognized sect ion and content) Team Status: Active Member Role Status Dates Silas Haider MD Primary Care Provider Active Team Status: Inactive Member Role Status Dates Silas Haider MD Primary Care Provider Active Torie Walker Attending Provider Active Team Status: Inactive Member Role Status Dates Silas Haider MD Primary Care Provider Active Start: September 22, 2023 End: September 22, 2023 Torie aWlker Attending Provider Active Start: Rigo leung 2023 [...] BE BASED ON THE PRIMARY CLINICAL RECORDS. [facility] [employer] provides no warranty or guarantee of the accuracy or completeness of information in this document.
--- NOTE | 2024-07-23 12:19 | P.CN_ITS ---
Consult Note: HPI Data of Consult Patient: known to practice within the last 3 years Consult date: 07/23/24 Requesting Physician: Carlin Collier MD Primary Care Provider: GARRISON ARZATE Consult Narrative Reason for consult: neck pain Narrative: 43yof who presents for in office injection. continues to have neck pain, would like to move forward with trigger point injections. cc:: CC: Carlin Collier MD Review of Systems ROS Status of ROS 10 or more systems reviewed and unremark able except as noted in history and below PFSH PFSH Medical History Anxiety ?F41.9 - Anxiety disorder, unspecified (ICD-10) HTN (hypertension) ?I10 - Essential (primary) hypertension (ICD-10) Surgical History History of hysterectomy ?Z90.710 - Acquired absence of both cervix and uterus (ICD-10) History of mastectomy ?Z90.10 - Acquired absence of unspecified breast and nipple (ICD-10) Meds Home Medications and Allergies Home Medications ?Medication ?Instructions ?Recorded ?Confirmed ?Type amlodipine 10 mg tablet (Norvasc) 10 mg PO DAILY 03/19/24 06/25/24 History clonazepam 0.5 mg tablet 0.5 mg PO Q8H 03/19/24 06/25/24 History lamotrigine 200 mg tablet 200 mg PO DAILY 03/19/24 06/25/24 History lamotrigine 25 mg tablet 50 mg PO QAM 03/19/24 06/25/24 History phentermine 37.5 mg tablet 37.5 mg PO DAILY 03/19/24 06/25/24 History (Adipex-P) tizanidine 4 mg tablet See Rx Instructions .Route 04/04/24 06/25/24 Rx .COMPLEX PRN muscle spasticity #180 tabs baclofen 5 mg tablet See Rx Instructions .Route 05/31/24 06/25/24 Rx .COMPLEX #60 tabs ibuprofen 200 mg tablet (Advil) 800 mg PO Q12H PRN pain 06/25/24 06/25/24 History Allergies Allergy/AdvReac Type Severity Reaction Status Date / Time morphine Allergy Intermediate Hives Verified 06/25/24 07:43 Exam Narrative Exam Narrative: Psych-alert and oriented x 3.? Attentive and appropriate, constitutionally normal, displays normal mood and affect per situation.? There are no obvious deficits in memory, reasoning, or intellect.? Skin-no obvious rashes, bruising, or erythema noted to the patient's area of pain. Extremities-upper extremities are warm with minimal edema and palpable pulses. Cervical- tenderness to palpation noted in the cervical spine and paraspinal musculature.?Multiple trigger points expressed on palpation. Pain is elicited with extension, and lateral rotation of the cervical spine.? Range of motion is slightly diminished due to pain. Coordination remains intact.? Gait remains non-antalgic. Assessment and Plan Assessment and Plan (1) Myalgia: Plan 43yof who presents for in office injection. still has neck pain, would like to proceed with trigger point injections. i am in agreement. follow up in 4-6 weeks. Procedure: Bilateral splenius capitis, trapezius, sternocleidomastoid trigger point injections Medications: Bupivacaine 0.25% 4cc, depomedrol 40mg x2 I explained the details of the procedure to the patient including the risks, benefits, and alternatives.? We had an informed discussion.? The patient verbalized understanding and signed the consent form.? All questions were answered appropriately.? A time-out was performed.? After obtaining a comfortable seated position, the skin overlying the neck was prepped with alcohol 3 times. The needle was inserted in a sterile manner through the skin towards the palpated trigger point areas. The contents of the syringe were gently injected without any resistance 1cc at a time into the appropriate trigger point.? The needle was removed and pressure was applied at the injection site to decrease the incidence of ecchymosis and hematoma formation.? A sterile bandage was applied. The patient tolerated the procedure well.
== END 2024-07-23 11:37 | disposition home or self-care (01) ==
LOC: PM 11:36
PROVIDERS: PCP Family Medicine; Visit Provider Anesthesiology
DX: M79.10 Myalgia, unspecified site (principal)
CPT/HCPCS: 20553; J0665; J1010

== ENCOUNTER 2024-08-20 15:00 | Outpatient (OUT) | payer OTHER, SELFPAY ==
--- NOTE | 2024-08-20 15:58 | P.CN_ITS ---
Consult Note: HPI Data of Consult Patient: known to practice within the last 3 years Consult date: 08/20/24 Requesting Physician: Carlin Collier MD Primary Care Provider: GARRISON ARZATE Consult Narrative Reason for consult: neck pain Narrative: 43yof who presents for assessment. notes persistence of pain in neck and shoulder area. notes relief after recent tpi, though cannot determine whether this was from gabapentin or trigger point injection. continues to stay active, using tens unit, which helps. uses pain meds as needed. denies adverse med side effects. cc:: CC: Carlin Collier MD Review of Systems ROS Status of ROS 10 or more systems reviewed and unremark able except as noted in history and below PFSH PFSH Medical History Anxiety ?F41.9 - Anxiety disorder, unspecified (ICD-10) HTN (hypertension) ?I10 - Essential (primary) hypertension (ICD-10) Surgical History History of hysterectomy ?Z90.710 - Acquired absence of both cervix and uterus (ICD-10) History of mastectomy ?Z90.10 - Acquired absence of unspecified breast and nipple (ICD-10) Meds Home Medications and Allergies Home Medications ?Medication ?Instructions ?Recorded ?Confirmed ?Type amlodipine 10 mg tablet (Norvasc) 10 mg PO DAILY 03/19/24 06/25/24 History clonazepam 0.5 mg tablet 0.5 mg PO Q8H 03/19/24 06/25/24 History lamotrigine 200 mg tablet 200 mg PO DAILY 03/19/24 06/25/24 History lamotrigine 25 mg tablet 50 mg PO QAM 03/19/24 06/25/24 History phentermine 37.5 mg tablet 37.5 mg PO DAILY 03/19/24 06/25/24 History (Adipex-P) tizanidine 4 mg tablet See Rx Instructions .Route 04/04/24 06/25/24 Rx .COMPLEX PRN muscle spasticity #180 tabs baclofen 5 mg tablet See Rx Instructions .Route 05/31/24 06/25/24 Rx .COMPLEX #60 tabs ibuprofen 200 mg tablet (Advil) 800 mg PO Q12H PRN pain 06/25/24 06/25/24 History Allergies Allergy/AdvReac Type Severity Reaction Status Date / Time morphine Allergy Intermediate Hives Verified 06/25/24 07:43 Exam Narrative Exam Narrative: Psych-alert and oriented x 3.? Attentive and appropriate, constitutionally normal, displays normal mood and affect per situation.? There are no obvious deficits in memory, reasoning, or intellect.? Skin-no obvious rashes, bruising, or erythema noted to the patient's area of pain. Extremities-upper extremities are warm with minimal edema and palpable pulses. Cervical- tenderness to palpation noted in the cervical spine and paraspinal musculature.? Pain is elicited with extension, and lateral rotation of the cervical spine.? Range of motion is slightly diminished due to pain. Coordination remains intact.? Gait remains non-antalgic. Assessment and Plan Assessment and Plan (1) Myalgia, unspecified site: (2) Cervical spondylosis: (3) Cervical stenosis of spinal canal: Plan 43yof who presents for assessment. failed conservative measures. at this point, will have her undergo physical therapy twice weekly for 4-6 weeks. she is in agreement. meds reviewed, will have her continue gabapentin 300mg tid. follow up after therapy.
== END 2024-08-20 15:01 | disposition home or self-care (01) ==
LOC: PM 15:00
PROVIDERS: PCP Family Medicine; Visit Provider Anesthesiology
DX: M79.18 Myalgia, other site (principal); M47.812 Spondylosis without myelopathy or radiculopathy, cervical region; M48.02 Spinal stenosis, cervical region
CPT/HCPCS: G0463

== ENCOUNTER 2024-08-27 14:54 | Outpatient (RCR) | payer OTHER, SELFPAY | END 2024-09-06 08:09 | disposition home or self-care (01) | LOC: PT 14:54 | PROVIDERS: PCP Family Medicine; Visit Provider Anesthesiology | DX: M48.02 Spinal stenosis, cervical region (principal) | CPT/HCPCS: 20561; 97012; 97110; 97161 ==

== ENCOUNTER 2024-10-09 12:53 | Outpatient (REF) | payer OTHER, SELFPAY ==
[2024-10-12 17:08] LABS: Age Gdln ACOG Testing Note (.); HPV Aptima Negative (Negative); IGP, Aptima HPV, rfx 16/18,45 Note (.)
== END 2024-10-09 12:54 | disposition home or self-care (01) ==
LOC: LAB 12:53
PROVIDERS: PCP Family Medicine; Visit Provider Obstetrics & Gynecology
DX: Z01.419 Encounter for gynecological examination (general) (routine) without abnormal findings (principal); Z90.710 Acquired absence of both cervix and uterus
CPT/HCPCS: 87624; 88175

== ENCOUNTER 2024-11-15 15:23 | Outpatient (OUT) | payer OTHER, SELFPAY ==
--- NOTE | 2024-11-15 15:55 | PM.CN ---
Consult Note: HPI Data of Consult Patient: known to practice within the last 3 years Consult date: 11/15/24 Requesting Physician: Anabel Allen NP Primary Care Provider: GARRISON ARZATE Consult Narrative Reason for consult: neck pain Narrative: 44yof who presents for evaluation. longstanding neck, and BUE pain, had mastectomy in 2014, pain began around a similar time. has continued in a series of provider directed home exercises >6 weeks, without lasting benefit. uses otc meds and topicals, as needed. utilizing tylenol PRN, tizanidine prn. tens helpful. completed dry needling with significant improvement. has not been utilizing gabapentin. cc:: CC: Anabel Allen NP Review of Systems ROS Status of ROS 10 or more systems reviewed and unremarkable except as noted in history and below Musculoskeletal Reports: neck pain PFSH PFSH Medical History Anxiety ?F41.9 - Anxiety disorder, unspecified (ICD-10) HTN (hypertension) ?I10 - Essential (primary) hypertension (ICD-10) Surgical History History of hysterectomy ?Z90.710 - Acquired absence of both cervix and uterus (ICD-10) History of mastectomy ?Z90.10 - Acquired absence of unspecified breast and nipple (ICD-10) Meds Home Medications and Allergies Home Medications ?Medication ?Instructions ?Recorded ?Confirmed ?Type amlodipine 10 mg tablet (Norvasc) 10 mg PO DAILY 03/19/24 06/25/24 History clonazepam 0.5 mg tablet 0.5 mg PO Q8H 03/19/24 06/25/24 History lamotrigine 200 mg tablet 200 mg PO DAILY 03/19/24 06/25/24 History lamotrigine 25 mg tablet 50 mg PO QAM 03/19/24 06/25/24 History phentermine 37.5 mg tablet 37.5 mg PO DAILY 03/19/24 06/25/24 History (Adipex-P) tizanidine 4 mg tablet See Rx Instructions .Route 04/04/24 06/25/24 Rx .COMPLEX PRN muscle spasticity #180 tabs baclofen 5 mg tablet See Rx Instructions .Route 05/31/24 06/25/24 Rx .COMPLEX #60 tabs ibuprofen 200 mg tablet (Advil) 800 mg PO Q12H PRN pain 06/25/24 06/25/24 History Allergies Allergy/AdvReac Type Severity Reaction Status Date / Time morphine Allergy Intermediate Hives Verified 06/25/24 07:43 Exam Constitutional Documenting provider has reviewed patient's vital signs: yes Common normals: no apparent distress, oriented x3, healthy appearing, alert and well nourished General appearance: cooperative HENMT Common normals: normocephalic, hearing grossly normal bilaterally and moist oral mucous membranes Head and scalp: normocephalic Eye Common normals: PERRL Pupil: PERRL Neck & C-Spine Common normals: full ROM General: normal visual inspection Cervical spine: cervical ROM abnormal and pain with cervical ROM Other: strength 5/5 in BUE Chest Common normals: inspection of chest normal Respiratory Common normals: normal respiratory effort, no retractions and no use of accessory muscles Neuro Common normals: oriented x3, CN's II-XII intact bilaterally, moves all extremities, no focal motor deficits, no sensory deficits noted and deep tendon reflexes 2+ bilaterally Sensorium/orientation: alert Motor exam: strength 5/5 throughout and no movement abnormalities noted Psych Common normals: mental status grossly normal, thought process normal, cooperative, affect normal, speech normal and activity/motor behavior normal Speech: normal speech Thought process: normal thought process Results Additional Findings Additional findings: If on a controlled substance or opioids, I have checked an [place]AR[place] report on this patient and there are no aberrancies noted in the prescribing history.??If on a controlled substance or opioid a drug screen was completed and reviewed within the last year, and if there has not been a drug screen completed we ordered one today to monitor higher risk, state monitored pain medication use. As part of providing excellent, safe, comprehensive care, the following was completed at our patient's visit: 1. A medication reconciliation and review to ensure accurate knowledge of current/active medications, including asking our patients to inform us about any lhmu-qfl-vdcfcnj medications or herbal remedies/nutritional supplements/alternative remedies. 2. A review to specifically ensure our patients have had annual screening for screening for depression, screening for tobacco use, and screening for unhealthy alcohol use. For concerning screenings had a discussion with the patient, provided patient education, and recommended follow-up with primary care provider when appropriate. If patient noted with a risk of falling, they received education on strength, gait, and balance training to prevent future risk of falling. Assessment and Plan Assessment and Plan (1) Cervical spondylosis: (2) Cervical radiculopathy: (3) Cervical stenosis of spinal canal: (4) Myalgia, unspecified site: Plan restart dry needling restart gabapentin 300mg BID continue tizanidine 4-8mg HS PRN pain/spasms f/u 6 months, sooner if needed
== END 2024-11-15 15:24 | disposition home or self-care (01) ==
PROVIDERS: PCP Family Medicine; Visit Provider Nurse Practitioner
DX: M47.812 Spondylosis without myelopathy or radiculopathy, cervical region (principal); M54.12 Radiculopathy, cervical region; M48.02 Spinal stenosis, cervical region; M79.18 Myalgia, other site
CPT/HCPCS: G0463

== ENCOUNTER 2024-11-19 14:54 | Outpatient (RCR) | payer OTHER, SELFPAY | END 2025-01-31 11:00 | disposition home or self-care (01) | LOC: PT 14:54 | PROVIDERS: PCP Family Medicine; Visit Provider Anesthesiology | DX: M79.18 Myalgia, other site (principal); M47.812 Spondylosis without myelopathy or radiculopathy, cervical region; M79.10 Myalgia, unspecified site | CPT/HCPCS: 20561; 97012; 97161 ==

== ENCOUNTER 2024-12-06 14:22 | Outpatient (RCR) | payer OTHER, SELFPAY | END 2024-12-07 16:49 | disposition home or self-care (01) | LOC: OT 14:22 | PROVIDERS: PCP Family Medicine; Visit Provider Nurse Practitioner | DX: M47.812 Spondylosis without myelopathy or radiculopathy, cervical region (principal); M48.02 Spinal stenosis, cervical region; M25.531 Pain in right wrist; M25.532 Pain in left wrist | CPT/HCPCS: 97166 ==

== ENCOUNTER 2025-01-10 15:23 | Outpatient (OUT) | payer OTHER, SELFPAY ==
--- OUTSIDE RECORDS SUMMARY | 2025-01-10 15:25 | XMS_ITS | Encounter Summary ---
Author Organization [facility] Address [address] [place] [address] Phone Care Team Providers Care Fruit Loader Machine Operator Name Role Phone Dalton Olvera DO Primary Care Provider + Encounter Details Date Type Department Care Team (Late st Contact Info) Description 12/04/2014 Orders Only [facility] [address] [place] [address] Conversion, Onbase Social History Tobacco Use Types Packs/Day Years Used Date Smoking Tobacco: Never Assessed Comments Unknown Sex and Gender Information Value Date Recorded Sex Assigned at Not on file Legal Sex Female 4:26 PM EST Gender Identity Not on file Sexual Orientation Not on file documented as of this encounter Plan of Treatment Scheduled Orders Name Type Priority Associated Diagnoses Orde r Schedule OUTSIDE LAB SCAN Lab Ordered: 12/04/2014 documented as of this encounter Visit Diagnoses Not on filedocumented in this encounter Care Teams Fruit Loader Machine Operator Relationship Specialty Start Date End Date Dalton Olvera DO [address] [facility] [place] [address] PCP - General 09/03/14 documented as of this encounter
--- OUTSIDE RECORDS SUMMARY | 2025-01-10 15:25 | XMS_ITS | Encounter Summary ---
Author Organization [facility] Address [address] [place] [address] Care Team Providers Care Solar Sales Associate Name Role Phone Silas Haider MD Primary Care Provider [phone] Encounter Details Date Type Department Care Team (Late Contact Info) Description 12/07/2023 Abstract [facility] [address] [place] [address] Teressa Kong LPN [address] [place] [address] Social History Tobacco Use Types Packs/Day Years Used Date Smoking Tobacco: Former Cigarettes Alcohol Use Standard Drinks/Week Comments Yes 0 (1 standard drink = 0.6 oz pure alcohol) caffeine: 1-2 cups per day coffee Comments No Sex and Gender Information Value Date Recorded Sex Assigned at Female 06/07/2023 11:45 AM EST Legal Sex Female 7:20 PM EDT Gender Identity Female 06/07/2023 11:45 AM EST Sexual Orientation Straight 06/07/2023 11 :45 AM EST Occupation Industry Job Start Date Job End Date 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 [place] [address] documented as of this encounter Visit Diagnoses Not on filedocumented in this encounter Care Teams Solar Sales Associate Relationship Specialty Start Date End Date Silas Haider MD [address] [place] [address] PCP - General Family Medicine 10/09/24 documented as of this encounter
--- OUTSIDE RECORDS SUMMARY | 2025-01-10 15:25 | XMS_ITS | Encounter Summary ---
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 Not on file Not on file documented as of this encounter Plan of Treatment Upcoming Encounters Date Type Department Care Team (Late st Contact Info) Description 10/17/2025 8:30 AM EDT Office Visit [facility] [place] [facility] [address] [place] [address] Bruce Walker DO [address] [place], [place] [phone] documented as of this encounter Procedures Procedure Name Priority Date/Time Associated Diagnosis Comments BI MAMMOGRAM SCREENING TOMOSYNTHESIS LEFT 10/02/2024 11:04 AM EDT documented in this encounter Results * Left screening mammogram with tomosynthesis (10/02/2024 11:04 AM EDT) Anatomical Region Laterality Modality Breast Left Mammography 10/02/2024 11:0 4 AM EDT Impressions 10/02/2024 11:24 AM EDT NO MAMMOGRAPHIC EVIDENCE OF MALIGNANCY. ROUTINE FOLLOW-UP IS RECOMMENDED IN ONE YEAR. RESULT CODE: 2 Benign Findings(s) DENSITY CODE: 2 (approximately 25-50% glandular) There are scattered areas of fibroglandular density. FOLLOW UP: 1YR The false-negative rate of mammography is approximately 10-percent. Management of a palpable abnormality must be based on clinical grounds. Patient was entered into a reminder system with a target due date for the next mammogram. Impression dictated by: Robert Martinez M.D. 10/02/2024 11:22 AM Dictation Location: [facility] Dictated By: Robert Martinez II, MD 10/02/24 1104 Signed By: <Electronically signed by Robert Martinez II, MD in OV> 10/02/24 1122 Narrative 10/02/2024 11:24 AM EDT [facility] [address] [place] [address] Mammography Report Signed Patient: Celeste Gambino MR#: [id number] 17 : 1980 Acct:[id number] Age/Sex: 43 / F Adm Date: 10/01/24 Loc: [place] Room: Type: [facility] Attending Dr: Bruce Walker DO Ordering Provider: Bruce Walker Date of Service: 10/01/24 Procedure(s): MM screening mammo LT w/CAD Accession Number(s): ([id number]) MM/MM screening mammo LT w/CAD: SCREENING Copies to: Bruce Haider MD CLINICAL DATA: Screening for malignancy. Left breast SCREENING MAMMOGRAMS - FULL FIELD DIGITAL WITH TOMOSYNTHESIS AND CAD Tomosynthesis craniocaudal and mediolateral oblique views of the left breast were obtained using low-dose digital technique. Comparison is made to prior studies from 10/10/2023, 08/31/2022, 08/17/2021, and 07/30/2020. This examination was reviewed with the aid of CAD. There are scattered fibroglandular densities. There is a breast implant on the left which is unchanged. Benign-appearing calcifications are redemonstrated. Benign-appearing lymph nodes are note d along the left chest wall. There are no dominant masses, typically malignant calcifications or architectural distortion. There has been no significant interval change. MM/MM screening mammo LT w/CAD Procedure Note Robert Martinez MD - 10/02/2024 [facility] [address] [place] [address] Mammography Report Signed Patient: Celeste Gambino AMR#: [id number] 17 : 1980Acct:[id number] Age/Sex: 43 / FAdm Date: 10/01/24 Loc: [place] Room:Type: [facility] Attending Dr: Bruce Walkre DO Ordering Provider: Bruce Walker Date of Service: 10/01/24 Procedure(s): MM screening mammo LT w/CAD Accession Number(s): ([id number]) MM/MM screening mammo LT w/CAD:SCREENING Copies to: Bruce Haider MD CLINICAL DATA: Screening for malignancy. Left breast SCREENING MAMMOGRAMS - FULL FIELD DIGITAL WITH TOMOSYNTHESISAND CAD Tomosynthesis craniocaudal and mediolateral oblique views of the leftbreast were obtained using low-dose digital technique. Comparison is made to prior studies from10/10/2023, 08/31/2022, 08/17/2021, and 07/30/2020. This examination was reviewed with the aid ofCAD. There are scattered fibroglandular densities. There is a breast implanton the left which is unchanged. Benign-appearing calcifications are redemonstrated.Benign-appearing lymph nodes are note d along the left chest wall. There are no dominant masses, typicallymalignant calcifications or architectural distortion. There has been no significant interval change. MM/MM screening mammo LT w/CAD IMPRESSION: NO MAMMOGRAPHIC EVIDENCE OF MALIGNANCY. ROUTINE FOLLOW-UP IS RECOMMENDED IN ONE YEAR. RESULT CODE: 2 Benign Findings(s) DENSITY CODE: 2 (approximately 25-50% glandular) There are scattered areasof fibroglandular density. FOLLOW UP: 1YR The false-negative rate of mammography is approximately 10-percent. Management of a palpable abnormality must be based on clinical grounds. Patient was entered into a reminder system with a target due date for thenext mammogram. Impression dictated by: Robert Martinez M.D. 10/02/2024 11:22 AM Dictation Location: [facility] Dictated By: Robert Martinez II, MD 10/02/24 1104 Signed By: <Electronically signed by Robert Martinez II, MD inOV> 10/02/24 1122 Bruce Walker DO IM BI PROCEDURES Final Result documented in this encounter Visit Diagnoses Not on filedocumented in this encounter Care Teams Supportive Employment Case Manager Relationship Specialty Start Date End Date Silas Haider MD [address] [place] [address] PCP - General Family Medicine 10/09/24 documented as of this encounter
--- OUTSIDE RECORDS SUMMARY | 2025-01-10 15:25 | XMS_ITS | Encounter Summary ---
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 on file Not on file Not on file documented as of this encounter Plan of Treatment Upcoming Encounters Date Type Department Care Team (Late st Contact Info) Description 10/17/2025 8:30 AM EDT Office Visit [facility] [address] [place] [address] Bruce Walker DO [address] [place] [address] [place] [address] documented as of this encounter Procedures Procedure Name Priority Date/Time Associated Diagnosis Comments PAP SMEAR Routine 10/09/2024 12:00 AM EDT documented in this encounter Results * Pap Smear (10/09/2024 12:00 AM EDT) Swab Cervical swab / Unknown Aaron Nurse [facility] CYTOLOGY ORDERABLES Final Result EXTERNAL LAB documented in this encounter Visit Diagnoses Not on filedocumented in this encounter Care Teams Sys Dir Relationship Specialty Start Date End Date Silas Haider MD [address] [place] [address] PCP - General Family Medicine 10/09/24 documented as of this encounter
--- OUTSIDE RECORDS SUMMARY | 2025-01-10 15:25 | XMS_ITS | Encounter Summary ---
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 on file Not on file documented as of this encounter Plan of Treatment Upcoming Encounters Date Type Department Care Team (Late st Contact Info) Description 10/17/2025 8:30 AM EDT Office Visit [facility] [address] [place] [address] Bruce Walker DO [address] [place] [address] [place] [address] documented as of this encounter Procedures Procedure Name Priority Date/Time Associated Diagnosis Comments PAP SMEAR Routine 09/29/2023 12:00 AM EDT documented in this encounter Results * Pap Smear (09/29/2023 12:00 AM EDT) Swab Cervical swab / Unknown Aaron [facility] CYTOLOGY ORDERABLES Final Result EXTERNAL LAB documented in this encounter Visit Diagnoses Not on filedocumented in this encounter Care Teams Inserting Press Operator Relationship Specialty Start Date End Date Silas Haider MD [address] [place] [address] PCP - General Family Medicine 10/09/24 documented as of this encounter
--- OUTSIDE RECORDS SUMMARY | 2025-01-10 15:25 | XMS_ITS | Encounter Summary ---
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 Not on file Not on file documented as of this encounter Plan of Treatment Upcoming Encounters Date Type Department Care Team (Late Contact Info) Description 10/17/2025 8:30 AM EDT Office Visit [facility] [place] [facility] [address] [place] [address] Torie Walker DO [address] [place], [place] [address] documented as of this encounter Procedures Procedure Name Priority Date/Time Associated Diagnosis Comments US PELVIS TRANSVAGINAL 09/29/2023 5:11 PM EDT IGP,APTIMA HPV,AGE GDLN Routine 09/29/2023 8:55 AM EDT documented in this encounter Results * US PELVIS TRANSVAGINAL (09/29/2023 5:11 PM EDT) Anatomical Region Laterality Modality Other 09/29/2023 5:11 PM EDT Narrative 09/29/2023 5:14 [place] [address] Ultrasound Report Signed Patient: Celeste Gambino MR#: [id number] : 1980 Acct:[id number] Age/Sex: 42 / F ADM Date: 09/29/23 Loc: [facility] Attending Dr: Torie Walker D.O. Ordering Physician: Torie Walker D.O. Date of Service: 09/29/23 Procedure(s): US pelvis transvaginal Accession Number(s): [id number] cc: Torie Walker D.O.; GARRISON ARZATE [address] [address] Patient Name: CELESTE GAMBINO MRN: [id number] date: 1980 Sex: F Assigned Patient Location: [facility] Current Patient Location: [facility] Accession/Order Number: [id number] Exam Date: 09/29/2023 09:43 Report Date: 09/29/2023 17:11 At the request of: TORIE WALKER Procedure: US pelvis transvaginal EXAMINATION: US pelvis transvaginal HISTORY: ADNEXAL FULLNESS COMPARISON: No relevant comparison available. TECHNIQUE: Transabdominal and/or transvaginal sonographic examination was performed as indicated by examination type. FINDINGS: UTERUS: Hysterectomy. RIGHT OVARY: Contains an irregular, heterogeneous, hypoechoic area, 1.6 x 0.8 x 1.4 cm. Duplex Doppler demonstrates normal waveform and flow; resistive index 0.5. Ovary size: 2.6 x 2.1 x 1.9 cm LEFT OVARY: Not seen. No suspicious adnexal findings. CUL-DE-SAC: Unremarkable. No significant free fluid. BLADDER: Unremarkable. OTHER: None. US/US pelvis transvaginal IMPRESSION: 1. Complex cyst/collapsing cyst suspected within right ovary. Consider follow-up ultrasound evaluation 6 weeks to document clearing. 2. No specific findings to account for patient's symptoms. Electronically authenticated by: TAVON BOYKIN Date: 09/29/2023 17:11 Dictated By: Tavon Boykin M.D. Signed By: 09/29/231713 DD/ 10 TD/TT: Plastic Joint Maker: Procedure Note Radiology, Radiologist, MD - 09/29/2023 [place] [address] Ultrasound Report Signed Patient: Celeste Gambino AMR#: [id number] : 1980Acct:[id number] Age/Sex: 42 / FADM Date: 09/29/23 Loc: [facility] Attending Dr: Torie Walker D.O. Ordering Physician: Torie Walker D.O. Date of Service: 09/29/23 Procedure(s): US pelvis transvaginal Accession Number(s): [id number] cc: Torie Walker D.O.; GARRISON ARZATE [place] [id number] Patient Name: CELESTE GAMBINO MRN: [id number] date: 1980 Sex: F Assigned Patient Location: [facility] Current Patient Location: [facility] Accession/Order Number: [id number] Exam Date: 09/29/2023 09:43 Report Date: 09/29/2023 17:11 At the request of: TORIE WALKER Procedure: US pelvis transvaginal EXAMINATION: US pelvis transvaginal HISTORY: ADNEXAL FULLNESS COMPARISON: No relevant comparison available. TECHNIQUE: Transabdominal and/or transvaginal sonographic examination was performed as indicated by examination type. FINDINGS: UTERUS: Hysterectomy. RIGHT OVARY: Contains an irregular, heterogeneous, hypoechoic area, 1.6 x0.8 x 1.4 cm. Duplex Doppler demonstrates normal waveform and flow; resistiveindex 0.5. Ovary size: 2.6 x 2.1 x 1.9 cm LEFT OVARY: Not seen. No suspicious adnexal findings. CUL-DE-SAC: Unremarkable. No significant free fluid. BLADDER: Unremarkable. OTHER: None. US/US pelvis transvaginal IMPRESSION: 1. Complex cyst/collapsing cyst suspected within right ovary. Consider follow-up ultrasound evaluation 6 weeks to document clearing. 2. No specific findings to account for patient's symptoms. Electronically authenticated by: TAVON BOYKIN Date: 09/29/2023 17:11 Dictated By: Tavon Boykin M.D. Signed By:09/29/231713 DD/ 10 TD/TT: Plastic Joint Maker: us Torie Aaron DO [facility] Final Result * IGP,APTIMA HPV,AGE GDLN (09/29/2023 8:55 AM EDT) AGE GDLN ACOG TESTING Note . [facility] Comment: TESTS RESULT FLAG UNITS REF RANGE LAB Clinician Provided Cytology Information Source.............Vagina No. of containers..01 ThinPrep Vial Age Algo ACOG Vee... 30-65 01 FLAG LEGEND: L-Low Normal,H-High Normal,LL-Alert Low,HH-Alert High <-Panic Low,>-Panic High,A-Abnormal,AA-Critical Abnormal Performed at: 01 =G [facility] [address] [place] [address] Dee Mendez MD, IGP, APTIMA HPV, RFX 16/18,45 Note . [facility] Comment: TESTS RESULT FLAG UNITS REF RANGE LAB DIAGNOSIS: 02 NEGATIVE FOR INTRAEPITHELIAL LESION OR MALIGNANCY. Specimen adequacy: 02 Satisfactory for evaluation. No endocervical cells are present. This is consistent with a history of hysterectomy. Performed by: Alexis Vallejo, French Tutor (ASCP) . 02 Note: Note 02 The Pap smear is a screening test designed to aid in the detection of premalignant and malignant conditions of the uterine cervix. It is not a diagnostic procedure and should not be used as the sole means of detecting cervical cancer. Both false-positive and false-negative reports do occur. Test Methodology: Note 02 This liquid based ThinPrep(R) pap test was screened with the use of an image guided system. HPV Genotype Reflex Note 02 Criteria not met, HPV Genotype not performed. FLAG LEGEND: L-Low Normal,H-High Normal,LL-Alert Low,HH-Alert High <-Panic Low,>-Panic High,A-Abnormal,AA-Critical Abnormal Performed at: [address] [address] Dee Mendez MD, HPV APTIMA Negative Negative [facility] Comment: This nucleic acid amplification test detects fourteen high- risk HPV types (16,18,31,33,35,39,45,51,52,56,58,59,66,68) without differentiation. Performed at: = - [facility] [address] [id number] Body Shop Mechanic: Dee Mendez MD, Phone: [phone] Performed at: - [facility] [id number] Body Shop Mechanic: Dee Mendez MD, Phone: [phone] 09/29/2023 8:55 AM EDT 09/29/2023 8:40 PM EDT Narrative [facility] - 10/05/2023 9:13 AM EDT SPATULA-ALONE VAGINA us Torie Aaron DO LAB BLOOD ORDERABLES Final Resul t [facility] documented in this encounter Visit Diagnoses Not on filedocumented in this encounter Care Teams Health Services Manager Relationship Specialty Start Date End Date Garrison Arzate MD [address] [place] [address] PCP - General Family Medicine 10/09/24 documented as of this encounter
--- OUTSIDE RECORDS SUMMARY | 2025-01-10 15:25 | XMS_ITS | Clinical Summary ---
Author Organization [facility] Address [address] [place] [address] Care Team Providers Care Research Administrator Name Role Phone Silas Haider MD Primary Care Provider [phone] Allergies Active Allergy Reactions Criticality Noted Date Comments Bee Venom Unknown 06/10/2023 Morphine Unknown 06/10/2023 Warburgia Salutaris Elite Chemotype Unknown 06/10/2023 Medications lamoTRIgine (LaMICtal) 200 MG tablet 05/26/2023 Active clonazePAM (KlonoPIN) 0.5 MG tablet TAKE 1 TABLET BY MOUTH IN THE MORNING AND 2 TABLETS AT BEDTIME 05/26/2023 Active amLODIPine (Norvasc) 10 MG tablet See Instructions , TAKE 1 TABLET BY MOUTH EVERY DAY, # 90 tab(s), Refills(s) 1, Pharmacy: [facility], 171, cm, 03/24/23 8:31:00 EDT, Height/Lengt h Dosing, 73.2, kg, 03/24/23 8:31:00 EDT, Weight Dosing 03/24/2023 Active cholecalciferol (Vitamin D-3) 50 MCG (1999) capsule Vitamin D Active calcium 200 MG tablet Calcium Active lamoTRIgine (LaMICtal) 50 mg split tablet Take 50 mg by mouth every other day Active Encounters Date Type Department Care Team Description 10/31/2024 Telephone [facility] [address] [place] [address] Liane Evans MA 10/23/2024 Orders Only [facility] [address] [place] [address] Teressa Kong LPN from Last 3 Months Family History Medical History Relation Name Comments Lymphoma Father Lung cancer Other Breast cancer Paternal Grandmother Colon cancer Neg Hx Ovarian cancer Neg Hx Relation Name Status Comments Father Mother Alive Other Paternal Grandmother Sister Alive Social History Tobacco Use Types Packs/Day Years [...] Date Job End Date 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 on file Not on file Last Filed Vital Signs Vital Sign Reading Time Taken Comments Blood Pressure 122/74 10/09/2024 8:58 AM EDT Pulse - - Temperature - - Respiratory Rate - - Oxygen Saturation - - Inhaled Oxygen Concentration - - Weight 70.8 kg (156 lb) 10/09/2024 8:58 AM EDT Height 167.6 cm (5' 6 ) 09/29/2023 9:06 AM EDT Body Mass Index 25.18 09/29/2023 9:06 AM EDT Plan of Treatment Upcoming Encounters Date Type Department Care Team (Late st Contact Info) Description 10/17/2025 8:30 AM EDT Office Visit [facility] [address] [place] [id number] Bruce Walker, [address] [place], [place] [id number] Health Maintenance Due Date Last Done Comments CT Colonography 1978 Colonoscopy 1978 Colorectal Cancer Screening 1978 FIT-DNA 1978 FIT 1978 FOBT 1978 Sigmoidoscopy 1978 Influenza Vaccine (#1) 2025 , 04/04/2020, 03/14/2018, Additional history exists Mammogram 10/02/2025 10/02/2024, 08/31/2022 Cervical Cancer Screening 09/28/2027 HPV/Cotest 09/28/2027 Pap Smear 10/10/2027 10/09/2024, 09/29/2023, 12/2022 Procedures Procedure Name Priority Date/Time Associated Diagnosis Comments PAP SMEAR Routine 10/09/2024 12:00 AM EDT BI MAMMOGRAM SCREENING TOMOSYNTHESIS LEFT 10/02/2024 11:04 AM EDT from Last 3 Months or Most Recently Relevant to Health Maintenance Results * Pap Smear (10/09/2024 12:00 AM EDT) Swab Cervical swab / Unknown Aaron [facility] CYTOLOGY ORDERABLES Final Result EXTERNAL LAB * Left screening mammogram with tomosynthesis (10/02/2024 [...] Martinez M.D. 10/02/2024 11:22 AM Dictation Location: [facility] Dictated By: Robert Martinez II, MD 10/02/24 1104 Signed By: <Electronically signed by Robert Martinez II, MD in [place]> 10/02/24 1122 Narrative 10/02/2024 11:24 AM EDT [facility] [address] [place] [address] [address] [place] [address] Mammography Report Signed Patient: Celeste Gambino MR#: [id number] 17 : 1980 Acct:[id number] Age/Sex: 43 / F Adm Date: 10/01/24 Loc: [place] Room: [facility] Attending Dr: Bruce Walker DO Ordering Provider: Bruce Walker Date of Service: 10/01/24 Procedure(s): MM screening mammo LT w/CAD Accession Number(s): ([id number]) MM/MM screening mammo LT w/CAD: SCREENING Copies to: rBuce Haider MD CLINICAL DATA: Screening for malignancy. [...] Procedure Note Robert Martinez MD - 10/02/2024 [facility] [address] [place] [address] Mammography Report Signed Patient: Celeste Gambino AMR#: [id number] 17 : 1980Acct:[id number] Age/Sex: 43 / FAdm Date: 10/01/24 Loc: [place] Room:Type: [facility] Attending Dr: Bruce Walker DO Ordering Provider: Bruce Walker Date of Service: 10/01/24 Procedure(s): MM screening mammo LT w/CAD Accession Number(s): ([id number]) MM/MM screening mammo LT w/CAD:SCREENING Copies to: [...] Martinez M.D. 10/02/2024 11:22 AM Dictation Location: [facility] Dictated By: Robert Martinez II, MD 10/02/24 1104 Signed By: <Electronically signed by Robert Martinez II, MD inOV> 10/02/24 1122 Bruce Walker DO IMG BI PROCEDURES Final Result from Last 3 Months or Most Recently Relevant to Health Maintenance Insurance [employer] Care Teams Research Administrator Relationship Specialty Start Date End Date Silas Haider MD [address] [place] [address] PCP - General Family Medicine 10/09/24
--- OUTSIDE RECORDS SUMMARY | 2025-01-10 15:25 | XMS_ITS | Clinical Summary ---
Author Organization [facility] Address [address] [place] [address] Phone Care Team Providers Care Bottom Painter Name Role Phone Dalton Olvera DO Primary Care Provider + Social History Tobacco Use Types Packs/Day Years Used Date Smoking Tobacco: Never Assessed Comments Unknown Sex and Gender Information Value Date Recorded Sex Assigned at Not on file Legal Sex Female 4:26 PM EST Gender Identity Not on file Sexual Orientation Not on file Plan of Treatment Not on file Care Teams Bottom Painter Relationship Specialty Start Date End Date Dalton Olvera DO [address] [facility] [place] [address] PCP - General 09/03/14
--- OUTSIDE RECORDS SUMMARY | 2025-01-10 15:25 | XMS_ITS | Clinical Summary ---
Author Organization [facility] Address [id number] [address] [place] [address] Care Team Providers Care Rfid Systems Architect Name Role Phone Silas Haider MD Primary Care Provider [phone] Allergies Active Allergy Reactions Criticality Noted Date Comments Morphine Itching 01/25/2019 Medications anastrozole (ARIMIDEX) 1 mg chemo tablet Take 1 mg by mouth daily 11/11/2018 Active buPROPion SR (WELLBUTRIN SR) 200 mg 12 hr tablet Take 200 mg by mouth daily. 11 12/16/2018 Active clonazePAM (KlonoPIN) 0.5 mg tablet Take 0.5 mg by mouth 2 (two) times a day. 5 12/14/2018 Active FLUoxetine (PROzac) 40 MG capsule 40 mg daily. Take in the morning 3 12/04/2018 Active LATUDA 60 mg tablet tablet Take 60 mg by mouth daily. 0 12/13/2018 Active amLODIPine (NORVASC) 10 mg tablet Take 10 mg by mouth daily. 11/10/2018 Active UNABLE TO FIND Med Name: Lupran shot every 6 months Active Active Problems Problem Noted Date Diagnosed Date Perianal venous thrombosis 01/25/2019 Family History Medical History Relation Name Comments No Known Problems Daughter Diabetes Father No Known Problems Maternal Grandfather No Known Problems Maternal Grandmother Arthritis Mother Lung cancer Paternal Grandfather Breast cancer Paternal Grandmother No Known Problems Sister No Known Problems Son Relation Name Status Comments Daughter Alive Father Alive Maternal Grandfather Maternal Grandmother Mother Alive Paternal Grandfather Alive Paternal Grandmother Sister Alive Son Alive Social History Tobacco Use Types Packs/Day Years Used Date Smoking Tobacco: Former Cigarettes 0.3 20 Smokeless Tobacco: Never Alcohol Use Standard Drinks/Week Comments Yes 0 (1 standard drink = 0.6 oz pur e alcohol) social Childcare Answer Date Recorded Childcare Unknown 11/01/2018 Employment Answer Date Recorded Employment Unknown 11/01/2018 Purpose - Life Answer Date Recorded Purpose and direction in life Unknown Comments Unknown Sex and Gender Information Value Date Recorded Sex Assigned at Not on file Legal Sex Female 12:05 PM EDT Gender Identity Not on file Sexual Orientation Not on file Last Filed Vital Signs Vital Sign Reading Time Taken Comments Blood Pressure 130/90 01/25/2019 1:41 PM EDT Pulse 80 01/25/2019 1:41 PM EDT Temperature - - Respiratory Rate - - Oxygen Saturation - - Inhaled Oxygen Concentration - - Weight 80.9 kg (178 lb 6.4 oz) 01/25/2019 1:41 P M EDT Height 165.1 cm (5' 5 ) 01/25/2019 1:41 PM EDT Body Mass Index 29.69 01/25/2019 1:41 PM EDT Plan of Treatment Health Maintenance Due Date Last Done Comments Depression Screening 1990 Tobacco Screening 1990 Adult BMI Screening 1996 DTaP,Tdap and Td Vaccines (1 - Tdap) 1997 Pap Smear 10/22/1999 Influenza Vaccine 01/21/2025 Medical Devices Not on file Insurance Care Teams Rfid Systems Architect Relationship Specialty Start Date End Date Silas Haider MD [address] [place] [address] PCP - General Family Medicine 01/25/19
--- NOTE | 2025-01-10 15:34 | PM.CN ---
Consult Note: HPI Data of Consult Patient: known to practice within the last 3 years Consult date: 01/10/25 Requesting Physician: Anabel Allen NP Primary Care Provider: GARRISON ARZATE Consult Narrative Reason for consult: neck pain with BUE and BLE weakness and pain Narrative: 44yof who presents for evaluation. longstanding neck, and BUE pain, had mastectomy in 2014, pain began around a similar time. has continued in a series of provider directed home exercises >6 weeks, without lasting benefit. uses otc meds and topicals, as needed. utilizing gabapentin 300mg BID without side effects, tylenol PRN, tizanidine prn. tens helpful. since last visit pt has had increased pain of right leg and numbness weakness of right arm. pt has been engaged in PT and traction therapy with improvement at times. cc:: CC: Anabel Allen NP Review of Systems ROS Musculoskeletal Reports: back pain, neck pain and extremity pain PFSH PFSH Medical History Anxiety ?F41.9 - Anxiety disorder, unspecified (ICD-10) HTN (hypertension) ?I10 - Essential (primary) hypertension (ICD-10) Surgical History History of hysterectomy ?Z90.710 - Acquired absence of both cervix and uterus (ICD-10) History of mastectomy ?Z90.10 - Acquired absence of unspecified breast and nipple (ICD-10) Meds Home Medications and Allergies Home Medications ?Medication ?Instructions ?Recorded ?Confirmed ?Type amlodipine 10 mg tablet (Norvasc) 10 mg PO DAILY 03/19/24 06/25/24 History clonazepam 0.5 mg tablet 0.5 mg PO Q8H 03/19/24 06/25/24 History lamotrigine 200 mg tablet 200 mg PO DAILY 03/19/24 06/25/24 History lamotrigine 25 mg tablet 50 mg PO QAM 03/19/24 06/25/24 History phentermine 37.5 mg tablet 37.5 mg PO DAILY 03/19/24 06/25/24 History (Adipex-P) tizanidine 4 mg tablet See Rx Instructions .Route 04/04/24 06/25/24 Rx .COMPLEX PRN muscle spasticity #180 tabs baclofen 5 mg tablet See Rx Instructions .Route 05/31/24 06/25/24 Rx .COMPLEX #60 tabs ibuprofen 200 mg tablet (Advil) 800 mg PO Q12H PRN pain 06/25/24 06/25/24 History gabapentin 300 mg capsule 300 mg PO BID #60 caps 11/15/24 Rx Allergies Allergy/AdvReac Type Severity Reaction Status Date / Time morphine Allergy Intermediate Hives Verified 06/25/24 07:43 Exam Constitutional Documenting provider has reviewed patient's vital signs: yes Common normals: no apparent distress, oriented x3, healthy appearing, alert and well nourished General appearance: cooperative HENMT Common normals: normocephalic, hearing grossly normal bilaterally and moist oral mucous membranes Head and scalp: normocephalic Eye Common normals: PERRL Pupil: PERRL Neck & C-Spine Common normals: full ROM General: normal visual inspection Cervical spine: cervical ROM abnormal and pain with cervical ROM Other: positive spurlings sensation intact BUE strength 3/5 in RUE and 5/5 in LUE Chest Common normals: inspection of chest normal Respiratory Common normals: normal respiratory effort, no retractions and no use of accessory muscles Back & Pelvis Lumbar spine/lower back: straight leg raise positive right; ROM not limited, no pain with ROM and no lumbar spinal tenderness Other: strength 4/5 in RLE and 5/5 in LLE pain following right L4,5,S1 Neuro Common normals: oriented x3 Sensorium/orientation: alert Motor exam: strength 5/5 throughout and no movement abnormalities noted Psych Common normals: mental status grossly normal, thought process normal, cooperative, affect normal, speech normal and activity/motor behavior normal Speech: normal speech Thought process: normal thought process Results Additional Findings Additional findings: If on a controlled substance or opioids, I have checked an [place]AR[place] report on this patient and there are no aberrancies noted in the prescribing history.??If on a controlled substance or opioid a drug screen was completed and reviewed within the last year, and if there has not been a drug screen completed we ordered one today to monitor higher risk, state monitored pain medication use. As part of providing excellent, safe, comprehensive care, the following was completed at our patient's visit: 1. A medication reconciliation and review to ensure accurate knowledge of current/active medications, including asking our patients to inform us about any [id number] medications or herbal remedies/nutritional supplements/alternative remedies. 2. A review to specifically ensure our patients have had annual screening for screening for depression, screening for tobacco use, and screening for unhealthy alcohol use. For concerning screenings had a discussion with the patient, provided patient education, and recommended follow-up with primary care provider when appropriate. If patient noted with a risk of falling, they received education on strength, gait, and balance training to prevent future risk of falling. Portions of this note may have been carried over from the previous visit and updated as appropriate. Please note this office utilizes paper charting in addition to the electronic medical record. A list of current medications, vitals, and PMH is available there as the clinical staff outside of myself do not have access to [facility] charting during the clinic day operations. As part of providing quality comprehensive care the current medications, vitals, and PMH were reviewed in the paper chart. Assessment and Plan Assessment and Plan (1) Cervical stenosis of spinal canal: (2) Cervical radiculopathy: (3) Cervical spondylosis: (4) Myalgia: (5) Lumbar stenosis with neurogenic claudication: Plan update stat cervical MRI without contrast due to worsening pain and neurological deficits, prior cervical mri did note moderate to severe stenosis. concerns for worsening. will refer to NS for evaluation update lumbar mri without contrast to assess lumbar stenosis with NC and RLE weakness/pain increase gabapentin 300mg capsules 2 capsules bid, ok to fill early risks vs benefits reviewed f/u to review imaging
--- OUTSIDE RECORDS SUMMARY | 2025-01-10 16:56 | XMS_ITS | CCD ---
Author Organization [facility] Care Team Providers Care Label Remover Name Role Phone Tala Johnson Unavailable Unavaila Dalton Moses Unavailable UnavailMeka Healy Unavailable Unavailable Dalton Olvera Unavailable Unavailsalvador e Silas Haider Primary Care Physician [phone] MD Silas Haider Primary Care Provider Torie Walker Attending Provider [phone] AARON ., DR VOGT Attending Unavailable AARON ., DR VOGT Consulting Unavailable AARON ., DR VOGT Admitting Unavailable Silas Haider Primary Care Physician MD Silas Haider Primary Care Provider [phone] Torie Walker Attending Provider MD Silas Haider Primary Care Provider DO Torie Walker Attending Provider MANDI Sánchez Attending Provider Silas Haider Attending Unavailable Silas Haider Attending Unavailable Silas Haider Admitting Unavailable Silas Haider Admitting Unavailable Silas Haider Attending Unavailable Silas Haider Attending Unavailable Silas Haider Attending Unavailable Silas Haider Attending Unavailable Nando SERRANO, Carlin Rodrigues Attending Unavailable Nando SERRANO, Carlin Rodrigues Attending Unavailable Nando SERRANO, Carlin Rodrigues Attending Unavailable Nando SERRANO, Carlin Rodrigues Attending Unavailable Nando SERRANO, Andrius Rodrigues Attending Unavailable Nando SERRANO, Carlin Rodrigues Attending Unavailable Nando SERRANO, Andjody Rodrigues Attending Unavailable Nando SERRANO, Carlin Rodrigues Attending Unavailable Manisha Sánchez Admitting UnavailManisha Mcbride Attending Unavailabl e Silas Haider Primary Care Unavailable AaronTorie yanez Admitting Unavailable Yamil Walkery Attending Unavailable AaronTorie yanez DO Attending Provider Silas Haider MD Primary Care Provider Unavailable Primary Care Provider Unavailsalvador e TORIE WALKER Attending Unavailable Silas Haider MD Primary Care Provider Silas Haider Attending Unavailable Silas Haider Attending Unavailable Silas Haider Referring Unavailable Silas Haider Admitting Unavailable Silas Haider Attending Unavailable Silas Haider Admitting Unavailable Silas Haider Attending Unavailable Silas Haider Attending Unavailable Silas Haider Attending Unavailable Allergies Allergy Classification Reported Allergen(s) Allergy Type Date of Onset Reaction(s) Facility (16 sources) Morphine; Translations: [morphine] Drug Allergy 7 Itching (finding), Unknown [facility] [place] (6 sources) aprepitant; Translations: [aprepitant] Drug Allergy 7 Unknown Reaction [facility] (1 source) Morphine Drug Allergy 4 [facility] Repository (3 sources) Honey bee venom Allergy to substance 4 Unknown [facility] (3 sources) [place] Salutaris Elite Chemotype Propensity to adverse reactions 4 Unknown [facility] Healthcare Medications Current Medications Medication Drug Class(es) Dates Sig (Normalized) Sig (Original) 0.5 ML semaglutide 2 MG/ML Auto-Injector (1 source) Start: 09-09-2021 End: 11-04-2021 Wegovy (1 mg dose) subcutaneous solution 1 mg, SubCutaneous, qWeek, INJECT 1 PEN UNDER THE SKIN EVERY WEEK, X 4 week(s), # 4 EA, Refills(s) 1, Pharmacy: [facility]/pharmacy #[id number], 171, cm, 09/09/21 13:28:00 EDT, Height/Length Dosing, 75.9, kg, 09/09/21 13:28:00 EDT, Weight Dosing Start Date: 09/09/21 Stop Date: 11/04/21 Status: Ordered 0.75 ML semaglutide 3.2 MG/ML Auto-Injector [Wegovy] (2 sources) Start: 03-31-2022 inject 2.4 mg by subcutaneous injection every week Wegovy (2.4 mg dose) subcutaneous solution 2.4 mg, SubCutaneous, qWeek, # 12 EA, Refills(s) 1, Pharmacy: [facility] #[id number], 171, cm, 03/31/22 16:52:00 EST, Height/Length Dosing, 75.7, kg, 03/31/22 16:52:00 EST, Weight Dosing Start Date: 03/31/22 Status: Ordered Start: 12-31-2021 inject 2.4 mg by sub cutaneous injection every week Wegovy (2.4 mg dose) subcutaneous solution 2.4 mg, SubCutaneous, qWeek, # 12 EA, Refills(s) 1, Pharmacy: [facility] #[id number], 171, cm, 12/31/21 16:30:00 EDT, Height/Length Dosing, 76.7, kg, 12/31/21 16:30:00 EDT, Weight Dosing Start Date: 12/31/21 Status: Ordered amLODIPine 10 mg oral tablet (20 sources) Dihydropyridine Calcium Channel Ted Start: 03-24-2023 take 1 tablet by mouth once daily amLODIPine (Norvasc) 10 MG tablet See Instructions, TAKE 1 TABLET BY MOUTH EVERY DAY, # 90 tab(s), Refills(s) 1, Pharmacy: [facility], 171, cm, 03/24/23 8:31:00 EDT, Height/Length Dosing, 73.2, kg, 03/24/23 8:31:00 EDT, Weight Dosing 03/24/2023 Active Start: 01-18-2017 End: 12-08-2021 take 1 tablet by mouth once daily Amlodipine 10 mg tablet Discontinued 10 MG PO Daily 90 90 November 08, 2018 11:40am January 03, 2020 3:26pm 12 hr buPROPion hydrochloride 100 mg extended release oral tablet (6 sources) Aminoketone Start: 09-09-2021 take 1 tablet [...] 18, 2017 12:00am December 02, 2023 2:37pm Calcium (3 sources) Phosphate Binder, Calcium calcium 200 MG tablet Calcium Active calcium carbonate 1500 mg / cholecalciferol 800 unt chewable tablet (5 sources) Vitamin D Start: 01-19-20 Calcium Carbonate-Vitamin D3 (Caltrate 600 + D) 600 mg (1,500 mg)-800 unit Tablet,Chewable Active 1 TAB PO Twice daily January 18, 2017 12:00am clindamycin 300 mg oral capsule (2 sources) Lincosamide Antibacterial Start: 11-15-19 take 1 capsule by mouth twice daily clindamycin 300 mg oral cap 300 mg = 1 cap(s), Oral, BID, # 20 cap(s), Refills(s) 0, Pharmacy: [facility]/pharmacy #[id number], 171, cm, 11/15/23 11:43:00 EDT, Height/Length Dosing, 77.3, kg, 11/15/23 11:43:00 EDT, Weight Dosing Start Date: 11/15/23 Status: Ordered clonazePAM 0.5 mg oral tablet (19 sources) Benzodiazepine Start: 09-10-19 take 1 tablet by mouth in the morning, then take 2 tablets by mouth at bedtime clonazePAM (KlonoPIN) 0.5 MG tablet TAKE 1 TABLET BY MOUTH IN THE MORNING AND 2 TABLETS AT BEDTIME 05/26/2023 Active Start: 09-09-2021 take 0.05 mg by mout [...] 1 tablet by mouth three times daily as needed for anxiety Clonazepam 1 mg Tablet Discontinued 0.5 - 1 TAB PO Three times daily as needed for Anxiety January 18, 2017 12:00am November 08, 2018 8:08am lamoTRIgine 200 mg oral tablet (17 sources) Mood Stabilizer, Anti-epileptic Agent Start: 12-02-2023 Lamotrigine 25 mg tablet Active MG PO December 02, 2023 12:00am Start: 12-02-2023 Lamotrigine Ac tive MG PO December 02, 2023 12:00am Start: 05-26-2023 lamoTRIgine (L aMICtal) 200 MG tablet 05/26/2023 Active Start: 12-31-2021 take 1 tablet by fran th once daily LaMICtal XR 250 mg oral tablet, extended release 250 mg = 1 tab(s), Oral, Daily, Refills(s) 0 Start Date: 12/31/21 Status: Ordered Start: 06-13-2019 End: 12-02-2023 take 1 tablet by mouth once daily Lamotrigine 100 mg tablet Discontinued 100 MG PO Daily June 13, 2019 1:00am December 02, 2023 2:37pm lamoTRIgine (LaMICtal) 50 mg split tablet (3 sources) take 1 tablet by mouth every other day lamoTRIgine (LaMICtal) 50 mg split tablet Take 50 mg by mouth every other day Active lurasidone hydrochloride 60 mg oral tablet (13 sources) Atypical Antipsychotic Start: 09-10-19 take 1 tablet by mouth once daily [...] Daily, # 90 cap(s), Refills(s) 1, [id number] 171, cm, 03/31/22 16:52:00 EST, Height/Length Dosing, 75.7, kg, 03/31/22 16:52:00 EST, Weight Dosing Start Date: 03/31/22 Status: Ordered Start: 12-31-2021 take 1 capsule by [facility] once daily omeprazole 40 mg Cap-DR 40 mg = 1 cap(s), Oral, Daily, # 90 cap(s), Refills(s) 1, Pharmacy: [facility]/pharmacy #[id number], 171, cm, 12/31/21 16:30:00 EDT, Height/Length Dosing, 76.7, kg, 12/31/21 16:30:00 EDT, Weight Dosing Start Date: 12/31/21 Status: Ordered omeprazole 40 mg Cap-DR (1 source) Start: 09-09-2021 End: 12-08-2021 take 1 capsule by mouth once daily omeprazole 40 mg Cap-DR 40 mg = 1 cap(s), Oral, Daily, X 90 day(s), # 90 cap(s), Refills(s) 0, [id number] 171, cm, 09/09/21 13:28:00 EDT, Height/Length Dosing, 75.9, kg, 09/09/21 13:28:00 EDT, Weight Dosing Start Date: 09/09/21 Stop Date: 12/08/21 Status: Ordered terconazole 4 mg/ml vaginal cream (4 sources) Azole Antifungal Start: 10-09-2024 End: 10-16-2024 terconazole (Terazol 7) 0.4 % vaginal cream Indications: Yeast infection Insert 1 applicator into the vagina at bedtime for 7 days 45 g 10/09/2024 10/16/2024 Active Start: 12-02-2023 Terconazole 0. 4 % cream Active VAGINAL December 02, 2023 12:00am Start: 12-02-2023 Terconazole Ac tive VAGINAL December 02, 2023 12:00am Completed/Discontinued Medications Medication Drug Class(es) Dates Sig (Normalized) Sig (Original) acetaminophen 325 mg / HYDROcodone bitartrate 5 mg oral tablet (10 sources) Opioid Agonist Start: 10-03-2018 End: 11-08-2018 take 1 tablet by mouth every four to six hours as needed for pain Hydrocodone-Acetami nophen ([place]) 5-325 mg tablet Discontinued 1 TAB PO EVERY 4-6 HOURS as needed for pain 40 7 October 03, 2018 November 08, 2018 8:07am Start: 01-18-2017 End: 01-27-2017 take 2 tablets by mouth every four to six hours as needed for pain Hydrocodone-Acetaminophen ([place]) 5-325 mg Tablet Discontinued 2 TAB PO EVERY 4-6 HOURS as needed for Pain January 18, 2017 12:00am January 27, 2017 8:37am anastrozole 1 mg oral tablet (20 sources) Aromatase Inhibitor Start: 01-18-2017 End: 12-02-2023 take 1 tablet by mouth once daily Anastrozole (Arimidex) 1 mg Tablet Discontinued 1 MG PO daily June 11, 2019 9:50am December 02, 2023 2:37pm Black Cohosh (5 sources) Start: 01-18-2017 End: 01-27-2017 take 1 tablet by mouth once daily [place] 20 mg Tablet Discontinued 1 TAB PO Daily January 18, 2017 12:00am January 27, 2017 8:21am Start: 01-18-2017 End: 01-27-2017 take 1 tablet by mouth once daily [place] Discontinued 1 TAB PO Daily January 18, 2017 12:00am January 27, 2017 8:21am busPIRone hydrochloride 30 mg oral tablet (10 sources) Start: 03-28-2018 End: 10-03-2018 take 1 tablet by mouth twice daily Buspirone 30 mg Tablet Discontinued 30 MG PO Twice daily March 28, 2018 1:00am October 03, 2018 8:27am Start: 01-18-2017 End: 07-20-2017 Buspirone 10 mg Tablet Disco ntinued 15 MG PO Twice daily January 18, 2017 12:00am July 20, 2017 9:16am Start: 01-18-2017 End: 07-20-2017 take 15 mg by mouth twice daily Buspirone Discontinued 15 MG PO Twice daily January 18, 2017 12:00am July 20, 2017 9:16am cholecalciferol 0.025 mg oral tablet (8 sources) Vitamin D Start: 01-18-2017 End: 07-20-2017 take 2 tablets by mouth once daily Cholecalciferol (Vitamin D3) 1,000 unit Tablet Discontinued 2 TAB PO Daily January 18, 2017 12:00am July 20, 2017 9:17am cholecalciferol (Vitamin D-3) 50 MCG (2000 UT) capsule Vitamin D Active cyclobenzaprine hydrochloride 10 mg oral tablet (5 sources) Muscle Relaxant Start: 03-08-2017 End: 03-28-2018 take 1 tablet by mouth every eight hours as needed for pain Cyclobenzaprine 10 mg tablet Discontinued 10 MG PO Q8H as needed for pain March 08, 2017 11:29am March 28, 2018 9:17am docusate sodium 100 mg oral capsule (5 sources) Start: 01-18-2017 End: 03-28-2018 Docusate Sodium (Colace) 100 mg Capsule Discontinued 50 MG PO daily January 18, 2017 12:00am March 28, 2018 9:17am estradiol 0.1 mg/ml vaginal cream (10 sources) Estrogen Start: 01-18-2017 End: 10-03-2018 Estradiol (Estrace) 0.01 % (0.1 mg/gram) Cream Discontinued 1 GM VAGINAL As Directed January 18, 2017 12:00am October 03, 2018 8:28am Start: 01-18-2017 End: 07-20-2017 Estradiol (Vagifem) 10 mcg T ablet Discontinued 10 MCG VAGINAL Twice a Week January 18, 2017 12:00am July 20, 2017 9:18am fluconazole 150 mg oral tablet (4 sources) Azole Antifungal Start: 10-09-2024 End: 10-09-2024 take 1 tablet by mouth once, then take 1 tablet by mouth once fluconazole (Diflucan) 150 MG tablet Indications: Yeast infection Take 1 tablet (150 mg) by mouth 1 (one) time for 1 dose This is a 1 time dose, take single tablet by mouth. 1 tablet 1 10/09/2024 10/09/2024 Start: 12-02-2023 Fluconazole 15 0 mg tablet Active 150 MG PO Q3D 2 December 02, 2023 12:00am Take 1, repeat after 72 hours if symptoms continue FLUoxetine 40 mg oral capsule (10 sources) Serotonin Reuptake Inhibitor Start: 03-28-2018 End: 12-02-2023 take 1 capsule by mouth once daily Fluoxetine (Prozac) 40 mg Capsule Discontinued 40 MG PO Daily March 28, 2018 1:00am December 02, 2023 2:37pm Start: 01-18-2017 End: 03-28-2018 take 2 capsules by mouth once daily Fluoxetine 40 mg Capsule Discontinued 80 MG PO daily January 18, 2017 12:00am March 28, 2018 9:19am Start: 01-18-2017 End: 03-28-2018 take 80 mg by mouth once daily Fluoxetine Discontinued 80 MG PO daily January 18, 2017 12:00am March 28, 2018 9:19am ibuprofen 800 mg oral tablet (5 sources) Nonsteroidal Anti-inflammatory Drug Start: 03-08-2017 End: 12-02-2023 take 1 tablet by mouth three times daily as needed for pain Ibuprofen 800 mg tablet Discontinued 800 MG PO Three times daily as needed for pain March 08, 2017 11:26am December 02, 2023 2:37pm 1.5 ml leuprolide acetate 15 mg/ml prefilled syringe (5 sources) Gonadotropin Releasing Hormone Receptor Agonist Start: 01-18-2017 End: 06-13-2019 Leuprolide (3 Month) (Lupron Depot (3 Month)) 22.5 mg Syringe Kit Discontinued 22.5 MG IM Q6M January 18, 2017 12:00am June 13, 2019 9:19am lisinopril 5 mg oral tablet (10 sources) Angiotensin Converting Enzyme Inhibitor Start: 10-03-2018 End: 11-08-2018 take 1 tablet by mouth once daily Lisinopril 5 mg Tablet Discontinued 5 MG PO Daily October 03, 2018 12:00am November 08, 2018 8:08am Start: 01-18-2017 End: 01-27-2017 take 1 tablet by mouth once daily Lisinopril 5 mg Tablet Discontinued 5 MG PO daily January 18, 2017 12:00am January 27, 2017 8:20am phentermine hydrochloride 37.5 mg oral capsule (5 sources) Sympathomimetic Amine Anorectic Start: 11-08-2018 End: 06-13-2019 take 1 capsule by mouth once daily 30 minutes after breakfast Phentermine 37.5 mg Capsule Discontinued 37.5 MG PO Daily 90 90 November 08, 2018 12:00am June 13, 2019 9:11am must administer 30 minutes before or 1-2 hours after breakfast traZODone hydrochloride 50 mg oral tablet (5 sources) Serotonin Reuptake Inhibitor Start: 01-18-2017 End: 01-27-2017 take 1 tablet by mouth at bedtime Trazodone 50 mg Tablet Discontinued 50 MG PO Bedtime January 18, 2017 12:00am January 27, 2017 8:19am Problems Active Problems Problem Classification Problem Date Documented Date Episodic/Chronic Anxiety disorders (7 sources) Anxiety disorder; Translations: [Anxiety disorder, unspecified] Onset: 09-09-2021 Chronic Cancer of breast (10 sources) Malignant tumor of breast ; Translations: [Malignant neoplasm of unspecified site of right female breast] 03-28-2018 Chronic Comment on above: Problem List clean-u p per request of Phys. EHR Cmte Conditions associated with dizziness or vertigo (3 sources) Benign paroxysmal positional vertigo 12-08-2022 Episodic Esophageal disorders (7 sources) Gastroesophageal reflux disease without esophagitis; Translations: [Gastro-esophageal reflux disease without esophagitis] Onset: 09-09-2021 Chronic Essential hypertension (12 sources) Essential hypertension; Translations: [Essential (primary) hypertension] Onset: 09-09-2021 Chronic Immunizations and screening for infectious disease (1 source) Encounter for screening for human papillomavirus (HPV); Translations: [ENC SCREENING HUMAN PAPILLOMAVIRUS] Onset: 09-30-2022 Episodic Inflammatory diseases of female pelvic organs (1 source) Acute vaginitis; Translations: [Vaginitis and vulvovaginitis, unspecified] 12-02-2023 Episodic Lymphadenitis (3 sources) Cervical lymphadenopathy 09-20-2023 Episodic Mood disorders (6 sources) Depressive disorder; Translations: [Depression, unspecified] Onset: 09-09-2021 Chronic Mycoses (2 sources) Mycosis; Translations: [Candidiasis, unspecified] 10-09-2024 Episodic Neoplasms of unspecified nature or uncertain behavior (5 sources) Neoplasm of uncertain behavior of skin of cheek; Translations: [Neoplasm of uncertain behavior of skin] 03-28-2018 Episodic Comment on above: Problem List clean-u p per request of Phys. EHR Cmte Other aftercare (3 sources) Drug therapy finding; Translations: [Encounter for therapeutic drug level monitoring] 06-13-2019 Episodic Other aftercare (2 sources) Long-term current use of drug therapy; Translations: [Encounter for therapeutic drug level monitoring] 06-13-2019 Episodic Other liver diseases (5 sources) Lesion of liver; Translations: [Liver disease, [...] conditions (not mental disorders or infectious disease) (15 sources) Patient encounter status; Translations: [Encounter for screening for osteoporosis] Onset: 09-27-2022 01-05-2020 Episodic Comment on above: Problem List clean-u p per request of Phys. EHR Cmte Otitis media and related conditions (3 sources) Serous otitis media 09-20-2023 Episodic Residual codes; unclassified (5 sources) History of hysterectomy for benign disease; Translations: [Acquired absence of both cervix and uterus] 01-27-2017 Episodic Screening and history of mental health and substance abuse codes (1 source) H/O: Disorder; Translations: [Personal history of nicotine dependence] Onset: 12-31-2021 Episodic Sprains and strains (5 sources) Strain of neck muscle; Translations: [Strain of muscle, fascia and tendon at neck level, initial encounter] 06-13-2019 Episodic Comment on above: Problem List clean-u p per request of Phys. EHR Cmte Unclassified (3 sources) Patient encounter status 09-22-2022 Past or Other Problems Problem Classification Problem Date Documented Date Episodic/Chronic Other female genital disorders (1 source) Other specified noninflammatory disorders of vagina; Translations: [Other specified noninflammatory disorders of vagina] Onset: 12-02-2023 Episodic Results Test Name Value Interpretation Reference Range Facility Ambulatory Visit Summaryon 0 11-06-2024 Ambulatory Visit Summary Ambulatory Visit Summary CELESTE DU :1980 Visit Date:11/06/2024 Ambulatory Visit Instructions Your Diagnosis Essential (primary) hypertension Cervicalgia Your Care Team Attending Physician - Silas Haider MD Primary Care Physician - Silas Haider MD This Is Your Medications List amlodipine (amLODIPine 10 mg Tab) clonazepam (ClonazePAM 0.5 mg Tab) gabapentin (gabapentin 300 mg Cap) lamotrigine (LaMICtal XR 250 mg oral tablet, extended release) Procedures Performed Hysterectomy (2013), Tubal ligation (2011), Delivery (11/23/2007), Delivery (07/21/1999), Mastectomy of right breast. Discharge Vitals Temperature (Oral) 36.5 ???C Heart Rate (Peripheral) 65 Respiratory Rate 20 Blood Pressure 122/86 Height 171.0 cm Height 67 in Weight 73.6 kg Weight 162.26 lb BMI 25.17 Medications What How Much When Instructions Unchanged amlodipine (amLODIPine 10 mg Tab) See instructions TAKE 1 TABLET BY MOUTH EVERY DAY Unchanged clonazepam (ClonazePAM 0.5 mg Tab) See instructions Take one orally in the am and 2 at bedtime Unchanged gabapentin (gabapentin 300 mg Cap) TAKE 1 CAPSULE TWICE A DAY Unchanged lamotrigine (LaMICtal XR 250 mg oral tablet, extended release) See instructions 50mg orally in the am and 200mg at night Allergies morphine (Itching) Problems Ongoing - Any problem that you are currently receiving treatment for. Annual physical exam Anxiety and depression BMI 25.0-25.9,adult BPPV (benign paroxysmal positional vertigo) Excessive dietary caloric intake Former smoker GERD without esophagitis Primary hypertension Patient Survey You may receive a survey via text or e-mail asking about your office visit. Please share your experience with us by completing your survey. We appreciate your feedback and thank you for choosing us for your care. Normal Vasquez [facility] Family Medicine Office/Clini c Noteon 11-06-2024 Family Medicine Office/Clinic Note Family Medicine Office/Clinic Note Chief Complaint The patient presents for blood pressure management and a referral for physical therapy for neck pain. HPI Staff Patient presents for 3 month f/u on meds Follow up for Mental Status: Medication adherence- Yes, takes medication as prescribed Medication refill needed: _ Suicidal thoughts-Not at this time Most recent SAW: 3 Most recent PHQ: 1 wants a referral for PT for neck needs refills amlodipine History of Present Illness - The patient is a 44-year-old female presenting with hypertension management and neck pain. - Hypertension: Currently managed with medication, showing good control as evidenced by today's blood pressure reading. - Neck pain: Previously treated with injections and physical therapy, including needling, which was beneficial. The patient is seeking to resume physical therapy with an upcoming appointment. Review of Systems PHQ Score Initial Depression Screen Score: 0 SCORE Physical Exam Vitals & Measurements T: 36.5 ???C(Oral) HR: 65(Peripheral) RR: 20 BP: 122/86 SpO2: 97% HT: 171.0 cm HT: 67 in WT: 73.6 kg WT: 162.26 lb BMI: 25.17 General: alert, no acute distress ENMT: oral mucosa moist Cardiovascular: Regular rate and rhythm, normal peripheral perfusion Respiratory: Lungs clear to auscultation, respirations non labored Extremities: no deformity, no trauma Neurological: oriented x 4, level of consciousness appropriate for age, CN II-XII intact, motor strength equal & normal bilaterally, speech normal Abdomen: Soft, Non-tender, Non-distended, + Bowel sounds Assessment/Plan 1. Essential (primary) hypertension (I10) - Continue current antihypertensive medication as blood pressure is well-controlled. Ordered: Physical Therapy Evaluation - External Facility 2. Cervicalgia (M54.2) - Referral to physical therapy for continuation of treatment, including needling, as previously effective. Ordered: Physical Therapy Evaluation - External Facility Orders: amlodipine, See Instructions, TAKE 1 TABLET BY MOUTH EVERY DAY, # 90 tab(s), Refills(s) 1, Pharmacy: [facility], 171, cm, 11/06/24 15:08:00 EDT, Height/Length Dosing, 73.6, kg, 11/06/24 15:08:00 EDT, Weight Dosing - 44-year-old female with well-controlled hypertension, presenting for medication refill and management. - Neck pain: History of effective management with injections and physical therapy, seeking continuation of therapy. I discussed with the patient the current management of her hypertension, which is well-controlled with her current medication regimen. We also talked about her neck pain management, and I agreed to provide a referral for physical therapy, as she has found needling beneficial in the past. We confirmed her upcoming appointment for further therapy. - Continue taking your blood pressure medication as prescribed. - Attend your scheduled physical therapy appointment at the end of the month. Follow-up No qualifying data available Problem List/Past Medical History Ongoing Annual physical exam Anxiety and depression BMI 25.0-25.9,adult BPPV (benign paroxysmal positional vertigo) Excessive dietary caloric intake Former smoker GERD without esophagitis Primary hypertension Historical No qualifying data Procedure/Surgical History Hysterectomy (2013), Tubal ligation (2011), Delivery (11/23/2007), Delivery (07/21/1999), Mastectomy of right breast. Medications amLODIPine 10 mg Tab, See Instructions, 1 refills ClonazePAM 0.5 mg Tab, See Instructions gabapentin 300 mg Cap LaMICtal XR 250 mg oral tablet, extended release, See Instructions Allergies morphine (Itching) Social History Alcohol Never., 11/06/2024 Previous treatment: None., 09/09/2021 Substance Abuse Past. Marijuana. 1-2 times per month. Previous treatment: None., 05/06/2024 Tobacco Former smoker, quit more than 30 days ago Tobacco Use:. Never Smokeless Tobacco Use:. Cigarettes, Household tobacco concerns: No. Yes, 11/06/2024 Family History Acute myocardial infarction: Father. Diabetes [...] virus vaccine, inactivated 03/11/2015 Recorded Normal Vasquez [facility] Comment on above: Result Comment: Elec tronically Signed By: Vitaly SERRANO, Silas Vinson.minoo\Date and Time Signed: 11/06/24 15:58 EDT Provider Letteron 11-06-2024 Provider Letter Provider Letter November 06, 2024 [facility] [place] [address] : 1980 To Whom It May Concern, Please excuse above patient from work early due to a doctors appointment Date of Illness: From: _11-06-24 To: _ May Return to Work On:11-07-24 Restrictions: _ Comments: _ Sincerely, [place] [address] Normal [facility] Urinalysis macro (dipstick) panel (U)on 10-09-2024 Bilirubin, UA Negative Negative - 4(70) +++ mg/dL [facility] Blood, UA Negative Negative - 50 Ha/mcL [facility] Clarity, UA Clear [facility] Color, UA Yellow [facility] Glucose, UA Negative Negative - 1999(110) ++++ mg/dL [facility] Interpretation and review of laboratory results Normal [facility] Ketones, UA Negative Negative - 160(16) ++++ mg/dL [facility] Leukocytes, UA Negative Negative - 500+++ Zenon/mcL [facility] Nitrite, UA Negative Negative - Positive [facility] pH, UA 7 5 - 9 [facility] Protein, UA Negative Negative - 1999(20) ++++ mg/dL [facility] Spec Grav, UA 1.02 1 - 1.03 [facility] Urobilinogen, UA 0.2 0.2 - 12 mg/dL [facility] MM screening mammo LT w/CADo n 10-02-2024 MM screening mammo LT w/CAD [facility] [address] [place] [address] Mammography Report Signed Patient: Celeste Du MR#: [id number] 17 : 1980 Acct:[id number] Age/Sex: 43 / F Adm Date: 10/01/24 Loc: MD Room: Type: [facility] Attending Dr: Torie Walker DO Ordering Provider: Torie Walker Date of Service: 10/01/24 Procedure(s): MM screening mammo LT w/CAD Accession Number(s): ([id number]) MM/MM screening mammo LT w/CAD: SCREENING Copies to: Torie Haider MD CLINICAL DATA: Screening for malignancy. [...] Martinez M.D. 10/02/2024 11:22 AM Dictation Location: [facility] Dictated By: Robert Martinez II, MD 10/02/24 1104 Signed By: 10/02/24 1122 Normal [facility] Mammography reportOrdered By : Robert Martinez on 10-02-2024 Diagnostic imaging study [facility] [address] [place] [address] Mammography Report Signed Patient: Celeste Du MR#: [id number] : 1980 Acct:[id number] Age/Sex: 43 / F Adm Date: 5 Loc: MD Room: Type: [facility] CLI Attending Dr: Torie Walker DO Ordering Provider: Torie Walker Date of Service: 10/01/24 Procedure(s): MM screening mammo LT w/CAD Accession Number(s): ([id number]) MM/MM screening mammo LT w/CAD: SCREENING Copies to: Torie Haider MD~ CLINICAL DATA: Screening for malignancy. Left breast [...] calcifications are redemonstrated. Benign-appearing lymph nodes are noted along the left chest wall. There are [...] Martinez M.D. 10/02/2024 11:22 AM Dictation Location: [facility] Dictated By: Robert Martinez II, MD 10/02/24 1101 Signed By: 10/02/24 1122 [facility] Work Phone: Ambulatory Visit Summaryon 0 08-07-2024 Ambulatory Visit Summary Ambulatory Visit Summary CELESTE DU :1980 Visit Date:08/07/2024 Ambulatory Visit Instructions Your Diagnosis Anxiety and depression Excessive dietary caloric intake GERD without esophagitis Primary hypertension BMI 25.0-25.9,adult Former smoker Depression, unspecified Your Care Team Attending Physician - Silas Haider MD Primary Care Physician - Silas Haider MD This Is Your Medications List Misc Prescription (BACLOFEN 10 MG TABLET) amlodipine (amLODIPine 10 mg Tab) clonazepam (ClonazePAM 0.5 mg Tab) gabapentin (gabapentin 300 mg Cap) lamotrigine (LaMICtal XR 250 mg oral tablet, extended release) phentermine (Adipex-P 37.5 mg oral capsule) trazodone (traZODONE 50 mg Tab) Procedures Performed Hysterectomy (2013), Tubal ligation (2011), Delivery (11/23/2007), Delivery (07/21/1999), Mastectomy of right breast. Discharge Vitals Respiratory Rate 18 Blood Pressure 112/78 Height 171 cm Height 67 in Weight 74.9 kg Weight 165.126 lb BMI 25.61 What to do next Scheduled Follow-Up Appointments Tuesday 7:00 AM EDT With: Vitaly SERRANO, Silas Lockwood Where: [facility] [address] [address]- Medications What How Much When Instructions Unchanged amlodipine (amLODIPine 10 mg Tab) See instructions TAKE 1 TABLET BY MOUTH EVERY DAY Unchanged clonazepam (ClonazePAM 0.5 mg Tab) See instructions Take one orally in the am and 2 at bedtime Unchanged gabapentin (gabapentin 300 mg Cap) TAKE 1 CAPSULE TWICE A DAY Unchanged lamotrigine (LaMICtal XR 250 mg oral tablet, extended release) See instructions 50mg orally in the am and 200mg at night Unchanged Misc Prescription (BACLOFEN 10 MG TABLET) TAKE 1 TABLET BY MOUTH THREE TIMES A DAY NEEDED Unchanged phentermine (Adipex-P 37.5 mg oral capsule) 1 Capsules By Mouth Every day Unchanged trazodone (traZODONE 50 mg Tab) See instructions TAKE ONE-HALF (1/ 2) TABLET DAILY AT BEDTIME Allergies morphine (Itching) Problems Ongoing - Any problem that you are currently receiving treatment for. Annual physical exam Anxiety and depression BMI 25.0-25.9,adult BPPV (benign paroxysmal positional vertigo) Excessive dietary caloric intake Former smoker GERD without esophagitis LAD (lymphadenopathy), cervical Primary hypertension Patient Survey You may receive a survey via text or e-mail asking about your office visit. Please share your experience with us by completing your survey. We appreciate your feedback and thank you for choosing us for your care. Normal [facility] Family Medicine Office/Clini c Noteon 08-07-2024 Family Medicine Office/Clinic Note Family Medicine Office/Clinic Note Chief Complaint Follow up The patient presents for a follow-up on chronic health problems, medication management, and skin concerns. HPI Staff 3m follow up Follow up for Mental Status: Medication adherence- Yes, takes medication as prescribed Medication refill needed: _ Suicidal thoughts-Not at this time Most recent SAW: 7 Most recent PHQ: 6 Started on phentermine Sleeping well:Yes, 6-8 hours Chest pain:No Tremors:No Headaches:No Heart fluttering:No Blurred Vision:No Starting Weight:186lbs Weight last visit: 168lbs Weight this visit: 165lbs States she is done with adipex. History of Present Illness The patient is a 43-year-old female presenting for a follow-up on her chronic health issues. She has been diagnosed with anxiety, depression, primary hypertension, gastroesophageal reflux disease, and maintains a BMI within the overweight category. Her medical history is significant for skin cancer, requiring regular dermatological assessments. Recently, she reported experiencing ongoing severe neck pain managed through pharmacological interventions, including baclofen and gabapentin, with adjustments in her medication regimen due to fatigue. Tizanidine has been prioritized for managing insomnia over trazodone, demonstrating greater efficacy. A cutaneous concern was noted on her back, initially identified by another individual, prompting consideration for a dermatological evaluation due to her previous skin cancer history. Additionally, she disclosed utilizing medical marijuana for pain relief after work hours, aligning with the acknowledgment and conditional support provided by her employer. She expressed intentions to secure a medical marijuana card to formalize her usage amidst potential workplace policy changes. - Discussions regarding dermatological evaluations due to history of skin cancer. - Considerations for continued management of anxiety and depression. - Emphasis on weight management strategies given BMI status. - Assessment and monitoring of hypertension and GERD management. - Consideration of acquiring a medical marijuana card for pain management. - Encouragement for continued smoking cessation and lifestyle modifications. - Plan for ongoing pain management strategies with oversight of current medications. Review of Systems PHQ Score Initial Depression Screen Score: 0 SCORE Physical Exam Vitals & Measurements RR: 18 BP: 112/78 HT: 67 in HT: 171 cm WT: 74.9 kg WT: 165.126 lb BMI: 25.61 General: alert, no acute distress ENMT: oral mucosa moist Cardiovascular: Regular rate and rhythm, normal peripheral perfusion Respiratory: Lungs clear to auscultation, respirations non labored Extremities: no deformity, no trauma Neurological: oriented x 4, level of consciousness appropriate for age, CN II-XII intact, motor strength equal & normal bilaterally, speech normal Abdomen: Soft, Non-tender, Non-distended, + Bowel sounds Assessment/Plan 1. Anxiety and depression (F41.9: Anxiety disorder, unspecified) The patient's anxiety is currently managed with existing treatments, showing stability without recent alterations. Further follow-up and symptom monitoring should continue in future visits. 2. Excessive dietary caloric intake (R63.2: Polyphagia) General guidance towards healthier dietary habits aligns with her BMI management, though explicit intake strategies were reserved for future focus. 3. GERD without esophagitis (K21.9: Gastro-esophageal reflux disease without esophagitis) GERD therapy continues as previously established, with adjustments contingent upon potential symptom resurgence or assessments. 4. Primary hypertension (I10: Essential (primary) hypertension) Stable on hypertensive therapy, the patient requires routine monitoring but encountered no specific therapeutic readjustments. 5. BMI 25.0-25.9,adult (Z68.25: Body mass index [BMI] 25.0-25.9, adult) Addressing weight concerns was not extensively prioritized this visit, though it remains inherent in her comprehensive health maintenance strategy. 6. Former smoker (Z87.891: Personal history of nicotine dependence) The patient maintains her former smoker status, with health advantages from this as a consideration for overall preventive care. Depression, unspecified (F32.A: Depression, unspecified) Ongoing management with prescribed medications for depression was affirmed without necessitating acute changes, maintaining therapeutic effectiveness from prior appointments. 43-year-old female with history of anxiety disorder, depression, primary hypertension, GERD, and a BMI indicating overweight status, presenting for follow-up on chronic conditions and management strategies. Current treatment predominantly involves managing chronic pain and insomnia, with consideration for the formalization of medical marijuana usage following occupational health requirements. Continued attention to dermatological (more content not included)... Normal [facility] Comment on above: Result Comment: Elec tronically Signed By: Vitaly SERRANO, Silas Lockwood\.br\Date and Time Signed: 08/07/24 07:50 EDT Provider Letteron 08-07-2024 Provider Letter Provider Letter August 07, 2024 [place] [address] : 1980 To Whom It May Concern, Please excuse above patient from work, due to a doctors appointment Date of Illness: From: _ To: _ May Return to Work On:08-07-24 Restrictions: _ Comments: _ Sincerely, [address] [address] [facility] Ambulatory Visit Summaryon 1 07-10-2023 Ambulatory Visit [...] AM EDT With: Silas Haider MD Where: [address] [address]- Medications What How Much When Instructions Unchanged [...] right and (more content not included)... Normal [facility] Family Medicine Office/Clini c Noteon 05-09-2024 Family [...] do 1 more month to carry through [place] and then we will do every other [...] Pharmacy: [facility], 171, cm, 05/09/24 8:25:00 EST, Height/Length Dosing, 76.3, kg, 05/09/24 8:25:00 EST, Weight Dosing phentermine, 37.5 mg = 1 cap(s), Oral, Daily, # 30 cap(s), Refills(s) 1, Pharmacy: [facility]/pharmacy #[id number], 171, cm, 05/09/24 8:25:00 EST, Height/Length [...] virus vaccine, inactivated 03/11/2015 Recorded Normal [facility] Comment on above: Result Comment: [...] EST With: Vitaly SERRANO, Silas Lockwood Where: [address] Medications What How Much When Instructions [...] for choosing us for your care. Normal [facility] Medicine Office/Clini c Noteon 03-05-2024 Family Medicine [...] # 15 tab(s), Refills(s) 0, [facility]acy: [facility], 171, cm, 03/05/24 15:51:00 EDT, Height/Length Dosing, 79.6, kg, 03/05/24 15:51:00 EDT, Weight Dosing [facility]erral 2. Anxiety and depression [...] bedtime), # 15 tab(s), Refills(s) 0, Pharmacy: [facility], 171, cm, 03/05/24 15:51:00 EDT, Height/Length Dosing, 79.6, kg, 03/05/24 15:51:00 EDT, Weight Dosing [facility] Amb[place] Referral 3. Insomnia (G47.00: Insomnia, [...] bedtime), # 15 tab(s), Refills(s) 0, Pharmacy: [facility], 171, cm, 03/05/24 15:51:00 EDT, Height/Length Dosing, 79.6, kg, 03/05/24 15:51:00 EDT, Weight Dosing [facility] Amb[facility] Referral 4. Osteoarthritis (M19.90: Unspecified osteoarthritis, unspecified site) The patient reports exacerbated osteoarthritis symptoms focused around the clavicle. Present management strategies, including the use of [id number] analgesics, have not (more content not included)... Normal [facility] Comment on above: Result Comment: Elec tronically Signed By: Vitaly SERRANO, Silas Vinson.minoo\Date and Time Signed: 03/05/24 16:14 EDT Family [...] BID, # 20 cap(s), Refills(s) 0, Pharmacy: [facility]/pharmacy #[id number], 171, cm, 11/15/23 11:43:00 EDT, Height/Length Dosing, 77.3, kg, 11/15/23 11:43:00 EDT, Weight Dosing 6. Excessive dietary caloric intake (R63.2: Polyphagia) Will do Adipex at this time. Will do it at a lower BMI as her anxiety and depression have some concerns and her weight. Orders: phentermine, 37.5 mg = 1 cap(s), Oral, Daily, # 30 cap(s), Refills(s) 0, Pharmacy: [facility]/pharmacy #[id number], 171, cm, 02/06/24 16:09:00 EDT, Height/Length [...] influenza virus vaccine, inactivated 03/11/2015 Recorded Normal [facility] Comment on above: Result Comment: Elec tronically Signed By: Vitaly SERRANO, Silas Vinson.br\Date and Time Signed: 02/06/24 18:09 EDT Urine Cultureon 12-02-2023 Bacteria identified Cx Nom (U) <9,000 colonies/ml mixed bacterial skin contaminants 2 Days PERFORMED BY: [place] [address] PATHOLOGIST SALESMAN/OWNER YENI BAH M.D. Normal [facility] Comment on above: Performed By: #### C UU #### [address] #### VAGINITIS+ #### [facility] , Vaginitis Plus (VG+)on 12-01 Atopobium Vaginae Moderate - 1 Normal . [facility] Comment on above: Result Comment: This test was developed and its performance characteristics determined by [facility]. It has not been cleared or approved by the Food and Drug Administration. Performed By: #### C UU #### [place] [address] [place] #### VAGINITIS+ #### [facility] , BVAB2 Low - 0 Normal . [facility] Comment on above: Result Comment: This test was developed and its performance characteristics determined by [facility]. It has not been cleared or approved by the Food and Drug Administration. Performed By: #### C UU #### [address] #### VAGINITIS+ #### [facility] , Dolores Albicans, FAISAL Negative Normal Negative [facility] Comment on above: Result Comment: This test was developed and its performance characteristics determined by [facility]. It has not been cleared or approved by the Food and Drug Administration. Performed By: #### C UU #### [address] #### VAGINITIS+ #### [facility] , Dolores Glabrata, FAISAL Negative Normal Negative [facility] Comment on above: Result Comment: This test was developed and its performance characteristics determined by [facility]. It has not been cleared or approved by the Food and Drug Administration. PERFORMED BY: [place] [address] PATHOLOGIST SALESMAN/OWNER YENI BAH M.D. Performed By: #### C UU #### [address] #### VAGINITIS+ #### [facility] , Chlamydia Trachomotis, FAISAL Negative Normal Negative [facility] Comment on above: Performed By: #### C UU #### [place] [address] [place] #### VAGINITIS+ #### [facility] , Megasphaera Low - 0 Normal . [facility] Comment on above: Result [...] BV. Performed By: #### C UU #### [facility] [address] [place] [address] #### VAGINITIS+ #### [facility] , Neisseria Gonorrhoeae, FAISAL Negative Normal Negative [facility] Comment on above: Result Comment: Perf ormed at: =G - [facility] [address] [id number] [address] [employer]urrage Clerk: Dee Mendez MD, Phone: [phone] Performed By: #### C UU #### [facility] [address] [place] [address] #### VAGINITIS+ #### [facility] , Tric Vag FAISAL Negative Normal Negative [facility] Comment on above: Performed By: #### C UU #### [facility] [address] [place] [address] #### VAGINITIS+ #### [facility] , US Head/Neck [...] MD Transcribed by: DIANNA Technologist: KR Normal [facility] CBC w/ Auto Diffon Basophils (Bld) [#/Vol] 0.0 E9/L Normal 0.0-0.2 [facility] Comment on above: Performed By: #### 2 [id number] ####[facility] [address] [place] [address] Eosinophils (Bld) [#/Vol] 0.5 E9/L Normal 0.0-0.5 [facility] Comment on above: Performed By: #### 2 [id number] ####[address] [address] Eosinophils/100 WBC (Bld) 5.0 % Normal 0.0-8.0 [facility] Comment on above: Performed By: #### 2 870531 ####[address] [address] Erythrocyte distribution width (RBC) [Ratio] 12.6 % Normal 10.9-14.2 [facility] Comment on above: Performed By: #### 2 714205 #### [facility] [address] [place] [address] Performed By: #### 2 381158 ####[address] [address] Hematocrit (Bld) [Volume fraction] 42.8 % Normal 34.0-46.0 [facility] Comment on above: Performed By: #### 2 135480 #### [facility] [address] [place] [address] Performed By: #### 2 896941 ####[place] [address] [place] [address] Hemoglobin (Bld) [Mass/Vol] 15.0 g/dL Normal 12.0-16.0 [facility] Comment on above: Performed By: #### 2 563899 #### [facility] [address] [place] [address] Performed By: #### 2 [id number] ####[place] [address] Lymphocytes (Bld) [#/Vol] 2.6 E9/L Normal 1.0-4.0 [facility] Comment on above: Performed By: #### 2 642388 ####[place] [address] Lymphocytes/100 WBC (Bld) 27.0 % Normal 14.0-50.0 [facility] Comment on above: Performed By: #### 2 969587 ####[place] [address] MCH (RBC) [Entitic mass] 33.5 pg Normal 27.0-34.0 [facility] Comment on above: Performed By: #### 2 469230 #### [facility] [address] [place] [address] Performed By: #### 2 772553 ####[place] [address] MCHC (RBC) [Mass/Vol] 35.1 g/dL Normal 31.4-36.0 [facility] Comment on above: Performed By: #### 2 754691 #### [facility] [address] [place] [address] Performed By: #### 2 500460 ####[place] [address] MCV (RBC) [Entitic vol] 95.4 fL Normal 80.0-100.0 [facility] Comment on above: Performed By: #### 2 260476 #### [facility] [address] [place] [address] Performed By: #### 2 217508 ####[place] [id number] Metamyelocytes/Leukoc ytes Manual cnt (Bld) [Pure # fraction] 1 % High 0-0 [facility] Comment on above: Performed By: #### 2 504487 ####[address] [place] [address] Monocytes (Bld) [#/Vol] 0.6 E9/L Normal 0.2-1.0 [facility] Comment on above: Performed By: #### 2 974174 ####[facility] [address] [place] [address] Neutrophils (Bld) [#/Vol] 5.8 E9/L Invalid Interpretation Code [facility] Comment on above: Performed By: #### 2 656289 ####[facility] [address] [place] [address] Platelet 333.0 E9/L Normal 150.0-500.0 [facility] Comment on above: Performed By: #### 2 544565 #### [facility] [address] [place] [address] Performed By: #### 2 495411 ####[address] [address] Platelet mean volume (Bld) [Entitic vol] 8.0 fL Normal 6.4-10.8 [facility] Comment on above: Performed By: #### 2 056672 #### [facility] [address] [place] [address] Performed By: #### 2 193945 ####[address] [address] RBC (Bld) [#/Vol] 4.5 E12/L Normal 4.3-5.9 [facility] Comment on above: Performed By: #### 2 017991 #### [facility] [address] [place] [address] Performed By: #### 2 869124 ####[address] [address] RBC size Nom (Bld) NORMAL Invalid Interpretation Code [facility] Comment on above: Performed By: #### 2 290655 ####[facility] [address] [place] [address] Segmented neutrophils/100 WBC (Bld) 61.0 % Normal 36.0-75.0 [facility] Comment on above: Performed By: #### 2 548127 ####[facility] [address] [place] [address] WBC corrected for nucl RBC Auto (Bld) [#/Vol] 9.6 E9/L Normal 4.0-11.0 [facility] Comment on above: Performed By: #### 2 600905 #### [facility] [address] [place] [address] Performed By: #### 2 768820 ####[facility] [address] [place] [id number] Family Medicine Office/Clini c Noteon 11-15-2023 Family [...] CBC w/ Auto Diff Lab Specimen Collect [address] US Extremity Non-Vascular Limited Right 2. BMI 26.0-26.9,adult (Z68.26: Body mass index [BMI] 26.0-26.9, adult) - BMI education added Ordered: clindamycin, 300 mg = 1 cap(s), Oral, BID, # 20 cap(s), Refills(s) 0, Pharmacy: [facility]/pharmacy #[id number], 171, cm, 11/15/23 11:43:00 EDT, Height/Length Dosing, 77.3, kg, 11/15/23 11:43:00 EDT, Weight Dosing CBC w/ Auto Diff Lab Specimen Collect 35956 US Extremity Non-Vascular Limited Right 3. Former smoker (Z87.891: Personal history of nicotine dependence) - Please continue to not smoke Ordered: clindamycin, 300 mg = 1 cap(s), Oral, BID, # 20 cap(s), Refills(s) 0, Pharmacy: [facility]/pharmacy #[id number], 171, cm, 11/15/23 11:43:00 EDT, Height/Length Dosing, 77.3, kg, 11/15/23 11:43:00 EDT, Weight Dosing CBC w/ Auto Diff Lab Specimen Collect [address] US Extremity Non-Vascular Limited Right Total time [...] virus vaccine, inactivated 03/11/2015 Recorded Normal [facility] Comment on above: Result Comment: [...] Normal 80.0 - 100.0 fL Remisol Heme Metamyelocytes/Leukoc ytes Manual cnt (Bld) [Pure # fraction] 1 [...] - Ultrasound Reporton RAD - Ultrasound Report [id number] Normal [facility] C Urineon 09-28-2023 Bacteria identified Cx Nom (U) Microbiology PROCEDURE: Urine Culture [R1] SOURCE: U CleanCatch BODY SITE: COLLECTED DATE/TIME: 09/20/2023 13:11 EDT RECEIVED DATE/TIME: 09/20/2023 18:31 EDT START DATE/TIME: 09/20/2023 18:31 EDT FREE TEXT SOURCE: Silas Haider MD, MD, Silas Lockwood AMENDED REPORTS Amended Report [] Verified Date/Time: 09/28/2023 12:52 EDT Wrong patient per [facility] 09/28/2023 12:51 CSS Patient credited. CSS Performing Locations R1: This test was performed at: [facility], [address] [place] [address], [address]- , [place], [facility] Comment on above: Performed By: #### 2 [id number] #### [facility] [address] [place] [address] Provider Letteron 09-26-2023 Provider Letter September 26, 2023 [place] [address] : 1980 Dear Celeste, We have been trying to reach you with no success. It is important that you return our call regarding your medication upon receiving this letter. Also, at the time of your call, please provide us with your current information. Thank you for your prompt attention to this matter. Sincerely, [place] [address] [facility] Ambulatory Visit Summaryon 0 09-20-2023 Ambulatory Visit [...] Follow-Up Appointments Tuesday 7:15 AM EDT With: Vitaly SERRANO, Silas Lockwood Where: [facility] Medicine [place] [facility] Medicine Office/Clini c Noteon 09-20-2023 Family Medicine [...] DAY, # 90 tab(s), Refills(s) 1, Pharmacy: [facility], 171, cm, 09/20/23 10:53:00 EDT, [...] virus vaccine, inactivated 03/11/2015 Recorded Normal Vasquez [facility] Comment on above: Result Comment: Elec tronically Signed By: Vitaly SERRANO, Silas Lockwood\.br\Date and Time Signed: 09/20/23 14:05 EDT Patient [...] numbers. This can be done either in Malagasy (U.S.) or metric measurements. Note that charts and online BMI calculators are available to help you find your BMI quickly and easily without having to do these calculations yourself. To calculate your BMI in Malagasy ([place].S.) measurements: 1. Measure your weight in [...] for Disease Control and Prevention: www.cdc.gov ? [place] Heart Association: www.heart.org ? National Heart, Lung, and Blood Ash: www.nhlbi.nih.gov Summary ? Body mass index (BMI) is a number that is calculated from a person's weight and height. ? BMI may help estimate how much of a person's weight is composed of fat. BMI can help identify those who may be at higher risk for certain medical problems. ? BMI can be measured using Malagasy measurements or metric measurements. ? BMI charts are used to identify whether you are underweight, normal weight, overweight, or obese. This information is not intended to replace advice given to you by your health care provider. Make sure you discuss any questions you have with your health care provider. Document Revised: 01/30/2020 Document Reviewed: 12/07/2019 [employer] Patient Education ? 2022 [employer] Normal [facility] PAP ACOG PANEL 2: 30 to 65on 10-05-2022 Age Gdln ACOG Testing 30-65 Normal [facility] Comment on above: Performed By: #### [id number] #### [facility] [address] [address] [address] Vicky Cordoba Vital Signs Date Time Vital Sign Value Performing Clinician Facility 10-09-2024 08:58-0400 Body mass index (BMI) [Ratio] 25.18 kg/m2 Torie Aaron DO Work Phone: [facility] 10-09-2024 08:58-0400 Body weight 70.76 kg Torie Aaron DO Work Phone: [facility] 10-09-2024 08:58-0400 Diastolic blood pressure 74 mm[Hg] Torie Aaron DO Work Phone: [facility] 10-09-2024 08:58-0400 Systolic blood pressure 122 mm[Hg] Torie Aaron DO Work Phone: [facility] 12-02-2023 14:37-0400 Body height 165.1 cm MD Silas Haider Work Phone: [facility] 12-02-2023 14:37-0400 Body mass index (BMI) [Ratio] 28.3 kg/m2 MD Silas Haider Work Phone: [facility] 12-02-2023 14:37-0400 Body temperature 98.4 [degF] MD Silas Haider Work Phone: [facility] 12-02-2023 14:37-0400 Body weight 77.11 kg MD Silas Haider Work Phone: [facility] 12-02-2023 14:37-0400 Diastolic blood pressure 88 mm[Hg] MD Silas Haider Work Phone: [facility] 12-02-2023 14:37-0400 Heart rate 96 /min MD Silas Haider Work Phone: [facility] 12-02-2023 14:37-0400 SaO2% (BldA) [Mass fraction] 96 % MD Silas Haider Work Phone: [facility] 12-02-2023 14:37-0400 Systolic blood pressure 130 mm[Hg] MD Silas Haider Work Phone: [facility] 03-31-2022 16:50-0500 Blood Pressure Location Silas Haider [facility] 03-31-2022 16:50-0500 Diastolic blood pressure 74 mm[Hg] Silas Haider [facility] 03-31-2022 16:50-0500 Heart rate 99 /min Silas Haider [facility] 03-31-2022 16:50-0500 SaO2% (BldA) [Mass fraction] 97 % Silas Haider [facility] 03-31-2022 16:50-0500 Systolic blood pressure 122 mm[Hg] Silas Haider [facility] 12-31-2021 16:27-0400 Blood Pressure Location Silas Haider [facility] 12-31-2021 16:27-0400 Diastolic blood pressure 82 mm[Hg] Silas Haider [facility] 12-31-2021 16:27-0400 Heart rate 87 /min Silas Haider [facility] 12-31-2021 16:27-0400 SaO2% (BldA) [Mass fraction] 98 % Silas Haider [facility] 12-31-2021 16:27-0400 Systolic blood pressure 120 mm[Hg] Silas Haider [facility] 09-09-2021 14:09-0400 Diastolic blood pressure 104 mm[Hg] Silas Haider [facility] 09-09-2021 14:09-0400 Mean blood pressure 113 mm[Hg] Silas Haider [facility] 09-09-2021 14:09-0400 Systolic blood pressure 132 mm[Hg] Silas Haider [facility] 09-09-2021 13:20-0400 Blood Pressure Location Silas Haider [facility] 09-09-2021 13:20-0400 Diastolic blood pressure 104 mm[Hg] Silas Haider [facility] 09-09-2021 13:20-0400 Heart rate 89 /min Silas Haider [facility] 09-09-2021 13:20-0400 SaO2% (BldA) [Mass fraction] 97 % Silas Haider [facility] 09-09-2021 13:20-0400 Systolic blood pressure 138 mm[Hg] Silas Haider [facility] Encounters Encounter Date Encounter Type Care Provider Facility Start: 11-06-2024 End: 11-06-2024 ambulatory Silas Haider Facility:[facility] Start: 10-09-2024 End: 10-09-2024 Bamboo flowsheet Torie Aaron DO Work Phone: [facility] Start: 10-09-2024 End: 10-09-2024 Bamboo flowsheet Torie Aaron DO Work Phone: [facility] Start: 10-09-2024 End: 10-09-2024 Patient encounter procedure Torie Aaron DO Work Phone: [facility] Start: 10-09-2024 End: 10-09-2024 Periodic preventive med est patient 40-64yrs Torie Aaron DO Work Phone: [facility] Comment on above: Well woman exam with routine gynecological exam; H/O: hysterectomy; Yeast infection Start: 10-09-2024 End: 10-09-2024 ambulatory TORIE AARON Not Available Start: 10-01-2024 End: 10-01-2024 Patient encounter procedure Silas Haider MD Work Phone: [facility] Work Phone: Start: 10-01-2024 End: 10-01-2024 ambulatory Silas Haider Facility:[facility] Start: 08-20-2024 End: 08-20-2024 ambulatory Carlin Collier MD Facility: [place] Start: 08-07-2024 End: 08-07-2024 ambulatory Silas Haider Facility:[facility] [place] Start: 07-23-2024 End: 07-23-2024 ambulatory Kaushikus Ceceas Nando SERRANO Facility:[facility] [place] Start: 06-25-2024 End: 06-25-2024 ambulatory Kaushikus Lyricytautas Laliitis Facility: [place] Start: 06-11-2024 End: 06-11-2024 ambulatory Carlin Wagnerautas Laliitis Facility: [place] Start: 05-28-2024 End: 05-28-2024 ambulatory Kaushikus Lyricytautas Laliitis Facility: [place] Start: 05-09-2024 End: 05-09-2024 ambulatory Silas Haider Facility:[facility] [place] Start: 05-07-2024 End: 05-07-2024 ambulatory Carlin Wagnerautas Laliitis Facility: [place] Start: 04-16-2024 End: 04-16-2024 ambulatory Carlin Gunterytautas Nando SERRANO Facility: [place] Start: 03-19-2024 End: 03-19-2024 ambulatory Carlin Gunterytautas Nando SERRANO Facility:[facility] [place] Start: 03-05-2024 End: 03-05-2024 ambulatory Silas Haider Facility:[facility] [place] Start: 02-06-2024 End: 02-06-2024 ambulatory Silas Haider Facility:[facility] [place] Start: 12-02-2023 End: 12-02-2023 ambulatory MD Silas Haider Work Phone: [facility] Work Phone: Start: 12-02-2023 End: 12-02-2023 Departed Referred MD Silas Haider Work Phone: [facility] Start: 12-02-2023 End: 12-02-2023 Patient encounter procedure MD Silas Haider Work Phone: [facility] [place] Work Phone: Start: 11-18-2023 End: 11-18-2023 ambulatory Silas Haider Facility:[facility] Start: 11-18-2023 End: 11-18-2023 Patient encounter procedure Silas Haider [facility] Start: 11-15-2023 End: 11-15-2023 Lab Drop off Silsa Haider [facility] Start: 11-15-2023 End: 11-15-2023 ambulatory Silas Haider Facility:[facility] [place] Start: 09-22-2023 End: 09-22-2023 ambulatory MD Silas Haider Work Phone: [facility] Work Phone: Start: 09-22-2023 End: 09-22-2023 Patient encounter procedure MD Silas Haider Work Phone: [facility] Work Phone: Start: 09-20-2023 End: 09-20-2023 ambulatory Silas Haider Facility:[facility] Start: 09-20-2023 End: 09-20-2023 Lab Drop off Silas Haider [facility] Start: 09-20-2023 End: 09-20-2023 ambulatory Silas Haider Facility:[facility] [place] Start: 08-03-2023 End: 08-03-2023 ambulatory Silas Haider Facility:[facility] [place] Start: 09-27-2022 End: 09-27-[address] TORIE WALKER . Facility: Start: 08-31-2022 End: 08-31-2022 ambulatory MD Silas Haider Work Phone: [facility] Work Phone: Start: 08-31-2022 End: 08-31-2022 Patient encounter procedure MD Silas Haider Work Phone: [facility] Work Phone: Start: 03-31-2022 End: 03-31-2022 Patient encounter procedure Silas Haider [facility] Start: 12-31-2021 End: 12-31-2021 Patient encounter procedure Silas Haider [facility] Start: 09-09-2021 End: 09-09-2021 Patient encounter procedure Silas Haider [facility] Start: 03-06-2018 Patient encounter procedure Meka Sangita [place] Facility:[id number] Start: 11-03-2017 Patient encounter procedure Tala Prattid Facility:[id number] Procedures Date Procedure Procedure Detail Performing Clinician Start: 10-09-2024 Urnls dip stick/tabl et rgnt non-auto w/o micrscp Torie Aaron DO Work Phone: Start: 10-02-2024 Mammography Torie Fadeepika o DO Work Phone: Start: 09-29-2023 Microscopic observat ion [Identifier] in Cervix by Cyto stain Torie Aaron DO Work Phone: Start: 09-22-2023 Screening mammograph y of left breast MD Silas Haider Work Phone: Start: 04-11-2023 Screening mammograph y of left breast MD Silas Haider Work Phone: Start: 05-23-2013 Hysterectomy Silas maldonado Start: 05-23-2011 Ligation of fallopian tube Silas Haider Start: 11-23-2007 Human , function (observable entity) Silas Haider Comment on above: Vaginal Start: 07-21-1999 Human , function (observable entity) Silas Vitaly Comment on above: Vaginal H/O: hysterectomy H/O: hysterectomy Torie Walker DO Work Phone: Mastectomy of right breast [place] pe[facility] Vitaly Comment on above: with Rt node dissect ion and 3-4 cosmetic surgeries after Plan of Treatment Date Care Activity Detail Author Start: 09-28-2027 Screening for malignant neoplasm of cervix [facility] Start: 09-28-2026 Screening for malignant neoplasm of cervix Pap Smear [facility] Start: 10-17-2025 End: 10-17-2025 Patient encounter procedure 10/17/2025 8:30 AM EDT Office Visit [facility] [address] [facility] [place] [address] Torie Walker, DO [address] [place] [address] [facility] Start: 10-02-2025 Screening for malignant neoplasm of breast Mammogram [facility] Start: 01-21-2025 Influenza vaccination Influenz a Vaccine (Season Ended) [facility] Start: 10-09-2024 End: 10-09-2024 Patient encounter procedure 10/09/2024 8:40 AM EDT Office Visit [facility] [address] [facility] [place] [id number] Torie Walker, DO [address], [place] [id number] Arrived [facility] Comment on above: Arrived Start: 10-01-2024 MG Breast - left Screening [facility] Start: 10-01-2024 Screening mammograph y of left breast MM screening mammo LT w/CAD [facility] Start: 12-02-2023 [facility] Start: 12-02-2023 Bacteria identified in Urine by Culture [facility] Start: 1980 Screening for malignant neoplasm of colon [facility] Atopobium vaginae DN A [Presence] in Vaginal fluid by FAISAL with probe detection [facility] Bacterial vaginosis associated bacterium 2 DNA [Presence] in Vaginal fluid by FAISAL with probe detection [facility] Megasphaera sp type 1 DNA [Presence] in Vaginal fluid by FAISAL with probe detection [facility] THIN PREP TIS PAP AN D HR HPV DNA THIN PREP TIS PAP AND HR HPV DNA Pathology and Cytology Routine Well woman exam with routine gynecological exam H/O: hysterectomy Ordered: 10/09/2024 [facility] Work Phone: Comment on above: Ordered: 10/09/2024 Immunizations Immunization Date Immunization Notes Care Provider [facility] 04-05-2024 influenza virus vaccine, unspecified formulation Torie Aaron DO Work Phone: [facility] 02-20-2022 influenza virus vaccine, unspecified formulation Silas Haider [facility] 09-02-2020 SARS-CoV-2 (COVID-19 ) mRNA BNT-162b2 vax Silas Haider [facility] 08-12-2020 SARS-CoV-2 (COVID-19 ) mRNA BNT-162b2 vax Silas Haider [facility] 04-04-2020 influenza virus vaccine, unspecified formulation Silas Haider [facility] 03-14-2018 influenza virus vaccine, unspecified formulation Silas Haider [facility] 03-13-2017 influenza virus vaccine, unspecified formulation Silas Haider [facility] 03-11-2015 influenza virus vaccine, unspecified formulation Silas Haider [facility] NEGATED: Highlighted row has not occurred!03-24-2023 influenza virus vaccine, unspecified formulation Silas Haider [facility] Payers Date Payer Category Payer Self-pay [id number] 2023 Unknown [id number] 2023 Private Health Insurance [employer] [id number] 2023 Unknown 2022 Unknown [id number] 1978 Unknown [id number] 2.16.840.1.691154.3.579.2. 356 1978 Unknown [id number] 2.16.840.1.718604.3.579.2. 356 1978 Unknown [id number] 2.16.840.1.911914.3.579.2. 593 1978 Unknown [id number] 2.16.840.1.254298.3.579.2. 727 1978 Unknown [id number] 2.16.840.1.513861.3.579.2. 1978 Unknown [id number] 2.16.840.1.317490.3.579.2. 1978 Unknown [id number] 2.16.840.1.936458.3.579.2. 1978 Unknown [id number] 2.16.840.1.183566.3.579.2. 1978 Unknown [id number] 2.16.840.1.546903.3.579.2. 1978 Unknown [id number] 2.16.840.1.974605.3.579.2. 1978 Unknown [id number] 2.16.840.1.705795.3.579.2. 1978 Unknown [id number] 2.16.840.1.498831.3.579.2. 1978 Unknown [id number] 2.16.840.1.087426.3.579.2. 1978 Unknown [id number] 2.16.840.1.654422.3.579.2. 1978 Unknown [id number] 2.16.840.1.897540.3.579.2. 1978 Unknown [id number] 2.16.840.1.617616.3.579.2. 1978 Unknown [id number] 2.16.840.1.207342.3.579.2. 196 1978 Unknown [id number] 2.16.840.1.401348.3.579.2. 9 1978 Unknown [id number] 2.16.840.1.823127.3.579.2. 1978 Unknown [id number] 2.16.840.1.394371.3.579.2. 7 1978 Unknown [id number] 2.16.840.1.312936.3.579.2. 727 1978 Unknown [id number] 2.16.840.1.532955.3.579.2. 727 1978 Unknown [id number] 2.16.840.1.591891.3.579.2. 727 1959 Unknown [id number] Unknown [id number] Unknown [id number] 2.16.840.1.088481.3.579.2. 531 Unknown [id number] 2.16.840.1.263123.3.579.2. 531 Social History Date Type Detail Facility Start: 09-09-2021 End: 06-14-2023 Tobacco smoking status Ex-smoker (finding) [facility] Comment on above: smokes outsi de Tobacco smoking status Never Juan [facility] Comment on above: smokes outsi de Start: 01-28-1992 End: 08-21-2013 Sex Assigned At Female [facility] Tobacco Household tobacc o concerns: No. [facility] Tobacco smoking status No Smokin g Status Entered [facility] Start: 1980 Sex Assigned At Female [facility] Start: 10-02-2024 Sex Female (finding) [facility] History of tobacco use Current smoker [facility] History of tobacco use Cigarette Smoker [facility] Start: 09-29-2023 Alcoholic beverage intake Current drinker of alcohol (finding) [facility] Start: 06-14-2023 History of Social function [facility] Start: 06-14-2023 Alcohol Comment caffeine: 1-2 cups per day coffee [facility] Start: 06-07-2023 Gender identity Identifies as female gender (finding) [facility] Start: 06-07-2023 Sexual orientation Heterosexual (navneet corley) [facility] Functional Status Date Assessment Result Facility 03-31-2022 [facility] Status N/A [facility] Clinical Notes 09-09-2021 to 10-09-2024 Trishdavid Elizalde, JARRETT - 10/09/2024 8:40 AM EDTRadiology Note Date & Type Note Facility 10-09-2024 History of Presen t illness Narrative Reason for Appointment: Patient ID: Celeste Du is a 43 y.o. female who presents for Gynecologic Exam Patient presents today for Annual Exam. MEDICATIONS Current Outpatient Medications Medication Instructions amLODIPine (Norvasc) 10 MG tablet See Instructions, TAKE 1 TABLET BY MOUTH EVERY DAY, # 90 tab(s), Refills(s) 1, Pharmacy: [facility], 171, cm, 03/24/23 8:31:00 EDT, Height/Length Dosing, 73.2, kg, 03/24/23 8:31:00 EDT, Weight Dosing calcium 200 MG tablet Calcium cholecalciferol (Vitamin D-3) 50 MCG (1999) capsule Vitamin D clonazePAM (KlonoPIN) 0.5 MG tablet TAKE 1 TABLET BY MOUTH IN THE MORNING AND 2 TABLETS AT BEDTIME lamoTRIgine (LaMICtal) 200 MG tablet lamoTRIgine (LAMICTAL) 50 mg, Oral, Every other day ALLERGIES Allergies Allergen Reactions Bee Venom Unknown Morphine Unknown Warburgia Salutaris Elite Chemotype Unknown PROBLEMS Active Ambulatory Problems Diagnosis Date Noted No Active Ambulatory Problems Resolved Ambulatory Problems Diagnosis Date Noted No Resolved Ambulatory Problems Past Medical History: Diagnosis Date ADD (attention deficit disorder) Anxiety Arthritis BRCA negative Breast cancer, right (CMS/HCC) Breast lump Depression (CMS/HCC) Family history of cancer Hypertension (CMS/HCC) Migraine headache (CMS/HCC) PTSD (post-traumatic stress disorder) (CMS/HCC) Skin cancer HISTORY PAST MEDICAL HISTORY SOCIAL HISTORY Past Medical History: Diagnosis Date ADD (attention deficit disorder) Anxiety Arthritis BRCA negative BRCA 1&2 Breast cancer, right (CMS/HCC) Breast lump Depression (CMS/HCC) Family history of cancer Hypertension (CMS/HCC) Migraine headache (CMS/HCC) PTSD (post-traumatic stress disorder) (CMS/HCC) Skin cancer Social History Tobacco Use Smoking status: Former Types: Cigarettes Smokeless tobacco: Not on file Substance Use Topics Alcohol use: Yes Comment: caffeine: 1-2 cups per day coffee Drug use: Never FAMILY HISTORY Family History Problem Relation Name Age of Onset Lymphoma Father Breast cancer Paternal Grandmother Lung cancer Other Ovarian cancer Neg Hx Colon cancer Neg Hx SURGICAL HISTORY Past Surgical History: Procedure Laterality Date BREAST BIOPSY Bilateral 2015 breast core bx FRACTURE SURGERY 1994 collarbone fx HYSTERECTOMY 2013 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 implant TUBAL LIGATION 2012 REVIEW OF SYSTEMS Review of Systems: Review of Systems Constitutional: Negative. HENT: Negative. Eyes: Negative. Respiratory: Negative. Cardiovascular: Negative. Gastrointestinal: Negative. Genitourinary: Negative. Musculoskeletal: Negative. Skin: Negative. Neurological: Negative. All other systems reviewed and are negative. Hematological: Negative. Endocrine: Negative. Allergic/Immunologic: Negative. OBJECTIVE Objective: Physical Exam Constitutional: Appearance: Normal appearance. She is well-developed. Genitourinary: Vulva normal. Vaginal cuff intact. Cervix is absent. Uterus is absent. Cardiovascular: Rate and Rhythm: Normal rate and regular rhythm. Pulmonary: Effort: Pulmonary effort is normal. Breath sounds: Normal breath sounds. Abdominal: General: Bowel sounds are normal. There is no distension. Palpations: Abdomen is soft. Tenderness: There is no abdominal tenderness. There is no guarding or rebound. Musculoskeletal: General: No swelling. Normal range of motion. Right lower leg: No edema. Left lower leg: No edema. Neurological: Mental Status: She is alert and oriented to person, place, and time. Skin: General: Skin is warm and dry. Psychiatric: Mood and Affect: Mood normal. Behavior: Behavior normal. Vitals and nursing note reviewed. Exam conducted with a trashman present. Vitals: Estimated body mass index is 25.18 kg/m as calculated from the following: Height as of 09/29/23: 5' 6 . Weight as of this encounter: 156 lb. BP: 122/74 No LMP recorded. Patient has had a hysterectomy. ASSESSMENT & PLAN ICD-10-CM 1. Well woman exam with routine gynecological exam Z01.419 THIN PREP TIS PAP AND HR HPV DNA POCT urinalysis dipstick manually resulted 2. H/O: hysterectomy Z90.710 THIN PREP TIS PAP AND HR HPV DNA Annual: Patient presents today for an annual exam. Patient states she is doing well and has no complaints. Pap was obtained without difficulty and patient given mammogram order to have scheduled/obtained. Pt was having recurrent yeast infections. Rx for diflucan and terconazole faxed to pharmacy. Orders Placed This Encounter Procedures POCT urinalysis dipstick manually resulted Follow Up: Patient is to return in one year for annual unless needed otherwise. Documented by Trish Elizalde LPN on behalf of: Torie Walker DO documented in this encounter [facility] 05-09-2024 Note Patient Education Cardiovascular Hypertension, Adult [...] 12 oz bottle (more content not included)... [facility] 03-05-2024 Note Patient Education Nutrition BMI [...] for Disease Control and Prevention: cdc.gov ? [place] Heart Association: heart.org ? National Heart, Lung, and Blood Ash: nhlbi.nih.gov This information is not intended to replace advice given to you by your health care provider. Make sure you discuss any questions you have with your health care provider. Document Revised: 01/27/2023 Document Reviewed: 01/20/2023 [employer] Patient Education ? 2023 [employer]. [facility] 02-06-2024 Note Patient Education Nutrition BMI [...] for Disease Control and Prevention: cdc.gov ? [place] Heart Association: heart.org ? National Heart, Lung, and Blood Ash: nhlbi.nih.gov This information is not intended to replace advice given to you by your health care provider. Make sure you discuss any questions you have with your health care provider. Document Revised: 01/27/2023 Document Reviewed: 01/20/2023 [employer] Patient Education ? 2023 [employer]. [facility] 03-31-2022 Hospital Discharg e instructions Patient [...] care provider. This is important. Medicines Take phqv-zin-rfurjsd and prescription medicines only as told by [...] 05/09/2006 Document Revised: 01/17/2019 Document Reviewed: 01/17/2019 [employer] Patient Education 2019 [employer]. [facility] 12-31-2021 Hospital Discharg e instructions Patient [...] talk therapy or counseling. Seeing a nutrition tech (dietitian). Getting appropriate exercise. Medicines to help [...] that address eating disorders. Talk with an plumbing and heating contractor, therapist, or counselor about your eating behavior. [...] health care provider. This is important. Take ozzm-jgu-uynzjxh and prescription medicines only as told by [...] 05/09/2006 Document Revised: 09/17/2016 Document Reviewed: 03/12/2016 [employer] Patient Education 2020 [employer]. 12/31/2021 16:54:02 Hypertension, Adult Hypertension, Adult High [...] care provider. This is important. Medicines Take sowo-sic-vnhafek and prescription medicines only as told by [...] 01/17/2019 Document Reviewed: 01/17/2019 Elsevier Patient Education 2020 [employer]. [facility] [place] 09-09-2021 Hospital Discharg e instructions Patient Education [...] care provider. Avoid caffeine, alcohol, and certain zogq-koi-fqzicjo cold medicines. These may make you feel worse. Ask your pharmacist which medicines to avoid. General instructions Take cgxd-fui-fbwgoul and prescription medicines only as told by [...] Depression Association of [place] (ADAA): www.adaa.org National [place] on Mental Illness (BRENDA): www.brenda.org Contact a [...] Document Reviewed: 10/09/2019 Elsevier Patient Education 2020 [employer]. [facility] Evaluation + Plan note Future Appointments Appointment Date:12/09/2021 07:40:00 AM Scheduled Provider:Silas Haider MD Location:[facility] Appointment Type:[facility] Evaluation + Plan note Future Appointments Appointment Date:03/31/2022 04:40:00 PM Scheduled Provider:Silas Haider MD Location:[facility] Appointment Type: Open [facility] Evaluation + Plan note Future Appointments Appointment Date:09/22/2022 04:40:00 PM Scheduled Provider:Silas Haider MD Location:[facility] Appointment Type:[facility] Evaluation + Plan note Future Appointments Appointment Date:03/20/2024 07:15:00 AM Scheduled Provider:Silas Haider MD Location:[facility] Appointment Type: Open Diagnostic Tests PendingUrine Culture 09/20/23 [facility] Evaluation + Plan note Future Appointments Appointment Date:03/20/2024 07:15:00 AM Scheduled Provider:Silas Haider MD Location:[facility] Appointment Type: Open Future Scheduled TestsUS Extremity Non-Vascular Limited Right 11/15/23 [facility] Evaluation + Plan note Future Appointments Appointment Date:03/20/2024 07:15:00 AM Scheduled Provider:Silas Haider MD Location:[facility] Appointment Type:[facility] Evaluation note No assessment inform ation available [facility] Work Phone: Evaluation note Diagnosis Onset Date Vaginitis noneactive [facility] Work Phone: Evaluation note* Diagnosis Well woman exam with routine gynecological exam Routine gynecological examination H/O: hysterectomy Acquired absence of both cervix and uterus Yeast infection [facility] N[facility] No data available for this section [facility] Discharge instructions No data available for this section [facility] No data available for this section [facility] Summary Purpose Family History No Family [...] infection Vaginal irritation Reason for Visit Vaginitis Chief Complaint Admit Date Screening October 01, 2024 4:49p m Additional Source Comments INFORMATION SOURCE (unrecogn ized section and content) DATE CREATED AUTHOR 04/30/2018 [facility] DATE CREATED AUTHOR AUTHOR'S ORGANIZ ATION 10/06/2022 [facility] DATE CREATED AUTHOR AUTHOR'S ORGANIZ ATION 11/17/2023 [facility] DATE CREATED AUTHOR AUTHOR'S ORGANIZ ATION 05/11/2024 [facility] DATE CREATED AUTHOR AUTHOR'S ORGANIZ ATION 08/26/2024 [facility] DATE CREATED AUTHOR AUTHOR'S ORGANIZ ATION 10/05/2024 [facility] DATE CREATED AUTHOR AUTHOR'S ORGANIZ ATION 10/10/2024 [facility] EPIC DATE CREATED AUTHOR AUTHOR'S ORGANIZ ATION 11/07/2024 [facility] Care Team (unrecognized sect ion and [...] Team Status: Inactive Member Role Status Dates Torie Walker DO Attending Provider Active Start : October 01, 2024 End: October 01, 2024 Silas Haider MD Primary Care Provider Active Start: October 01, 2024 End: October 01, 2024 Label Remover Relationship Specialty Start Date End Date Silas Haider MD [address] [place] [address] PCP - General Family Medicine 10/09/24 Goals (unrecognized section and content) Goals may be documented in a n alternate section Reason for Visit (unrecogniz ed section and content) Reason Comments Gynecologic Exam FOR RECORDS PERTAINING TO PATIENTS WHO ARE [...] BE BASED ON THE PRIMARY CLINICAL RECORDS. [facility]. provides no warranty or guarantee of the accuracy or completeness of information in this document.
== END 2025-01-10 15:24 | disposition home or self-care (01) ==
LOC: PM 15:23
PROVIDERS: PCP Family Medicine; Visit Provider Nurse Practitioner
DX: M48.02 Spinal stenosis, cervical region (principal); M54.12 Radiculopathy, cervical region; M47.812 Spondylosis without myelopathy or radiculopathy, cervical region; M79.18 Myalgia, other site; M48.062 Spinal stenosis, lumbar region with neurogenic claudication
CPT/HCPCS: G0463

== ENCOUNTER 2025-01-16 06:42 | Outpatient (OUT) | payer OTHER, SELFPAY ==
--- OUTSIDE RECORDS SUMMARY | 2025-01-16 06:45 | XMS_ITS | CCD ---
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 Name Role Phone Tala Johnson Unavailable Unavaila Dalton Moses Unavailable UnavailMeka Healy Unavailable Unavailable Dalton Olvera Unavailable Unavailsalvador e Silas Haider Primary Care Physician MD Silas Haider Primary Care Provider [phone] Torie Walker Attending Provider [phone] AARON ., DR VOGT Attending Unavailable AARON ., DR VOGT Consulting Unavailable AARON ., DR VOGT Admitting Unavailable Silas Haider Primary Care Physician MD Silas Haider Primary Care Provider Torie Walker Attending Provider MD Silas Haider [...] Unavailable Nando SERRANO, Carlin Rodrigues Attending Unavailable aNndo SERRANO, Carlin Rodrigues Attending Unavailable Nando SERRANO, Andrius Rodrigues Attending Unavailable Nando SERRANO, Carlin Rodirgues Attending Unavailable Nando SERRANO, Andjody Rodrigues Attending Unavailable Nando SERRANO, Carlin Rodrigues Attending Unavailable Manisha Sánchez Admitting UnavailManisha Mcbride Attending Unavailabl e Silas Haider Primary Care Unavailable AaronTorie yanez Admitting Unavailable Yamil Walkery Attending Unavailable AaronTorie yanez DO Attending Provider Silas Haider MD Primary Care Provider Unavailable Primary Care Provider Unavailsalvador e TORIE WALKER Attending Unavailable Silas Haider MD Primary Care Provider [phone] Silas Haider Attending Unavailable Silas Haider Attending Unavailable Silas Haider Referring Unavailable Silas Haider Admitting Unavailable Silas Haider Attending Unavailable Silas Haider Admitting Unavailable Silas Haider Attending Unavailable Silas Haider Attending Unavailable Silas Haider Attending Unavailable Allergies Allergy Classification Reported Allergen(s) Allergy Type Date of Onset Reaction(s) Facility (16 sources) Morphine; Translations: [morphine] Drug Allergy 7 Itching (finding), Unknown [facility] [place] (6 sources) aprepitant; Translations: [aprepitant] Drug Allergy 7 Unknown Reaction [facility] (1 source) Morphine Drug Allergy 4 [facility] Repository (3 sources) Honey bee venom Allergy to substance 4 Unknown [facility] (3 sources) [place]ia Salutaris Elite Chemotype Propensity to adverse reactions 4 Unknown [facility] Medications Current Medications Medication Drug Class(es) Dates Sig (Normalized) Sig (Original) 0.5 ML semaglutide 2 MG/ML Auto-Injector (1 source) Start: 09-09-2021 End: 11-04-2021 Wegovy (1 mg dose) subcutaneous solution 1 mg, SubCutaneous, qWeek, INJECT 1 PEN UNDER THE SKIN EVERY WEEK, X 4 week(s), # 4 EA, Refills(s) 1, Pharmacy: [facility]/pharmacy #[id number], 171, cm, 09/09/21 13:28:00 EDT, Height/Length Dosing, 75.9, kg, 09/09/21 13:28:00 EDT, Weight Dosing Start Date: 09/09/21 Stop Date: 11/04/21 Status: Ordered 0.75 ML semaglutide 3.2 MG/ML Auto-Injector [Wegovy] (2 sources) Start: 03-31-2022 inject 2.4 mg by subcutaneous injection every week Wegovy (2.4 mg dose) subcutaneous solution 2.4 mg, SubCutaneous, qWeek, # 12 EA, Refills(s) 1, Pharmacy: [facility] #[id number], 171, cm, 03/31/22 16:52:00 EST, Height/Length Dosing, 75.7, kg, 03/31/22 16:52:00 EST, Weight Dosing Start Date: 03/31/22 Status: Ordered Start: 12-31-2021 inject 2.4 mg by sub cutaneous injection every week Wegovy (2.4 mg dose) subcutaneous solution 2.4 mg, SubCutaneous, qWeek, # 12 EA, Refills(s) 1, Pharmacy: [facility] #[id number], 171, cm, 12/31/21 16:30:00 EDT, Height/Length Dosing, 76.7, kg, 12/31/21 16:30:00 EDT, Weight Dosing Start Date: 12/31/21 Status: Ordered amLODIPine 10 mg oral tablet (20 sources) Dihydropyridine Calcium Channel Ted Start: 03-24-2023 take 1 tablet by mouth once daily amLODIPine (Norvasc) 10 MG tablet See Instructions, TAKE 1 TABLET BY MOUTH EVERY DAY, # 90 tab(s), Refills(s) 1, Pharmacy: [facility], 171, cm, 03/24/23 8:31:00 EDT, [...] BID, # 20 cap(s), Refills(s) 0, Pharmacy: [facility]/pharmacy #[id number], 171, cm, 11/15/23 11:43:00 EDT, Height/Length [...] Daily, # 90 cap(s), Refills(s) 1, [id number], 171, cm, 03/31/22 16:52:00 EST, Height/Length Dosing, 75.7, kg, 03/31/22 16:52:00 EST, Weight Dosing Start Date: 03/31/22 Status: Ordered Start: 12-31-2021 take 1 capsule by [facility] once daily omeprazole 40 mg Cap-DR 40 mg = 1 cap(s), Oral, Daily, # 90 cap(s), Refills(s) 1, Pharmacy: [facility]/pharmacy #[id number], 171, cm, 12/31/21 16:30:00 EDT, Height/Length Dosing, 76.7, kg, 12/31/21 16:30:00 EDT, Weight Dosing Start Date: 12/31/21 Status: Ordered omeprazole 40 mg Cap-DR (1 source) Start: 09-09-2021 End: 12-08-2021 take 1 capsule by mouth once daily omeprazole 40 mg Cap-DR 40 mg = 1 cap(s), Oral, Daily, X 90 day(s), # 90 cap(s), Refills(s) 0, [id number], 171, cm, 09/09/21 13:28:00 EDT, Height/Length [...] hours as needed for pain Hydrocodone-Acetami nophen ([place]) 5-325 mg tablet Discontinued 1 TAB PO EVERY 4-6 HOURS as needed for pain 40 7 October 03, 2018 November 08, 2018 8:07am Start: 01-18-2017 End: 01-27-2017 take 2 tablets by mouth every four to six hours as needed for pain Hydrocodone-Acetaminophen ([place]) 5-325 mg Tablet Discontinued 2 TAB PO [...] your care. Normal [facility] Family Medicine Office/Clini c Noteon 11-06-2024 Family [...] 03/11/2015 Recorded Normal [facility] Comment on above: Result Comment: Elec tronically Signed By: Vitaly SERRANO, Silas Vinson.minoo\Date and Time Signed: 11/06/24 15:58 EDT Provider Letteron 11-06-2024 Provider Letter Provider Letter November 06, 2024 [facility] [place] [address] : 1980 To Whom It May Concern, Please excuse above patient from work early due to a doctors appointment Date of Illness: From: _11-06-24 To: _ May Return to Work On:11-07-24 Restrictions: _ Comments: _ Sincerely, [place] [address] Normal [facility] Urinalysis macro (dipstick) panel (U)on 10-09-2024 Bilirubin, UA Negative Negative - 4(70) +++ mg/dL [facility] Blood, UA Negative Negative - 50 Ha/mcL [facility] Clarity, UA Clear [facility] Color, UA Yellow [facility] Glucose, UA Negative Negative - 1999(110) ++++ mg/dL [facility] Interpretation and review of laboratory results Normal [facility] Ketones, UA Negative Negative - 160(16) ++++ mg/dL [facility] Leukocytes, UA Negative Negative - 500+++ Zenon/mcL [facility] Nitrite, UA Negative Negative - Positive [facility] pH, UA 7 5 - 9 [facility] Protein, UA Negative Negative - 1999(20) ++++ mg/dL [facility] Spec Grav, UA 1.02 1 - 1.03 [facility] Urobilinogen, UA 0.2 0.2 - 12 mg/dL [facility] MM screening mammo LT w/CADo n 10-02-2024 MM screening mammo LT w/CAD [facility] [address] [place] [address] Mammography Report Signed Patient: Celeste Du MR#: [id number] 17 : 1980 Acct:[id number] Age/Sex: 43 / F Adm Date: 10/01/24 Loc: [place] Room: Type: [facility] Attending Dr: Torie Walker DO Ordering Provider: Torie Walker Date of Service: 10/01/24 Procedure(s): MM screening mammo LT w/CAD Accession Number(s): ([id number]) MM/MM screening mammo LT w/CAD: SCREENING Copies [...] Martinez M.D. 10/02/2024 11:22 AM Dictation Location: [facility] Dictated By: Robert Martinez II, MD 10/02/24 1104 Signed By: 10/02/24 1122 Normal [facility] Mammography reportOrdered By : Robert Martinez on 10-02-2024 Diagnostic imaging study [facility] [address] [place] [address] Mammography Report Signed Patient: Celeste Du MR#: [id number] : 1980 Acct:[id number] Age/Sex: 43 / F Adm Date: 5 Loc: [place] Room: Type: [facility] CLI Attending Dr: Torie Walker DO Ordering Provider: Torie Walker Date of Service: 10/01/24 Procedure(s): MM screening mammo LT w/CAD Accession Number(s): ([id number]) MM/MM screening mammo LT w/CAD: SCREENING Copies [...] Martinez M.D. 10/02/2024 11:22 AM Dictation Location: [facility] Dictated By: Robert Martinez II, MD 10/02/24 110 Signed By: 10/02/24 1122 [facility] Work Phone: Ambulatory Visit Summaryon 0 08-07-2024 [...] EDT With: Vitaly SERRANO, Silas Lockwood Where: [facility] Medicine [address] [address]- Medications What How Much When Instructions Unchanged [...] choosing us for your care. Normal [facility] Family Medicine Office/Clini c Noteon [...] to dermatological (more content not included)... Normal [facility] Comment on above: Result Comment: Elec tronically Signed By: Vitaly SERRANO, Silas Lockwood\.br\Date and Time Signed: 08/07/24 07:50 EDT Provider Letteron 08-07-2024 Provider Letter Provider Letter August 07, 2024 [place] [address] : 1980 To Whom It May Concern, Please excuse above patient from work, due to a doctors appointment Date of Illness: From: _ To: _ May Return to Work On:08-07-24 Restrictions: _ Comments: _ Sincerely, [address] [address] [facility] Ambulatory Visit Summaryon 1 07-10-2023 Ambulatory [...] AM EDT With: Silas Haider MD Where: [address] [address]- Medications What How Much When Instructions Unchanged [...] right and (more content not included)... Normal [facility] Family Medicine Office/Clini c Noteon 05-09-2024 [...] do 1 more month to carry through [place] and then we will do every other [...] Daily, # 30 cap(s), Refills(s) 1, Pharmacy: [facility]/pharmacy #[id number], 171, cm, 05/09/24 8:25:00 EST, Height/Length [...] 03/11/2015 Recorded Normal [facility] Comment on above: Result Comment: Elec tronically [...] EST With: Vitaly SERRANO, Silas Lockwood Where: [address] Medications What How Much When Instructions [...] for choosing us for your care. Normal [facility] Medicine Office/Clini c Noteon 03-05-2024 Family [...] # 15 tab(s), Refills(s) 0, Pharmacy: [facility], 171, cm, 03/05/24 15:51:00 EDT, Height/Length Dosing, 79.6, kg, 03/05/24 15:51:00 EDT, Weight Dosing [facility] External Ambulatory Referral 2. Anxiety and depression [...] bedtime), # 15 tab(s), Refills(s) 0, Pharmacy: [facility], 171, cm, 03/05/24 15:51:00 EDT, Height/Length Dosing, 79.6, kg, 03/05/24 15:51:00 EDT, Weight Dosing [facility] External Ambulatory Referral 3. Insomnia (G47.00: Insomnia, [...] bedtime), # 15 tab(s), Refills(s) 0, Pharmacy: [facility], 171, cm, 03/05/24 15:51:00 EDT, Height/Length Dosing, 79.6, kg, 03/05/24 15:51:00 EDT, Weight Dosing [facility] External Ambulatory Referral 4. Osteoarthritis (M19.90: Unspecified osteoarthritis, unspecified site) The patient reports exacerbated osteoarthritis symptoms focused around the clavicle. Present management strategies, including the use of spbo-vln-kcuxwyr analgesics, have not (more content not included)... Normal [facility] Comment on above: Result Comment: Elec [...] BID, # 20 cap(s), Refills(s) 0, Pharmacy: [facility]/pharmacy #[id number], 171, cm, 11/15/23 11:43:00 EDT, Height/Length Dosing, 77.3, kg, 11/15/23 11:43:00 EDT, Weight Dosing 6. Excessive dietary caloric intake (R63.2: Polyphagia) Will do Adipex at this time. Will do it at a lower BMI as her anxiety and depression have some concerns and her weight. Orders: phentermine, 37.5 mg = 1 cap(s), Oral, Daily, # 30 cap(s), Refills(s) 0, Pharmacy: [facility]/pharmacy #[id number], 171, cm, 02/06/24 16:09:00 EDT, Height/Length [...] influenza virus vaccine, inactivated 03/11/2015 Recorded Normal [facility] Comment on above: Result Comment: Elec tronically Signed By: Vitaly SERRANO, Silas Vinson.br\Date and Time Signed: 02/06/24 18:09 EDT Urine Cultureon 12-02-2023 Bacteria identified Cx Nom (U) <9,000 colonies/ml mixed bacterial skin contaminants 2 Days PERFORMED BY: [place] [address] PATHOLOGIST BIOMECHANICAL ENGINEER YENI BAH M.D. Normal [facility] Comment on above: Performed By: #### C UU #### [address] #### VAGINITIS+ #### [facility] , Vaginitis Plus (VG+)on 12-01 Atopobium Vaginae Moderate - 1 Normal . [facility] Comment on above: Result Comment: This test was developed and its performance characteristics determined by [facility]. It has not been cleared or approved by the Food and Drug Administration. Performed By: #### C UU #### [place] [address] [place] #### VAGINITIS+ #### [facility] , BVAB2 Low - 0 Normal . [facility] Comment on above: Result Comment: This test was developed and its performance characteristics determined by [facility]. It has not been cleared or approved by the Food and Drug Administration. Performed By: #### C UU #### [address] #### VAGINITIS+ #### [facility] , Dolores Albicans, FAISAL Negative Normal Negative [facility] Comment on above: Result Comment: This test was developed and its performance characteristics determined by [facility]. It has not been cleared or approved by the Food and Drug Administration. Performed By: #### C UU #### [address] #### VAGINITIS+ #### [facility] , Dolores Glabrata, FAISAL Negative Normal Negative [facility] Comment on above: Result Comment: This test was developed and its performance characteristics determined by [facility]. It has not been cleared or approved by the Food and Drug Administration. PERFORMED BY: [place] [address] PATHOLOGIST BIOMECHANICAL ENGINEER YENI BAH M.D. Performed By: #### C UU #### [address] #### VAGINITIS+ #### [facility] , Chlamydia Trachomotis, FAISAL Negative Normal Negative [facility] Comment on above: Performed By: #### C UU #### [place] [address] [place] #### VAGINITIS+ #### [facility] , Megasphaera Low - 0 Normal . [facility] Comment on above: [...] BV. Performed By: #### C UU #### [facility] [address] [place] [address] #### VAGINITIS+ #### [facility] , Neisseria Gonorrhoeae, FAISAL Negative Normal Negative [facility] Comment on above: Result Comment: Perf ormed at: =G - [facility] [address] [id number] Recruiting Administrator: Dee Mendez MD, Phone: [phone] Performed By: #### C UU #### [facility] [address] [place] [address] #### VAGINITIS+ #### [facility] , Tric Vag FAISAL Negative Normal Negative [facility] Comment on above: Performed By: #### C UU #### [facility] [address] [place] [address] #### VAGINITIS+ #### [facility] , US Head/Neck [...] MD Transcribed by: DIANNA Technologist: KR Normal [facility] CBC w/ Auto Diffon Basophils (Bld) [#/Vol] 0.0 E9/L Normal 0.0-0.2 [facility] Comment on above: Performed By: #### 2 [id number] ####[facility] [address] [place] [address] Eosinophils (Bld) [#/Vol] 0.5 E9/L Normal 0.0-0.5 [facility] Comment on above: Performed By: #### 2 [id number] ####[address] [address] Eosinophils/100 WBC (Bld) 5.0 % Normal 0.0-8.0 [facility] Comment on above: Performed By: #### 2 022076 ####[address] [address] Erythrocyte distribution width (RBC) [Ratio] 12.6 % Normal 10.9-14.2 [facility] Comment on above: Performed By: #### 2 [id number] #### [facility] [address] [place] [address] Performed By: #### 2 059762 ####[address] [address] Hematocrit (Bld) [Volume fraction] 42.8 % Normal 34.0-46.0 [facility] Comment on above: Performed By: #### 2 843540 #### [facility] [address] [place] [address] Performed By: #### 2 958297 ####[place] [address] [place] [address] Hemoglobin (Bld) [Mass/Vol] 15.0 g/dL Normal 12.0-16.0 [facility] Comment on above: Performed By: #### 2 [id number] #### [facility] [address] [place] [address] Performed By: #### 2 261046 ####[place] [address] Lymphocytes (Bld) [#/Vol] 2.6 E9/L Normal 1.0-4.0 [facility] Comment on above: Performed By: #### 2 764990 ####[place] [address] Lymphocytes/100 WBC (Bld) 27.0 % Normal 14.0-50.0 [facility] Comment on above: Performed By: #### 2 682692 ####[place] [address] MCH (RBC) [Entitic mass] 33.5 pg Normal 27.0-34.0 [facility] Comment on above: Performed By: #### 2 054405 #### [facility] [address] [place] [address] Performed By: #### 2 914925 ####[place] [address] MCHC (RBC) [Mass/Vol] 35.1 g/dL Normal 31.4-36.0 [facility] Comment on above: Performed By: #### 2 024795 #### [facility] [address] [place] [address] Performed By: #### 2 859659 ####[place] [address] MCV (RBC) [Entitic vol] 95.4 fL Normal 80.0-100.0 [facility] Comment on above: Performed By: #### 2 283778 #### [facility] [address] [place] [address] Performed By: #### 2 334453 ####[place] [address] Metamyelocytes/Leukoc ytes Manual cnt (Bld) [Pure # fraction] 1 % High 0-0 [facility] Comment on above: Performed By: #### 2 167288 ####[address] [place] [address] Monocytes (Bld) [#/Vol] 0.6 E9/L Normal 0.2-1.0 [facility] Comment on above: Performed By: #### 2 498768 ####[facility] [address] [place] [address] Neutrophils (Bld) [#/Vol] 5.8 E9/L Invalid Interpretation Code [facility] Comment on above: Performed By: #### 2 530161 ####[facility] [address] [place] [address] Platelet 333.0 E9/L Normal 150.0-500.0 [facility] Comment on above: Performed By: #### 2 832777 #### [facility] [address] [place] [address] Performed By: #### 2 471478 ####[address] [address] Platelet mean volume (Bld) [Entitic vol] 8.0 fL Normal 6.4-10.8 [facility] Comment on above: Performed By: #### 2 032380 #### [facility] [address] [place] [address] Performed By: #### 2 350500 ####[address] [address] RBC (Bld) [#/Vol] 4.5 E12/L Normal 4.3-5.9 [facility] Comment on above: Performed By: #### 2 274986 #### [facility] [address] [place] [address] Performed By: #### 2 658819 ####[address] [address] RBC size Nom (Bld) NORMAL Invalid Interpretation Code [facility] Comment on above: Performed By: #### 2 973549 ####[facility] [address] [place] [address] Segmented neutrophils/100 WBC (Bld) 61.0 % Normal 36.0-75.0 [facility] Comment on above: Performed By: #### 2 318456 ####[facility] [address] [place] [address] WBC corrected for nucl RBC Auto (Bld) [#/Vol] 9.6 E9/L Normal 4.0-11.0 [facility] Comment on above: Performed By: #### 2 177775 #### [facility] [address] [place] [address] Performed By: #### 2 054250 ####[facility] [address] [place] [id number] Family Medicine Office/Clini c Noteon 11-15-2023 Family [...] CBC w/ Auto Diff Lab Specimen Collect [address] US Extremity Non-Vascular Limited Right 2. BMI 26.0-26.9,adult (Z68.26: Body mass index [BMI] 26.0-26.9, adult) - BMI education added Ordered: clindamycin, 300 mg = 1 cap(s), Oral, BID, # 20 cap(s), Refills(s) 0, Pharmacy: [facility]/pharmacy #[id number], 171, cm, 11/15/23 11:43:00 EDT, Height/Length Dosing, 77.3, kg, 11/15/23 11:43:00 EDT, Weight Dosing CBC w/ Auto Diff Lab Specimen Collect [id number] US Extremity Non-Vascular Limited Right 3. Former smoker (Z87.891: Personal history of nicotine dependence) - Please continue to not smoke Ordered: clindamycin, 300 mg = 1 cap(s), Oral, BID, # 20 cap(s), Refills(s) 0, Pharmacy: [facility]/pharmacy #[id number], 171, cm, 11/15/23 11:43:00 EDT, Height/Length Dosing, 77.3, kg, 11/15/23 11:43:00 EDT, Weight Dosing CBC w/ Auto Diff Lab Specimen Collect 42974 US Extremity Non-Vascular Limited Right Total time [...] 03/11/2015 Recorded Normal [facility] Comment on above: Result Comment: Elec tronically [...] - Ultrasound Reporton RAD - Ultrasound Report [id number] Normal [facility] C Urineon 09-28-2023 Bacteria identified Cx Nom (U) Microbiology PROCEDURE: Urine Culture [R1] SOURCE: U CleanCatch BODY SITE: COLLECTED DATE/TIME: 09/20/2023 13:11 EDT RECEIVED DATE/TIME: 09/20/2023 18:31 EDT START DATE/TIME: 09/20/2023 18:31 EDT FREE TEXT SOURCE: Silas Haider MD, MD, Silas Lockwood AMENDED REPORTS Amended Report [] Verified Date/Time: 09/28/2023 12:52 EDT Wrong patient per [facility] 09/28/2023 12:51 CSS Patient credited. CSS Performing Locations R1: This test was performed at: [facility], [address] [place] [address], [address] , [place], [facility] Comment on above: Performed By: #### 2 [id number] #### [facility] [address] [place] [address] Provider Letteron 09-26-2023 Provider Letter September 26, 2023 [place] [address] : 1980 Dear Celeste, We have been trying to reach you with no success. It is important that you return our call regarding your medication upon receiving this letter. Also, at the time of your call, please provide us with your current information. Thank you for your prompt attention to this matter. Sincerely, [place] [address] [facility] Ambulatory Visit Summaryon 0 09-20-2023 Ambulatory [...] EDT With: Vitaly SERRANO, Silas Lockwood Where: [facility] Medicine [place] Normal [facility] Medicine Office/Clini c Noteon 09-20-2023 Family [...] DAY, # 90 tab(s), Refills(s) 1, Pharmacy: [facility], 171, cm, 09/20/23 10:53:00 EDT, [...] 03/11/2015 Recorded Normal [facility] Comment on above: Result Comment: Elec tronically [...] numbers. This can be done either in [place] or metric measurements. Note that charts and online BMI calculators are available to help you find your BMI quickly and easily without having to do these calculations yourself. To calculate your BMI in [place] ([place] measurements: 1. Measure your weight in [...] for Disease Control and Prevention: www.cdc.gov ? [place] Heart Association: www.heart.org ? National Heart, Lung, and Blood Ward: www.nhlbi.nih.gov Summary ? Body mass index (BMI) is a number that is calculated from a person's weight and height. ? BMI may help estimate how much of a person's weight is composed of fat. BMI can help identify those who may be at higher risk for certain medical problems. ? BMI can be measured using Turkish measurements or metric measurements. ? BMI charts are used to identify whether you are underweight, normal weight, overweight, or obese. This information is not intended to replace advice given to you by your health care provider. Make sure you discuss any questions you have with your health care provider. Document Revised: 01/30/2020 Document Reviewed: 12/07/2019 [employer] Patient Education ? 2022 [employer] Normal [facility] PAP ACOG PANEL 2: 30 to 65on 10-05-2022 Age Gdln ACOG Testing 30-65 Normal [facility] Comment on above: Performed By: #### [id number] #### [facility] [address] [address] [address] Vicky Cordoba Vital Signs Date Time Vital Sign Value Performing Clinician Facility 10-09-2024 08:58-0400 Body mass index (BMI) [Ratio] 25.18 kg/m2 Torie Aaron DO Work Phone: [facility] 10-09-2024 08:58-0400 Body weight 70.76 kg Torie Aaron DO Work Phone: [facility] 10-09-2024 08:58-0400 Diastolic blood pressure 74 mm[Hg] Torie Aaron DO Work Phone: [facility] 10-09-2024 08:58-0400 Systolic blood pressure 122 mm[Hg] Torie Aaron DO Work Phone: [facility] 12-02-2023 14:37-0400 Body height 165.1 cm MD Silas Haider Work Phone: [facility] 12-02-2023 14:37-0400 Body mass index (BMI) [Ratio] 28.3 kg/m2 MD Silas Haider Work Phone: [facility] 12-02-2023 14:37-0400 Body temperature 98.4 [degF] MD Silas Haider Work Phone: [facility] 12-02-2023 14:37-0400 Body weight 77.11 kg MD Silas Haider Work Phone: [facility] 12-02-2023 14:37-0400 Diastolic blood pressure 88 mm[Hg] MD Silas Haider Work Phone: [facility] 12-02-2023 14:37-0400 Heart rate 96 /min MD Silas Haider Work Phone: [facility] 12-02-2023 14:37-0400 SaO2% (BldA) [Mass fraction] 96 % MD Silas Haider Work Phone: [facility] 12-02-2023 14:37-0400 Systolic blood pressure 130 mm[Hg] MD Silas Haider Work Phone: [facility] 03-31-2022 16:50-0500 Blood Pressure Location Silas Haider [facility] 03-31-2022 16:50-0500 Diastolic blood pressure 74 mm[Hg] Silas Haider [facility] 03-31-2022 16:50-0500 Heart rate 99 /min Silas Haider [facility] 03-31-2022 16:50-0500 SaO2% (BldA) [Mass fraction] 97 % Silas Haider [facility] 03-31-2022 16:50-0500 Systolic blood pressure 122 mm[Hg] Silas Haider [facility] 12-31-2021 16:27-0400 Blood Pressure Location Silas Haider [facility] 12-31-2021 16:27-0400 Diastolic blood pressure 82 mm[Hg] Silas Haider [facility] 12-31-2021 16:27-0400 Heart rate 87 /min Silas Haider [facility] 12-31-2021 16:27-0400 SaO2% (BldA) [Mass fraction] 98 % Silas Haider [facility] 12-31-2021 16:27-0400 Systolic blood pressure 120 mm[Hg] Silas Haider [facility] 09-09-2021 14:09-0400 Diastolic blood pressure 104 mm[Hg] Silas Haider [facility] 09-09-2021 14:09-0400 Mean blood pressure 113 mm[Hg] Silas Haider [facility] 09-09-2021 14:09-0400 Systolic blood pressure 132 mm[Hg] Silas Haider [facility] 09-09-2021 13:20-0400 Blood Pressure Location Silas Haider [facility] 09-09-2021 13:20-0400 Diastolic blood pressure 104 mm[Hg] Silas Haider [facility] 09-09-2021 13:20-0400 Heart rate 89 /min Silas Haider [facility] 09-09-2021 13:20-0400 SaO2% (BldA) [Mass fraction] 97 % Silas Haider [facility] 09-09-2021 13:20-0400 Systolic blood pressure 138 mm[Hg] Silas Haider [facility] Encounters Encounter Date Encounter Type Care Provider Facility Start: 11-06-2024 End: 11-06-2024 ambulatory Silas Haider Facility:[facility] Start: 10-09-2024 End: 10-09-2024 Bamboo flowsheet Torie [...] encounter procedure Silas Haider MD Work Phone: [facility] Work Phone: Start: 10-01-2024 End: 10-01-2024 ambulatory Silas Haider Facility:[facility] Start: 08-20-2024 End: 08-20-2024 ambulatory Carlin Collier MD Facility: [facility] Start: 08-07-2024 End: 08-07-2024 ambulatory Silas Haider Facility[facility] Start: 07-23-2024 End: 07-23-2024 ambulatory Kaushikus Ceceas Nando SERRANO Facility:[facility] Start: 06-25-2024 End: 06-25-2024 ambulatory Kaushikus Lyricytautas Laliitis Facility: [facility] Start: 06-11-2024 End: 06-11-2024 ambulatory Carlin Wagnerautas Laliitis Facility: [facility] Start: 05-28-2024 End: 05-28-2024 ambulatory Kaushikus Lyricytautas Laliitis Facility: [facility] Start: 05-09-2024 End: 05-09-2024 ambulatory iSlas Haider Facility:[facility] Start: 05-07-2024 End: 05-07-2024 ambulatory Carlin Wagnerautas Laliitis Facility: [facility] Start: 04-16-2024 End: 04-16-2024 ambulatory Carlin Gunterytautas Nando SERRANO Facility: [facility] Start: 03-19-2024 End: 03-19-2024 ambulatory Carlin Gunterytautas Nando SERRANO Facility:[facility] Start: 03-05-2024 End: 03-05-2024 ambulatory Silas Haider Facility:[facility] Start: 02-06-2024 End: 02-06-2024 ambulatory Silas Haider Facility:[facility] Start: 12-02-2023 End: 12-02-2023 ambulatory MD Silas Haider Work Phone: [facility] Work Phone: Start: 12-02-2023 End: 12-02-2023 Departed Referred MD Silas Haider Work Phone: [facility] Start: 12-02-2023 End: 12-02-2023 Patient encounter procedure MD Silas Haider Work Phone: [facility] [place] Work Phone: Start: 11-18-2023 End: 11-18-2023 ambulatory Silas Haider Facility:[facility] Start: 11-18-2023 End: 11-18-2023 Patient encounter procedure Silas Haider [facility] Start: 11-15-2023 End: 11-15-2023 Lab Drop off Silas Haider [facility] Start: 11-15-2023 End: 11-15-2023 ambulatory Silas Haider Facility:[facility] Start: 09-22-2023 End: 09-22-2023 ambulatory MD Silas Haider Work Phone: [facility] Work Phone: Start: 09-22-2023 End: 09-22-2023 Patient encounter procedure MD Silas Haider Work Phone: [facility] Work Phone: Start: 09-20-2023 End: 09-20-2023 ambulatory Silas Haider Facility:[facility] Start: 09-20-2023 End: 09-20-2023 Lab Drop off Silas Haider [facility] Start: 09-20-2023 End: 09-20-2023 ambulatory Silas Haider Facility:[facility] Start: 08-03-2023 End: 08-03-2023 ambulatory Silas Haider Facility:[facility] Start: 09-27-2022 End: 09-27-[address] TORIE WALKER . Facility: Start: 08-31-2022 End: 08-31-2022 ambulatory MD Silas Haider Work Phone: [facility] Work Phone: Start: 08-31-2022 End: 08-31-2022 Patient encounter procedure MD Silas Haider Work Phone: [facility] Work Phone: Start: 03-31-2022 End: 03-31-2022 Patient encounter procedure Silas Haider [facility] Start: 12-31-2021 End: 12-31-2021 Patient encounter procedure Silas Haider [facility] Start: 09-09-2021 End: 09-09-2021 Patient encounter procedure Silas Haider [facility] Start: 03-06-2018 Patient encounter procedure Meka [...] 09-28-2027 Screening for malignant neoplasm of cervix [facility] Start: 09-28-2026 Screening for malignant neoplasm of cervix Pap Smear [facility] Start: 10-17-2025 End: 10-17-2025 Patient encounter procedure 10/17/2025 8:30 AM EDT Office Visit [facility] [address] [place] [address] Torie Walker, DO [address] [place] [address] [facility] Start: 10-02-2025 Screening for malignant neoplasm of breast Mammogram [facility] Start: 01-21-2025 Influenza vaccination Influenz a Vaccine (Season Ended) [facility] Start: 10-09-2024 End: 10-09-2024 Patient encounter procedure 10/09/2024 8:40 AM EDT Office Visit [facility] [address] [place] [id number] Torie Walker, DO [address], [place] [id number] Arrived [facility] Comment on above: Arrived Start: 10-01-2024 MG Breast - left Screening [facility] Start: 10-01-2024 Screening mammograph y of left breast MM screening mammo LT w/CAD [facility] Start: 12-02-2023 [facility] Start: 12-02-2023 Bacteria identified in Urine by Culture [facility] Start: 1980 Screening for malignant neoplasm of colon [facility] Atopobium vaginae DN A [Presence] in Vaginal fluid by FAISAL with probe detection [facility] Bacterial vaginosis associated bacterium 2 DNA [Presence] in Vaginal fluid by FAISAL with probe detection [facility] Megasphaera sp type 1 DNA [Presence] in Vaginal fluid by FAISAL with probe detection [facility] THIN PREP TIS PAP AN D HR HPV DNA THIN PREP TIS PAP AND HR HPV DNA Pathology and Cytology Routine Well woman exam with routine gynecological exam H/O: hysterectomy Ordered: 10/09/2024 [facility] Work Phone: Comment on above: Ordered: 10/09/2024 Immunizations Immunization Date Immunization Notes Care Provider [facility] 04-05-2024 influenza virus vaccine, unspecified formulation Torie Aaron DO Work Phone: [facility] 02-20-2022 influenza virus vaccine, unspecified formulation Silas Haider [facility] 09-02-2020 SARS-CoV-2 (COVID-19 ) mRNA BNT-162b2 vax Silas Haider [facility] 08-12-2020 SARS-CoV-2 (COVID-19 ) mRNA BNT-162b2 vax Silas Haider [facility] 04-04-2020 influenza virus vaccine, unspecified formulation Silas Haider [facility] 03-14-2018 influenza virus vaccine, unspecified formulation Silas Haider [facility] 03-13-2017 influenza virus vaccine, unspecified formulation Silas Haider [facility] 03-11-2015 influenza virus vaccine, unspecified formulation Silas Haider [facility] NEGATED: Highlighted row has not occurred!03-24-2023 influenza virus vaccine, unspecified formulation Silas Haider [facility] Payers Date Payer Category Payer Self-pay [id number] 2023 Unknown [id number] 2023 Private Health Insurance [employer] [id number] 2023 Unknown 2022 Unknown [id number] 1978 Unknown [id number] 2.16.840.1.220366.3.579.2. 356 1978 Unknown [id number] 2.16.840.1.666272.3.579.2. 356 1978 Unknown [id number] 2.16.840.1.601502.3.579.2. 593 1978 Unknown [id number] 2.16.840.1.688659.3.579.2. 727 1978 Unknown [id number] 2.16.840.1.058155.3.579.2. 1978 Unknown [id number] 2.16.840.1.162054.3.579.2. 1978 Unknown [id number] 2.16.840.1.137660.3.579.2. 1978 Unknown [id number] 2.16.840.1.160968.3.579.2. 1978 Unknown [id number] 2.16.840.1.278611.3.579.2. 1978 Unknown [id number] 2.16.840.1.275688.3.579.2. 1978 Unknown [id number] 2.16.840.1.386903.3.579.2. 1978 Unknown [id number] 2.16.840.1.837500.3.579.2. 1978 Unknown [id number] 2.16.840.1.605421.3.579.2. 1978 Unknown [id number] 2.16.840.1.743251.3.579.2. 1978 Unknown [id number] 2.16.840.1.873384.3.579.2. 1978 Unknown [id number] 2.16.840.1.116631.3.579.2. 1978 Unknown [id number] 2.16.840.1.201158.3.579.2. 196 1978 Unknown [id number] 2.16.840.1.117453.3.579.2. 9 1978 Unknown [id number] 2.16.840.1.926327.3.579.2. 1978 Unknown [id number] 2.16.840.1.404320.3.579.2. 7 1978 Unknown [id number] 2.16.840.1.309845.3.579.2. 727 1978 Unknown [id number] 2.16.840.1.984915.3.579.2. 727 1978 Unknown [id number] 2.16.840.1.105997.3.579.2. 727 1959 Unknown [id number] Unknown [id number] Unknown [id number] 2.16.840.1.894856.3.579.2. 531 Unknown [id number] 2.16.840.1.344596.3.579.2. 531 Social History Date Type Detail Facility Start: 09-09-2021 End: 06-14-2023 Tobacco smoking status Ex-smoker (finding) [facility] Comment on above: smokes outsi de Tobacco smoking status Never [facility] Comment on above: smokes outsi de Start: 01-28-1992 End: 08-21-2013 Sex Assigned At Female [facility] Tobacco Household tobacc o concerns: No. [facility] Tobacco smoking status No Smokin g Status Entered [facility] Start: 1980 Sex Assigned At Female F [facility] Start: 10-02-2024 Sex Female (finding) [facility] History of tobacco use Current smoker [facility] History of tobacco use Cigarette [facility] Start: 09-29-2023 Alcoholic beverage intake Current drinker of alcohol (finding) [facility] Start: 06-14-2023 History of Social function [facility] Start: 06-14-2023 Alcohol Comment caffeine: 1-2 cups per day coffee [facility] Start: 06-07-2023 Gender identity Identifies as female gender (finding) [facility] Start: 06-07-2023 Sexual orientation Heterosexual (navneet corley) [facility] Functional Status Date Assessment Result Facility 03-31[facility]2022 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 Exam conducted with a rest room matron present. Vitals: Estimated body mass index is [...] Torie Walker DO documented in this encounter [facility] 05-09-2024 Note Patient Education Cardiovascular Hypertension, Adult [...] 12 oz bottle (more content not included)... [facility] 03-05-2024 Note Patient Education Nutrition BMI [...] for Disease Control and Prevention: cdc.gov ? [place] Heart Association: heart.org ? National Heart, Lung, and Blood Ward: nhlbi.nih.gov This information is not intended to replace advice given to you by your health care provider. Make sure you discuss any questions you have with your health care provider. Document Revised: 01/27/2023 Document Reviewed: 01/20/2023 [employer] Patient Education ? 2023 [employer]. [facility] 02-06-2024 Note Patient Education Nutrition BMI [...] for Disease Control and Prevention: cdc.gov ? [place] Heart Association: heart.org ? National Heart, Lung, and Blood Ward: nhlbi.nih.gov This information is not intended to replace advice given to you by your health care provider. Make sure you discuss any questions you have with your health care provider. Document Revised: 01/27/2023 Document Reviewed: 01/20/2023 [employer] Patient Education ? 2023 [employer]. [facility] 03-31-2022 Hospital Discharg e instructions Patient [...] care provider. This is important. Medicines Take aklz-oqo-ugfuyor and prescription medicines only as told by [...] 05/09/2006 Document Revised: 01/17/2019 Document Reviewed: 01/17/2019 [employer] Patient Education 2019 [employer]. [facility] 12-31-2021 Hospital Discharg e instructions Patient [...] talk therapy or counseling. Seeing a nutrition manager (dietitian). Getting appropriate exercise. Medicines to help [...] that address eating disorders. Talk with an communicable disease specialist, therapist, or counselor about your eating [...] health care provider. This is important. Take kaou-scc-tzxlrsw and prescription medicines only as told by [...] 05/09/2006 Document Revised: 09/17/2016 Document Reviewed: 03/12/2016 [employer] Patient Education 2020 [employer]. 12/31/2021 16:54:02 Hypertension, Adult Hypertension, Adult High [...] care provider. This is important. Medicines Take ptyz-ijz-ztumxbm and prescription medicines only as told by [...] Document Reviewed: 01/17/2019 Elsevier Patient Education 2020 [employer]. [facility] [place] 09-09-2021 Hospital Discharg e instructions Patient Education [...] care provider. Avoid caffeine, alcohol, and certain ctdf-qnq-jweteka cold medicines. These may make you feel worse. Ask your pharmacist which medicines to avoid. General instructions Take femh-xfg-zzezmkz and prescription medicines only as told by [...] Depression Association of [place] (ADAA): www.adaa.org National [place] on Mental Illness (BRENDA): www.brenda.org Contact a [...] Document Reviewed: 10/09/2019 Elsevier Patient Education 2020 [employer]. [facility] Evaluation + Plan note Future Appointments Appointment Date:12/09/2021 07:40:00 AM Scheduled Provider:Silas Haider MD Location:[facility] Appointment Type:[facility] Evaluation + Plan note Future Appointments Appointment Date:03/31/2022 04:40:00 PM Scheduled Provider:Silas Haider MD Location:[facility] Appointment Type: Open [facility] Evaluation + Plan note Future Appointments Appointment Date:09/22/2022 04:40:00 PM Scheduled Provider:Silas Haider MD Location:[facility] Appointment Type:[facility] Evaluation + Plan note Future Appointments Appointment Date:03/20/2024 07:15:00 AM Scheduled Provider:Silas Haider MD Location:[facility] Appointment Type: Open Diagnostic Tests PendingUrine Culture 09/20/23 [facility] Evaluation + Plan note Future Appointments Appointment Date:03/20/2024 07:15:00 AM Scheduled Provider:Silas Haider MD Location:[facility] Appointment Type: Open Future Scheduled TestsUS Extremity Non-Vascular Limited Right 11/15/23 [facility] Evaluation + Plan note Future Appointments Appointment Date:03/20/2024 07:15:00 AM Scheduled Provider:Silas Haider MD Location:[facility] Appointment Type:[facility] Evaluation note No assessment inform ation available [facility] Work Phone: Evaluation note Diagnosis Onset Date Vaginitis noneactive [facility] Work Phone: Evaluation note* Diagnosis Well woman exam with routine gynecological exam Routine gynecological examination H/O: hysterectomy Acquired absence of both cervix and uterus Yeast infection [facility] N[facility] No data available for this section [facility] Hospital Discharge instructions No data available for this section [facility] No data available for this section [facility] Summary Purpose Family History No Family [...] section and content) DATE CREATED AUTHOR 04/30/2018 [facility] DATE CREATED AUTHOR AUTHOR'S ORGANIZ ATION 10/06/2022 [facility] DATE CREATED AUTHOR AUTHOR'S ORGANIZ ATION 11/17/2023 [facility] DATE CREATED AUTHOR AUTHOR'S ORGANIZ ATION 05/11/2024 [facility] DATE CREATED AUTHOR AUTHOR'S ORGANIZ ATION 08/26/2024 [facility] DATE CREATED AUTHOR AUTHOR'S ORGANIZ ATION 10/05/2024 [facility] DATE CREATED AUTHOR AUTHOR'S ORGANIZ ATION 10/10/2024 [facility] EPIC DATE CREATED AUTHOR AUTHOR'S ORGANIZ ATION 11/07/2024 [facility] Care Team (unrecognized sect ion and [...] October 01, 2024 End: October 01, 2024 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 [facility]. provides no warranty or guarantee of the accuracy or completeness of information in this document.
--- NOTE | 2025-01-16 06:46 | MR_ITS ---
[address] [address] Patient Name: SHREYAS DU MRN: [id number] date: 1980 Sex: F Assigned Patient Location: MRI Current Patient Location: MRI Accession/Order Number: [id number] Exam Date: 01/16/2025 06:55 Report Date: 01/16/2025 08:21 At the request of: GULSHAN ROCK NP Procedure: MR cervical spine wo con MR cervical spine wo con 01/16/2025 7:42 AM SIGNS AND SYMPTOMS: Cervical stenosis, bilateral upper extremity numbness and tingling, neck pain PROTOCOL: Multiplanar multisequence MR images of the cervical spine without IV contrast COMPARISON: None. FINDINGS: There is straightening of the normal cervical lordosis. The bones are otherwise in anatomic alignment. There is preservation of vertebral body heights. There is disc desiccation and mild disc height loss at C3-C4, C4-C5, and C5-C6. The marrow signal is within normal limits. The cord is normal in signal. No epidural or paraspinous fluid collection is appreciated. The visualized paraspinous soft tissues are within normal limits. The prevertebral soft tissues are within normal limits. At C2-C3: There is a normal disc, central canal, and neural foramen. At C3-C4: There is uncovertebral joint spurring contributing to mild bilateral neural foraminal narrowing and minimal spinal canal narrowing. At C4-C5: There is a broad-based disc bulge with facet hypertrophy and uncovertebral joint spurring contributing to mild to moderate bilateral neural foraminal narrowing. There is mild spinal canal narrowing. At C5-C6: There is a broad-based disc bulge with uncovertebral joint spurring and facet hypertrophy. There is moderate to severe left and moderate right neural foraminal narrowing with moderate spinal canal narrowing. At C6-C7: There is a broad-based disc bulge with uncovertebral joint spurring. There is moderate to severe left and mild right neural foraminal narrowing with mild spinal canal narrowing. At C7-T1: There is a normal disc, central canal, and neural foramen. MR/MR cervical spine wo con IMPRESSION: No cord compression or cord signal abnormality. At C4-C5: There is a broad-based disc bulge with facet hypertrophy and uncovertebral joint spurring contributing to mild to moderate bilateral neural foraminal narrowing. There is mild spinal canal narrowing. At C5-C6: There is a broad-based disc bulge with uncovertebral joint spurring and facet hypertrophy. There is moderate to severe left and moderate right neural foraminal narrowing with moderate spinal canal narrowing. At C6-C7: There is a broad-based disc bulge with uncovertebral joint spurring. There is moderate to severe left and mild right neural foraminal narrowing with mild spinal canal narrowing. Impression dictated by: Robert Martinez M.D. 01/16/2025 8:21 AM Dictation Location: [employer] Electronically authenticated by: [id number] Date: 01/16/2025 08:21
--- NOTE | 2025-01-16 06:46 | MR_ITS ---
[address] [address] Patient Name: SHREYAS DU MRN: [facility]:[id number] date: 1980 Sex: F Assigned Patient Location: MRI Current Patient Location: MRI Accession/Order Number: [id number] Exam Date: 01/16/2025 06:55 Report Date: 01/16/2025 08:31 At the request of: GULSHAN ROCK NP Procedure: MR lumbar spine wo con MR lumbar spine wo con 01/16/2025 7:42 AM SIGNS AND SYMPTOMS: Cervical stenosis, cervical radiculopathy, lumbar pain with bilateral lower extremity numbness and tingling PROTOCOL: Multiplanar multisequence MR images of the lumbar spine without contrast COMPARISON: None. FINDINGS: The bones of the lumbar spine are in anatomic alignment. There is preservation of vertebral body heights and intervertebral disc spaces. There is Modic type I endplate edema at L4-5. There is Modic type II fatty endplate degenerative change at L5-S1. There is disc desiccation and mild disc height loss at L2-L3. There is moderate disc height loss at L4-5 and L5-S1. The conus terminates at the T12-L1 intervertebral disc level. No epidural or paraspinous fluid collection is appreciated. At T12-L1: There is a normal disc, central canal, and neural foramen. At L1-L2: There is a normal disc, central canal, and neural foramen. At L2-L3: There is a broad-based disc bulge with facet hypertrophy. There is mild spinal canal stenosis with mild bilateral neural foraminal narrowing. At L3-L4: There is facet hypertrophy bilaterally without significant narrowing. At L4-L5: There is a broad-based disc bulge with bilateral facet hypertrophy. There is moderate spinal canal stenosis with mild left and moderate right neural foraminal narrowing. At L5-S1: There is a circumferential disc bulge with endplate osteophyte formation and facet hypertrophy. There is mild spinal canal narrowing with mild bilateral neural foraminal stenosis. MR/MR lumbar spine wo con IMPRESSION: There is a broad-based disc bulge with bilateral facet hypertrophy. There is moderate spinal canal stenosis with mild left and moderate right neural foraminal narrowing. At L5-S1: There is a circumferential disc bulge with endplate osteophyte formation and facet hypertrophy. There is mild spinal canal narrowing with mild bilateral neural foraminal stenosis. Lesser degrees of degenerative changes are noted as above. Impression dictated by: Robert Martinez M.D. 01/16/2025 8:31 AM Dictation Location: [place] [address] Electronically authenticated by: [id number] Y Date: 01/16/2025 08:31
== END 2025-01-16 06:43 | disposition home or self-care (01) ==
LOC: MRI 06:43
PROVIDERS: Visit Provider Nurse Practitioner
DX: M48.062 Spinal stenosis, lumbar region with neurogenic claudication (principal); M48.02 Spinal stenosis, cervical region; M51.369 Other intervertebral disc degeneration, lumbar region without mention of lumbar back pain or lower extremity pain; M50.321 Other cervical disc degeneration at C4-C5 level; M50.322 Other cervical disc degeneration at C5-C6 level; M50.323 Other cervical disc degeneration at C6-C7 level
CPT/HCPCS: 72141; 72148

== ENCOUNTER 2025-01-17 08:04 | Outpatient (OUT) | payer OTHER, SELFPAY ==
--- NOTE | 2025-01-17 08:05 | P.CN_ITS ---
Consult Note: HPI Data of Consult Patient: known to practice within the last 3 years Consult date: 01/17/25 Requesting Physician: Anabel Allen NP Primary Care Provider: Non-Staff Physician, MD Consult Narrative Reason for consult: neck pain with BUE and BLE weakness and pain Narrative: 44yof who presents for evaluation. longstanding neck, and BUE pain, had mastectomy in 2014, pain began around a similar time. has continued in a series of provider directed home exercises >6 weeks, without lasting benefit. uses otc meds and topicals, as needed. utilizing gabapentin 600mg BID without side effects, tylenol PRN, tizanidine prn. tens helpful. over the last 6 weeks pt has had increased pain of right leg and numbness weakness of right arm. pt has been engaged in PT and traction therapy with improvement at times. recently underwent cervical and lumbar MRI with results below. pain today 5/10 increasing with arm use, sleeping, and ADLs. continues to note loss of coater associate strength in RUE. cc:: CC: Anabel Allen NP Review of Systems ROS Musculoskeletal Reports: back pain, neck pain and extremity pain PFSH PFSH Medical History Anxiety ?F41.9 - Anxiety disorder, unspecified (ICD-10) HTN (hypertension) ?I10 - Essential (primary) hypertension (ICD-10) Surgical History History of hysterectomy ?Z90.710 - Acquired absence of both cervix and uterus (ICD-10) History of mastectomy ?Z90.10 - Acquired absence of unspecified breast and nipple (ICD-10) Meds Home Medications and Allergies Home Medications ?Medication ?Instructions ?Recorded ?Confirmed ?Type amlodipine 10 mg tablet (Norvasc) 10 mg PO DAILY 03/1906/25/24 History clonazepam 0.5 mg tablet 0.5 mg PO Q8H 03/19/2406/25 History lamotrigine 200 mg tablet 200 mg PO DAILY 03/19/2408/14 History lamotrigine 25 mg tablet 50 mg PO QAM 03/19/24 History phentermine 37.5 mg tablet 37.5 mg PO DAILY 03/19/24 0 06/25/24 History (Adipex-P) tizanidine 4 mg tablet See Rx Instructions .Route 1 06/04/23 06/25/24 Rx .COMPLEX PRN muscle spasticity #180 tabs baclofen 5 mg tablet See Rx Instructions .Route 0 05/31/24 06/25/24 Rx .COMPLEX #60 tabs ibuprofen 200 mg tablet (Advil) 800 mg PO Q12H PRN anurag n 06/25/24 06/25/24 History gabapentin 300 mg capsule 300 mg PO BID #60 caps 11/15 Rx gabapentin 300 mg capsule 600 mg (2 x 300 mg) PO BID # 120 01/10/25 Rx caps gabapentin 600 mg tablet 600 mg PO BID #60 tabs 01/10 Rx Allergies Allergy/AdvReac Type Severity Reaction Status Date / Time morphine Allergy Intermediate Hives Verified 06/25/24 07:43 Exam Constitutional Documenting provider has reviewed patient's vital signs: yes Common normals: no apparent distress, oriented x3, healthy appearing, alert and well nourished General appearance: cooperative HENMT Common normals: normocephalic, hearing grossly normal bilaterally and moist oral mucous membranes Head and scalp: normocephalic Eye Common normals: PERRL Pupil: PERRL Neck & C-Spine Common normals: full ROM General: normal visual inspection Cervical spine: cervical ROM abnormal and pain with cervical ROM Other: positive spurlings sensation intact BUE strength 4/5 in RUE and 5/5 in LUE Chest Common normals: inspection of chest normal Respiratory Common normals: normal respiratory effort, no retractions and no use of accessory muscles Back & Pelvis Lumbar spine/lower back: pain with ROM, straight leg raise positive right and straight leg raise positive left; no lumbar spinal tenderness Other: strength 4/5 in RLE and 5/5 in LLE pain following right L4,5,S1 Neuro Common normals: oriented x3 Sensorium/orientation: alert Motor exam: strength 5/5 throughout and no movement abnormalities noted Psych Common normals: mental status grossly normal, thought process normal, cooperative, affect normal, speech normal and activity/motor behavior normal Speech: normal speech Thought process: normal thought process Results Imaging Cervical MRI: Attestation: I have reviewed the pertinent imaging results. Radiologist's impression: There is straightening of the normal cervical lordosis. The bones are otherwise in anatomic alignment. There is preservation of vertebral body heights. There is disc desiccation and mild disc height loss at C3-C4, C4-C5, and C5-C6. The marrow signal is within normal limits. The cord is normal in signal. No epidural or paraspinous fluid collection is appreciated. The visualized paraspinous soft tissues are within normal limits. The prevertebral soft tissues are within normal limits. At C2-C3: There is a normal disc, central canal, and neural foramen. At C3-C4: There is uncovertebral joint spurring contributing to mild bilateral neural foraminal narrowing and minimal spinal canal narrowing. At C4-C5: There is a broad-based disc bulge with facet hypertrophy and uncovertebral joint spurring contributing to mild to moderate bilateral neural foraminal narrowing. There is mild spinal canal narrowing. At C5-C6: There is a broad-based disc bulge with uncovertebral joint spurring and facet hypertrophy. There is moderate to severe left and moderate right neural foraminal narrowing with moderate spinal canal narrowing. At C6-C7: There is a broad-based disc bulge with uncovertebral joint spurring. There is moderate to severe left and mild right neural foraminal narrowing with mild spinal canal narrowing. At C7-T1: There is a normal disc, central canal, and neural foramen. Lumbar MRI : Attestation: I have reviewed the pertinent imaging results. Radiologist's impression: The bones of the lumbar spine are in anatomic alignment. There is preservation of vertebral body heights and intervertebral disc spaces. There is Modic type I endplate edema at L4-5. There is Modic type II fatty endplate degenerative change at L5-S1. There is disc desiccation and mild disc height loss at L2-L3. There is moderate disc height loss at L4-5 and L5-S1. The conus terminates at the T12-L1 intervertebral disc level. No epidural or paraspinous fluid collection is appreciated. At T12-L1: There is a normal disc, central canal, and neural foramen. At L1-L2: There is a normal disc, central canal, and neural foramen. At L2-L3: There is a broad-based disc bulge with facet hypertrophy. There is mild spinal canal stenosis with mild bilateral neural foraminal narrowing. At L3-L4: There is facet hypertrophy bilaterally without significant narrowing. At L4-L5: There is a broad-based disc bulge with bilateral facet hypertrophy. There is moderate spinal canal stenosis with mild left and moderate right neural foraminal narrowing. At L5-S1: There is a circumferential disc bulge with endplate osteophyte formation and facet hypertrophy. There is mild spinal canal narrowing with mild bilateral neural foraminal stenosis. Additional Findings Additional findings: If on a controlled substance or opioids, I have checked an [place] report on this patient and there are no aberrancies noted in the prescribing history.??If on a controlled substance or opioid a drug screen was completed and reviewed within the last year, and if there has not been a drug screen completed we ordered one today to monitor higher risk, state monitored pain medication use. As part of providing excellent, safe, comprehensive care, the following was completed at our patient's visit: 1. A medication reconciliation and review to ensure accurate knowledge of current/active medications, including asking our patients to inform us about any [id number] medications or herbal remedies/nutritional supplements/alternative remedies. 2. A review to specifically ensure our patients have had annual screening for screening for depression, screening for tobacco use, and screening for unhealthy alcohol use. For concerning screenings had a discussion with the patient, provided patient education, and recommended follow-up with primary care provider when appropriate. If patient noted with a risk of falling, they received education on strength, gait, and balance training to prevent future risk of falling. Portions of this note may have been carried over from the previous visit and updated as appropriate. Please note this office utilizes paper charting in addition to the electronic medical record. A list of current medications, vitals, and PMH is available there as the clinical staff outside of myself do not have access to [facility] charting during the clinic day operations. As part of providing quality comprehensive care the current medications, vitals, and PMH were reviewed in the paper chart. Assessment and Plan Assessment and Plan (1) Cervical stenosis of spinal canal: Assessment and Plan: progressive central stenosis at C5-6 from prior (2) Cervical radiculopathy: Assessment and Plan: 04-16-24 right C4-5 C5-6 TFESI with minimal relief per pt however chart review supports initially 50% improvement (3) Lumbar stenosis with neurogenic claudication: (4) Cervical spondylosis: Assessment and Plan: pt found significant benefit to bilateral C4-5 C5-6 MBBs, minimal relief from r ight and left C4-5 C5-6 RFA per pt (5) Myalgia: (6) Vertebrogenic low back pain: Assessment and Plan: modic vertebral changes noted at L4,5 on lumbar MRI Plan cervical MRI and lumbar MRI reviewed with pt, will refer to [facility] for evaluation of cervical radiculopathy and progressive weakness of right upper extremety increase gabapentin 600mg TID continue PT and dry needling f/u 3 months for medication management
--- OUTSIDE RECORDS SUMMARY | 2025-01-17 08:08 | XMS_ITS | CCD ---
Author Organization [facility] Inform ion [facility] Care Team Providers Care Video Conference Specialist Name Role Phone Tala Johnson Unavailable Unavaila Dalton Moses Unavailable UnavailMeka Healy Unavailable Unavailable Dalton Olvera Unavailable Unavailsalvador e Silas Haider Primary Care Physician [phone] MD Silas Haider Primary Care Provider [phone] Torie Walker Attending Provider AARON ., DR VOGT Attending Unavailable AARON ., DR VOGT Consulting Unavailable AARON ., DR VOGT Admitting Unavailable Silas Haider Primary Care Physician MD Silas Haider Primary Care Provider Torie Walker Attending Provider MD Silas Haider Primary Care Provider DO Torie Walker Attending Provider MANDI Sánchez Attending Provider [phone] Silas Haider Attending Unavailable Silas Haider Attending Unavailable Silas Haider Admitting Unavailable Silas Haider Admitting Unavailable Silas Haider Attending Unavailable iSlas Haider Attending Unavailable Silas Haider Attending Unavailable [...] [morphine] Drug Allergy 7 Itching (finding), Unknown [facility] (6 sources) aprepitant; Translations: [aprepitant] Drug Allergy 7 Unknown Reaction [facility] (1 source) Morphine Drug Allergy 4 [facility] Repository (3 sources) Honey bee venom Allergy to substance 4 Unknown [facility] Healthcare (3 sources) Warburgia Salutaris Elite Chemotype Propensity to adverse reactions 4 Unknown [facility] Medications Current Medications Medication Drug Class(es) Dates Sig (Normalized) Sig (Original) 0.5 ML semaglutide 2 MG/ML Auto-Injector (1 source) Start: 09-09-2021 End: 11-04-2021 Wegovy (1 mg dose) subcutaneous solution 1 mg, SubCutaneous, qWeek, INJECT 1 PEN UNDER THE SKIN EVERY WEEK, X 4 week(s), # 4 EA, Refills(s) 1, Pharmacy: [facility]/pharmacy #[id number], 171, cm, 09/09/21 13:28:00 EDT, Height/Length Dosing, 75.9, kg, 09/09/21 13:28:00 EDT, Weight Dosing Start Date: 09/09/21 Stop Date: 11/04/21 Status: Ordered 0.75 ML semaglutide 3.2 MG/ML Auto-Injector [Wegovy] (2 sources) Start: 03-31-2022 inject 2.4 mg by subcutaneous injection every week Wegovy (2.4 mg dose) subcutaneous solution 2.4 mg, SubCutaneous, qWeek, # 12 EA, Refills(s) 1, Pharmacy: [facility] #[id number], 171, cm, 03/31/22 16:52:00 EST, Height/Length Dosing, 75.7, kg, 03/31/22 16:52:00 EST, Weight Dosing Start Date: 03/31/22 Status: Ordered Start: 12-31-2021 inject 2.4 mg by sub cutaneous injection every week Wegovy (2.4 mg dose) subcutaneous solution 2.4 mg, SubCutaneous, qWeek, # 12 EA, Refills(s) 1, Pharmacy: [facility] #[id number], 171, cm, 12/31/21 16:30:00 EDT, Height/Length Dosing, 76.7, kg, 12/31/21 16:30:00 EDT, Weight Dosing Start Date: 12/31/21 Status: Ordered amLODIPine 10 mg oral tablet (20 sources) Dihydropyridine Calcium Channel Ted Start: 03-24-2023 take 1 tablet by mouth once daily amLODIPine (Norvasc) 10 MG tablet See Instructions, TAKE 1 TABLET BY MOUTH EVERY DAY, # 90 tab(s), Refills(s) 1, Pharmacy: [facility], 171, cm, 03/24/23 8:31:00 [...] # 20 cap(s), Refills(s) 0, Pharmacy: [facility]/pharmacy #[id number], 171, cm, 11/15/23 11:43:00 EDT, [...] Daily, # 90 cap(s), Refills(s) 1, [id number] 171, cm, 03/31/22 16:52:00 EST, Height/Length Dosing, 75.7, kg, 03/31/22 16:52:00 EST, Weight Dosing Start Date: 03/31/22 Status: Ordered Start: 12-31-2021 take 1 capsule by [facility] once daily omeprazole 40 mg Cap-DR 40 mg = 1 cap(s), Oral, Daily, # 90 cap(s), Refills(s) 1, Pharmacy: [facility]/pharmacy #[id number], 171, cm, 12/31/21 16:30:00 EDT, Height/Length Dosing, 76.7, kg, 12/31/21 16:30:00 EDT, Weight Dosing Start Date: 12/31/21 Status: Ordered omeprazole 40 mg Cap-DR (1 source) Start: 09-09-2021 End: 12-08-2021 take 1 capsule by mouth once daily omeprazole 40 mg Cap-DR 40 mg = 1 cap(s), Oral, Daily, X 90 day(s), # 90 cap(s), Refills(s) 0, [id number] 171, cm, 09/09/21 13:28:00 EDT, Height/Length [...] hours as needed for pain Hydrocodone-Acetami nophen ([place]) 5-325 mg tablet Discontinued 1 TAB PO EVERY 4-6 HOURS as needed for pain 40 7 October 03, 2018 November 08, 2018 8:07am Start: 01-18-2017 End: 01-27-2017 take 2 tablets by mouth every four to six hours as needed for pain Hydrocodone-Acetaminophen ([place]) 5-325 mg Tablet Discontinued 2 TAB PO [...] choosing us for your care. Normal Vasquez [facility] Family Medicine Office/Clini c Noteon 11-06-2024 Family [...] virus vaccine, inactivated 03/11/2015 Recorded Normal Vasquez [facility] Comment on above: Result Comment: Elec tronically Signed By: Vitaly SERRANO, Silas Vinson.minoo\Date and Time Signed: 11/06/24 15:58 EDT Provider Letteron 11-06-2024 Provider Letter Provider Letter November 06, 2024 [facility] [place] [address] : 1980 To Whom It May Concern, Please excuse above patient from work early due to a doctors appointment Date of Illness: From: _11-06-24 To: _ May Return to Work On:11-07-24 Restrictions: _ Comments: _ Sincerely, [place] [address] Normal [facility] Urinalysis macro (dipstick) panel (U)on 10-09-2024 Bilirubin, UA Negative Negative - 4(70) +++ mg/dL [facility] Blood, UA Negative Negative - 50 Ha/mcL [facility] Clarity, UA Clear [facility] Color, UA Yellow [facility] Glucose, UA Negative Negative - 1999(110) ++++ mg/dL [facility] Interpretation and review of laboratory results Normal [facility] Ketones, UA Negative Negative - 160(16) ++++ mg/dL [facility] Leukocytes, UA Negative Negative - 500+++ Zenon/mcL [facility] Nitrite, UA Negative Negative - Positive [facility] pH, UA 7 5 - 9 [facility] Protein, UA Negative Negative - 1999(20) ++++ mg/dL [facility] Spec Grav, UA 1.02 1 - 1.03 [facility] Urobilinogen, UA 0.2 0.2 - 12 mg/dL [facility] MM screening mammo LT w/CADo n 10-02-2024 MM screening mammo LT w/CAD [facility] [address] [place] [address] Mammography Report Signed Patient: Celeste Du MR#: [id number] : 1980 Acct:[id number] Age/Sex: 43 / F Adm Date: 10/01/24 Loc: [place] Room: Type: [facility] Attending Dr: Torie Walker DO Ordering Provider: Torie Walker Date of Service: 10/01/24 Procedure(s): MM screening mammo LT w/CAD Accession Number(s): ([id number]) MM/MM screening mammo LT w/CAD: SCREENING Copies [...] Martinez M.D. 10/02/2024 11:22 AM Dictation Location: [facility] Dictated By: Robert Martinez II, MD 10/02/24 1104 Signed By: 10/02/24 1122 Normal [facility] Mammography reportOrdered By : Robert Martinez on 10-02-2024 Diagnostic imaging study [facility] [address] [place] [address] Mammography Report Signed Patient: Celeste Du MR#: [id number] : 1980 Acct:[id number] Age/Sex: 43 / F Adm Date: 5 Loc: [place] Room: Type: [facility] Attending Dr: Torie Walker DO Ordering Provider: Torie Walker Date of Service: 10/01/24 Procedure(s): MM screening mammo LT w/CAD Accession Number(s): ([id number]) MM/MM screening mammo LT w/CAD: SCREENING Copies [...] Martinez M.D. 10/02/2024 11:22 AM Dictation Location: [facility] Dictated By: Robert Martinez II, MD 10/02/24 1107 Signed By: 10/02/24 1122 [facility] Work Phone: Ambulatory Visit Summaryon 0 08-07-2024 [...] EDT With: Vitaly SERRANO, Silas Lockwood Where: [facility] Medicine [address] [address]- Medications What How Much When Instructions Unchanged [...] choosing us for your care. Normal Vasquez [facility] Family Medicine Office/Clini c Noteon [...] to dermatological (more content not included)... Normal [facility] Comment on above: Result Comment: Elec tronically Signed By: Vitaly SERRANO, Silas Lockwood\.br\Date and Time Signed: 08/07/24 07:50 EDT Provider Letteron 08-07-2024 Provider Letter Provider Letter August 07, 2024 [place] [address] : 1980 To Whom It May Concern, Please excuse above patient from work, due to a doctors appointment Date of Illness: From: _ To: _ May Return to Work On:08-07-24 Restrictions: _ Comments: _ Sincerely, [address] [address] [facility] Ambulatory Visit Summaryon 1 07-10-2023 Ambulatory [...] AM EDT With: Silas Haider MD Where: [address] [address]- Medications What How Much When Instructions Unchanged [...] right and (more content not included)... Normal [facility] Family Medicine Office/Clini c Noteon [...] do 1 more month to carry through [place] and then we will do every other [...] # 30 cap(s), Refills(s) 1, Pharmacy: [facility]/pharmacy #[id number], 171, cm, 05/09/24 8:25:00 EST, [...] virus vaccine, inactivated 03/11/2015 Recorded Normal Vasquez [facility] Comment on above: Result Comment: Elec tronically [...] EST With: Vitaly SERRANO, Silas Lockwood Where: [address] Medications What How Much When Instructions [...] for choosing us for your care. Normal [facility] Medicine Office/Clini c Noteon 03-05-2024 Family Medicine [...] # 15 tab(s), Refills(s) 0, Pharmacy: [facility], 171, cm, 03/05/24 15:51:00 EDT, Height/Length Dosing, 79.6, kg, 03/05/24 15:51:00 EDT, Weight Dosing [facility] External Ambulatory Referral 2. [...] bedtime), # 15 tab(s), Refills(s) 0, Pharmacy: [facility], 171, cm, 03/05/24 15:51:00 EDT, Height/Length Dosing, 79.6, kg, 03/05/24 15:51:00 EDT, Weight Dosing [facility] External Ambulatory Referral 3. [...] bedtime), # 15 tab(s), Refills(s) 0, Pharmacy: [facility], 171, cm, 03/05/24 15:51:00 EDT, Height/Length Dosing, 79.6, kg, 03/05/24 15:51:00 EDT, Weight Dosing [facility] External Ambulatory Referral 4. Osteoarthritis (M19.90: Unspecified osteoarthritis, unspecified site) The patient reports exacerbated osteoarthritis symptoms focused around the clavicle. Present management strategies, including the use of kqac-tux-cicirff analgesics, have not (more content not included)... Normal [facility] Comment on above: Result Comment: [...] # 20 cap(s), Refills(s) 0, Pharmacy: [facility]/pharmacy #[id number], 171, cm, 11/15/23 11:43:00 EDT, Height/Length Dosing, 77.3, kg, 11/15/23 11:43:00 EDT, Weight Dosing 6. Excessive dietary caloric intake (R63.2: Polyphagia) Will do Adipex at this time. Will do it at a lower BMI as her anxiety and depression have some concerns and her weight. Orders: phentermine, 37.5 mg = 1 cap(s), Oral, Daily, # 30 cap(s), Refills(s) 0, Pharmacy: [facility]/pharmacy #[id number], 171, cm, 02/06/24 16:09:00 EDT, [...] influenza virus vaccine, inactivated 03/11/2015 Recorded Normal [facility] Comment on above: Result Comment: Elec tronically Signed By: Vitaly SERRANO, Silas Vinson.br\Date and Time Signed: 02/06/24 18:09 EDT Urine Cultureon 12-02-2023 Bacteria identified Cx Nom (U) <9,000 colonies/ml mixed bacterial skin contaminants 2 Days PERFORMED BY: [place] [address] PATHOLOGIST ASSISTANT PRINCIPAL YENI BAH M.D. Normal [facility] Comment on above: Performed By: #### C UU #### [address] #### VAGINITIS+ #### [facility] , Vaginitis Plus (VG+)on 12-01 Atopobium Vaginae Moderate - 1 Normal . [facility] Comment on above: Result Comment: This test was developed and its performance characteristics determined by [facility]. It has not been cleared or approved by the Food and Drug Administration. Performed By: #### C UU #### [place] [address] [place] #### VAGINITIS+ #### [facility] , BVAB2 Low - 0 Normal . [facility] Comment on above: Result Comment: This test was developed and its performance characteristics determined by [facility]. It has not been cleared or approved by the Food and Drug Administration. Performed By: #### C UU #### [address] #### VAGINITIS+ #### [facility] , Dolores Albicans, FAISAL Negative Normal Negative [facility] Comment on above: Result Comment: This test was developed and its performance characteristics determined by [facility]. It has not been cleared or approved by the Food and Drug Administration. Performed By: #### C UU #### [address] #### VAGINITIS+ #### [facility] , Dolores Glabrata, FAISAL Negative Normal Negative [facility] Comment on above: Result Comment: This test was developed and its performance characteristics determined by [facility]. It has not been cleared or approved by the Food and Drug Administration. PERFORMED BY: [place] [address] PATHOLOGIST ASSISTANT PRINCIPAL YENI BAH M.D. Performed By: #### C UU #### [address] #### VAGINITIS+ #### [facility] , Chlamydia Trachomotis, FAISAL Negative Normal Negative [facility] Comment on above: Performed By: #### C UU #### [place] [address] [place] #### VAGINITIS+ #### [facility] , Megasphaera Low - 0 Normal . [facility] Comment on above: Result Comment: [...] BV. Performed By: #### C UU #### [facility] [address] [place] [address] #### VAGINITIS+ #### [facility] , Neisseria Gonorrhoeae, FAISAL Negative Normal Negative [facility] Comment on above: Result Comment: Perf ormed at: =G - [facility] [address] [id number] Chlorine Plant Operator: Dee Mendez MD, Phone: [phone] Performed By: #### C UU #### [facility] [address] [place] [address] #### VAGINITIS+ #### [facility] , Tric Vag FAISAL Negative Normal Negative [facility] Comment on above: Performed By: #### C UU #### [facility] [address] [place] [address] #### VAGINITIS+ #### [facility] , [place] Head/Neck [...] MD Transcribed by: DIANNA Technologist: KR Normal [facility] CBC w/ Auto Diffon Basophils (Bld) [#/Vol] 0.0 E9/L Normal 0.0-0.2 [facility] Comment on above: Performed By: #### 2 [id number] ####[facility] [address] [place] [address] Eosinophils (Bld) [#/Vol] 0.5 E9/L Normal 0.0-0.5 [facility] Comment on above: Performed By: #### 2 601578 ####[address] [address] Eosinophils/100 WBC (Bld) 5.0 % Normal 0.0-8.0 [facility] Comment on above: Performed By: #### 2 538326 ####[address] [address] Erythrocyte distribution width (RBC) [Ratio] 12.6 % Normal 10.9-14.2 [facility] Comment on above: Performed By: #### 2 394519 #### [facility] [address] [place] [address] Performed By: #### 2 686981 ####[address] [address] Hematocrit (Bld) [Volume fraction] 42.8 % Normal 34.0-46.0 [facility] Comment on above: Performed By: #### 2 939953 #### [facility] [address] [place] [address] Performed By: #### 2 401505 ####[place] [address] [place] [address] Hemoglobin (Bld) [Mass/Vol] 15.0 g/dL Normal 12.0-16.0 [facility] Comment on above: Performed By: #### 2 815211 #### [facility] [address] [place] [address] Performed By: #### 2 974286 ####[place] [address] Lymphocytes (Bld) [#/Vol] 2.6 E9/L Normal 1.0-4.0 [facility] Comment on above: Performed By: #### 2 252059 ####[place] [address] Lymphocytes/100 WBC (Bld) 27.0 % Normal 14.0-50.0 [facility] Comment on above: Performed By: #### 2 334149 ####[place] [address] MCH (RBC) [Entitic mass] 33.5 pg Normal 27.0-34.0 [facility] Comment on above: Performed By: #### 2 081784 #### [facility] [address] [place] [address] Performed By: #### 2 271545 ####[place] [address] MCHC (RBC) [Mass/Vol] 35.1 g/dL Normal 31.4-36.0 [facility] Comment on above: Performed By: #### 2 787097 #### [facility] [address] [place] [address] Performed By: #### 2 597500 ####[place] [address] MCV (RBC) [Entitic vol] 95.4 fL Normal 80.0-100.0 [facility] Comment on above: Performed By: #### 2 609703 #### [facility] [address] [place] [address] Performed By: #### 2 658011 ####[place] [address] Metamyelocytes/Leukoc ytes Manual cnt (Bld) [Pure # fraction] 1 % High 0-0 [facility] Comment on above: Performed By: #### 2 663490 ####[address] [place] [address] Monocytes (Bld) [#/Vol] 0.6 E9/L Normal 0.2-1.0 [facility] Comment on above: Performed By: #### 2 600229 ####[facility] [address] [place] [address] Neutrophils (Bld) [#/Vol] 5.8 E9/L Invalid Interpretation Code [facility] Comment on above: Performed By: #### 2 900540 ####[facility] [address] [place] [address] Platelet 333.0 E9/L Normal 150.0-500.0 [facility] Comment on above: Performed By: #### 2 442149 #### [facility] [address] [place] [address] Performed By: #### 2 383730 ####[address] [address] Platelet mean volume (Bld) [Entitic vol] 8.0 fL Normal 6.4-10.8 [facility] Comment on above: Performed By: #### 2 376661 #### [facility] [address] [place] [address] Performed By: #### 2 745182 ####[address] [address] RBC (Bld) [#/Vol] 4.5 E12/L Normal 4.3-5.9 [facility] Comment on above: Performed By: #### 2 789633 #### [facility] [address] [place] [address] Performed By: #### 2 414806 ####[address] [address] RBC size Nom (Bld) NORMAL Invalid Interpretation Code [facility] Comment on above: Performed By: #### 2 483741 ####[facility] [address] [place] [address] Segmented neutrophils/100 WBC (Bld) 61.0 % Normal 36.0-75.0 [facility] Comment on above: Performed By: #### 2 901361 ####[facility] [address] [place] [address] WBC corrected for nucl RBC Auto (Bld) [#/Vol] 9.6 E9/L Normal 4.0-11.0 [facility] Comment on above: Performed By: #### 2 905881 #### [facility] [address] [place] [address] Performed By: #### 2 372684 ####[facility] [address] [place] [id number] Family Medicine Office/Clini c Noteon 11-15-2023 Family [...] CBC w/ Auto Diff Lab Specimen Collect 417[address] US Extremity Non-Vascular Limited Right 2. BMI 26.0-26.9,adult (Z68.26: Body mass index [BMI] 26.0-26.9, adult) - BMI education added Ordered: clindamycin, 300 mg = 1 cap(s), Oral, BID, # 20 cap(s), Refills(s) 0, Pharmacy: [facility]/pharmacy #[id number], 171, cm, 11/15/23 11:43:00 EDT, Height/Length Dosing, 77.3, kg, 11/15/23 11:43:00 EDT, Weight Dosing CBC w/ Auto Diff Lab Specimen Collect 17890 US Extremity Non-Vascular Limited Right 3. Former smoker (Z87.891: Personal history of nicotine dependence) - Please continue to not smoke Ordered: clindamycin, 300 mg = 1 cap(s), Oral, BID, # 20 cap(s), Refills(s) 0, Pharmacy: [facility]/pharmacy #6177, 171, cm, 11/15/23 11:43:00 EDT, Height/Length Dosing, 77.3, kg, 11/15/23 11:43:00 EDT, Weight Dosing CBC w/ Auto Diff Lab Specimen Collect 86535 US Extremity Non-Vascular Limited Right Total time [...] virus vaccine, inactivated 03/11/2015 Recorded Normal Vas[facility] Comment on above: Result Comment: Elec tronically [...] - Ultrasound Reporton RAD - Ultrasound Report [id number] Normal [facility] C Urineon 09-28-2023 Bacteria identified Cx Nom (U) Microbiology PROCEDURE: Urine Culture [R1] SOURCE: U CleanCatch BODY SITE: COLLECTED DATE/TIME: 09/20/2023 13:11 EDT RECEIVED DATE/TIME: 09/20/2023 18:31 EDT START DATE/TIME: 09/20/2023 18:31 EDT FREE TEXT SOURCE: Silas Haider MD, MD, Silas Lockwood AMENDED REPORTS Amended Report [] Verified Date/Time: 09/28/2023 12:52 EDT Wrong patient per [facility] 09/28/2023 12:51 CSS Patient credited. CSS Performing Locations R1: This test was performed at: [facility], [address] [place] [address], [address]- , [place], [facility] Comment on above: Performed By: #### 2 [id number] #### [facility] [address] [place] [address] Provider Letteron 09-26-2023 Provider Letter September 26, 2023 [place] [address] : 1980 Dear Celeste, We have been trying to reach you with no success. It is important that you return our call regarding your medication upon receiving this letter. Also, at the time of your call, please provide us with your current information. Thank you for your prompt attention to this matter. Sincerely, [place] [address] [facility] Ambulatory Visit Summaryon 0 09-20-2023 Ambulatory [...] EDT With: Vitaly SERRANO, Silas Lockwood Where: [facility] Medicine [place] Normal [facility] Medicine Office/Clini c Noteon 09-20-2023 Family Medicine [...] DAY, # 90 tab(s), Refills(s) 1, Pharmacy: [facility], 171, cm, 09/20/23 10:53:00 EDT, [...] virus vaccine, inactivated 03/11/2015 Recorded Normal Vasquez [facility] Comment on above: Result Comment: Elec tronically [...] numbers. This can be done either in [place] or metric measurements. Note that charts and online BMI calculators are available to help you find your BMI quickly and easily without having to do these calculations yourself. To calculate your BMI in [place] measurements: 1. Measure your weight [...] for Disease Control and Prevention: www.cdc.gov ? [place] [employer]: www.heart.org ? National Heart, Lung, and Blood Drums: www.nhlbi.nih.gov Summary ? Body mass index (BMI) is a number that is calculated from a person's weight and height. ? BMI may help estimate how much of a person's weight is composed of fat. BMI can help identify those who may be at higher risk for certain medical problems. ? BMI can be measured using [place] measurements or metric measurements. ? BMI charts are used to identify whether you are underweight, normal weight, overweight, or obese. This information is not intended to replace advice given to you by your health care provider. Make sure you discuss any questions you have with your health care provider. Document Revised: 01/30/2020 Document Reviewed: 12/07/2019 [employer] Patient Education ? 2022 [employer] Normal [facility] PAP ACOG PANEL 2: 30 to 65on 10-05-2022 Age Gdln ACOG Testing 30-65 Normal [facility] Comment on above: Performed By: #### 4 [id number] #### [facility] [address] [address] [address] Vicky Cordoba Vital Signs Date Time Vital Sign Value Performing Clinician Facility 10-09-2024 08:58-0400 Body mass index (BMI) [Ratio] 25.18 kg/m2 Torie Aaron DO Work Phone: [facility] 10-09-2024 08:58-0400 Body weight 70.76 kg Torie Aaron DO Work Phone: [facility] 10-09-2024 08:58-0400 Diastolic blood pressure 74 mm[Hg] Torie Aaron DO Work Phone: [facility] 10-09-2024 08:58-0400 Systolic blood pressure 122 mm[Hg] Torie Aaron DO Work Phone: [facility] 12-02-2023 14:37-0400 Body height 165.1 cm MD Silas Haider Work Phone: [facility] 12-02-2023 14:37-0400 Body mass index (BMI) [Ratio] 28.3 kg/m2 MD Silas Haider Work Phone: [facility] 12-02-2023 14:37-0400 Body temperature 98.4 [degF] MD Silas Haider Work Phone: [facility] 12-02-2023 14:37-0400 Body weight 77.11 kg MD Silas Haider Work Phone: [facility] 12-02-2023 14:37-0400 Diastolic blood pressure 88 mm[Hg] MD Silas Haider Work Phone: [facility] 12-02-2023 14:37-0400 Heart rate 96 /min MD Silas Haider Work Phone: [facility] 12-02-2023 14:37-0400 SaO2% (BldA) [Mass fraction] 96 % MD Silas Haider Work Phone: [facility] 12-02-2023 14:37-0400 Systolic blood pressure 130 mm[Hg] MD Silas Haider Work Phone: [facility] 03-31-2022 16:50-0500 Blood Pressure Location Silas Haider [facility] 03-31-2022 16:50-0500 Diastolic blood pressure 74 mm[Hg] Silas Haider [facility] 03-31-2022 16:50-0500 Heart rate 99 /min Silas Haider [facility] 03-31-2022 16:50-0500 SaO2% (BldA) [Mass fraction] 97 % Silas Haider [facility] 03-31-2022 16:50-0500 Systolic blood pressure 122 mm[Hg] Silas Haider [facility] 12-31-2021 16:27-0400 Blood Pressure Location Silas Haider [facility] 12-31-2021 16:27-0400 Diastolic blood pressure 82 mm[Hg] Silas Haider [facility] 12-31-2021 16:27-0400 Heart rate 87 /min Silas Haider [facility] 12-31-2021 16:27-0400 SaO2% (BldA) [Mass fraction] 98 % Silas Haider [facility] 12-31-2021 16:27-0400 Systolic blood pressure 120 mm[Hg] Silas Haider [facility] 09-09-2021 14:09-0400 Diastolic blood pressure 104 mm[Hg] Silas Haider [facility] 09-09-2021 14:09-0400 Mean blood pressure 113 mm[Hg] Silas Haider [facility] 09-09-2021 14:09-0400 Systolic blood pressure 132 mm[Hg] Silas Haider [facility] 09-09-2021 13:20-0400 Blood Pressure Location Silas Haider [facility] 09-09-2021 13:20-0400 Diastolic blood pressure 104 mm[Hg] Silas Haider [facility] 09-09-2021 13:20-0400 Heart rate 89 /min Silas Haider [facility] 09-09-2021 13:20-0400 SaO2% (BldA) [Mass fraction] 97 % Silas Haider [facility] 09-09-2021 13:20-0400 Systolic blood pressure 138 mm[Hg] Silas Haider [facility] Encounters Encounter Date Encounter Type Care Provider Facility Start: 11-06-2024 End: 11-06-2024 ambulatory Silas Haider Facility:[facility] Start: 10-09-2024 End: 10-09-2024 Bamboo flowsheet Torie Aaron DO Work Phone: [facility] Start: 10-09-2024 End: 10-09-2024 Bamboo flowsheet Torie Aaron DO Work Phone: [facility] Start: 10-09-2024 End: 10-09-2024 Patient encounter procedure Torie Aaron DO Work Phone: [facility] Start: 10-09-2024 End: 10-09-2024 Periodic preventive med est patient 40-64yrs Otrie Aaron DO Work Phone: [facility] Comment on above: Well woman exam with routine gynecological exam; H/O: hysterectomy; Yeast infection Start: 10-09-2024 End: 10-09-2024 ambulatory TORIE AARON Not Available Start: 10-01-2024 End: 10-01-2024 Patient encounter procedure Silas Haider MD Work Phone: [facility] Work Phone: Start: 10-01-2024 End: 10-01-2024 ambulatory Silas Haider Facility:[facility] Start: 08-20-2024 End: 08-20-2024 ambulatory Carlin Collier MD Facility: [facility] Start: 08-07-2024 End: 08-07-2024 ambulatory Silas Haider Facility:[facility] Start: 07-23-2024 End: 07-23-2024 ambulatory Kaushikus Ceceas Nando SERRANO Facility:[facility] Start: 06-25-2024 End: 06-25-2024 ambulatory Kaushikus Lyricytautas Laliitis Facility: [facility] Start: 06-11-2024 End: 06-11-2024 ambulatory Carlin Wagnerautas Laliitis Facility: [facility] Start: 05-28-2024 End: 05-28-2024 ambulatory Kaushikus Lyricytautas Laliitis Facility: [facility] Start: 05-09-2024 End: 05-09-2024 ambulatory Silas Haider Facility:[facility] Start: 05-07-2024 End: 05-07-2024 ambulatory Carlin Wagnerautas Laliitis Facility: [facility] Start: 04-16-2024 End: 04-16-2024 ambulatory Carlin Gunterytautas Nando SERRANO Facility: [facility] Start: 03-19-2024 End: 03-19-2024 ambulatory Carlin Gunterytautas Nando SERRANO Facility:[facility] Start: 03-05-2024 End: 03-05-2024 ambulatory Silas Haider Facility:[facility] Start: 02-06-2024 End: 02-06-2024 ambulatory Silas Haider Facility:[facility] Start: 12-02-2023 End: 12-02-2023 ambulatory MD Silas Haider Work Phone: [facility] Work Phone: Start: 12-02-2023 End: 12-02-2023 Departed Referred MD Silas Haider Work Phone: [facility] Start: 12-02-2023 End: 12-02-2023 Patient encounter procedure MD Silas Haider Work Phone: [facility] [place] Work Phone: Start: 11-18-2023 End: 11-18-2023 ambulatory Silas Haider Facility:[facility] Start: 11-18-2023 End: 11-18-2023 Patient encounter procedure Silas Haider [facility] Start: 11-15-2023 End: 11-15-2023 Lab Drop off Silas Haider [facility] Start: 11-15-2023 End: 11-15-2023 ambulatory Silas Haider Facility:[facility] Start: 09-22-2023 End: 09-22-2023 ambulatory MD Silas Haider Work Phone: [facility] Work Phone: Start: 09-22-2023 End: 09-22-2023 Patient encounter procedure MD Silas Haider Work Phone: [facility] Work Phone: Start: 09-20-2023 End: 09-20-2023 ambulatory Silas Haider Facility:[facility] Start: 09-20-2023 End: 09-20-2023 Lab Drop off Silas Haider [facility] Start: 09-20-2023 End: 09-20-2023 ambulatory Silas Haider Facility:[facility] Start: 08-03-2023 End: 08-03-2023 ambulatory Silas Haider Facility:[facility] Start: 09-27-2022 End: 09-27-[address] TORIE WALKER . Facility: Start: 08-31-2022 End: 08-31-2022 ambulatory MD Silas Haider Work Phone: [facility] Work Phone: Start: 08-31-2022 End: 08-31-2022 Patient encounter procedure MD Silas Haider Work Phone: [facility] Work Phone: Start: 03-31-2022 End: 03-31-2022 Patient encounter procedure Silas Haider [facility] Start: 12-31-2021 End: 12-31-2021 Patient encounter procedure Silas Haider [facility] Start: 09-09-2021 End: 09-09-2021 Patient encounter procedure Silas Haider [facility] Start: 03-06-2018 Patient encounter procedure Meka [...] 09-28-2027 Screening for malignant neoplasm of cervix [facility] Start: 09-28-2026 Screening for malignant neoplasm of cervix Pap Smear [facility] Start: 10-17-2025 End: 10-17-2025 Patient encounter procedure 10/17/2025 8:30 AM EDT Office Visit [facility] [address] [place] [address] Torie Walker, DO [address] [place] [address] [facility] Start: 10-02-2025 Screening for malignant neoplasm of breast Mammogram [facility] Start: 01-21-2025 Influenza vaccination Influenz a Vaccine (Season Ended) [facility] Start: 10-09-2024 End: 10-09-2024 Patient encounter procedure 10/09/2024 8:40 AM EDT Office Visit [facility] [address] [place] [id number] Torie Walker, DO [address], [place] [id number] Arrived [facility] Comment on above: Arrived Start: 10-01-2024 MG Breast - left Screening [facility] Start: 10-01-2024 Screening mammograph y of left breast MM screening mammo LT w/CAD [facility] Start: 12-02-2023 [facility] Start: 12-02-2023 Bacteria identified in Urine by Culture [facility] Start: 1980 Screening for malignant neoplasm of colon [facility] Atopobium vaginae DN A [Presence] in Vaginal fluid by FAISAL with probe detection [facility] Bacterial vaginosis associated bacterium 2 DNA [Presence] in Vaginal fluid by FAISAL with probe detection [facility] Megasphaera sp type 1 DNA [Presence] in Vaginal fluid by FAISAL with probe detection [facility] THIN PREP TIS PAP AN D HR HPV DNA THIN PREP TIS PAP AND HR HPV DNA Pathology and Cytology Routine Well woman exam with routine gynecological exam H/O: hysterectomy Ordered: 10/09/2024 [facility] Work Phone: Comment on above: Ordered: 10/09/2024 Immunizations Immunization Date Immunization Notes Care Provider [facility] 04-05-2024 influenza virus vaccine, unspecified formulation Torie Aaron DO Work Phone: [facility] 02-20-2022 influenza virus vaccine, unspecified formulation Silas Haider [facility] 09-02-2020 SARS-CoV-2 (COVID-19 ) mRNA BNT-162b2 vax Silas Haider [facility] 08-12-2020 SARS-CoV-2 (COVID-19 ) mRNA BNT-162b2 vax Silas Haider [facility] 04-04-2020 influenza virus vaccine, unspecified formulation Silas Haider [facility] 03-14-2018 influenza virus vaccine, unspecified formulation Silas Haider [facility] 03-13-2017 influenza virus vaccine, unspecified formulation Silas Haider [facility] 03-11-2015 influenza virus vaccine, unspecified formulation Silas Haider [facility] NEGATED: Highlighted row has not occurred!03-24-2023 influenza virus vaccine, unspecified formulation Silas Haider [facility] Payers Date Payer Category Payer Self-pay [id number] 2023 Unknown [id number] 2023 Private Health Insurance [employer] [id number] 2023 Unknown 2022 Unknown [id number] 1978 Unknown [id number] 2.16.840.1.024892.3.579.2. 356 1978 Unknown [id number] 2.16.840.1.602375.3.579.2. 356 1978 Unknown [id number] 2.16.840.1.174120.3.579.2. 593 1978 Unknown [id number] 2.16.840.1.165699.3.579.2. 727 1978 Unknown [id number] 2.16.840.1.689178.3.579.2. 1978 Unknown [id number] 2.16.840.1.498421.3.579.2. 1978 Unknown [id number] 2.16.840.1.832490.3.579.2. 1978 Unknown [id number] 2.16.840.1.395157.3.579.2. 1978 Unknown [id number] 2.16.840.1.570994.3.579.2. 1978 Unknown [id number] 2.16.840.1.448307.3.579.2. 1978 Unknown [id number] 2.16.840.1.750033.3.579.2. 1978 Unknown [id number] 2.16.840.1.547722.3.579.2. 1978 Unknown [id number] 2.16.840.1.220193.3.579.2. 1978 Unknown [id number] 2.16.840.1.893130.3.579.2. 1978 Unknown [id number] 2.16.840.1.123105.3.579.2. 1978 Unknown [id number] 2.16.840.1.759011.3.579.2. 1978 Unknown [id number] 2.16.840.1.109760.3.579.2. 196 1978 Unknown [id number] 2.16.840.1.096696.3.579.2. 9 1978 Unknown [id number] 2.16.840.1.941278.3.579.2. 1978 Unknown [id number] 2.16.840.1.507140.3.579.2. 7 1978 Unknown [id number] 2.16.840.1.189508.3.579.2. 727 1978 Unknown [id number] 2.16.840.1.765419.3.579.2. 727 1978 Unknown [id number] 2.16.840.1.751777.3.579.2. 727 1959 Unknown [id number] Unknown [id number] Unknown [id number] 2.16.840.1.203987.3.579.2. 531 Unknown [id number] 2.16.840.1.325839.3.579.2. 531 Social History Date Type Detail Facility Start: 09-09-2021 End: 06-14-2023 Tobacco smoking status Ex-smoker (finding) [facility] Comment on above: smokes outsi de Tobacco smoking status Never [facility] Comment on above: smokes outsi de Start: 01-28-1992 End: 08-21-2013 Sex Assigned At Female [facility] Tobacco Household tobacc o concerns: No. [facility] Tobacco smoking status No Smokin g Status Entered [facility] Start: 1980 Sex Assigned At Female F [facility] Start: 10-02-2024 Sex Female (finding) [facility] History of tobacco use Current smoker [facility] History of tobacco use [facility]igarette [facility]oker [facility] Start: 09-29-2023 Alcoholic beverage intake Current drinker of alcohol (finding) [facility] Start: 06-14-2023 History of Social function [facility] Start: 06-14-2023 Alcohol Comment caffeine: 1-2 cups per day coffee [facility] Start: 06-07-2023 Gender identity Identifies as female gender (finding) [facility] Start: 06-07-2023 Sexual orientation Heterosexual (navneet corley) [facility] Functional Status Date Assessment Result Facility [facility]31[facility]22 [facility] Status N/A [facility] Clinical Notes 09-09-2021 to 10-09-2024 Trishdavid Elizalde, [...] DAY, # 90 tab(s), Refills(s) 1, Pharmacy: [facility], 171, cm, 03/24/23 8:31:00 EDT, [...] fx HYSTERECTOMY 2013 INSERTION OF BREAST TISSUE HEEL REDUCER Right 03/25/2015 reinserted MASTECTOMY Right 08/13/2014 subcutaneous mastectomy w/ALND, reconstruction OTHER SURGICAL HISTORY 1994 ORIF OTHER SURGICAL HISTORY 09/04/2014 Port OTHER SURGICAL HISTORY 11/2015 Perm implant removed patrol mother back in OTHER SURGICAL HISTORY 2014 Port removed SKIN CANCER EXCISION 2004 TISSUE HEEL REDUCER REMOVAL Right 09/2014 TISSUE HEEL REDUCER REMOVAL Right 01/2016 TE out Implant in [...] nursing note reviewed. Exam conducted with a wood die maker present. Vitals: Estimated body mass index is [...] Torie Walker DO documented in this encounter [facility] 05-09-2024 Note Patient Education Cardiovascular Hypertension, Adult [...] 12 oz bottle (more content not included)... [facility] 03-05-2024 Note Patient Education Nutrition [...] for Disease Control and Prevention: cdc.gov ? [place] Heart Association: heart.org ? National Heart, Lung, and Blood Drums: nhlbi.nih.gov This information is not intended to replace advice given to you by your health care provider. Make sure you discuss any questions you have with your health care provider. Document Revised: 01/27/2023 Document Reviewed: 01/20/2023 [employer] Patient Education ? 2023 [employer]. [facility] 02-06-2024 Note Patient Education Nutrition [...] for Disease Control and Prevention: cdc.gov ? [place] Heart Association: heart.org ? National Heart, Lung, and Blood Drums: nhlbi.nih.gov This information is not intended to replace advice given to you by your health care provider. Make sure you discuss any questions you have with your health care provider. Document Revised: 01/27/2023 Document Reviewed: 01/20/2023 [employer] Patient Education ? 2023 [employer]. [facility] 03-31-2022 Hospital Discharg e instructions [...] care provider. This is important. Medicines Take dfjk-hfy-eidvcbp and prescription medicines only as told by [...] 05/09/2006 Document Revised: 01/17/2019 Document Reviewed: 01/17/2019 [employer] Patient Education 2019 [employer]. [facility] 12-31-2021 Hospital Discharg e instructions Patient [...] called talk therapy or counseling. Seeing a implementation specialist payroll (dietitian). Getting appropriate exercise. Medicines to help [...] eating disorders. Talk with an heat treating operator, therapist, or counselor about your eating behavior. [...] health care provider. This is important. Take zijc-mlu-fwxcxtk and prescription medicines only as told by [...] 05/09/2006 Document Revised: 09/17/2016 Document Reviewed: 03/12/2016 [employer] Patient Education 2020 [employer]. 12/31/2021 16:54:02 Hypertension, Adult Hypertension, Adult High [...] care provider. This is important. Medicines Take tckr-rgi-ayakjob and prescription medicines only as told by [...] Document Reviewed: 01/17/2019 Elsevier Patient Education 2020 [employer]. [facility] 09-09-2021 Hospital Discharg e instructions Patient Education [...] care provider. Avoid caffeine, alcohol, and certain yyff-mob-msxergn cold medicines. These may make you feel worse. Ask your pharmacist which medicines to avoid. General instructions Take rjaq-nmx-addodpu and prescription medicines only as told by [...] Depression Association of [place] (ADAA): www.adaa.org National [place] on Mental Illness (BRENDA): www.brenda.org Contact a [...] Document Reviewed: 10/09/2019 Elsevier Patient Education 2020 [employer]. [facility] Evaluation + Plan note Future Appointments Appointment Date:12/09/2021 07:40:00 AM Scheduled Provider:Silas Haider MD Location:[facility] Appointment Type:[facility] Evaluation + Plan note Future Appointments Appointment Date:03/31/2022 04:40:00 PM Scheduled Provider:Silas Haider MD Location:[facility] Appointment Type: Open [facility] Evaluation + Plan note Future Appointments Appointment Date:09/22/2022 04:40:00 PM Scheduled Provider:Silas Haider MD Location:[facility] Appointment Type:[facility] Evaluation + Plan note Future Appointments Appointment Date:03/20/2024 07:15:00 AM Scheduled Provider:Silas Haider MD Location:[facility] Appointment Type: Open Diagnostic Tests PendingUrine Culture 09/20/23 [facility] Evaluation + Plan note Future Appointments Appointment Date:03/20/2024 07:15:00 AM Scheduled Provider:Silas Haider MD Location:[facility] Appointment Type: Open Future Scheduled TestsUS Extremity Non-Vascular Limited Right 11/15/23 [facility] Evaluation + Plan note Future Appointments Appointment Date:03/20/2024 07:15:00 AM Scheduled Provider:Silas Haider MD Location:[facility] Appointment Type:[facility] Evaluation note No assessment inform ation available [facility] Work Phone: Evaluation note Diagnosis Onset Date Vaginitis noneactive [facility] Work Phone: Evaluation note* Diagnosis Well woman exam with routine gynecological exam Routine gynecological examination H/O: hysterectomy Acquired absence of both cervix and uterus Yeast infection [facility] N[facility] No data available for this section [facility] Hospital Discharge instructions No data available for this section [facility] No data available for this section [facility] Summary Purpose Family History No Family [...] section and content) DATE CREATED AUTHOR 04/30/2018 [facility] DATE CREATED AUTHOR AUTHOR'S ORGANIZ ATION 10/06/2022 [facility] DATE CREATED AUTHOR AUTHOR'S ORGANIZ ATION 11/17/2023 [facility] DATE CREATED AUTHOR AUTHOR'S ORGANIZ ATION 05/11/2024 [facility] DATE CREATED AUTHOR AUTHOR'S ORGANIZ ATION 08/26/2024 [facility] DATE CREATED AUTHOR AUTHOR'S ORGANIZ ATION 10/05/2024 [facility] DATE CREATED AUTHOR AUTHOR'S ORGANIZ ATION 10/10/2024 [facility] Special[facility] EPIC DATE CREATED AUTHOR AUTHOR'S ORGANIZ ATION 11/07/2024 [facility] Care Team (unrecognized sect ion and content) [...] October 01, 2024 End: October 01, 2024 Video Conference Specialist Relationship Specialty Start Date End Date Silas Haider MD [address] [place] [address] PCP - General Family Medicine 10/09/24 Goals [...] BE BASED ON THE PRIMARY CLINICAL RECORDS. [facility]. provides no warranty or guarantee of the accuracy or completeness of information in this document.
== END 2025-01-17 08:05 | disposition home or self-care (01) ==
LOC: PM 08:05
PROVIDERS: Visit Provider Nurse Practitioner
DX: M48.02 Spinal stenosis, cervical region (principal); M54.12 Radiculopathy, cervical region; M48.062 Spinal stenosis, lumbar region with neurogenic claudication; M47.812 Spondylosis without myelopathy or radiculopathy, cervical region; M79.18 Myalgia, other site; M54.51 Vertebrogenic low back pain
CPT/HCPCS: G0463

== ENCOUNTER 2025-04-24 14:50 | Outpatient (OUT) | payer OTHER, SELFPAY ==
--- OUTSIDE RECORDS SUMMARY | 2025-04-24 14:56 | XMS_ITS | Clinical Summary ---
Author Organization [facility] Address [address] [place] [address] Phone Care Team Providers Care Joint Cleaning Machine Operator Name Role Phone Dalton Olvera DO Primary Care Provider + Social History Tobacco UseTypesPacks/DayYears UsedDateSmoking Tobacco: Never Assessed CommentsUnknownSex and Gender InformationValueDate RecordedSex Assigned at Not on fileLegal ElmLmjwzb42/25/2022 4:26 PM ESTGender IdentityNot on fileSexual OrientationNot on file Plan of Treatment Not on file Care Teams Team MemberRelationshipSpecialtyStart DateEnd Date Dalton Olvera DO [address] [facility] [place] [address] [facility]09/03/14
--- OUTSIDE RECORDS SUMMARY | 2025-04-24 14:57 | XMS_ITS | Clinical Summary ---
Author Organization [facility] Address [id number] [place] [address] Care Team Providers Care Nature Photographer Name Role Phone Silas Haider MD Primary Care Provider [phone] Allergies Active AllergyReactionsCriticalityNoted RxcfEjsqfuwsRifelgkwCrirwav92/05/2019 Medications MedicationSigDispense QuantityRefillsLast FilledStart DateEnd DateStatus anastrozole (ARIMIDEX) 1 mg chemo tablet Take 1 mg by mouth daily11/11/2018Active buPROPion SR (WELLBUTRIN SR) 200 mg 12 hr tablet Take 200 mg by mouth daily.11012/16/2018Active clonazePAM (KlonoPIN) 0.5 mg tablet Take 0.5 mg by mouth 2 (two) times a day.5012/14/2018Active FLUoxetine (PROzac) 40 MG capsule 40 mg daily. Take in the lvtggos401Active LATUDA 60 mg tablet tablet Take 60 mg by mouth daily.Active amLODIPine (NORVASC) 10 mg tablet Take 10 mg by mouth daily.11/10/2018Active UNABLE TO FIND Med Name: Lupran shot every 6 monthsActive Active Problems ProblemNoted DateDiagnosed DatePerianal venous rbyiwvlwfg36/05/2019 Family History Medical HistoryRelationNameCommentsNo Known ProblemsDaughterDiabetesFatherNo Known ProblemsMaternal GrandfatherNo Known ProblemsMaternal GrandmotherArthritis MotherLung cancerPaternal GrandfatherBreast cancerPaternal GrandmotherNo Known ProblemsSisterNo Known ProblemsSonRelationNameStatusCommentsDaughterAliveFather AliveMaternal GrandfatherDeceasedMaternal GrandmotherDeceasedMotherAlivePaternal GrandfatherAlivePaternal GrandmotherDeceasedSisterAliveSonAlive Social History Tobacco UseTypesPacks/DayYears UsedDateSmoking Tobacco: FormerCigarettes0.320 Smokeless Tobacco: NeverAlcohol UseStandard Drinks/WeekCommentsYes0 (1 standard drink = 0.6 oz pure alcohol)socialChildcareAnswerDate RecordedChildcareUnknown 11/01/2018EmploymentAnswerDate FpihuromXgjmfnikffJqdugcj12/12/2019Purpose - Life AnswerDate RecordedPurpose and direction in jtpuCsjomqh06/11/2021 CommentsUnknownSex and Gender InformationValueDate RecordedSex Assigned at Not on fileLegal HfyNxtcvd15/06/2015 12:05 PM EDTGender IdentityNot on file Sexual OrientationNot on file Last Filed Vital Signs Vital SignReadingTime TakenCommentsBlood Fdaubzgq642/9009 1:41 PM EDT Xkvqa6290/05/2019 1:41 PM EDTTemperature--Respiratory Rate--Oxygen Saturation-- Inhaled Oxygen Concentration--Iqxvag37.9 kg (178 lb 6.4 oz)01/25/2019 1:41 PM PHPOeysbd520.1 cm (5' 5 )01/25/2019 1:41 PM EDTBody Mass Index29.6909 1:41 PM EDT Plan of Treatment Health MaintenanceDue DateLast DoneCommentsDepression Jxnjyiclv03/01/1991Tobacco Zzlelwvvt45/01/1991Adult BMI Hlgxcogry25/01/1997DTaP,Tdap and Td Vaccines (1 - Tdap)1997Pap Smear10/22/1999Influenza Zelkjit1301/21/2025 Medical Devices Not on file Insurance Care Teams Team MemberRelationshipSpecialtyStart DateEnd Date Silas Haider MD [address] [place] [address] PCP - GeneralFamily Medicine01/25/19
--- OUTSIDE RECORDS SUMMARY | 2025-04-24 14:57 | XMS_ITS | Clinical Summary ---
Author Organization [facility] Address [address] [place] [address] Care Team Providers Care Marketing Pr Intern Name Role Phone Silas Haider MD Primary Care Provider [phone] Allergies Active AllergyReactionsCriticalityNoted DateCommentsBee UfbbaFdgeyws33/19/2024 GrlfexswTkxmxtm94/19/2024[place]ia Salutaris Elite ZwloadrijYbcnmlv47/19/2024 Medications MedicationSigDispense QuantityRefillsLast FilledStart DateEnd DateStatus lamoTRIgine (LaMICtal) 200 MG tablet 05/26/2023ctive clonazePAM (KlonoPIN) 0.5 MG tablet TAKE 1 TABLET BY MOUTH IN THE MORNING AND 2 TABLETS AT [place]8305/26/2023ctive amLODIPine (Norvasc) 10 MG tablet See Instructions, TAKE 1 TABLET BY MOUTH EVERY DAY, # 90 tab(s), Refills(s) 1, Pharmacy: [facility], 171, cm, 03/24/23 8:31:00 EDT, Height/Length Dosing, 73.2, kg, 03/24/23 8:31:00EDT, Weight Nlnqub7103/24/2023 Active cholecalciferol (Vitamin D-3) 50 MCG (1999) capsule Vitamin DActive calcium 200 MG tablet CalciumActive lamoTRIgine (LaMICtal) 50 mg split tablet Take 50 mg by mouth every other dayActive Family History Medical HistoryRelationNameCommentsLymphomaFatherLung cancerOtherBreast cancer Paternal GrandmotherColon cancerNeg HxOvarian cancerNeg HxRelationNameStatus CommentsFatherDeceasedMotherAliveOtherPaternal GrandmotherDeceasedSisterAlive Social History Tobacco UseTypesPacks/DayYears UsedDateSmoking Tobacco: FormerCigarettesAlcohol UseStandard Drinks/WeekCommentsYes0 (1 standard drink = 0.6 oz pure alcohol) caffeine: 1-2 cups per day coffeeCommentsNoSex and Gender Information ValueDate RecordedSex Assigned at RuoxiUenkhv51/16/2024 11:45 AM ESTLegal Sex Buxwlc6008/04/2022 7:20 PM EDTGender ZtgbrcimYhgfyl46/16/2024 11:45 AM ESTSexual ZqemloykkzmAsejopum96/16/2024 11:45 AM ESTOccupationIndustryJob Start DateJob End 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 [employer] BankNot on fileNot on fileNot on file Last Filed Vital Signs Vital SignReadingTime TakenCommentsBlood Frgxnmeu688/7410/09/2024 8:58 AM EDT Pulse--Temperature--Respiratory Rate--Oxygen Saturation--Inhaled Oxygen Concentration--Jbgwnh29.8 kg (156 lb)10/09/2024 8:58 AM XQMXvdcso879.6 cm (5' 6 )09/29/2023 9:06 AM EDTBody Mass Index25.18009/29/2023 9:06 AM EDT Plan of Treatment DateTypeDepartmentCare Team (Latest Contact Info)Mlqvrtfnzoa68/28/2026 8:30 AM EDTOffice Visit [facility] [address] [place] [address] Bruce Walker DO [address] [place] [address] Insurance Care Teams Team MemberRelationshipSpecialtyStart DateEnd Date Silas Haider MD [address] [place] [address] PCP - GeneralFamily Medicine10/09/24
--- OUTSIDE RECORDS SUMMARY | 2025-04-24 14:58 | XMS_ITS | CCD ---
Author Organization [facility] Inform ion Partnership [facility] Care Team Providers Care Blown Film Extrusion Operator Name Role Phone Bernardo Johnsonaugusto Monterroso Unavailable Unavaila Dalton Moses Unavailable UnavailMeka Healy Unavailable Unavailable Dalton Olvera Unavailable UnavailGarrison Jack Primary Care Physician MD Garrison Arzate Primary Care Provider Bruce Walker Attending Provider DR BRUCE HAINES Attending Unavailable AARON ., DR VOGT Consulting Unavailable AARON ., DR VOGT Admitting Unavailable Garrison Arzate Primary Care Physician [phone] MD Garrison Arzate Primary Care Provider Bruce Walker Attending Provider [phone] MD Garrison Arzate Primary Care Provider DO Bruce Walker Attending Provider MANDI Sánchez Attending Provider Garrison Arzate Attending Unavailable Garrison Arzate Attending Unavailable Garrison Arzate Admitting Unavailable Garrison Arzate Admitting Unavailable Garrison Arzate Attending Unavailable Garrison Arzate Attending Unavailable Garrison Arzate Attending Unavailable Garrison Arzate Attending Unavailable Giwalter SERRANO, Carlin Rodrigues Attending Unavailable Nando SERRANO, Carlin Rodrigues Attending Unavailable Nando SERRANO, Carlin Rodrigues Attending Unavailable Nando SERRANO, Carlin Rodrigues Attending Unavailable Giwalter SERRANO, Andrius Vytautas Attending Unavailable Gipardeepitis , Andrius Vytautas Attending Unavailable Giedraitis , Andrius Vytautas Attending Unavailable Giedraitis , Andrius Vytautas Attending Unavailable WasylManisha Stewart Admitting Unavailabl e WasylTerry, Manisha Attending Unavailabl e Garrison Arzate Primary Care Unavailable Aaron, Bruce Admitting Unavailable Aaron, Bruce Attending Unavailable Aaron DO, Bruce Attending Provider [phone] Garrison Arzate MD Primary Care Provider [phone] Unavailable Primary Care Provider Unavailabl e AARON, BRUCE Attending Unavailable Garrison Arzate MD Primary Care Provider BRIDGET, PONCHO A Attending Unavailable BRIDGET, PONCHO A Admitting Unavailable BRIDGET, PONCHO A Admitting Unavailable BRIDGET, PONCHO A Attending Unavailable BRIDGET, PONCHO A Attending Unavailable Garrison Arzate Attending Unavailable Garrison Arzate Attending Unavailable Garrison Arzate Attending Unavailable BRIDGET, PONCHO A Attending Unavailable BRIDGET, PONCHO A Admitting Unavailable BRIDGET, PONCHO A Attending Unavailable Garrison Arzate MD Primary Care Provider [phone] Antonio Lance MD Attending Provider [phone] BRIDGET, PONCHO A Admitting Unavailable BRIDGET, PONCHO A Attending Unavailable BRIDGET, PONCHO A Attending Unavailable BRIDGET, PONCHO A Attending Unavailable BRIDGET, PONCHO A Admitting Unavailable Allergies Allergy ClassificationReported Allergen(s)Allergy TypeDate of OnsetReaction(s) Facility (19 sources)Morphine; Translations: [morphine]Drug Qrfrwhv84-68-1353Sjkqsch (finding), Unknown[facility] [place] (7 sources)aprepitant; Translations: [aprepitant]Drug Uvnvnga99-25-3587Wbjhhoz [facility] (1 source)MorphineDrug Udtesad31-34-0788RqmnoeglhCincinnati [facility] (4 sources)Honey bee venomAllergy to mdhwuefbv36-11-0850TrcmqnaGKZB Healthcare (4 sources)Mario Peoples Elite ChemotypePropensity to adverse reactions 49-41-8837HeqsptgYYLLLancaster Municipal Hospital Medications Current Medications MedicationDrug Class(es)DatesSig (Normalized)Sig (Original)0.5 ML semaglutide 2 MG/ML Auto-Injector (1 source)Start: 09-09-2021 End: 48-89-0301Ekoexv (1 mg dose) subcutaneous solution 1 mg, SubCutaneous, qWeek, INJECT 1 PEN UNDER THE SKIN EVERY WEEK, X 4 week(s), # 4 EA, Refills(s) 1, Pharmacy: [facility] #[id number], 171, cm, 09/09/21 13:28:00EDT, Height/Length Dosing, 75.9, kg, 09/09/21 13:28:00 EDT, Weight Dosing Start Date: 09/09/21 Stop Date: 11/04/21 Status: Ordered0.75 ML semaglutide 3.2 MG/ML Auto-Injector [Wegovy] (2 sources)Start: 93-25-8455mcpdgx 2.4 mg by subcutaneous injection every week Wegovy (2.4 mg dose) subcutaneous solution 2.4 mg, SubCutaneous, qWeek, # 12 EA, Refills(s) 1, Pharmacy: [facility] #[id number], 171, cm, 03/31/22 16:52:00 EST, Height/Length Dosing, 75.7, kg, 03/31/22 16:52:00 EST, Weight Dosing Start Date: 03/31/22 Status: OrderedStart: 84-30-3947wwyjyt 2.4 mg by subcutaneous injection every weekWegovy (2.4 mg dose) subcutaneous solution 2.4 mg, SubCutaneous, qWeek, # 12 EA, Refills(s) 1, Pharmacy: [facility] #[id number], 171, cm, 12/31/21 16:30:00 EDT, Height/Length Dosing, 76.7, kg, 12/31/21 16:30:00 EDT, Weight Dosing Start Date: 12/31/21 Status: OrderedamLODIPine 10 mg oral tablet (20 sources)Dihydropyridine Calcium Channel BlockerStart: 60-13-4199nccs 1 tablet by mouth once dailyamLODIPine (Norvasc) 10 MG tablet See Instructions, TAKE 1 TABLET BY MOUTH EVERY DAY, # 90 tab(s), Refills(s) 1, Pharmacy: [facility], 171, cm, 03/24/23 8:31:00 EDT, Height/Length Dosing, 73.2, kg, 03/24/23 8:31:00 EDT, Weight Dosing 03/24/2023 ActiveStart: 01-18-2017 End: 95-81-8536ugjd 1 tablet by mouth once dailyAmlodipine 10 mg tablet Discontinued 10 MG PO Daily 90 90 November 08, 2018 11:40am January 03, 2020 3:26pm12 hr buPROPion hydrochloride 100 mg extended release oral tablet (7 sources)AminoketoneStart: 93-25-8817ykmd 1 tablet by mouth once daily buPROPion 100 mg ER Tab 100 mg = 1 tab(s), Oral, Daily, Refills(s) 0 Start Date: 09/09/21 Status: OrderedStart: 01-18-2017 End: 38-86-4425yflp 1 tablet by mouth once dailyBupropion Hcl (Wellbutrin Sr) 200 mg Tablet Extended Release 12 Hr Discontinued 200 MG PO daily January 18, 2017 12:00am December 02, 2023 2:37pmCalcium (4 sources)Phosphate Binder, Calciumcalcium 200 MG tablet Calcium Activecalcium carbonate 1500 mg / cholecalciferol 800 unt chewable tablet (6 sources)Vitamin DStart: 08-20-9034Tmzjmdc Carbonate-Vitamin D3 (Caltrate 600 + D) 600 mg (1,500 mg)-800 unit Tablet,Chewable Active 1TAB PO Twice daily January 18, 2017 12:00am Complies with drug therapyclindamycin 300 mg oral capsule (2 sources)Lincosamide AntibacterialStart: 63-21-1731akrz 1 capsule by mouth twice dailyclindamycin 300 mg oral cap 300 mg = 1 cap(s), Oral, BID, # 20 cap(s), Refills(s) 0, Pharmacy: [facility] #[id number], 171, cm, 11/15/23 11:43:00 EDT, Height/Length Dosing, 77.3, kg, 11/15/23 11:43:00 EDT, Weight Dosing Start Date: 11/15/23 Status: OrderedclonazePAM 0.5 mg oral tablet (20 sources)BenzodiazepineStart: 34-79-1292omgt 1 tablet by mouth in the morning, then take 2 tablets by mouth at bedtimeclonazePAM (KlonoPIN) 0.5 MG tablet TAKE 1 TABLET BY MOUTH IN THE MORNING AND 2 TABLETS AT BEDTIME 05/26/2023 ActiveStart: 26-77-7665blyo 0.05 mg by mouth once daily at bedtimeClonazePAM 0.5 mg Tab 0.05 mg/kg, Oral, Once a day (at bedtime), Refills(s) 0 Start Date: 09/09/21 Status: OrderedStart: 92-28-3858jrxk 0.5 mg by mouth twice daily Clonazepam (Klonopin) 1 mg Tablet Active 0.5 MG PO Twice daily March 28, 2018 1:00am Complies with drug therapyStart: 01-18-2017 End: 02-65-6373anvg 1 tablet by mouth three times daily as needed for anxiety Clonazepam 1 mg Tablet Discontinued 0.5 - 1 TAB PO Three times daily as needed for Anxiety January 18, 2017 12:00am November 08, 2018 8:08amgabapentin 600 mg oral tablet (1 source)Anti-epileptic AgentStart: 05-19-3661xyjq 1 tablet by mouth three times dailyGabapentin 600 mg tablet Active 600 MG PO Three times daily February 12, 2025 12:00am Complies with drug therapylamoTRIgine 25 mg oral tablet (20 sources)Mood Stabilizer, Anti-epileptic AgentStart: 14-75-5866Tmsqppvmxyy 25 mg tablet Active MG PO December 02, 2023 12:00am Complies with drug therapyStart: 44-99-4155Rprwsuwlbxm Active MG PO December 02, 2023 12:00amStart: 05-26-2023 lamoTRIgine (LaMICtal) 200 MG tablet 05/26/2023 ActiveStart: 27-54-9380vkqw 1 tablet by mouth once dailyLaMICtal XR 250 mg oral tablet, extended release 250 mg = 1 tab(s), Oral, Daily, Refills(s) 0 StartDate: 12/31/21 Status: Ordered Start: 06-13-2019 End: 39-51-4316vkmj 1 tablet by mouth once dailyLamotrigine 100 mg tablet Discontinued 100 MG PO Daily June 13, 2019 1:00am December 02, 2023 2:37pm lamoTRIgine (LaMICtal) 50 mg split tablet (4 sources)take 1 tablet by mouth every other daylamoTRIgine (LaMICtal) 50 mg split tablet Take 50 mg by mouth every other day Activelurasidone hydrochloride 60 mg oral tablet (15 sources)Atypical AntipsychoticStart: 88-70-2225enjx 1 tablet by mouth once dailyLatuda 60 mg oral tablet 60 mg = 1 tab(s), Oral, Daily, Refills(s) 0 Start Date: 09/09/21 Status: OrderedStart: 01-27-2017 End: 00-33-3246roqb 1 tablet by mouth once dailyLurasidone (Latuda) 40 mg Tablet Discontinued 40 MG PO Daily March 28, 2018 1:00am October 03, 2018 8:29am omeprazole 40 mg delayed release oral capsule (2 sources)Proton Pump InhibitorStart: 18-10-9689oacw 1 capsule by mouth once dailyomeprazole 40 mg Cap-DR 40 mg = 1 cap(s), Oral, Daily, # 90 cap(s), Refills(s) 1, Pharmacy: [facility]/pharmacy #[id number], 171, cm, 03/31/22 16:52:00 EST, Height/Length Dosing, 75.7, kg, 03/31/22 16:52:00 EST, Weight Dosing Start Date: 03/31/22 Status: OrderedStart: 39-66-1649zxqv 1 capsule by mouth once daily omeprazole 40 mg Cap-DR 40 mg = 1 cap(s), Oral, Daily, # 90 cap(s), Refills(s) 1, Pharmacy: [facility]/pharmacy #[id number], 171, cm, 12/31/21 16:30:00 EDT, Height/Length Dosing, 76.7, kg, 12/31/21 16:30:00 EDT, Weight Dosing Start Date: 12/31/21 Status: Orderedomeprazole 40 mg Cap-DR (1 source)Start: 09-09-2021 End: 53-83-3661cdpv 1 capsule by mouth once dailyomeprazole 40 mg Cap-DR 40 mg = 1 cap(s), Oral, Daily, X 90 day(s), # 90 cap(s), Refills(s) 0, Pharmacy: [facility]/pharmacy #[id number], 171, cm, 09/09/21 13:28:00 EDT, Height/Length Dosing, 75.9, kg, 09/09/21 13:28:00 EDT, Weight Dosing Start Date: 09/09/21 Stop Date: 12/08/21 Status: Orderedterconazole 4 mg/ml vaginal cream (5 sources)Azole AntifungalStart: 10-09-2024 End: 60-36-3540qgnmfbmjgfs (Terazol 7) 0.4 % vaginal cream Indications: Yeast infection Insert 1 applicator into the vagina at bedtime for 7 days 45 g 10/09/2024 10/16/2024 ActiveStart: 12-02-2023 End: 03-44-7208Zqsryiymail 0.4 % cream Discontinued VAGINAL December 02, 2023 12:00am February 12, 2025 3:03pmStart: 53-58-4654Fqvagzybqcd Active VAGINAL December 02, 2023 12:00amtiZANidine 4 mg oral capsule (1 source)Central alpha-2 Adrenergic AgonistStart: 68-61-4520emuk 1 capsule by mouth once daily at bedtime as neededTizanidine 4 mg capsule Active 4 MG PO Daily at bedtime as needed February 12, 2025 12:00am Complies with drug therapy Completed/Discontinued Medications MedicationDrug Class(es)DatesSig (Normalized)Sig (Original)acetaminophen 325 mg / HYDROcodone bitartrate 5 mg oral tablet (12 sources)Opioid AgonistStart: 10-03-2018 End: 40-08-7695ryxl 1 tablet by mouth every four to six hours as needed for pain Hydrocodone-Acetaminophen ([place]) 5-325 mg tablet Discontinued 1 TAB PO EVERY 4- 6 HOURS as needed for pain 40 7 October 03, 2018 November 08, 2018 8:07amStart: 01-18-2017 End: 58-77-9709rqas 2 tablets by mouth every four to six hours as needed for painHydrocodone-Acetaminophen ([place]) 5-325 mg Tablet Discontinued 2 TAB PO EVERY 4-6 HOURS as needed for Pain January 18, 2017 12:00am January 27, 2017 8:37amanastrozole 1 mg oral tablet (20 sources)Aromatase InhibitorStart: 01-18-2017 End: 40-28-0215ifio 1 tablet by mouth once dailyAnastrozole (Arimidex) 1 mg Tablet Discontinued 1 MG PO daily June 11, 2019 9:50am December 02, 2023 2:37pmBlack Cohosh (6 sources)Start: 01-18-2017 End: 18-44-3265crmp 1 tablet by mouth once dailyBlack Cohosh 20 mg Tablet Discontinued 1 TAB PO Daily January 18, 2017 12:00am January 27, 20178:21am Start: 01-18-2017 End: 93-78-7843carl 1 tablet by mouth once dailyBlack Cohosh Discontinued 1 TAB PO Daily January 18, 2017 12:00am January 27, 2017 8:21ambusPIRone hydrochloride 30 mg oral tablet (12 sources)Start: 03-28-2018 End: 94-90-5457bcpe 1 tablet by mouth twice dailyBuspirone 30 mg Tablet Discontinued 30 MG PO Twice daily March 28, 2018 1:00am October 03, 2018 8: 27amStart: 01-18-2017 End: 99-34-8304Hkguyqbvv 10 mg Tablet Discontinued 15 MG PO Twice daily January 18, 2017 12:00am July 20, 2017 9:16amStart: 01-18-2017 End: 61-31-3701pego 15 mg by mouth twice dailyBuspirone Discontinued 15 MG PO Twice daily January 18, 2017 12:00am July 20, 2017 9:16amcholecalciferol 0.025 mg oral tablet (10 sources)Vitamin DStart: 01-18-2017 End: 63-65-2294bgmz 2 tablets by mouth once dailyCholecalciferol (Vitamin D3) 1,000 unit Tablet Discontinued 2 TAB PO Daily January 18, 2017 12:00am July 20, 2017 9:17amcholecalciferol (Vitamin D-3) 50 MCG (1999 UT) capsule Vitamin D Activecyclobenzaprine hydrochloride 10 mg oral tablet (6 sources)Muscle RelaxantStart: 03-08-2017 End: 55-02-2938zphk 1 tablet by mouth every eight hours as needed for pain Cyclobenzaprine 10 mg tablet Discontinued 10 MG PO Q8H as needed for pain March 08, 2017 11:29am March 28, 2018 9:17amdocusate sodium 100 mg oral capsule (6 sources)Start: 01-18-2017 End: 57-59-0118Tavmiycf Sodium (Colace) 100 mg Capsule Discontinued 50 MG PO daily January 18, 2017 12:00am March 28, 2018 9:17amestradiol 0.1 mg/ml vaginal cream (12 sources)EstrogenStart: 01-18-2017 End: 78-47-4389Ostmqlspx (Estrace) 0.01 % (0.1 mg/gram) Cream Discontinued 1 GM VAGINAL As Directed January 18, 2017 12:00am October 03, 2018 8:28amStart: 01-18-2017 End: 05-03-5303Bfvbftvai (Vagifem) 10 mcg Tablet Discontinued 10 MCG VAGINAL Twice a Week January 18, 2017 12:00am July 20, 2017 9:18amfluconazole 150 mg oral tablet (5 sources)Azole AntifungalStart: 10-09-2024 End: 68-62-5471xqrn 1 tablet by mouth once, then take 1 tablet by mouth once fluconazole (Diflucan) 150 MG tablet Indications: Yeast infection Take 1 tablet (150 mg) by mouth 1(one) time for 1 dose This is a 1 time dose, take single tablet by mouth. 1 tablet 1 10/09/2024 10/09/2024 ExpiredStart: 12-02-2023 End: 47-00-4921Seiwyjlrtye 150 mg tablet Discontinued 150 MG PO Q3D 2 December 02, 2023 12:00am February 1253:03pm Take 1, repeat after 72 hours if symptoms continueFLUoxetine 40 mg oral capsule (12 sources)Serotonin Reuptake InhibitorStart: 03-28-2018 End: 85-71-4829fksd 1 capsule by mouth once dailyFluoxetine (Prozac) 40 mg Capsule Discontinued 40 MG PO Daily March 28, 2018 1:00am December 02, 2023 2:37pmStart: 01-18-2017 End: 51-00-1936zacv 2 capsules by mouth once dailyFluoxetine 40 mg Capsule Discontinued 80 MG PO daily January 18, 2017 12:00am March 28, 2018 9:19am Start: 01-18-2017 End: 29-43-1612jwte 80 mg by mouth once dailyFluoxetine Discontinued 80 MG PO daily January 18, 2017 12:00am March 28, 2018 9:19amibuprofen 800 mg oral tablet (6 sources)Nonsteroidal Anti-inflammatory DrugStart: 03-08-2017 End: 54-12-0020zpwz 1 tablet by mouth three times daily as needed for pain Ibuprofen 800 mg tablet Discontinued 800 MG PO Three times daily as needed for pain March 08, 2017 11:26am December 02, 2023 2:37pm1.5 ml leuprolide acetate 15 mg/ml prefilled syringe (6 sources)Gonadotropin Releasing Hormone Receptor AgonistStart: 01-18-2017 End: 50-90-1586Rbziigjnwn (3 Month) (Lupron Depot (3 Month)) 22.5 mg Syringe Kit Discontinued 22.5 MG IM Q6M January 18, 2017 12:00am June 13, 2019 9:19am lisinopril 5 mg oral tablet (12 sources)Angiotensin Converting Enzyme InhibitorStart: 10-03-2018 End: 80-33-0021tbwa 1 tablet by mouth once dailyLisinopril 5 mg Tablet Discontinued 5 MG PO Daily October 03, 2018 12:00am November 08, 2018 8:08amStart: 01-18-2017 End: 82-94-6752glsq 1 tablet by mouth once dailyLisinopril 5 mg Tablet Discontinued 5 MG PO daily January 18, 2017 12:00am January 27, 2017 8:20am phentermine hydrochloride 37.5 mg oral capsule (6 sources)Sympathomimetic Amine AnorecticStart: 11-08-2018 End: 19-73-1275voya 1 capsule by mouth once daily 30 minutes after breakfast Phentermine 37.5 mg Capsule Discontinued 37.5 MG PO Daily 90 November 08, 2018 12:00am June 13, 2019 9:11am must administer 30 minutes before or 1-2 hours after breakfasttraZODone hydrochloride 50 mg oral tablet (6 sources)Serotonin Reuptake InhibitorStart: 01-18-2017 End: 59-11-8978homk 1 tablet by mouth at bedtimeTrazodone 50 mg Tablet Discontinued 50 MG PO Bedtime January 18, 2017 12:00am January 27, 2017 8 :19am Problems Active Problems Problem ClassificationProblemDateDocumented DateEpisodic/ChronicAnxiety disorders (7 sources)Anxiety disorder; Translations: [Anxiety disorder, unspecified]Onset: 68-44-2055OgrtyabGagmnx of breast (12 sources)Malignant tumor of breast ; Translations: [Malignant neoplasm of unspecified site of right female breast]16-90-0551SmzsehoVwvpoon on above: Problem List clean-up per request of Phys. EHR CmteConditions associated with dizziness or vertigo (3 sources)Benign paroxysmal positional ygrtvom16-56-7667McjczfrgTcwrhwulmx disorders (7 sources)Gastroesophageal reflux disease without esophagitis; Translations: [Gastro-esophageal reflux disease without esophagitis]Onset: 89-94-6895Oyohzvy Essential hypertension (13 sources)Essential hypertension; Translations: [Essential (primary) hypertension]Onset: 66-39-6018VqtqumjKonqpiciygtjd and screening for infectious disease (1 source)Encounter for screening for human papillomavirus (HPV); Translations: [ENC SCREENING HUMAN PAPILLOMAVIRUS]Onset: 40-42-0917PcsbjqawKhisxkefdcea diseases of female pelvic organs (1 source)Acute vaginitis; Translations: [Vaginitis and vulvovaginitis, unspecified]45-78-7602HckadquxUctinnrjidqwg (3 sources)Cervical qionnhyfdqjadlr75-44-1379JoxgwhuxGmpc disorders (7 sources)Depressive disorder; Translations: [Depression, unspecified]Onset: 30-11-9767ToewmoqLwptunr (2 sources)Mycosis; Translations: [Candidiasis, unspecified]68-90-2327Vlvyhesn Neoplasms of unspecified nature or uncertain behavior (6 sources)Neoplasm of uncertain behavior of skin of cheek; Translations: [Neoplasm of uncertain behavior of skin]21-52-4391GhgepedaOgvvoje on above: Problem List clean-up per request of Phys. EHR CmteOther aftercare (3 sources)Drug therapy finding; Translations: [Encounter for therapeutic drug level monitoring]93-26-5835QbgvggjiJndiz aftercare (3 sources)Long-term current use of drug therapy; Translations: [Encounter for therapeutic drug level monitoring]74-62-0233OusileouXhuwr liver diseases (6 sources)Lesion of liver; Translations: [Liver disease, unspecified]06-13-2019 ChronicOther nutritional; endocrine; and metabolic disorders (6 sources)Calorie heunuget35-05-3569JghabpvVnxow nutritional; endocrine; and metabolic disorders (1 source)Excessive eating - polyphagia; Translations: [Polyphagia]Onset: 06-52-9399JdaxcejzKkegn nutritional; endocrine; and metabolic disorders (1 source)Overweight in adulthood with body mass index of 25 or more but less than 30; Translations: [Body mass index (BMI) 26.0-26.9, adult]Onset: 12-31-2021 EpisodicOther screening for suspected conditions (not mental disorders or infectious disease) (17 sources)Patient encounter status; Translations: [Encounter for screening for osteoporosis]Onset: 513643-77-2362OjrbdmkdJjgyljv on above:Problem List clean-up per request of Phys. EHR CmteOtitis media and related conditions (3 sources)Serous otitis yicew88-10-6367AaowuswxJhbeimjj codes; unclassified (6 sources)History of hysterectomy for benign disease; Translations: [Acquired absence of both cervix and uterus]26-70-2472EnxjaglwJcwlgtglg and history of mental health and substance abuse codes (1 source)H/O: Disorder; Translations: [Personal history of nicotine dependence] Onset: 16-03-9440BrljlgvnPanvihhtrko; intervertebral disc disorders; other back problems (2 sources)Disorder of lumbar disc; Translations: [Unspecified thoracic, thoracolumbar and lumbosacral intervertebral disc disorder]90-09-4102Flkvazz Spondylosis; intervertebral disc disorders; other back problems (3 sources)Spinal stenosis in cervical region; Translations: [Spinal stenosis, cervical region]EpisodicSprains and strains (6 sources)Strain of neck muscle; Translations: [Strain of muscle, fascia and tendon at neck level, initial encounter]54-73-8137StzcgmszZeywqcg on above: Problem List clean-up per request of Phys. EHR CmteUnclassified (3 sources)Patient encounter -28-0656Miyjoikljyjj (1 source)M48.02 - Spinal stenosis, cervical region Past or Other Problems Problem ClassificationProblemDateDocumented DateEpisodic/ChronicOther female genital disorders (1 source)Other specified noninflammatory disorders of vagina; Translations: [Other specified noninflammatorydisorders of vagina]Onset: 67-38-5489Koiooaad Results Test NameValueInterpretationReference RangeFacilityCBC w/ Auto Diffon 02-27-2025 Basophil Absolute0.0 E9/LNormal0.0-0.2FMiddletown HospitalComment on above:Performed By: #### [id number] #### [facility] [address], [place] [address]Oghdlfwsb/100 WBC (Bld)0.5 %Normal0.0-2.0[facility] HospitalComment on above:Performed By: #### [id number] #### [facility] [address], [place] [address]Rhk Absolute0.2 E9/LNormal0.0-0.5FMiddletown Hospital Comment on above:Performed By: #### [id number] #### [facility] [address], [place] [address]Mwlzyvtxtcp/100 WBC (Bld)3.1 %Normal0.0-8.0[facility] HospitalComment on above:Performed By: #### [id number] #### [facility] [address], [place] [address]Nfraoxsnccb distribution width (RBC) [Ratio]12.8 %Normal 10.9-14.2FMiddletown HospitalComment on above:Performed By: #### [id number] #### [facility] [address], [place] [address]Wrnxgipyuk (Bld) [Volume fraction]41.9 %Uxdujr74.0-46.0[facility] HospitalComment on above:Performed By: #### [id number] #### [facility] [address], [place] [address]Ekwadknkvj (Bld) [Mass/Vol]14.1 g/kHNfjxoh83.0-16.0[facility] HospitalComment on above:Performed By: #### [id number] #### [facility] [address], [place] [address]Opyrm Absolute2.4 E9/LNormal1.0-4.0[facility] Comment on above:Performed By: #### [id number] #### [facility] [address] [place] [address]Suxygzcbnlw/100 WBC (Bld)32.6 %Pcxinu44.0-50.0[facility] HospitalComment on above:Performed By: #### [id number] #### [facility] [address] [place] [address]VAN (RBC) [Entitic mass]31.0 xsWzgjdu22.0-34.0[facility] HospitalComment on above:Performed By: #### [id number] #### [facility] [address] [place] [address]OFXK (RBC) [Mass/Vol]33.8 g/lSNmloxf56.4-36.0[facility] HospitalComment on above:Performed By: #### [id number] #### [facility] [address] [place] [address]MAE (RBC) [Entitic vol]91.7 vCVmumhh36.0-100.0[facility] HospitalComment on above:Performed By: #### [id number] #### [facility] [address] [place] [address]Alxq Absolute0.7 E9/LNormal0.2-1.0[facility] Comment on above:Performed By: #### [id number] #### [facility] [address] [place] [address]Qaajfbihm/100 WBC (Bld)9.7 %Normal4.0-14.0[facility] HospitalComment on above:Performed By: #### [id number] #### [facility] [address] [place] [address]Jaaxiy Absolute4.0 E9/LNormal2.0-7.5FMiddletown Hospital Comment on above:Performed By: #### [id number] #### [facility] [address] [place] [address] [address]Gksuzf Auto54.1 %Eezunn00.0-75.0[facility] Comment on above:Performed By: #### [id number] #### [facility] Laboratory [address], [place] [address]Ldjdkrms866.0 E9/GBhnwbr164.0-500.0[facility] Comment on above:Performed By: #### [id number] #### [facility] [address], [place] [address]Kjhqqmgn mean volume (Bld) [Entitic vol]9.7 fLNormal6.4-10.[address] [facility] HospitalComment on above:Performed By: #### [id number] #### [facility] Laboratory [address] [place] [address] 16[address]DIP5.6 E12/LNormal4.3-5.9[facility] HospitalComment on above:Performed By: #### [id number] #### [facility] Laboratory [address] [place] [address]ZCQ6.4 E9/LNormal4.0-11.0[facility] HospitalComment on above:Result Comment: Peripheral smear review performed.Performed By: #### [id number] #### [facility] Laboratory [address], [place] [address]Uursxx Medicine Office/Clinic Noteon 11-46-7244Blykci Medicine Office/Clinic NoteFami Medicine Office/Clinic Note Chief Complaint Discuss Lab Results The patient reports persistent pain associated with fibromyalgia and prolonged bruising. [facility] Staff Pt presents today for follow up to review lab results. Gabapentin is helping with body pain. History of Present Illness 44-year-old female presenting with fibromyalgia and concerns about prolonged bruising. Fibromyalgia has been a persistent issue, with symptoms including pain in the feet, ankles, calves,neck, and back, as well as intermittent arm pain requiring wrist braces. The patient has tried occupational and physical therapy, with limited success, and is considering dry needling for symptom relief. She reports her feet and ankles hurt this AM and her pain was at a 5 and she took the gabapentin and the pain is now a 4. The patient reports bruising that persists for months, with some bruises remaining unchanged in color and size. A complete blood count (CBC) was not performed recently, and the patient expresses concern about potential underlying conditions, given her history of breast cancer and mastectomy. The patient has a history of a mastectomy performed in 2014 due to breast cancer, and she experiences pain on the side of the surgery, which she attributes to past trauma. The patient's blood pressure was recorded at 150/100 mmHg during the visit, and she is currently onNorvasc for hypertension management. She admits she is anxious about what could possibly be wrong with her and she is thinking it could be cancer . Review of Systems PHQ Score Initial Depression Screen Score: 0 SCORE - Musculoskeletal: Reports pain in feet, ankles, calves, neck, and back. Denies new joint swelling. - Hematologic: Reports bruising that persists for months. Denies new petechiae or other bleeding symptoms. - Cardiovascular: Reports elevated blood pressure. Denies chest pain or palpitations. Physical Exam Vitals & Measurements T: 36.8 ???C(Oral) HR: 90(Peripheral) RR: 18 BP: 152/108 SpO2: 94% HT: 171 cm HT: 67 in WT: 85.5 kg WT: 188.495 lb BMI: 29.24 General: alert, no acute distress Skin: warm, dry Head: no trauma, normocephalic Cardiovascular: regular rate and rhythm, normal peripheral perfusion Respiratory: Lungs CTA, respirations non labored Back: No tenderness, Normal ROM, Normal alignment. Extremities: no deformity, no trauma Neurological: oriented x 4, LOC appropriate for age speech normal Psychiatric: cooperative, affect appropriate for age, normal judgement, normal psychiatric thoughts. Assessment/Plan 1. Fibromyalgia (M79.7: Fibromyalgia) - Start Cymbalta for symptom management was discussed. - Patient has tried occupational and physical therapy with limited success. - Dry needling was considered as a potential intervention. - Continue gabapentin as ordered Ordered: duloxetine, 20 mg = 1 cap(s), Oral, BID, # 30 cap(s), Refills(s) 1, Pharmacy: [facility]/pharmacy #[id number], 171, cm, 02/26/25 8:37:00 EDT, Height/Length Dosing, 85.5, kg, 02/26/25 8:37:00 EDT, Weight Dosing ERIC w/Reflex if POS Rheumatoid Factor Quantitative 2. Easy bruising (R23.3: Spontaneous ecchymoses) - A complete blood count (CBC) was recommended to evaluate for potential underlying conditions. Ordered: CBC w/ Auto Diff 3. Elevated blood-pressure reading, without diagnosis of hypertension (R03.0) - Blood pressure was recorded at 150/100 mmHg, and the patient is currently on Norvasc. - Monitoring of blood pressure at home was advised, with follow-up to assess the need for medication adjustment. 4. BMI 29.0-29.9,adult (Z68.29: Body mass index [BMI] 29.0-29.9, adult) BMI 29.24 5. Overweight (BMI 25.0-29.9) (E66.3: Overweight) The standard range for ages 18 and older is >=18.5 and < 25 kg/m2. Your BMI today was above this range, this falls in the overweight to obese category and there are medical benefits to weight loss. We can offer counselling, referral, and/or medical support in addressing this problem. Your BMIand weight management will be followed at subsequent visits. 6. Former smoker (Z87.891: Personal history of nicotine dependence) - Encouraged to continue as a non-smoker Total time spent preparing the chart, conducting of the encounter with the patient and family and time spent documenting, reviewing, and ordering tests was 30 minutes. Follow-up With When Contact Information PONCHO GILL CNP, FAM Within 2 to [address] [place] [phone] Business (1) Additional Instructions: Fibromylagia Patient Education Myofascial Pain Syndrome and Fibromyalgia Problem List/Past Medical History Ongoing Annual physical exam Anxiety and depression BMI 29.0-29.9,adult BPPV (benign paroxysmal positional vertigo) Excessive dietary caloric intake Former smoker GERD without esophagitis Overweight (BMI 25.0-29.9) Primary hypertension Historical No qualifying data Procedure/Surgical History Hys (more content not included)...[facility] Metro[facility] SystemComment on above:Result Comment: Electronically Signed By: PONCHO GILL CNP\.br\Date and Time Signed: 02/26/25 09:18 EDTProvider Letteron [id number] Letter Provider Letter February 26, 2025 SHREYAS [place] [address] : 1980 To Whom It May Concern, Please excuse above patient from work due to a doctors appt @ 8:40 a.m. with Poncho Gill, MANDI, EDISCOVERY PROJECT MANAGER, BC Date of Illness: From: _ To: _ May Return to Work On:02-26-25 Restrictions: _ None Comments: _ Sincerely, [address] [address] [address] [facility] HospitalANA w/Reflex if POSon 05-16-3876XRX DirectNegativeInvalid Interpretation CodeNegativeMercy Health St. Elizabeth [facility] HospitalComment on above:Result Comment: Performed at: [address] [id number] PhD Le StroudPerformed By: #### [id number] #### [facility] Laboratory [address], [place] [address]DQ Quanton 85-41-0669GH Latex Turbid<10.0Invalid Interpretation Code<14.0[facility] HospitalComment on above:Result Comment: Performed at: [address] [id number] PhD Le Cortésformed By: #### [id number] #### [facility] Laboratory [address], [place] [address]GKMrl 34-90-4800GBY7.3 mg/dLNormal<=1.9[facility] HospitalComment on above:Performed By: #### [id number] #### [facility] [address], [place] [address]Mkzowm Medicine Office/Clinic Noteon [id number] Medicine Office/Clinic NoteFamily Medicine Office/Clinic Note Chief Complaint The patient presents with concerns related to fibromyalgia. [facility] Staff Pt is here for Former Vitaly patient wants to discuss fibromyalgia pain everywhere mostly hands acky she can not make a fist, feet sharp pains mostly in the evenings,starting to bring her to tears She has referral to Neurologist May 02 she feels like she can not wait that long She is currently doing Dry needling in her neck a few months now and her back the last couple months History of Present Illness 44-year-old female presenting with fibromyalgia symptoms. She reports severe pain that has become emotionally distressing, despite her high pain tolerance from past experiences, including cancer treatment. Current management includes gabapentin 1800 mg daily and dry needling, which provides some relief. She reports excessive sleeping abrupt mood swings difficulty concentrating vivid dreams along with muscle spasms morning stiffness sciatica-like pain some numbness and tingling difficulty balancing and frequent tripping. The patient has a history of breast cancer diagnosed in 2014, attributed to hormonal causes, thoughshe was not on synthetic hormones prior. Concerns about thyroid dysfunction arise due to symptoms overlapping with fibromyalgia, such as fatigue and weight gain. Thyroid function tests, rheumatoid factor, and ERIC are planned to rule out other conditions. Family history includes rheumatoid arthritis in her mother. Recent lab work through a workplace wellness program included basic tests, but thyroid or rheumatoid markers are uncertain. The patient is a former smoker and participates in regular health check-ups. Review of Systems - Musculoskeletal: Reports severe pain, particularly in the neck and back, managed with gabapentin and dry needling. - Endocrine: Reports fatigue and weight gain, raising concerns about thyroid dysfunction. - Neurological: Denies any new neurological symptoms, but is awaiting a neurology appointment. Physical Exam General: alert, no acute distress Cardiovascular: regular rate and rhythm, normal peripheral perfusion Respiratory: Lungs CTA, respirations non labored Extremities: no deformity, no trauma Neurological: oriented x 4, LOC appropriate for age, CN II-XII intact, motor strength equal & normal bilaterally, sensation equal & normal bilaterally, speech normal Assessment/Plan 1. Fibromyalgia (M79.7: Fibromyalgia) - Continue gabapentin 1800 mg daily. - Consider Cymbalta for additional management if needed. - Continue dry needling for pain relief. - Awaiting laboratory results - F/u in one week Ordered: ERIC w/Reflex if POS C-Reactive Protein Ferritin Rheumatoid Factor Quantitative Sedimentation Rate Automated TSH With T4fr Reflex Vitamin D 25 Hydroxy 2. BMI 25.0-25.9,adult (Z68.25: Body mass index [BMI] 25.0-25.9, adult) BMI 25.17 3. Former smoker (Z87.891: Personal history of nicotine dependence) - Monitor for long-term effects of past smoking. Total time spent preparing the chart, conducting of the encounter with the patient and family and time spent documenting, reviewing, and ordering tests was 30 minutes. Follow-up With When Contact Information PONCHO GILL Within 5 to [address] [place] [phone] Business (1) Additional Instructions: Laboratory results Problem List/Past Medical History Ongoing Annual physical exam Anxiety and depression BMI 25.0-25.9,adult BPPV (benign paroxysmal positional vertigo) Excessive dietary caloric intake Former smoker GERD without esophagitis Primary hypertension Historical No qualifying data Procedure/Surgical History Hysterectomy (2013), Tubal ligation (2011), Delivery (11/23/2007), Delivery (07/21/1999), Mastectomy of right breast. Medications amLODIPine 10 mg Tab, See Instructions, 1 refills baclofen 5 mg oral tablet ClonazePAM 0.5 mg Tab, See Instructions gabapentin 600 mg Tab LaMICtal XR 250 mg oral tablet, extended release, See Instructions lamotrigine 200 mg Tab lamotrigine 25 mg Tab tiZANidine 4 mg Tab, 4 mg= 1 tab(s), Oral, q8hr Allergies morphine (Itching) Social History Alcohol Never., 11/06/2024 Previous treatment: None., 09/09/2021 Substance Abuse Past. Marijuana. 1-2 times per month. Previous treatment: None., 05/06/2024 Tobacco Former smoker, quit more than 30 days ago Tobacco Use:. Never Smokeless Tobacco Use:. Cigarettes, Household tobacco concerns: No. Yes, 02/22/2025 Family History Acute myocardial infarction: Father. Diabetes mellitus type 2: Father. Hypertension: Mother and Father. Malignant lymphoma: Father. Immunizations Vaccine Date Status Comments influenza virus vaccine, inactivated 04/05/2024 Recorded influenza virus vaccine, inactivated - Not Given Postpone due to refusal influenza virus vaccine, inactivated 02/2022 Recorded SARS-CoV-2 (COVID-19) mRNA BNT-162 (more content not included)...The MetroHealth SystemComment on above:Result Comment: Electronically Signed By: PONCHO GILL CNP\Date and Time Signed: 02/22/25 11:16 EDTFerritinon 70-16-5895Tafsiwvt Lvl43 ng/eSRktgfj50-179NqluwgMercy Health St. Elizabeth [facility] HospitalComment on above:Performed By: #### [id number] #### [facility] Laboratory [address], [place] [address]Emwcctgx Letteron [id number] LetterProvider Letter February 22, 2025 SHREYAS DU [address] [place] [address] : 1980 To Whom It May Concern, Please excuse above patient from work due to appointment. Date of Appointment: 02/22/2025 May Return to Work On: 02/22/2025 Sincerely, [address] [address] ZilcddVkgbfbSouthwest General Health Centered Rate Automatedon 38-17-0637Tgc Rate Oruxthdhu06 mm/hrNormal0-34[facility] HospitalComment on above:Performed By: #### [id number] #### [facility] Laboratory [address] [place] [address]JUG With T4fr Reflexon 42-17-7367CKP Qn0.57 m[IU]/LNormal 0.34-5.60[facility] HospitalComment on above:Performed By: #### [id number] #### [facility] Laboratory [address], [place] [address]Qtstmir D 25 Hydroxyon 82-06-1262Rozubpg D 25 Prflhln30.7 ng/mL Caooma68.0-100.0[facility] HospitalComment on above:Performed By: #### [id number] #### [facility] Laboratory [address], [place] [address]Xrgyjiuiwv Visit Summaryon 88-76-3867Qnisjieuvy Visit Summary Ambulatory Visit Summary IMMANUEL SHREYAS :1980 Visit Date:11/06/2024 Ambulatory Visit Instructions Your Diagnosis Essential (primary) hypertension Cervicalgia Your Care Team Attending Physician - Garrison Arzate MD Primary Care Physician - Garrison Arzate MD This Is Your Medications List amlodipine [...] you for choosing us for your care. [facility] Medicine Office/Clinic Noteon 88-94-0472Qordrj Medicine Office/Clinic NoteFalawrence f. quigley [facility] Medicine Office/Clinic Note Chief Complaint The patient [...] injections and physical therapy, including needling, which wasbeneficial. The patient is seeking to resume physical [...] level of consciousness appropriate for age, CN II- XII intact, motor strength equal & normal bilaterally, [...] 03/13/2017 Recorded influenza virus vaccine, inactivated 03/11/2015 RecordedThe MetroHealth SystemComment on above:Result Comment: Electronically Signed By: Vitaly SERRANO, Garrison Vinson.br\Date and Time Signed: 11/06/24 15:58 EDTProvider Letteron [id number] LetterProvider Letter November 06, 2024 SHREYAS IMMANUEL [address] [place] [address] : 1980 To Whom It May Concern, Please excuse above patient from work early due to a doctors appointment Date of Illness: From: _11-06-24 To: _ May Return to Work On:11-07-24 Restrictions: _ Comments: _ Sincerely, Family Medicine [address] [address] RuvgllVlmgymThe MetroHealth SystemUrinalysis macro (dipstick) panel (U)on 43-09-2056Fcxzvrjnv, UANegativeNegative - 4(70) +++ mg/dLNOMS HealthcareBlood, UANegativeNegative - 50 Ha/mcLNOMS HealthcareClarity, UAClear NOMS HealthcareColor, UAYellowNOMS HealthcareGlucose, UANegativeNegative - 2000(110) ++++ mg/dLNOMS HealthcareInterpretation and review of laboratory resultsNormalNOMS HealthcareKetones, UANegativeNegative - 160(16) ++++ mg/dLNOMS HealthcareLeukocytes, UANegativeNegative - 500+++ Zenon/mcLNOMS HealthcareNitrite, UANegativeNegative - PositiveNOMS HealthcarepH, UA75 - 9NOMS HealthcareProtein, UANegativeNegative - 2000(20) ++++ mg/dLNOMS HealthcareSpec Grav, UA1.021 - 1.03 NOMS HealthcareUrobilinogen, UA0.20.2 - 12 mg/dLNOMS HealthcareNOMS HealthcareMM screening mammo LT w/CADon 84-68-6644ER screening mammo LT w/[facility] [address] [place] [address] [address] [place] [id number] Mammography Report Signed Patient: Shreyas Du MR#: [id number] 17 : 1980 Acct:[id number] Age/Sex: 43 / F Adm Date: 10/01/24 Loc: [place] [facility]: Bruce Walker DO Ordering Provider: Bruce Walker Date of Service: 10/01/24 Procedure(s): MM screening mammo LT w/CAD Accession Number(s): ([id number]) MM/MM screening mammo LT w/CAD: SCREENING Copies to: Bruce Arzate MD CLINICAL DATA: Screening for malignancy. Left [...] Martinez M.D. 10/02/2024 11:22 AM Dictation Location: [facility] Dictated By: Robert Martinez II, MD 10/02/24 1104 Signed By: 10/02/[address] [place] [address] Physician GroupMammography reportOrdered By: Robert Martinez on 97-99-8146Aattgpkkhd imaging [facility] [address] [place], [place] [id number] Mammography Report Signed Patient: Shreyas Du MR#: [id number] : 1980 Acct:[id number] Age/Sex: 43 / F Adm Date: 5 Loc: [place] Room: Type: [facility] Attending Dr: Bruce Walker DO Ordering Provider: Bruce Walker Date of Service: 10/01/24 Procedure(s): MM screening mammo LT w/CAD Accession Number(s): ([id number]) MM/MM screening mammo LT w/CAD: SCREENING Copies to: Bruce Arzate MD~ CLINICAL DATA: Screening for malignancy. Left [...] Martinez M.D. 10/02/2024 11:22 AM Dictation Location: [facility] Dictated By: Robert Martinez II, MD 10/02/24 4148 Signed By: 10/02/24 1127 [facility] Work Phone: Ambulatory Visit Summaryon 34-51-5153Tenmojoowx Visit SummaryAmbulatory Visit Summary SHREYAS DU :1980 Visit Date:08/07/2024 Ambulatory Visit Instructions Your Diagnosis Anxiety and depression Excessive dietary caloric intake GERD without esophagitis Primary hypertension BMI 25.0-25.9,adult Former smoker Depression, unspecified Your Care Team Attending Physician - Garrison Arzate MD Primary Care Physician - Garrison Arzate MD This Is Your Medications List Misc [...] Follow-Up Appointments Tuesday 7:00 AM EDT With: Garrison Arzate MD Where: [place] [phone]- Medications What How Much When Instructions Unchanged [...] you for choosing us for your care. [facility] Medicine Office/Clinic Noteon 77-26-8414Wijycm Medicine Office/Clinic NoteHoly Family Hospital Medicine Office/Clinic Note Chief Complaint Follow up [...] for managing insomnia over trazodone, demonstrating greater effica cy. A cutaneous concern was noted on her [...] level of consciousness appropriate for age, CN II- XII intact, motor strength equal & normal bilaterally, [...] patient requires routine monitoring but encountered no specifictherapeutic readjustments. 5. BMI 25.0-25.9,adult (Z68.25: Body mass index [BMI] 25.0-25.9, adult) Addressing weight concerns was not extensively prioritized this visit, though it remains inherent in her comprehensive health maintenance strategy. 6. Former smoker (Z87.891: Personal history of nicotine dependence) The patient maintains her former smoker status, with health advantages from this as a considerationfor overall preventive care. Depression, unspecified (F32.A: Depression, [...] Continued attention to dermatological (more content not included)...The MetroHealth SystemComment on above:Result Comment: Electronically Signed By: Garrison Arzate MD\.br\Date and Time Signed: 08/07/24 07:50 EDTProvider Letteron [id number] LetterProvider Letter August 07, 2024 [place] [address] : 1980 To Whom It May Concern, Please excuse above patient from work, due to a doctors appointment Date of Illness: From: _ To: _ May Return to Work On:08-07-24 Restrictions: _ Comments: _ Sincerely, Family Medicine [address] [address] VecaucNpqlkgGlenbeigh HospitalAmbulatory Visit Summaryon 64-15-4692Xrpcwwqknn Visit SummaryAmbulatory Visit Summary SHREYAS DU :1980 Visit Date:05/09/2024 Ambulatory Visit Instructions Your Diagnosis Anxiety and depression Excessive dietary caloric intake Primary hypertension GERD without esophagitis BMI 26.0-26.9,adult Over weight Former smoker Your Care Team Attending Physician - Garrison Arzate MD Primary Care Physician - Garrison Arzate MD This Is Your Medications List amlodipine [...] Tuesday 7:00 AM EDT With: Vitaly SERRANO, Garrison Lockwood Where: [place] [phone]- Medications What How Much When Instructions Unchanged [...] are some conditions that result in high bloodpressure. What increases the risk? Certain factors may make you more likely to develop high blood pressure. Some of these risk factorsare under your control, including: ??? Smoking. ??? [...] on the floor. The cuff of the bloodpressure monitor will be placed directly against the skin of your upper arm at the level of your heart. Blood pressure should be measured at least twice using the same arm. Certain conditions can cause a difference in blood pressure between your right and (more content not included)...[facility] Medicine Office/Clinic Noteon 84-45-7883Iudbty Medicine Office/Clinic NoteHoly Family Hospital Medicine Office/Clinic Note HPI Staff Shreyas is a 43 year old female presenting [...] do 1 more month to carry through [place] and then we will do every other [...] DAY, # 90 tab(s), Refills(s) 1, Pharmacy: [facility], 171, cm, 05/09/24 8:25:00 EST, Height/Length Dosing, 76.3, kg, 05/09/24 8:25:00 EST, Weight Dosing phentermine, 37.5 mg = 1 cap(s), Oral, Daily, # 30 cap(s), Refills(s) 1, Pharmacy: [facility]/pharmacy #[id number], 171, cm, 05/09/24 8:25:00 EST, Height/Length [...] 03/13/2017 Recorded influenza virus vaccine, inactivated 03/11/2015 RecordedThe MetroHealth SystemComment on above:Result Comment: Electronically Signed By: Vitaly SERRANO, Garrison Vinson.br\Date and Time Signed: 05/09/24 08:59 ESTAmbulatory Visit Summaryon 85-44-8632Gwzegfbjps Visit SummaryAmbulatory Visit Summary SHREYAS DU :1980 Visit Date:03/05/2024 Ambulatory Visit Instructions Your Diagnosis Excessive dietary caloric intake Anxiety and depression Insomnia Osteoarthritis BMI 27.0-27.9,adult Over weight Former smoker Depression, unspecified Your Care Team Attending Physician - Garrison Arzate MD Primary Care Physician - Garrison Arzate MD This Is Your Medications List amlodipine [...] Follow-Up Appointments Tuesday 7:00 AM EST With: Garrison Arzate MD Where: [facility] [place] [address]- Medications What How Much When Instructions Unchanged [...] you for choosing us for your care. [facility] Medicine Office/Clinic Noteon 63-91-3294Ntwrrf Medicine Office/Clinic NoteNorthside Hospital Atlanta Office/Clinic Note Chief Complaint The patient reports difficulty with arthritis pain and inadequately managed anxiety and depression. HPI Staff Shreyas is a 43 year old female presenting [...] pain. The anxiety and depression have been long- standing and are currently managed with two clonazepam [...] have originated from an improperly healed collarbone fracturesustained during adolescence. The patient reports increasing pain in the clavicle area, particularly exacerbating with movement. Pain is severe enough that the patient has resorted to frequent use ofibuprofen without satisfactory relief, thereby raising concerns about current analgesic strategies.An exploratory discussion around pain management, including potential [...] level of consciousness appropriate for age, CN II- XII intact, motor strength equal & normal bilaterally, speech normal Abdomen: Soft, Non-tender, Non-distended, + Bowel sounds Assessment/Plan 1. Excessive dietary caloric intake (R63.2: Polyphagia) Continue on adipex as before. Tachycardia is felt to be work related rather than meds. Ordered: trazodone, 25 mg = 0.5 tab(s), Oral, Once a day (at bedtime), # 15 tab(s), Refills(s) 0, Pharmacy: [facility], 171, cm, 03/05/24 15:51:00 EDT, [...] management, with attention to any interactions with currentmedications and potential for adverse effects on depressive symptoms. Ordered: trazodone, 25 mg = 0.5 tab(s), Oral, Once a day (at bedtime), # 15 tab(s), Refills(s) 0, Pharmacy: [facility], 171, cm, 03/05/24 15:51:00 EDT, Height/Length Dosing, 79.6, kg, 03/05/24 15:51:00 EDT, Weight Dosing [facility] External Ambulatory Referral 3. Insomnia (G47.00: Insomnia, unspecified) Insomnia has been persistent, with clonazepam partially addressing the symptoms. Trazodone was suggested as an adjunct therapy to improve sleep continuity. The prescribed approach involves monitoringresponse to trazodone, particularly its efficacy in improving [...] Present management strategies, including the use of dqon-kjc-pnatqag analgesics, have not (more content not included)...The Metro[facility] SystemComment on above:Result Comment: Electronically Signed By: Vitaly SERRANO, Garrison Vinson.br\Date and Time Signed: 03/05/24 16:14 EDTUrine Cultureon 12-02-2023 Bacteria identified Cx Nom (U)<9,000 colonies/ml mixed bacterial skin contaminants 2 Days PERFORMED BY: [place] [address] PATHOLOGIST GOVERNMENT RELATIONS ANALYST YENI BAH M.D.[facility] Physician GroupComment on above:Performed By: #### CUU #### [place] [address] [place] #### VAGINITIS+ #### [facility] ,Vaginitis Plus (VG+)on 85-78-8681Urcszlvok VaginaeModerate - 1Normal.The [facility] Physician GroupComment on above:Result Comment: This test was developed and its performance characteristics determined by [facility]. It has not been cleared or approved by the Food and Drug Administration.Performed By: #### CUU #### [place] [address] [place] #### VAGINITIS+ #### [facility] ,JZTC2Bvx - 0Normal.The [facility] Physician GroupComment on above:Result Comment: This test was developed and its performance characteristics determined by [facility]. It has not been cleared or approved by the Food and Drug Administration.Performed By: #### CUU #### [place] [address] [place] #### VAGINITIS+ #### [facility] ,Dolores Albicans, NAANegativeNormalNegativeThe [facility] Physician GroupComment on above:Result Comment: This test was developed and its performance characteristics determined by [facility]. It has not been cleared or approved by the Food and Drug Administration.Performed By: #### CUU #### [place] [address] [place] #### VAGINITIS+ #### [facility] ,Dolores Glabrata, NAANegativeNormalNegativeThe [facility] Physician GroupComment on above:Result Comment: This test was developed and its performance characteristics determined by [facility]. It has not been cleared or approved by the Food and Drug Administration. PERFORMED BY: [place] [address] PATHOLOGIST GOVERNMENT RELATIONS ANALYST YENI BAH M.D.Performed By: #### CUU #### [place] [address] [place] #### VAGINITIS+ #### [facility] ,Chlamydia Trachomotis, NAANegativeNormalNegativeThe [facility] Comment on above:Performed By: #### CUU #### [address] #### VAGINITIS+ #### [facility] ,MegasphaeraLow - 0Normal.The [facility] Physician GroupComment on above:Result Comment: This test was developed and its [...] Total score 3-6: Indicates the presence of BV.Performed By: #### CUU #### [place] [address] [place] #### VAGINITIS+ #### [facility] ,Neisseria Gonorrhoeae, NAANegativeNormalNegativeThe [facility] Comment on above:Result Comment: Performed at: = - [facility] [address] [place] [id number] Pickle Sorter: Dee Mendez MD, Phone: [phone] By: #### CUU #### [facility] [address] #### VAGINITIS+ #### [facility] ,Tric Vag NAANegativeNormalNegativeThe [facility] Physician GroupComment on above:Performed By: #### CUU #### [facility] [address] #### VAGINITIS+ #### [facility] ,CBC w/ Auto Diffon 99-40-8094Xiktspdwjbh distribution width (RBC) [Ratio]12.6 % Avpphj25.9-14.2FMiddletown HospitalComment on above:Performed By: #### [id number] #### [facility] [address] [place], [place] [address]Mycsampjgv (Bld) [Volume fraction]42.8 %Selxcx82.0-46.0[facility] HospitalComment on above:Performed By: #### [id number] #### [facility] [address] [place], [place] [address]Omxwtmmjcp (Bld) [Mass/Vol]15.0 g/jIDuroku38.0-16.0[facility] HospitalComment on above:Performed By: #### [id number] #### [facility] [address], [place] [address]CON (RBC) [Entitic mass]33.5 rwHegesl95.0-34.0[facility] HospitalComment on above:Performed By: #### [id number] #### [facility] [address], [place] [address]HGGB (RBC) [Mass/Vol]35.1 g/yQHlxboh82.4-36.0[facility] HospitalComment on above:Performed By: #### [id number] #### [facility] [address] [place] [address]LJT (RBC) [Entitic vol]95.4 yPQdardk41.0-100.0[facility] HospitalComment on above:Performed By: #### [id number] #### [facility] [address] [place] [address]Ozjlqtcl218.0 E9/VFtrmsj179.0-500.0[facility] Comment on above:Performed By: #### [id number] #### [facility] [address] [place] [address]Krkzktyt mean volume (Bld) [Entitic vol]8.0 fLNormal6.4-10.[address] [facility] HospitalComment on above:Performed By: #### [id number] #### [facility] [address] [place] [address]FBQ (Bld) [#/Vol]4.5 E12/LNormal4.3-5.9[facility] HospitalComment on above:Performed By: #### [id number] #### [facility] [address] [place] [address]TDG corrected for nucl RBC Auto (Bld) [#/Vol]9.6 E9/LNormal 4.0-11.0[facility] HospitalComment on above:Performed By: #### [id number] #### [facility] [address] [place] [address]Cdaljn Medicine Office/Clinic Noteon 13-74-9183Oqhihw Medicine Office/Clinic NoteHPI Staff Shreyas is a 43 year old female presenting [...] BID, # 20 cap(s), Refills(s) 0, Pharmacy: [facility] #[id number],171, cm, 11/15/23 11:43:00 EDT, Height/Length Dosing, 77.3, kg, 11/15/23 11:43:00 EDT, Weight Dosing CBC w/ Auto Diff Lab Specimen Collect 37173 US Extremity Non-Vascular Limited Right 2. BMI 26.0-26.9,adult (Z68.26: Body mass index [BMI] 26.0-26.9, adult) - BMI education added Ordered: clindamycin, 300 mg = 1 cap(s), Oral, BID, # 20 cap(s), Refills(s) 0, Pharmacy: [facility] #[id number],171, cm, 11/15/23 11:43:00 EDT, Height/Length Dosing, 77.3, kg, 11/15/23 11:43:00 EDT, Weight Dosing CBC w/ Auto Diff Lab Specimen Collect 42976 US Extremity Non-Vascular Limited Right 3. Former smoker (Z87.891: Personal history of nicotine dependence) - Please continue to not smoke Ordered: clindamycin, 300 mg = 1 cap(s), Oral, BID, # 20 cap(s), Refills(s) 0, Pharmacy: [facility] #[id number],171, cm, 11/15/23 11:43:00 EDT, Height/Length Dosing, 77.3, kg, 11/15/23 11:43:00 EDT, Weight Dosing CBC w/ Auto Diff Lab Specimen Collect 82734 US Extremity Non-Vascular Limited Right Total time spent preparing for the encounter, evaluating and assessing the patient, documenting thevisit, and ordering appropriate follow-up work was 30 [...] 03/13/2017 Recorded influenza virus vaccine, inactivated 03/11/2015 RecordedNoGlenbeigh HospitalComment on above:Result Comment: Electronically Signed By: Vitaly SERRANO, Garrison Vinson.br\Date and Time Signed: 11/15/23 12:16 EDTHEMATOLOGYOrdered By: SYSTEM SYSTEM on 82-37-5725Fidbafqwo (Bld) [#/Vol]0.0 E9/LNormal0.0 - 0.2 E9/L Remisol HemeBasophils/100 WBC (Bld)0.0 %Normal0.0 - 2.0 %Remisol HemeEosinophils (Bld) [#/Vol]0.5 E9/LNormal0.0 - 0.5 E9/LRemisol HemeEosinophils/100 WBC (Bld) 5.0 %Normal0.0 - 8.0Remisol HemeErythrocyte distribution width (RBC) [Ratio]12.6 %Cddeqf37.9 - 14.2 %Remisol HemeHematocrit (Bld) [Volume fraction]42.8 %Normal 34.0 - 46.0 %Remisol HemeHemoglobin (Bld) [Mass/Vol]15.0 g/yOTfrcrn39.0 - 16.0 gm/dLRemisol HemeLymphocytes (Bld) [#/Vol]2.6 E9/LNormal1.0 - 4.0 E9/LRemisol HemeLymphocytes/100 WBC (Bld)27.0 %Stibds99.0 - 50.0 %Remisol HemeMCH (RBC) [Entitic mass]33.5 fsAcctab82.0 - 34.0 pgRemisol HemeMCHC (RBC) [Mass/Vol]35.1 g/zXRtxjkc05.4 - 36.0 gm/dLRemisol HemeMCV (RBC) [Entitic vol]95.4 wTIfxhkf66.0 - 100.0 fLRemisol HemeMetamyelocytes/Leukocytes Manual cnt (Bld) [Pure # fraction]1 %High0 - 0 %Remisol HemeMonocytes (Bld) [#/Vol]0.6 E9/LNormal0.2 - 1.0 E9/LRemisol HemeMonocytes/100 WBC (Bld)6.0 %Normal4.0 - 14.0 %Remisol Heme Neutrophils (Bld) [#/Vol]5.8 E9/LInvalid Interpretation CodeRemisol HemePlatelet 333.0 E9/IQfwhzc124.0 - 500.0 E9/LRemisol HemePlatelet mean volume (Bld) [Entitic vol]8.0 fLNormal6.4 - 10.8 fLRemisol HemeRBC (Bld) [#/Vol]4.5 E12/L Normal4.3 - 5.9 E12/LRemisol HemeRBC size Nom (Bld)NORMAL *NA* (11/15/23 12:14 PM)Invalid Interpretation CodeRemisol HemeSegmented neutrophils/100 WBC (Bld)61.0 %Omfihf74.0 - 75.0 %Remisol HemeWBC corrected for nucl RBC Auto (Bld) [#/Vol]9.6 E9/LNormal4.0 - 11.0 E9/LRemisol HemeRAD - Ultrasound Reporton 13-07-2379OWA - Ultrasound Report [id number]#[id number] Good Samaritan HospitalIGP,APTIMA HPV,AGE GDLNon 90-28-9948IIB GDLN ACOG TESTINGNote.NOMS HealthcareComment on above:TESTS RESULT FLAG UNITS REF RANGE LAB Clinician Provided Cytology Information Source.............Vagina No. of containers..01 ThinPrep Vial Age Algo ACOG Vee... 30-65 01 FLAG LEGEND: L-Low Normal,H-High Normal,LL-Alert Low,HH-Alert High <-Panic Low,>-Panic High,A-Abnormal,AA-Critical Abnormal Performed at: 01 =[address] [place] [address] Dee Mendez MD, HPV APTIMANegativeNegativeNOMS HealthcareComment on above:This nucleic acid amplification test detects fourteen high- risk HPV types (16,18,31,33,35,39,45,51,52,56,58,59,66,68) without differentiation. Performed at: = - [facility], [place] [id number] Pickle Sorter: Dee Mendez MD, Phone: [phone] Performed at: [facility] Lab[address], [place] [id number] Pickle Sorter: Dee Mendez MD, Phone: [phone] IGP, APTIMA HPV, RFX 16/18,45Note.NOMS HealthcareComment on above:TESTS RESULT FLAG UNITS REF RANGE LAB DIAGNOSIS: 02 NEGATIVE FOR INTRAEPITHELIAL LESION OR MALIGNANCY. Specimen adequacy: 02 Satisfactory for evaluation. No endocervical cells are present. This is consistent with a history of hysterectomy. Performed by: Alexis Vallejo Multiple Punch Press Operator (ASCP) . 02 Note: Note 02 The [...] <-Panic Low,>-Panic High,A-Abnormal,AA-Critical Abnormal Performed at: [address] [address] Dee Mendez MD, SPATULA-ALONE VAGINA CLINISYNCNOMS HealthcareUS PELVIS TRANSVAGINALon 82-74-4924[place] [address] Ultrasound Report Signed Patient: Shreyas Du MR#: [id number] : 1980 Acct:[id number] Age/Sex: 42 / F ADM Date: 09/29/23 Loc: [facility] Attending Dr: Bruce Walker D.O. Ordering Physician: Bruce Walker D.O. Date of Service: 09/29/23 Procedure(s): US pelvis transvaginal Accession Number(s): [id number] cc: Bruce Walker D.O.; GARRISON ARZATE [address] [place] [address] Patient Name: SHREYAS DU MRN: [id number] date: 1980 Sex: F Assigned Patient Location: [facility] Current Patient Location: [facility] Accession/Order Number: [id number] Exam Date: 09/29/2023 09:43 Report Date: 09/29/2023 17:11 At the request of: BRUCE WALKER Procedure: US pelvis transvaginal EXAMINATION: US [...] account for patient's symptoms. Electronically authenticated by: SHARONDA BOYKIN Date: 09/29/2023 17:11 Dictated By: Sharonda Boykin M.D. Signed By: 09/29/231713 DD/ 10 TD/TT: Laboratory Cureman:SANIYAadiology, Radiologist, - 09/29/2023 [place] [address] Ultrasound Report Signed Patient: Shreyas Du MR#: [id number] : 1980 Acct:[id number] Age/Sex: 42 / F ADM Date: 09/29/23 Loc: [facility] Attending Dr: Bruce Walker D.O. Ordering Physician: Bruce Walker D.O. Date of Service: 09/29/23 Procedure(s): US pelvis transvaginal Accession Number(s): [id number] cc: Bruce Walker D.O.; GARRISON ARZATE [address] [place] [id number] Patient Name: SHREYAS DU MRN: [id number] date: 1980 Sex: F Assigned Patient Location: [facility] Current Patient Location: [facility] Accession/Order Number: [id number] Exam Date: 09/29/2023 09:43 Report Date: 09/29/2023 17:11 At the request of: BRUCE WALKER Procedure: US pelvis transvaginal EXAMINATION: US [...] account for patient's symptoms. Electronically authenticated by: SHARONDA BOYKIN Date: 09/29/2023 17:11 Dictated By: Sharonda Boykin M.D. Signed By: 09/29/231713 DD/ 10 TD/TT: Laboratory Cureman: SPARKLE HealthcareRadiology Study observation (narrative)NOMS HealthcareUS PELVIS TRANSVAGINALOrdered By: Radiologist Radiology on 38-83-3368[employer] Work Phone: c Urineon 43-16-7936Nvtmbcbf identified Cx Nom (U) Microbiology PROCEDURE: Urine Culture [R1] SOURCE: U CleanCatch BODY SITE: COLLECTED DATE/TIME: 09/20/2023 13:11 EDT RECEIVED DATE/TIME: 09/20/2023 18:31 EDT START DATE/TIME: 09/20/2023 18:31 EDT FREE TEXT SOURCE: Vitaly SERRANO, Garrison Rivas MD AMENDED REPORTS Amended Report [] Verified Date/Time: 09/28/2023 12:52 EDT Wrong patient per [facility] 09/28/2023 12:51 CSS Patient credited. CSS Performing Locations R1: This test was performed at: [facility], [address] [place] [address], [address] , [place], KohegtQcybvsThe MetroHealth SystemComment on above:Performed By: #### [id number] #### [facility] [address] [place], [place] [address]Tddbycll Letteron 11-08-4516Fmryoxjm Letter September 26, 2023 [place] [address] : 1980 Dear Shreyas, We have been trying to reach you with no success. It is important that you return our call regarding your medication upon receiving this letter. Also, at the time of your call, please provide us withyour current information. Thank you for your prompt attention to this matter. Sincerely, [facility] [address] [place] [address] OxsrasRgspcwThe MetroHealth SystemAmbulatory Visit Summaryon 92-54-0659Cxhhjdveot Visit Summary SHREYAS DU :1980 Visit Date:09/20/2023 Ambulatory Visit Instructions Your Diagnosis BMI 25.0-25.9,adult Over weight Former smoker Your Care Team Attending Physician - Garrison Arzate MD Primary Care Physician - Garrison Arzate MD This Is Your Medications List amlodipine [...] Follow-Up Appointments Tuesday 7:15 AM EDT With: Garrison Arzate MD Where: [facility] Office/Clinic Noteon 82-76-4202Wqpsat Medicine Office/Clinic NoteHPI Staff Shreyas is a 42 year old female presenting [...] DAY, # 90 tab(s), Refills(s) 1, Pharmacy: [facility], 171, cm, 09/20/23 10:53:00 EDT, [...] 03/13/2017 Recorded influenza virus vaccine, inactivated 03/11/[address] Elizabeth Boardman HospitalComment on above:Result Comment: Electronically Signed By: Vitaly SERRANO, Garrison Vinson.br\Date and Time Signed: 09/20/23 14:05 EDTPatient Educationon 08-13-3883Phuflcb EducationNutrition BMI for Adults What is BMI? Body mass index (BMI) is a number that is calculated from a person's weight and height. BMI can help estimate how much of a person's weight is composed of fat. BMI does not measure body fat directly.Rather, it is an alternative to procedures that [...] your height. Both height and weight are measured,and the BMI is calculated from those numbers. This can be done either in [place]i ([place] or metric measurements. Note that charts and online BMI calculators are available to help you find your BMI quickly and easily without having to do these calculations yourself. To calculate your BMI in [place] ([place] measurements: 1. Measure your weight in [...] meters squared number. In this example: 70 ?3.1 = 22.6. This is your BMI. What [...] for Disease Control and Prevention: www.cdc.gov ? [place] Heart Association: www.heart.org ? National Heart, Lung, and Blood [place]: www.nhlbi.nih.gov Summary ? Body mass index (BMI) is a number that is calculated from a person's weight and height. ? BMI may help estimate how much of a person's weight is composed of fat. BMI can help identify those who may be at higher risk for certain medical problems. ? BMI can be measured using [place]i measurements or metric measurements. ? BMI charts are used to identify whether you are underweight, normal weight, overweight, or obese. This information is not intended to replace advice given to you by your health care provider. Make sure you discuss any questions you have with your health care provider. Document Revised: 01/30/2020 Document Reviewed: 12/07/2019 [employer] Patient Education ? 2022 [employer].[facility] PAP ACOG PANEL 2: 30 to 65on 68-09-5215Wdq Gdln ACOG Uwkfjwf95-44BedykoZzbThe University of Toledo Medical CenterComment on above:Performed By: #### [id number] #### [facility] [address] [place] [address] Dr. Vicky Cordoba Vital Signs Date TimeVital SignValuePerforming IkvdzujhiVqjexasd41-70-5849 14:59-0400Body rsmepi104.1 Madie Arzate MD Work Phone: [phone]09-23-2025 14:59-0400 Body mass index (BMI) [Ratio]30.7 kg/u7BldusfGarrison Arzate MD Work Phone: [phone]09-23-2025 14:59-0400 Body tukvow63.8 kgGarrison Arzate MD Work Phone: [phone]05-20-2025 08:58-0400 Body mass index (BMI) [Ratio]25.18 kg/u7Dieah Aaron DO Work Phone: [facility] HospitalWxckqbdjkx03-91-2623 08:58-0400Body pcbzpy31.76 kgCorey Aaron DO Work Phone: [phone]' HospitalAypjxkgxve18-87-0105 08:58-0400Diastolic blood lpstikgk48 mm[Hg]Bruce Aaron DO Work Phone: [facility] HospitalQhslnjneio05-56-5182 08:58-0400Systolic blood ylhhhnmh917 mm[Hg]Bruce Aaron DO Work Phone: [facility]' HospitalImaulewurf78-74-9741 14:37-0400Body hkahha251.1 cmMD Garrison Arzate Work Phone: [phone] [place], [place] [address]806507-12-2024 14:37-0400 Body mass index (BMI) [Ratio]28.3 kg/m2MD Garrison Arzate Work Phone: [phone] [place], [place] [address]507-12-2024 14:37-0400 Body vvnvkvmskeg99.4 [degF]MD Garrison Arzate Work Phone: [phone] [place], [place] [address]507-12-2024 14:37-0400 Body uvdhka86.11 kgMD Garrison Arzate Work Phone: [phone]07-12-2024 14:37-0400 Diastolic blood bzasqaup56 mm[Hg]MD Garrison Arzate Work Phone: [phone]07-12-2024 14:37-0400 Heart rate96 /minMD Garrison Arzate Work Phone: [phone]07-12-2024 14:37-0400 SaO2% (BldA) [Mass fraction]96 %MD Garrison Arzate Work Phone: [phone] [place], [place] [address]507-12-2024 14:37-0400 Systolic blood pogqogri097 mm[Hg]MD Garrison Arzate Work Phone: [phone]11-09-2022 16:50-0500 Blood Pressure LocationSana Arzate 491-0300Zfcdwd-ZaiszF[facility] 03-31-2022 16:50-0500Diastolic blood cgdangqf79 mm[Hg]Garrison Arzate 545-6338Ntaegh-ElwohFayette County Memorial Hospital 03-31-2022 16:50-0500Heart rate99 /minSana Arzate 932-3794Gefdkn-UjqosFayette County Memorial Hospital 03-31-2022 16:50-4953YuU5% (BldA) [Mass fraction]97 %Garrison Arzate 006-3593Yopvqr-RqdmyFayette County Memorial Hospital 03-31-2022 16:50-0500Systolic blood thqbyabm477 mm[Hg]Garrison Arzate 129-3845Xnapbn-ZtixvFayette County Memorial Hospital 12-31-2021 16:27-0400Blood Pressure LocationSana Arzate 020-4074Njimzn-QpqszFayette [facility] Hospital 08-11-2022 16:27-0400Diastolic blood mm[Hg] Garrison Arzate 599-2886Jfudwi-BlqvsFayette [facility] Hospital 08-11-2022 16:27-0400Heart rate87 /minSana Arzate 252-9863Tuyxhd-LefknFayette [facility] Hospital 08-11-2022 16:27-3700EgQ0% (BldA) [Mass fraction]98 % Garrison Arzate 174-9975Ryutru-ThlgbFayette County Memorial Hospital 08-11-2022 16:27-0400Systolic blood tulbpdgf658 mm[Hg] Garrison Arzate 345-5786Czxkdt-XebmnFayette County [facility] Hospital 04-20-2022 14:09-0400Diastolic blood zitvvkdg813 mm[Hg] Garrison Vitaly 801-7722Qohmpo-KqaoxFayette County Memorial Hospital 04-20-2022 14:09-0400Mean blood ydbynhjt679 mm[Hg] Garrison Vitaly 237-9489Dtovgm-AodwxF[facility] Hospital 04-20-2022 14:09-0400Systolic blood lmwudrnx045 mm[Hg] Garrisonperi Arzate 518-9675Hswzil-AhkzaFayette County [facility] Hospital 04-20-2022 13:20-0400Blood Pressure LocationSana Arzate 017-3552Pfgxlz-JyndfFayette [facility] Hospital 04-20-2022 13:20-0400Diastolic blood apqqqwxm268 mm[Hg] Garrison Arzate 553-5097Ethaqn-DjglhFayette County Memorial Hospital 04-20-2022 13:20-0400Heart rate89 /minSana Arzate 291-0813Yktxtl-VkcxmFayette County Memorial Hospital 04-20-2022 13:20-2524PnU7% (BldA) [Mass fraction]97 % Garrison Arzate 991-0172Jkdwpb-QugceFayette County Memorial Hospital 04-20-2022 13:20-0400Systolic blood wzegbmsg484 mm[Hg] Garrison Arzate [phone]-HmuwoFayette County Memorial Hospital Encounters Encounter DateEncounter TypeCare ProviderFacilityStart: 02-27-2025 End: 68-01-8268byxldvxvnwSBGPJR A LEHMANNFacility:[facility] BellevueStart: 02-26-2025 End: 82-38-6859epnhvkqwboLSHGKR A LEHMANNFacility:[facility] BellevueStart: 02-22-2025 End: 23-00-4057qruoxxijfvCARVWN A LEHMANNFacility:FTMCStart: 02-12-2025 End: 53-94-8960utjhsvahibXeleju E Ross MD Work Phone: [facility] Work Phone: Start: 02-12-2025 End: 33-83-6182Vgekdow encounter procedureDaabram Lance MD-[facility] Work Phone: start: 11-06-2024 End: 39-99-7844kwfzlpsheoBuuuxq E. RossFacility:FT FM BellevueStart: 10-09-2024 End: 24-24-4856Sgwhxn flowsheetCorey Aaron DO Work Phone: n[facility] BCP OBStart: 10-09-2024 End: 94-99-8004Pmmngb flowsheetCorey Aaron DO Work Phone: [facility] BCP OBStart: 10-09-2024 End: 60-28-5605Tduhdcr encounter procedureCorey Aaron DO Work Phone: noms HealthcareStart: 10-09-2024 End: 15-74-2841Ksmqrgqj preventive med est patient 40-64yrsCorey Aaron DO Work Phone: [facility]oms [facility] OBComment on above:Well woman exam with routine gynecological exam; H/O: hysterectomy; Yeast infectionStart: 10-09-2024 End: 02-98-1892fugmrmgusrFACNE FAZIONot AvailableStart: 10-01-2024 End: 59-95-3744Rcixoga encounter procedureSana Arzate MD Work Phone: [facility] Work Phone: Start: 10-01-2024 End: 45-81-5802dpzfbariutKvnqma E RossFacility:[facility] Start: 08-20-2024 End: 84-74-3568rmlyyuapqaIxjdnci Vytautas Giedraitis MDFacility:[facility] [place] Start: 08-07-2024 End: 30-21-1047ekrkpqqhhrJwdiqs E. RossFacility:FT FM BellevueStart: 07-23-2024 End: 90-78-0963xjgnytdurjXaojwja Vytautas Giedraitis MDFacility:[facility] [place] Start: 06-25-2024 End: 53-12-3991vfthvbelkdDhjhetv Vytautas Giedraitis MDFacility:[facility] [place] Start: 06-11-2024 End: 94-24-8996mflvsxmyzxQcfyiri Vytautas Giedraitis MDFacility:[facility] [place] Start: 05-28-2024 End: 77-35-2006pgxgyskpkdZwwhtvq Vytautas Giedraitis MDFacility:[facility] [place] Start: 05-09-2024 End: 04-09-6165jkfhitvnbqFwbenw E. RossFacility:FT FM BellevueStart: 05-07-2024 End: 20-85-9730lfaqqnljuqMgwzgbw Vytautas Giedraitis MDFacility:[facility] [place] Start: 04-16-2024 End: 91-90-2915bdxataycmxTswjfqi Vytautas Giedraitis MDFacility:[facility] [place] Start: 03-19-2024 End: 39-95-1552vbgzctnbqzOxkzgqj Vytautas Giedraitis MDFacility:[facility] [place] Start: 03-05-2024 End: 75-07-7191fxtpdxgugdKyfzpj E. RossFacility:FT FM [facility]vueStart: 12-02-2023 End: 82-40-6416bmyrhahdkvXN Samuel E Ross Work Phone: [facility] Work Phone: Start: 12-02-2023 End: 54-50-3896Uiavodha ReferredMD Garrison Arzate Work Phone: [facility] 250 Start: 12-02-2023 End: 31-14-5008Nhipmrx encounter procedureMD Garrison Arzate Work Phone: [facility] [place] Work Phone: Start: 11-18-2023 End: 06-44-7210Fgocmoy encounter procedureSana Arzate [facility] Start: 11-15-2023 End: 51-56-1758Dfl Drop offSana Arzate [facility] Start: 11-15-2023 End: 29-38-5666dcmzyqaiamHkmauq E. RossFacility:FT [facility] BellevueStart: 09-29-2023 End: 22-53-7662Fbosbltbm Result EncounterCorey Aaron DO Work Phone: noms External Department UnsolicitedStart: 09-29-2023 End: 37-12-8218Vdgqlcfdd Result EncounterCorey Aaron DO Work Phone: noms External Department UnsolicitedStart: 09-22-2023 End: 41-77-2507vnjwdcisaoFR Samuel E Ross Work Phone: [facility] Work Phone: Start: 09-22-2023 End: 76-79-9641Fwpypkg encounter procedureMD Garrison Arzate Work Phone: [facility] Work Phone: Start: 09-20-2023 End: 49-43-0888cfeakyiimvKadkpm E. RossFacility:FTMCStart: 09-20-2023 End: 28-35-2579Edx Drop Stef Arzate [facility] Start: 09-20-2023 End: 21-46-3753gomwtszylmTzwjhn E. RossFacility:[facility] BellevueStart: 08-03-2023 End: 03-38-5958iaxkhcukopOainjs E. RossFacility:FT FM BellevueStart: 09-27-2022 End: 63-55-7952pgpifqmixeHV BRUCE AARON .Facility:L1Hzynl: 08-31-2022 End: 29-78-6721ewkjptdlanBLEliana Arzate Work Phone: [facility] Work Phone: Start: 08-31-2022 End: 81-54-6472Avgleiw encounter procedureMD Garrison Arzate Work Phone: [facility] Work Phone: Start: 03-31-2022 End: 59-72-3483Yjcogxo encounter procedureSana Arzate [phone]-RyvhgFayette County [facility] Hospital Start: 12-31-2021 End: 06-86-3950Tuqlyag encounter procedureSana Arzate [phone]-DndnxFayette County Memorial Hospital Start: 09-09-2021 End: 99-26-5212Renepeh encounter procedureSana Arzate [phone]-JxwdbFayette County Memorial Hospital Start: 76-01-6226Wenjfka encounter procedureMeka Sangita ReeseFacility:9122Start: 28-98-6517Hwfgqkv encounter procedureMolela Monterroso RashidFacility:9122 Procedures DateProcedureProcedure DetailPerforming ClinicianStart: 91-38-6983Yqfot dip stick/tablet rgnt non-auto w/o micrscpCorey Aaron DO Work Phone: Start: 29-22-6635LtybmkmdvqrYgnom Aaron DO Work Phone: Start: 71-33-3272NI PELVIS TRANSVAGINALCorey Aaron DO Work Phone: Start: 45-49-6969JLL,APTIMA HPV,AGE GDLNCorey Aaron DO Work Phone: Start: 05-81-2900Bjbcraqjnuh observation [Identifier] in Cervix by Cyto stainCorey Aaron DO Work Phone: Start: 38-86-7429Fjranwamh mammography of left breast MD Garrison Arzate Work Phone: Start: 65-90-9413Eyfhnsldv mammography of left breast MD Garrison Arzate Work Phone: Start: 12-70-8444XkyveybldbxgJeupeo Vitaly Start: 78-54-6867Qfjfhvoi of fallopian tubeSana Vitaly Start: 47-01-6828Gvoev , function (observable entity)Garrison Arzate comment on above:VaginalStart: 13-04-5655Bqfbu , function (observable entity)Garrison Arzate comment on above:VaginalH/O: hysterectomyH/O: hysterectomyCorey Aaron DO Work Phone: Mastectomy of right breastGarrison Arzate comment on above:with Rt node dissection and 3-4 cosmetic surgeries after Plan of Treatment DateCare ActivityDetailAuthorStart: 47-66-5219Oopebuzau for malignant neoplasm of cervixNOMS HealthcareStart: 67-31-4420Owihraenj for malignant neoplasm of cervixPap SmearNOMS HealthcareStart: 10-17-2025 End: 54-05-4870Xtjdpqy encounter procedureNOMS BCP OBStart: 52-22-6168Wjnqjbolk for malignant neoplasm of breastMammogramNOMS HealthcareStart: 32-87-5761Esrtlfn referralUpper [facility] Work Phone: Start: 90-34-5186Xaebibtsh vaccinationInfluenza Vaccine (Season Ended)NOMS HealthcareStart: 10-09-2024 End: 98-64-7447Bgklpax encounter evsbjyqnw23/20/2025 8:40 AM EDT Office Visit [facility] [address] [place] [id number] Bruce Walker, DO [address] [place] [address] ArrivedNOMS BCP OBComment on above:ArrivedStart: 16-69-6369DA Breast - left ScreeningUniversity Hospitals Elyria Medical Centertart: 24-12-1302Ryclxetni mammography of left breastMM screening mammo LT w/CAD [facility] Centertart: 22-96-2004MimujynjzUniversity Hospitals Elyria Medical Centertart: 87-48-7768Gkazhdjv identified in Urine by CultureUniversity Hospitals Elyria Medical Centertart: 87-89-2623Flfmdxphl for malignant neoplasm of colonNOMS HealthcareAtopobium vaginae DNA [Presence] in Vaginal fluid by FAISAL with probe detectionCincinnati Shriners HospitalBacterial vaginosis associated bacterium 2 DNA [Presence] in Vaginal fluid by FAISAL with probe detectionCincinnati Shriners HospitalMegasphaera sp type 1 DNA [Presence] in Vaginal fluid by FAISAL with probe detectionCincinnati Shriners HospitalPatient referral [facility] Work Phone: THIN PREP TIS PAP AND HR HPV DNATHIN PREP TIS PAP AND HR HPV DNA Pathology and Cytology Routine Well woman exam with routine gynecol ogical exam H/O: hysterectomy Ordered: 10/09/2024[facility] Work Phone: comment on above:Ordered: 10/09/2024 Immunizations Immunization DateImmunizationNotesCare LvixftesLdppxadu68-03-5013tsqhpwvel virus vaccine, unspecified formulationCorey Aaron DO Work Phone: [facility] HospitalWprdekklqq58-54-0158exqulmjdx virus vaccine, unspecified formulationSana Arzate 684-3165Gbhamv-KawayFayette County Memorial Hospital 40-18-1077AEYE-CoV-2 (COVID-19) mRNA BNT-162b2 Aleida Arzate 578-6042Mcvcoj-YwsswFayette County Memorial Hospital 0083440-37-1541BLJZ-EbL-0 (COVID-19) mRNA BNT-162b2 wes Arzate 973-0570Tpzcfv-RluplFayette County Memorial Hospital 11210107-77-9701cclfkdvfz virus vaccine, unspecified formulationSana Arzate 818-1018Qduaxk-WvturWood County Hospital 57-74-0751gqfmdsjtl virus vaccine, unspecified formulationSana Arzate 876-5819Sfyzwh-UqiouWood County Hospital 50-30-4183qhunsjxwk virus vaccine, unspecified formulationSana Arzate 551-9357Qmfaxy-RnhdpWood County Hospital 35-84-3530qkqsffczb virus vaccine, unspecified formulationSana Arzate 330-3507Oexudm-PdvssWood County Hospital NEGATED: Highlighted row has not occurred!31-08-2099hphnexeef virus vaccine, unspecified formulationSana Arzate 182-5992Dxsxef-XlbwoWood County Hospital Payers DatePayer CategoryPayerPolicy [id number] Health InsuranceOHIOHEALTH ARTHUR G.[facility]. [facility], [facility], CAN[facility]ER CENTERCAL MUTUAL 1..840.524130.1.13.693.2.7.9.402214.739554.09545-56-8889Hqzffho60-24-3789 [id number] [id number] .1.159830.3.57[id number] 2.16.840.1.500411.3.57[id number] 2.16.840.1.883065.3.579.2.32020-87-6331Yvtspuj89471659 2.16.840.1.069836.3.57[id number] 2.16.840.1.697791.3.57[id number] 2.16.840.1.418319.3.57[id number] 2.16.840.1.267469.3.579.[id number] 2.16.840.1.848716.3.579.[id number] 2.16.840.1.280745.3.579.2.[id number] 2.16.840.1.812998.3.57[id number] 2.16.840.1.572131.3.579.[id number] 2.16.840.1.370694.3.57[id number] 2.16.840.1.029585.3.579.2.68096-61-5818Olouzji432904727 2.16.840.1.603519.3.57[id number] 2.16.840.1.240000.3.579.2.08[id number] 2.16.840.1.453837.3.57[id number] 2.0.1.640897.3.579.2.55568-77-6598Gdmdxwl3126290 2.16840.1.881054.3.579.2.384212-31-4284Cpopzcn91052639 2.160.1.794472.3.579.2.23172-35-0482Sknbpus24667943 2.160.1.717365.3.579.2.43985-89-4571Mrmmexm98831258 2.0.1.411182.3.57[id number] 2.160.1.800845.3.579.2.65734-42-6827Atplfgu43428009 2..1.937012.3.579.2.42496-40-4220Rqrkolc33006950 2..1.618803.3.579.2.39516-69-6269Gvkgcbk37790746 2..1.663819.3.579.2.71768-16-3018Xeyqavk03576105 2..1.542131.3.579.2.09185-29-9018Ichnbou79396162 2..1.135294.3.579.2.3288[id number] [id number] 2..1.207818.3.579.2.379Gwzthzv56152703 2..1.498609.3.579.2.531 Social History DateTypeDetailFacilityStart: 09-09-2021 End: 58-71-1165Tgthama smoking statusEx-smoker (finding)[facility] comment on above: smokes outsideStart: 86-33-1442Lpwslpv smoking statusNeKettering Health [facility] comment on above: smokes outsideStart: 01-28-1992 End: 89-17-5325Gtr Assigned At [facility] TobaccoHousehold tobacco concerns: No.[facility] Tobacco smoking statusNo Smoking Status EnteredMercy Health [facility] Start: 43-30-6251Vay Assigned At [facility] Centertart: 35-85-2578WakEyqbuz (finding)[facility]riners HospitalHistory of tobacco useCurrent smokerNOMS HealthcareHistory of tobacco useCigarette SmokerNOMS HealthcareStart: 55-40-2099Crzsacnpl beverage intakeCurrent drinker of alcohol (finding)NOMS HealthcareStart: 06-14-2023 History of Social functionNOMS HealthcareStart: 15-17-6543Pxdlyni Comment caffeine: 1-2 cups per day coffeeNOMS HealthcareStart: 46-52-7493Swxnzw identity Identifies as female gender (finding)NOMS HealthcareStart: 70-09-4268Plldif orientationHeterosexual (finding)[facility] Functional Status KixpGlwqywniiiIvvgxcTpeolllo48-10-0524Liutvwtcjf StatusN/[facility]08-11-2022Functional StatusN/[facility] Clinical Notes 09-09-2021 to 02-27-2025 Note Date & FlwaRgmiOvlzjncn38-58-1538 NoteNurse Consultation Note Reason for Visit Pt came IO for lab draw Assessment/Plan 1. BPPV (benign paroxysmal positional vertigo) (H81.10: Benign paroxysmal vertigo, unspecified ear) Medications amLODIPine 10 mg Tab, See Instructions, 1 refills baclofen 5 mg oral tablet ClonazePAM 0.5 mg Tab, See Instructions Cymbalta 20 mg oral delayed release capsule, 20 mg= 1 cap(s), Oral, BID, 1 refills gabapentin 300 mg Cap gabapentin 600 mg Tab LaMICtal XR 250 mg oral tablet, extended release, See Instructions lamotrigine 200 mg Tab lamotrigine 25 mg Tab tizanidine 4 mg oral capsule tiZANidine 4 mg Tab, 4 mg= 1 tab(s), Oral, q8hr Allergies morphine (Itching) Immunizations Vaccine Date Status Comments influenza virus vaccine, inactivated 04/05/2024 Recorded influenza virus vaccine, inactivated - Not Given Postpone due to refusal influenza virus vaccine, inactivated 02/2022 Recorded SARS-CoV-2 (COVID-19) mRNA BNT-162b2 vax 09/02/2020 Recorded SARS-CoV-2 (COVID-19) mRNA BNT-162b2 vax 08/12/2020 Recorded influenza virus vaccine, inactivated 04/04/2020 Recorded influenza virus vaccine, inactivated 03/14/2018 Recorded influenza virus vaccine, inactivated 03/13/2017 Recorded influenza virus vaccine, inactivated 03/11/[address] [facility]2025 NotePatient Education Mental and Behavioral Health Myofascial Pain Syndrome and Fibromyalgia Myofascial pain syndrome and fibromyalgia are both pain disorders. You may feel this pain mainly inyour muscles. ??? Myofascial pain syndrome: ? Always has tender points in the muscles that will cause pain when pressed (trigger points). The pain may come and go. ? Usually affects your neck, upper back, and shoulder areas. The pain often moves into your arms and hands. ??? Fibromyalgia: ? Has muscle pains and tenderness that come and go. ? Is often associated with tiredness (fatigue) and sleep problems. ? Has trigger points. ? Tends to be long-lasting (chronic), but is not life-threatening. Fibromyalgia and myofascial pain syndrome are not the same. However, they often occur together. If you have both conditions, each can make the other worse. Both are common and can cause enough pain and fatigue to make day-to-day activities difficult. Both can be hard to diagnose because their symptoms are common in many other conditions. What are the causes? The exact causes of these conditions are not known. What increases the risk? You are more likely to develop either of these conditions if: ??? You have a family history of the condition. ??? You are female. ??? You have certain triggers, such as: ? Spine disorders. ? An injury (trauma) or other physical stressors. ? Being under a lot of stress. ? Medical conditions such as osteoarthritis, rheumatoid arthritis, or lupus. What are the signs or symptoms? Fibromyalgia The main symptom of fibromyalgia is widespread pain and tenderness in your muscles. Pain is sometimes described as stabbing, shooting, or burning. You may also have: ??? Tingling or numbness. ??? Sleep problems and fatigue. ??? Problems with attention and concentration (fibro fog). Other symptoms may include: ??? Bowel and bladder problems. ??? Headaches. ??? Vision problems. ??? Sensitivity to odors and noises. ??? Depression or mood changes. ??? Painful menstrual periods (dysmenorrhea). ??? Dry skin or eyes. These symptoms can vary over time. Myofascial pain syndrome Symptoms of myofascial pain syndrome include: ??? Tight, ropy bands of muscle. ??? Uncomfortable sensations in muscle areas. These may include aching, cramping, burning, numbness, tingling, and weakness. ??? Difficulty moving certain parts of the body freely (poor range of motion). How is this diagnosed? This condition may be diagnosed by your symptoms and medical history. You will also have a physicalexam. In general: ??? Fibromyalgia is diagnosed if you have pain, fatigue, and other symptoms for more than 3 months,and symptoms cannot be explained by another condition. ??? Myofascial pain syndrome is diagnosed if you have trigger points in your muscles, and those trigger points are tender and cause pain elsewhere in your body (referred pain). How is this treated? Treatment for these conditions depends on the type that you have. ??? For fibromyalgia, a healthy lifestyle is the most important treatment including aerobic and strength exercises. Different types of medicines are used to help treat pain and include: ? NSAIDs. ? Medicines for treating depression. ? Medicines that help control seizures. ? Medicines that relax the muscles. ??? Treatment for myofascial pain syndrome includes: ? Pain medicines, such as NSAIDs. ? Cooling and stretching of muscles. ? Massage therapy with myofascial release technique. ? Trigger point injections. Treating these conditions often requires a team of health care providers. These may include: ??? Your primary care provider. ??? A physical therapist. ??? Complementary health care providers, such as massage therapists or acupuncturists. ??? A psychiatrist for cognitive behavioral therapy. Follow these instructions at home: Medicines ??? Take slsh-vql-xqdqoof and prescription medicines only as told by your health care provider. ??? Ask your health care provider if the medicine prescribed to you: ? Requires you to avoid driving or using machinery. ? Can cause constipation. You may need to take these actions to prevent or treat constipation: ? Drink enough fluid to keep your urine pale yellow. ? Take qomh-kaw-hnxouwu or prescription medicines. ? Eat foods that are high in fiber, such as beans, whole grains, and fresh fruits and vegetables. ? Limit foods that are high in fat and processed sugars, such as fried or sweet foods. Lifestyle ??? Do exercises as told by your health care provider or physical therapist. ??? Practice relaxation techniques to control your stress. You may want to try: ? Biofeedback. ? Visual imagery. ? Hypnosis. ? Muscle relaxation. ? Yoga. ? Meditation. ??? Maintain a healthy lifestyle. This includes eating a healthy diet and getting enough sleep. ??? Do not use (more content not included)...[facility] 02-12-2025 Hospital Discharge instructionsAmbulatory Orders* Referral to Neurology Time Frame: 02/12/25, Location: None Selected [facility] Work Phone: 1(701) 110-196805-20-2025 History of Present illness Narrative* Trish Elizalde LPN - 10/09/2024 8:40 AM EDT Reason for Appointment: Patient ID: Shreyas Du is a 43 y.o. female who presents for Gynecologic Exam Patient presents today for Annual Exam. MEDICATIONS Current Outpatient Medications Medication Instructions amLODIPine (Norvasc) 10 MG tablet See Instructions, TAKE 1 TABLET BY MOUTH EVERY DAY, # 90 tab(s), Refills(s) 1, Pharmacy: [facility], 171, cm, 03/24/23 8:31:00 EDT, [...] fx HYSTERECTOMY 2013 INSERTION OF BREAST TISSUE ROUTER OPERATOR RADIAL Right 03/25/2015 reinserted MASTECTOMY Right 08/13/2014 subcutaneous mastectomy w/ALND, reconstruction OTHER SURGICAL HISTORY 1994 ORIF OTHER SURGICAL HISTORY 09/04/2014 Port OTHER SURGICAL HISTORY 11/2015 Perm implant removed supply chain generalist back in OTHER SURGICAL HISTORY 2014 Port removed SKIN CANCER EXCISION 2004 TISSUE ROUTER OPERATOR RADIAL REMOVAL Right 09/2014 TISSUE ROUTER OPERATOR RADIAL REMOVAL Right 01/2016 TE out Implant in Lt. implant TUBAL LIGATION 2013 REVIEW OF SYSTEMS Review of Systems: Review [...] nursing note reviewed. Exam conducted with a perinatal director present. Vitals: Estimated body mass index is [...] patient given mammogram order to have scheduled/obtained. Ptwas having recurrent yeast infections. Rx for diflucan and terconazole faxed to pharmacy. Orders Placed This Encounter Procedures POCT urinalysis dipstick manually resulted Follow Up: Patient is to return in one year for annual unless needed otherwise. Documented by Trish Elizalde LPN on behalf of: Bruce Walker DO documented in this encounterHarry S. Truman Memorial Veterans' HospitalBeizbppnxt81-67-3530 NotePatient Education Cardiovascular Hypertension, Adult High blood pressure [...] are some conditions that result in high bloodpressure. What increases the risk? Certain factors may make you more likely to develop high blood pressure. Some of these risk factorsare under your control, including: ??? Smoking. ??? [...] on the floor. The cuff of the bloodpressure monitor will be placed directly against the [...] hypertension should eat less than 1,500 mg ofsodium a day. ??? Do not drink alcohol [...] one 12 oz bottle (more content not included)...[facility]10-14-2024 NotePatient Education Nutrition BMI for Adults Body mass [...] BMI calculators are available to help you findyour BMI quickly and easily without doing these [...] meters squared number. In this example: 70 ?3.1 = 22.6. This is your BMI. What [...] such as an athlete, may have a BMIthat is higher than 24.9. In cases like these, BMI is not a correct measure of body fat. ? If you have a BMI of 25 or higher, your provider may need to do more testing to find out if excess body fat is the cause. ? BMI is measured the same way for males and females. Females usually have more body fat than malesof the same height and weight. Where to find more information For more information about BMI, including tools to quickly find your BMI, go to: ? Centers for Disease Control and Prevention: cdc.gov ? [place] Heart Association: heart.org ? National Heart, Lung, and Blood [place]: nhlbi.nih.gov This information is not intended to replace advice given to you by your health care provider. Make sure you discuss any questions you have with your health care provider. Document Revised: 01/27/2023 Document Reviewed: 01/20/2023 Elsevier Patient Education ? 2023 Post-A-Vox.[facility] 03-31-2022 Hospital Discharge instructions Patient Education 03/31/2022 17:16:43 Hypertension, Adult [...] a heart attack, heart failure, a stroke, kidneydisease, and other problems. A blood pressure reading [...] on the floor. The cuff of the bloodpressure monitor will be placed directly against the [...] in sodium, added sugar, and fat. An exampleeating plan is called the DASH (Dietary Approaches [...] contain nicotine or tobacco, such as cigarettes, e- cigarettes, and chewing tobacco. If you need help quitting, ask your health care provider. Monitor your blood pressure at home as told by your health care provider. Keep all follow-up visits as told by your health care provider. This is important. Medicines Take wwwp-npt-bevbzzg and prescription medicines only as told by your health care provider. Follow directions carefully. Blood pressure medicines must be taken as prescribed. Do not skip doses of blood pressure medicine. Doing this puts you at risk for problems and can makethe medicine less effective. Ask your health care [...] 05/09/2006 Document Revised: 01/17/2019 Document Reviewed: 01/17/2019 HashTip Patient Education 2019 Post-A-Vox. [facility] 08-11-2022 Hospital Discharge instructions Patient Education 12/31/2021 16:54:05 Eating Disorders Eating Disorders Eating disorders are medical and psychological problems. They often have biological, psychological,and social causes. Depression, obsession with food, and a distorted body image are common in peoplewho have eating disorders. Over time, eating disorders [...] and a psychological evaluation. You may have bloodtests, urine tests, or eating questionnaires. How is this treated? Treatment for an eating disorder may include: Psychotherapy. This may also be called talk therapy or counseling. Seeing a nutritional services director (dietitian). Getting appropriate exercise. Medicines to help [...] that address eating disorders. Talk with an child protection specialist, therapist, or counselor about your eating [...] health care provider. This is important. Take pcue-rkd-rlemzwz and prescription medicines only as told by [...] 05/09/2006 Document Revised: 09/17/2016 Document Reviewed: 03/12/2016 [employer] Patient Education 2020 Post-A-Vox. 12/31/2021 16:54:02 Hypertension, Adult Hypertension, Adult High [...] a heart attack, heart failure, a stroke, kidneydisease, and other problems. A blood pressure reading [...] on the floor. The cuff of the bloodpressure monitor will be placed directly against the [...] in sodium, added sugar, and fat. An exampleeating plan is called the DASH (Dietary Approaches [...] contain nicotine or tobacco, such as cigarettes, e- cigarettes, and chewing tobacco. If you need help quitting, ask your health care provider. Monitor your blood pressure at home as told by your health care provider. Keep all follow-up visits as told by your health care provider. This is important. Medicines Take oslc-igy-tdhylru and prescription medicines only as told by your health care provider. Follow directions carefully. Blood pressure medicines must be taken as prescribed. Do not skip doses of blood pressure medicine. Doing this puts you at risk for problems and can makethe medicine less effective. Ask your health care [...] 05/09/2006 Document Revised: 01/17/2019 Document Reviewed: 01/17/2019 [employer]Tip Patient Education 2019 Post-A-Vox. [facility] 04-20-2022 Hospital Discharge instructions Patient Education 09/09/2021 15:07:04 Managing Anxiety, [...] both good and bad. Most stress will lastjust a few hours, but stress can be [...] effectively so that it does not lead eldon anxious response. Talk with your health care provider or a counselor to learn more about reducing anxiety and stress.He or she may suggest tension reduction techniques, [...] phrase, or sacred image that means something toyou and brings you peace. Deep breathing. To [...] for anxiety. Recovery from anxiety happens when symptomsdecrease and stop interfering with your daily activities [...] exercise should increase your heart rate and makeyou sweat (moderate-intensity exercise). ?Strengthening exercises at least [...] contain nicotine or tobacco, such as cigarettes, e- cigarettes, and chewing tobacco. If you need help quitting, ask your health care provider. Avoid caffeine, alcohol, and certain nbnd-xgr-kksmwmo cold medicines. These may make you feel worse. Ask your pharmacist which medicines to avoid. General instructions Take kkoa-tui-tafigtv and prescription medicines only as told by [...] Depression Association of [place] (ADAA): www.adaa.org National [place] [employer]ness (RUBINA): www.rubina.org Contact a health care provider if you: [...] or have thoughts about taking your own life,get help right away. You can go to your nearest emergency department or call: Your local emergency services (911 in the [place] A suicide crisis helpline, such as the National Suicide Prevention Lifeline at . Thisis open 24 hours a day. Summary Taking [...] 05/03/2017 Document Revised: 10/09/2019 Document Reviewed: 10/09/2019 [employer] Patient Education 2020 [employer]. [facility] Evaluation + Plan note Future Appointments Appointment Date:12/09/2021 07:40:00 AM Scheduled Provider:Garrison Arzate MD Location:[facility] Appointment Type:[facility] Evaluation + Plan note Future Appointments Appointment Date:03/31/2022 04:40:00 PM Scheduled Provider:Garrison Arzate MD Location:[facility] Appointment Type:[facility] Evaluation + Plan note Future Appointments Appointment Date:09/22/2022 04:40:00 PM Scheduled Provider:Garrison Arzate MD Location:[facility] Appointment Type:[facility] Evaluation + Plan note Future Appointments Appointment Date:03/20/2024 07:15:00 AM Scheduled Provider:Garrison Arzate MD Location:[facility] Appointment Type: Open Diagnostic Tests Pending * [facility] App[facility]ments Appointment Date:03/20/2024 07:15:00 AM Scheduled Provider:Garrison Arzate MD Location:[facility] Appointment Type: Open Future Scheduled Tests Radiology* US Extremity Non-Vascular Limited Right [facility] Appointments Appointment Date:03/20/2024 07:15:00 AM Scheduled Provider:Garrison Arzate MD Location:[facility] information available [facility] Work Phone: Evaluation note* Diagnosis Onset Date Resolution Status Vaginitis noneactive [facility] Work Phone: Evaluation note* Diagnosis Well woman exam with routine gynecological exam Routine gynecological examination H/O: hysterectomy Acquired absence of both cervix and uterus Yeast infection [facility] Diagnosis Onset Date Resolution Status Admit Date Cervical stenosis of spinal canal acuteSeptember 2024 2:49pmLumbar disc disorderacuteSeptember 2024 2:49pm [facility] Work Phone: Hospital course Narrative No data available for this section [facility] Hospital Discharge instructions No data available for this section [facility] No data available for this section [facility] Summary Purpose Family History Relationship Condition Age at Onset Recorded Date/T benita father Diabetes mellitus Unknown Advance Directives Advance Directive Response Recorded Date/ Time Advance Directives No January 15, 2017 11:31am Chief Complaint and Reason for Visit Chief Complaint Screening Chief Complaint z12.31 Chief Complaint z12.31 possible yeast infection Vaginal irritationReason for VisitVaginitis Chief Complaint Admit Date Screening October 01, 2024 4:49p m Chief Complaint Admit Date Spinal stenosis, cervical region Septemb er 2024 2:49pm Reason for Visit Admit Date Cervical stenosis of spinal canal Septem lory 2024 2:49pm Lumbar disc disorder February 12 2:49pm Additional Source Comments INFORMATION SOURCE (unrecogn ized section and content) DATE CREATED AUTHOR 04/30/2018 [facility] DATE CREATED AUTHOR AUTHOR'S ORGANIZ ATION 10/06/2022 [facility] DATE CREATED AUTHOR AUTHOR'S ORGANIZ ATION 11/17/[address] [facility] DATE CREATED AUTHOR AUTHOR'S ORGANIZ ATION 05/11/[address] [facility] DATE CREATED AUTHOR AUTHOR'S ORGANIZ ATION 08/26/2024 [facility] DATE CREATED AUTHOR AUTHOR'S ORGANIZ ATION 10/05/2024 [facility] DATE CREATED AUTHOR AUTHOR'S ORGANIZ ATION 10/10/2024 [facility] DATE CREATED AUTHOR AUTHOR'S ORGANIZ ATION 02/26/[address] [facility] DATE CREATED AUTHOR AUTHOR'S ORGANIZ ATION 02/28/[address] [facility] DATE CREATED AUTHOR AUTHOR'S ORGANIZ ATION 03/06/[address] [facility] DATE CREATED AUTHOR AUTHOR'S ORGANIZ ATION 03/09/[address] [facility] Care Team (unrecognized sect ion and content) Team Status: Active Member Role Status Dates Garrison Arzate MD Primary Care Provider Active Team Status: Inactive Member Role Status Dates Garrison Arzate MD Primary Care Provider Active Bruce Diego ProviderActive Team Status: Inactive Member Role Status Dates Garrison Arzate MD Primary Care Provider Active Start: September 22, 2023 End: September 21oreamdhu Diego ProviderActiveStart: September 22, 2023 End: September 22, 2023 Team Status: Inactive Member Role Status Dates Garrison Arzate MD Primary Care Provider Active Start: September 22, 2023 End: September 21carlton Walker DOAttrosalio ProviderActiveStart: September 22, 2023 End: September 22, 2023 Team Status: Inactive Member Role Status Dates Garrison Arzate MD Primary Care Provider Active Start: December 02, 2023 End: December 02, 2023Adolfo Parsons ProviderActiveStart: December 02, 2023 End: December 02, 2023 Team Status: Inactive Member Role Status Dates Manisha Sánchez APRN Attending Provider Active Start: December 02, 2023 End: December 02, 2023 Team Status: Inactive Member Role Status Dates Burce Walker DO Attending Provider Active Start : October 01, 2024 End: October 01, 2024SaSoila Fleming Care ProviderActiveStart: October 01, 2024 End: October 01, 2024Team MemberRelationshipSpecialtyStart DateEnd Date Garrison Arzate MD [address] [place] [address] PCP - [facility]10/09/24 Team Status: Inactive Member Role Status Dates Garrison Arzate MD Primary Care Provider Active Start: February 12, 2025 End: February 12, 2025DaMason Seay ProviderActiveStart: February 12, 2025 End: February 12, 2025Team MemberRelationshipSpecialtyStart DateEnd Date Garrison Arzate MD [address] [place] [address] PCP - [facility]10/09/24 Goals (unrecognized section and content) Goals may be documented in a n alternate section Reason for Visit (unrecogniz ed section and content) ReasonCommentsGynecologic Exam FOR RECORDS PERTAINING TO PATIENTS WHO [...] BE BASED ON THE PRIMARY CLINICAL RECORDS. [facility]. provides no warranty or guarantee of the accuracy or completeness of information in this document.
--- NOTE | 2025-04-24 15:07 | PM.CN ---
Consult Note: HPI Data of Consult Patient: known to practice within the last 3 years Consult date: 04/25/25 Requesting Physician: Anabel Allen NP Primary Care Provider: Non-Staff Physician, MD Consult Narrative Reason for consult: neck pain with BUE and BLE weakness and pain Narrative: 44yof who presents for evaluation of chronic low back and BLE pain > 12 months. also has longstanding neck, and BUE pain, had mastectomy in 2015, pain began around a similar time. has continued in a series of provider directed home exercises >6 weeks, without lasting benefit. uses otc meds and topicals, as needed. utilizing gabapentin 600mg TID without side effects, tylenol PRN, tizanidine prn. tens helpful. Patient was evaluated by NS who deemed her cervical stenosis unrelated to her pain and symptoms, and has referred her to neurology with pending upcoming appointment. PCP was able to work patient up for alternative causes through blood work per pt which was unremarkable, they have diagnosed her with fibromyalgia and started her on duloxetine 20mg. cc:: CC: Anabel Allen NP Review of Systems ROS Musculoskeletal Reports: back pain, neck pain and extremity pain PFSH PFS Medical History Anxiety ?F41.9 - Anxiety disorder, unspecified (ICD-10) HTN (hypertension) ?I10 - Essential (primary) hypertension (ICD-10) Surgical History History of hysterectomy ?Z90.710 - Acquired absence of both cervix and uterus (ICD-10) History of mastectomy ?Z90.10 - Acquired absence of unspecified breast and nipple (ICD-10) Meds Home Medications and Allergies Home Medications ?Medication ?Instructions ?Recorded ?Confirmed ?Type amlodipine 10 mg tablet (Norvasc) 10 mg PO DAILY 03/19/24 06/25/24 History clonazepam 0.5 mg tablet 0.5 mg PO Q8H 03/19/24 06/25/24 History lamotrigine 200 mg tablet 200 mg PO DAILY 03/19/24 06/25/24 History lamotrigine 25 mg tablet 50 mg PO QAM 03/19/24 06/25/24 History phentermine 37.5 mg tablet 37.5 mg PO DAILY 03/19/24 06/25/24 History (Adipex-P) tizanidine 4 mg tablet See Rx Instructions .Route 04/04/24 06/25/24 Rx .COMPLEX PRN muscle spasticity #180 tabs baclofen 5 mg tablet See Rx Instructions .Route 05/31/24 06/25/24 Rx .COMPLEX #60 tabs ibuprofen 200 mg tablet (Advil) 800 mg PO Q12H PRN pain 06/25/24 06/25/24 History gabapentin 600 mg tablet 600 mg PO TID #90 tabs 01/30/25 Rx gabapentin 600 mg tablet 600 mg PO TID #90 tabs 04/03/25 Rx Allergies Allergy/AdvReac Type Severity Reaction Status Date / Time morphine Allergy Intermediate Hives Verified 06/25/24 07:43 Exam Constitutional Documenting provider has reviewed patient's vital signs: yes Common normals: no apparent distress, oriented x3 and alert General appearance: cooperative HENMT Common normals: normocephalic, hearing grossly normal bilaterally and moist oral mucous membranes Head and scalp: normocephalic Eye Common normals: PERRL Pupil: PERRL Neck & C-Spine General: normal visual inspection Cervical spine: cervical ROM abnormal and pain with cervical ROM Chest Common normals: inspection of chest normal Respiratory Common normals: normal respiratory effort, no retractions and no use of accessory muscles Back & Pelvis Lumbar spine/lower back: pain with ROM, straight leg raise positive right and straight leg raise positive left; no lumbar spinal tenderness Other: pain following bilateral L4/5 with decreased sensation strength 4/5 in BLE diffuse hyperalgesia Neuro Common normals: oriented x3 Sensorium/orientation: alert Motor exam: strength 5/5 throughout and no movement abnormalities noted Psych Common normals: mental status grossly normal, thought process normal, cooperative, affect normal, speech normal and activity/motor behavior normal Speech: normal speech Thought process: normal thought process Results Imaging Cervical MRI: Attestation: I have reviewed the pertinent imaging results. Radiologist's impression: There is straightening of the normal cervical lordosis. The bones are otherwise in anatomic alignment. There is preservation of vertebral body heights. There is disc desiccation and mild disc height loss at C3-C4, C4-C5, and C5-C6. The marrow signal is within normal limits. The cord is normal in signal. No epidural or paraspinous fluid collection is appreciated. The visualized paraspinous soft tissues are within normal limits. The prevertebral soft tissues are within normal limits. At C2-C3: There is a normal disc, central canal, and neural foramen. At C3-C4: There is uncovertebral joint spurring contributing to mild bilateral neural foraminal narrowing and minimal spinal canal narrowing. At C4-C5: There is a broad-based disc bulge with facet hypertrophy and uncovertebral joint spurring contributing to mild to moderate bilateral neural foraminal narrowing. There is mild spinal canal narrowing. At C5-C6: There is a broad-based disc bulge with uncovertebral joint spurring and facet hypertrophy. There is moderate to severe left and moderate right neural foraminal narrowing with moderate spinal canal narrowing. At C6-C7: There is a broad-based disc bulge with uncovertebral joint spurring. There is moderate to severe left and mild right neural foraminal narrowing with mild spinal canal narrowing. At C7-T1: There is a normal disc, central canal, and neural foramen. Lumbar MRI : Attestation: I have reviewed the pertinent imaging results. Radiologist's impression: The bones of the lumbar spine are in anatomic alignment. There is preservation of vertebral body heights and intervertebral disc spaces. There is Modic type I endplate edema at L4-5. There is Modic type II fatty endplate degenerative change at L5-S1. There is disc desiccation and mild disc height loss at L2-L3. There is moderate disc height loss at L4-5 and L5-S1. The conus terminates at the T12-L1 intervertebral disc level. No epidural or paraspinous fluid collection is appreciated. At T12-L1: There is a normal disc, central canal, and neural foramen. At L1-L2: There is a normal disc, central canal, and neural foramen. At L2-L3: There is a broad-based disc bulge with facet hypertrophy. There is mild spinal canal stenosis with mild bilateral neural foraminal narrowing. At L3-L4: There is facet hypertrophy bilaterally without significant narrowing. At L4-L5: There is a broad-based disc bulge with bilateral facet hypertrophy. There is moderate spinal canal stenosis with mild left and moderate right neural foraminal narrowing. At L5-S1: There is a circumferential disc bulge with endplate osteophyte formation and facet hypertrophy. There is mild spinal canal narrowing with mild bilateral neural foraminal stenosis. Additional Findings Additional findings: If on a controlled substance or opioids, I have checked an [place] report on this patient and there are no aberrancies noted in the prescribing history.??If on a controlled substance or opioid a drug screen was completed and reviewed within the last year, and if there has not been a drug screen completed we ordered one today to monitor higher risk, state monitored pain medication use. As part of providing excellent, safe, comprehensive care, the following was completed at our patient's visit: 1. A medication reconciliation and review to ensure accurate knowledge of current/active medications, including asking our patients to inform us about any [id number] medications or herbal remedies/nutritional supplements/alternative remedies. 2. A review to specifically ensure our patients have had annual screening for screening for depression, screening for tobacco use, and screening for unhealthy alcohol use. For concerning screenings had a discussion with the patient, provided patient education, and recommended follow-up with primary care provider when appropriate. If patient noted with a risk of falling, they received education on strength, gait, and balance training to prevent future risk of falling. Portions of this note may have been carried over from the previous visit and updated as appropriate. Please note this office utilizes paper charting in addition to the electronic medical record. A list of current medications, vitals, and PMH is available there as the clinical staff outside of myself do not have access to [employer] charting during the clinic day operations. As part of providing quality comprehensive care the current medications, vitals, and PMH were reviewed in the paper chart. Assessment and Plan Assessment and Plan (1) Lumbar stenosis with neurogenic claudication: (2) Fibromyalgia: (3) Cervical stenosis of spinal canal: Assessment and Plan: progressive central stenosis at C5-6 from prior (4) Cervical radiculopathy: Assessment and Plan: 04-16-24 right C4-5 C5-6 TFESI with minimal relief per pt however chart review supports initially 50% improvement (5) Cervical spondylosis: Assessment and Plan: pt found significant benefit to bilateral C4-5 C5-6 MBBs, minimal relief from right and left C4-5 C5-6 RFA per pt (6) Myalgia: (7) Vertebrogenic low back pain: Assessment and Plan: modic vertebral changes noted at L4,5 on lumbar MRI Plan The patient has had over 3 months of moderate to severe neck, low back, BUE, BLE pain with functional impairment and inadequate response to conservative care including NSAIDS (unless there are contraindication such as concurrent blood thinners), multiple oral or topical pain medications, and home exercise program/physical therapy.? Patient has completed >6 weeks of guided home exercise program and/or formal physical therapy program without relief of their symptoms.? At this time dc duloxetine due to side effects, pt noting difficulty achieving orgasms. recommend pt stop for 1 month and once symptoms improve can trial savella for fibromyalgia. Pt continues to endorse symptoms related to spinal stenosis, however we will defer lumbar MAKENNA at this time with upcoming neurology consult and pending workup. can consider bilateral L4/5 TFESI in the future. continue tizanidine 4-8mg hs prn pain/spasms. continue gabapentin 600mg TID. recommend second opinion with NS consultation in the future due to pts age, imaging findings, and poor quality of life. continue HEP as tolerated. nurse call in 1 month to evaluate if side effects from duloxetine have resolved prior to initiating savella.
== END 2025-04-24 14:51 | disposition home or self-care (01) ==
LOC: PM 14:53
PROVIDERS: Visit Provider Nurse Practitioner
DX: M48.02 Spinal stenosis, cervical region (principal); M54.12 Radiculopathy, cervical region; M48.062 Spinal stenosis, lumbar region with neurogenic claudication; M47.812 Spondylosis without myelopathy or radiculopathy, cervical region; M79.10 Myalgia, unspecified site; M54.51 Vertebrogenic low back pain
CPT/HCPCS: G0463